=== PATIENT | female | born 1960 | race African-American/Black ===

== ENCOUNTER 2018-05-18 13:24 | Inpatient (IN) | payer MEDICAID ==
[~2018-05-18] VITALS: Ht 167.6 cm; Wt 63.5 kg
[2018-05-18 13:51] VITALS: BP 107/62
--- NOTE | 2018-05-18 13:58 | Emergency Room Report ---
History of Present Illness General Chief Complaint: Edema Source: Patient, EMS Present Illness HPI Patient presents with right lower leg pain and redness. She's been asking to be started on antibiotics. Burning pain and severe. It doesn't radiate to the hip. C/) some shortness of breath and a history of congestive heart failure. Pain is rated 10/10 bilateral legs, worse on right. No fevers or chills. The patient complains of some shortness of breath. This is more when she is recumbent and also with exertion. She denies any chest pain. There is no nausea vomiting or diarrhea however she complains about constipation and some dysuria. She states she is not on any medication for her heart failure. No headache, depression, bruising, joint pain, back pain. H/O bipolar disorder Allergies: Coded Allergies: CEPHALEXIN (Verified Allergy, Unknown, 05/18/18) CEPHALOSPORINS (Verified Allergy, Unknown, 05/18/18) ERYTHROMYCIN BASE (Verified Allergy, Unknown, 05/18/18) GABAPENTIN (Verified Allergy, Unknown, 05/18/18) Patient History Past Medical History: see triage record Social History: Denies: smoking Social History Narrative [facility] facility Reviewed Nursing Documentation: PMH: Agreed; PSxH: Agreed Review of Systems All Other Systems: negative except mentioned in HPI Physical Exam Vital Signs Date Time Temp Pulse Resp B/P (MAP) Pulse Ox O2 Delivery O2 Flow Rate FiO2 05/18/18 13:41 98.8 82 18 107/62 98 Room Air Sp02 EP Interpretation: reviewed, normal General Appearance: well appearing, no apparent distress, GCS 15 Head: normocephalic Eyes: bilateral eye normal inspection, bilateral eye PERRL ENT: moist mucus membranes Neck: supple Respiratory: lungs clear, normal breath sounds Cardiovascular #1: regular rate, rhythm, edema - bilat, worse R than L Cardiovascular #2: 2+ radial (R), 2+ dorsalis pedis (R), 2+ dorsalis pedis (L) Gastrointestinal: normal inspection, normal bowel sounds, non tender, no mass, non-distended Musculoskeletal: back normal, normal range of motion, Marcelo's Sign negative, swelling, tender - LE bilat Neurologic: alert, oriented x3, grossly normal Psychiatric: mood/affect normal Skin: warm/dry, other - erythema bilat LE worse R Medical Decision Making Diagnostic Impression: Primary Impression: Cellulitis Qualified Codes: L03.115 - Cellulitis of right lower limb Additional Impressions: Edema Qualified Codes: R60.9 - Edema, unspecified UTI (urinary tract infection) Qualified Codes: N39.0 - Urinary tract infection, site not specified ER Course Patient presents with right lower leg pain and edema. I differential includes cellulitis, DVT, exacerbation of CHF amongst others. Clinically this looks like cellulitis. She will be evaluated with blood cultures, EKG, chest x-ray and labs including lactate. She will be started on antibiotics and given medication for pain. With h/o CHF, judicious fluids. EKG without injury. CXR inc cor. Labs with low WBC. Min elevation BNP. CMP with minimally low potassium. Pyuria. Patient improved with analgesia. Needs IV antibiotics and re-evaluation of cellulitis. Based on exam, doubt DVT. Admit med Dr. Kraft. Laboratory Tests Test 05/18/18 14:30 05/18/18 15:30 White Blood Count 2.9 K/UL (4.8-10.8) L Red Blood Count 4.54 M/UL (4.20-5.40) Hemoglobin 12.0 G/DL (12.0-16.0) Hematocrit 37.6 % (37.0-47.0) Mean Corpuscular Volume 83 FL (80-99) Mean Corpuscular Hemoglobin 26.4 PG (27.0-31.0) L Mean Corpuscular Hemoglobin Concent 31.9 G/DL (32.0-36.0) L Red Cell Distribution Width 11.1 % (11.6-14.8) L Platelet Count 252 K/UL (150-450) Mean Platelet Volume 8.2 FL (6.5-10.1) Neutrophils (%) (Auto) % (45.0-75.0) Lymphocytes (%) (Auto) % (20.0-45.0) Monocytes (%) (Auto) % (1.0-10.0) Eosinophils (%) (Auto) % (0.0-3.0) Basophils (%) (Auto) % (0.0-2.0) Differential Total Cells Counted 100 Neutrophils % (Manual) 52 % (45-75) Lymphocytes % (Manual) 21 % (20-45) Monocytes % (Manual) 18 % (1-10) H Eosinophils % (Manual) 9 % (0-3) H Basophils % (Manual) 0 % (0-2) Band Neutrophils 0 % (0-8) Platelet Estimate Adequate Platelet Morphology Normal Microcytosis 1+ Prothrombin Time 10.5 SEC (9.30-11.50) Prothrombin Time INR 1.0 (0.9-1.1) PTT 32 SEC (23-33) Sodium Level 141 MMOL/L (136-145) Potassium Level 3.2 MMOL/L (3.5-5.1) L Chloride Level 104 MMOL/L (98-107) Carbon Dioxide Level 32 MMOL/L (21-32) Anion Gap 5 mmol/L (5-15) Blood Urea Nitrogen 12 mg/dL (7-18) Creatinine 0.7 MG/DL (0.55-1.30) Estimate Glomerular Filtration Rate > 60 mL/min (>60) Glucose Level 104 MG/DL (74-106) Lactic Acid Level 1.30 mmol/L (0.4-2.0) Calcium Level 9.0 MG/DL (8.5-10.1) Magnesium Level 1.9 MG/DL (1.8-2.4) Total Bilirubin 0.5 MG/DL (0.2-1.0) Aspartate Amino Transferase (AST) 29 U/L (15-37) Alanine Aminotransferase (ALT) 29 U/L (12-78) Alkaline Phosphatase 70 U/L (46-116) Total Creatine Kinase 475 U/L (26-308) H Troponin I 0.000 ng/mL (0.000-0.056) Pro-B-Type Natriuretic Peptide 194 pg/mL (0-125) H Total Protein 8.6 G/DL (6.4-8.2) H Albumin 3.2 G/DL (3.4-5.0) L Globulin 5.4 g/dL Albumin/Globulin Ratio 0.6 (1.0-2.7) L Urine Color Brown Urine Appearance Clear Urine pH 6 (4.5-8.0) Urine Specific [place] 1.020 (1.005-1.035) Urine Protein 1+ (NEGATIVE) H Urine Glucose (UA) Negative (NEGATIVE) Urine Ketones Negative (NEGATIVE) Urine Blood Negative (NEGATIVE) Urine Nitrite Negative (NEGATIVE) Urine Bilirubin Negative (NEGATIVE) Urine Urobilinogen 1 MG/DL (0.0-1.0) H Urine Leukocyte Esterase 2+ (NEGATIVE) H Urine RBC 0 /HPF (0 - 2) Urine WBC 5-10 /HPF (0 - 2) H Urine Squamous Epithelial Cells Few /LPF (NONE/OCC) Urine Bacteria Few /HPF (NONE) EKG Diagnostic Results Rate: normal Rhythm: NSR ST Segments: no acute changes Rhythm Strip Diag. Results EP Interpretation: yes Rhythm: NSR, no PVC's, no ectopy Chest X-Ray Diagnostic Results Chest X-Ray Diagnostic Results : Chest X-Ray Ordered: Yes # of Views/Limited/Complete: 1 View Indication: Other EP Interpretation: Yes Interpretation: no consolidation, no effusion, no pneumothorax, other - bullit Impression: Other Electronically Signed by: Electronically signed by Earl Toledo MD Last Vital Signs Date Time Temp Pulse Resp B/P (MAP) Pulse Ox O2 Delivery O2 Flow Rate FiO2 05/19/18 00:01 98.1 80 19 120/70 (87) 98 05/18/18 22:23 Room Air Status: improved Disposition: ADMITTED INPATIENT Condition: Serious Earl Toledo MD May 18, 2018 13:58
[2018-05-18] MEDS ORDERED: Vancomycin 1 GM in NS 275 ML IV ONE (14:00)
[2018-05-18] MEDS ORDERED: Morphine Sulfate 4mg/ml Inj (IV/IM USE ONLY) IVP ONE ×2 (14:00→16:45)
[2018-05-18] MEDS ORDERED: Piperacillin/Tazobactam 3.375 GM in NS 110 ML IVPB ONE (14:00)
[2018-05-18] MEDS ORDERED: BETIMOL5 M2 OP (14:25)
[2018-05-18] MEDS ORDERED: ACETAMINOPHEN325 M1 ORAL (14:25)
[2018-05-18] MEDS ORDERED: LATANOPROST2.5 ML BOTH EYES (14:25)
[2018-05-18] MEDS ORDERED: NORCO 10-325 T1 EACH ORAL (14:25)
[2018-05-18] MEDS ORDERED: VITAMIN B-1100 MG ORAL (14:25)
[2018-05-18] MEDS ORDERED: LYRICA75 M1 ORAL ×2 (14:25→17:53)
[2018-05-18] MEDS ORDERED: BRIMONIDINE TART5 ML BOTH EYES ×2 (14:25→17:53)
[2018-05-18 15:01] LABS: HEMATOCRIT 37.6 % (37.0-47.0); MEAN CORPUSCULAR VOLUME 83 FL (80-99); PLATELET COUNT 252 K/UL (150-450); RED BLOOD COUNT 4.54 M/UL (4.20-5.40); RED CELL DISTRIBUTION WIDTH 11.1 % (11.6-14.8); WHITE BLOOD COUNT 2.9 K/UL (4.8-10.8)
[2018-05-18 15:24] LABS: ANION GAP 5 mmol/L (5-15); BLOOD UREA NITROGEN 12 mg/dL (7-18); CARBON DIOXIDE 32 MMOL/L (21-32); CHLORIDE 104 MMOL/L (98-107); CREATININE 0.7 MG/DL (0.55-1.30); POTASSIUM 3.2 MMOL/L (3.5-5.1); SODIUM 141 MMOL/L (136-145)
[2018-05-18 15:35] LABS: ALANINE AMINOTRANSFERASE 29 U/L (12-78); ALBUMIN 3.2 G/DL (3.4-5.0); ALBUMIN/GLOBULIN RATIO 0.6 (1.0-2.7); ALKALINE PHOSPHATASE 70 U/L (46-116); ASPARTATE AMINO TRANSFERASE 29 U/L (15-37); BILIRUBIN,TOTAL 0.5 MG/DL (0.2-1.0); CREATINE KINASE 475 U/L (26-308)
[2018-05-18 15:40] VITALS: BP 110/70
[2018-05-18 15:52] LABS: APPEARANCE,URINE CLEAR; BILIRUBIN, URINE NEGATIVE (NEGATIVE); COLOR,URINE BROWN; GLUCOSE, URINE (UA) NEGATIVE (NEGATIVE); KETONES,URINE NEGATIVE (NEGATIVE); LEUKOCYTE ESTERASE ,URINE 2+ (NEGATIVE); NITRITE,URINE NEGATIVE (NEGATIVE); PH,URINE 6 (4.5-8.0); PROTEIN,URINE 1+ (NEGATIVE); UROBILINOGEN,URINE 1 MG/DL (0.0-1.0)
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
[2018-05-18] MEDS ORDERED: TIMOPTIC 0.5%1 DROP BOTH EYES (17:53)
[2018-05-18] MEDS ORDERED: FOLIC ACID1 MG ORAL (17:53)
[2018-05-18 18:00] VITALS: BP 103/46
[2018-05-18] MEDS ORDERED: Miralax 17gm pkt ORAL PRN (19:00)
[2018-05-18] MEDS ORDERED: Nitroglycerin Subl 0.4mg tab SL PRN (19:00)
[2018-05-18] MEDS ORDERED: Albuterol/Ipratropium 3ml neb HHN PRN (19:00)
[2018-05-18 20:45] VITALS: BP 99/48
[2018-05-18] MEDS: Heparin 5000 units/ml inj SUBQ SCH ×2 (21:00→22:28)
[2018-05-18 21:56] VITALS: BP 101/48
[2018-05-18 22:24] VITALS: BP 109/78
--- NOTE | 2018-05-18 22:55 | History & Physical ---
History and Physical History & Physicial Last 24 Hour Vital Signs Date Time Temp Pulse Resp B/P (MAP) Pulse Ox O2 Delivery O2 Flow Rate FiO2 05/18/18 22:24 98.5 81 19 109/78 (88) 97 05/18/18 22:09 98.0 102 18 101/48 100 Room Air 05/18/18 21:56 98.0 102 18 101/48 100 Room Air 05/18/18 20:45 97.8 96 16 99/48 98 Room Air 05/18/18 18:00 84 18 103/46 99 Room Air 05/18/18 15:40 97.8 76 20 110/70 99 Room Air 05/18/18 15:27 98.7 05/18/18 15:27 98.7 05/18/18 13:51 98.8 18 107/62 98 Room Air 05/18/18 13:51 82 18 Room Air 05/18/18 13:41 98.8 82 18 107/62 98 Room Air Niall Kraft MD May 18, 2018 22:55
[2018-05-19 00:01] VITALS: BP 120/70
[2018-05-19] MEDS: Morphine Sulfate 2mg/ml Inj IVP PRN ×4 (01:28→20:07)
[2018-05-19] MEDS ORDERED: Vancomycin 1 GM in D5W 275 ML IVPB SCH (02:00)
[2018-05-19 04:00] VITALS: BP 128/75
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
[2018-05-19 08:00] VITALS: BP 94/51
[2018-05-19] MEDS: Heparin 5000 units/ml inj SUBQ SCH ×2 (09:00→20:10)
[2018-05-19] MEDS: Timolol 0.5% Op Soln 2.5ml BOTH EYES SCH ×2 (09:27→18:17)
[2018-05-19] MEDS: Lyrica 75mg cap ORAL SCH ×2 (09:28→18:17)
[2018-05-19 12:00] VITALS: BP 104/63
[2018-05-19 13:07] LABS: HEMATOCRIT 39.3 % (37.0-47.0); HEMOGLOBIN 12.7 G/DL (12.0-16.0); MEAN CORPUSCULAR VOLUME 83 FL (80-99); PLATELET COUNT 268 K/UL (150-450); RED BLOOD COUNT 4.73 M/UL (4.20-5.40); RED CELL DISTRIBUTION WIDTH 11.1 % (11.6-14.8); WHITE BLOOD COUNT 2.4 K/UL (4.8-10.8)
[2018-05-19 13:32] LABS: ALANINE AMINOTRANSFERASE 27 U/L (12-78); ALBUMIN 3.2 G/DL (3.4-5.0); ALBUMIN/GLOBULIN RATIO 0.6 (1.0-2.7); ALKALINE PHOSPHATASE 71 U/L (46-116); ANION GAP 7 mmol/L (5-15); ASPARTATE AMINO TRANSFERASE 39 U/L (15-37); BILIRUBIN,TOTAL 0.5 MG/DL (0.2-1.0); BLOOD UREA NITROGEN 6 mg/dL (7-18); CALCIUM 9.3 MG/DL (8.5-10.1); CARBON DIOXIDE 30 MMOL/L (21-32); CHLORIDE 104 MMOL/L (98-107); CREATININE 0.7 MG/DL (0.55-1.30); POTASSIUM 3.7 MMOL/L (3.5-5.1); SODIUM 141 MMOL/L (136-145)
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
--- NOTE | 2018-05-19 14:48 | Consultation ---
History of Present Illness General Date patient seen: May 19, 2018 Chief Complaint: Edema Present Illness HPI 57 year old female with hx of bipolar disorder, limited mobility, prison resident admitted with CC of pain and swelling in lower extremity. Pt was diagnosed to have cellulitis and admitted for further treatment. Allergies: Coded Allergies: CEPHALEXIN (Verified Allergy, Unknown, 05/18/18) CEPHALOSPORINS (Verified Allergy, Unknown, 05/18/18) ERYTHROMYCIN BASE (Verified Allergy, Unknown, 05/18/18) GABAPENTIN (Verified Allergy, Unknown, 05/18/18) Medication History Scheduled Brimonidine Tartrate* (Alphagan*), 1 DROP BOTH EYES BID, (Reported) Folic Acid* (Folic Acid*), 1 MG ORAL DAILY, (Reported) Latanoprost* (Xalatan*), 1 DROP BOTH EYES BEDTIME, (Reported) Pregabalin* (Lyrica*), 75 MG ORAL BID, (Reported) Thiamine Hcl* (Vitamin B-1*), 100 MG ORAL DAILY, (Reported) Timolol Maleate (Timolol Maleate), 1 DROP BOTH EYES TWICE A DAY, (Reported) Scheduled PRN Acetaminophen* (Acetaminophen 325MG Tablet*), 650 MG ORAL Q4H PRN for For Pain, (Reported) Hydrocodone Bit/Acetaminophen 10-325* ([place] 10-325*), 1 TAB ORAL Q4H PRN for For Pain, (Reported) Patient History Healthcare decision maker Resuscitation status Full Code Advanced Directive on File Yes Past Medical/Surgical History Past Medical/Surgical History: (1) Bipolar disorder (2) Limited mobility in bed Review of Systems All Other Systems: negative except mentioned in HPI Physical Exam General Appearance: cachetic Lines, tubes and drains: peripheral HEENT: normocephalic Respiratory/Chest: chest wall non-tender, lungs clear, normal breath sounds Cardiovascular/Chest: normal peripheral pulses Abdomen: normal bowel sounds Genitourinary/Rectal: normal genital exam Extremities: normal range of motion Skin Exam: normal pigmentation Last 24 Hour Vital Signs Date Time Temp Pulse Resp B/P (MAP) Pulse Ox O2 Delivery O2 Flow Rate FiO2 05/19/18 12:00 98.0 75 20 104/63 (77) 98 05/19/18 11:54 97.9 05/19/18 09:58 97.9 05/19/18 09:00 Room Air 05/19/18 08:00 99.0 96 20 94/51 (65) 96 05/19/18 04:00 97.9 75 18 128/75 (92) 96 05/19/18 00:01 98.1 80 19 120/70 (87) 98 05/18/18 22:24 98.5 81 19 109/78 (88) 97 05/18/18 22:23 Room Air 05/18/18 22:09 98.0 102 18 101/48 100 Room Air 05/18/18 21:56 98.0 102 18 101/48 100 Room Air 05/18/18 20:45 97.8 96 16 99/48 98 Room Air 05/18/18 18:00 84 18 103/46 99 Room Air 05/18/18 15:40 97.8 76 20 110/70 99 Room Air 05/18/18 15:27 98.7 05/18/18 15:27 98.7 Intake and Output 05/18/18 05/19/18 19:00 07:00 Intake Total 293.3 ml 515.0 ml Balance 293.3 ml 515.0 ml Intake Oral 240 ml IV Total 293.3 ml 275.0 ml # Voids 1 2 Laboratory Tests Test 05/18/18 15:30 05/19/18 12:30 Urine Color Brown Urine Appearance Clear Urine pH 6 (4.5-8.0) Urine Specific [place] 1.020 (1.005-1.035) Urine Protein 1+ (NEGATIVE) H Urine Glucose (UA) Negative (NEGATIVE) Urine Ketones Negative (NEGATIVE) Urine Blood Negative (NEGATIVE) Urine Nitrite Negative (NEGATIVE) Urine Bilirubin Negative (NEGATIVE) Urine Urobilinogen 1 MG/DL (0.0-1.0) H Urine Leukocyte Esterase 2+ (NEGATIVE) H Urine RBC 0 /HPF (0 - 2) Urine WBC 5-10 /HPF (0 - 2) H Urine Squamous Epithelial Cells Few /LPF (NONE/OCC) Urine Bacteria Few /HPF (NONE) White Blood Count 2.4 K/UL (4.8-10.8) L Red Blood Count 4.73 M/UL (4.20-5.40) Hemoglobin 12.7 G/DL (12.0-16.0) Hematocrit 39.3 % (37.0-47.0) Mean Corpuscular Volume 83 FL (80-99) Mean Corpuscular Hemoglobin 26.8 PG (27.0-31.0) L Mean Corpuscular Hemoglobin Concent 32.3 G/DL (32.0-36.0) Red Cell Distribution Width 11.1 % (11.6-14.8) L Platelet Count 268 K/UL (150-450) Mean Platelet Volume 7.2 FL (6.5-10.1) Neutrophils (%) (Auto) % (45.0-75.0) Lymphocytes (%) (Auto) % (20.0-45.0) Monocytes (%) (Auto) % (1.0-10.0) Eosinophils (%) (Auto) % (0.0-3.0) Basophils (%) (Auto) % (0.0-2.0) Differential Total Cells Counted 100 Neutrophils % (Manual) 25 % (45-75) L Lymphocytes % (Manual) 29 % (20-45) Monocytes % (Manual) 39 % (1-10) H Eosinophils % (Manual) 6 % (0-3) H Basophils % (Manual) 1 % (0-2) Band Neutrophils 0 % (0-8) Platelet Estimate Adequate Platelet Morphology Normal Red Blood Cell Morphology Normal Sodium Level 141 MMOL/L (136-145) Potassium Level 3.7 MMOL/L (3.5-5.1) Chloride Level 104 MMOL/L (98-107) Carbon Dioxide Level 30 MMOL/L (21-32) Anion Gap 7 mmol/L (5-15) Blood Urea Nitrogen 6 mg/dL (7-18) L Creatinine 0.7 MG/DL (0.55-1.30) Estimat Glomerular Filtration Rate > 60 mL/min (>60) Glucose Level 98 MG/DL (74-106) Calcium Level 9.3 MG/DL (8.5-10.1) Total Bilirubin 0.5 MG/DL (0.2-1.0) Aspartate Amino Transf (AST/SGOT) 39 U/L (15-37) H Alanine Aminotransferase (ALT/SGPT) 27 U/L (12-78) Alkaline Phosphatase 71 U/L (46-116) Total Protein 8.8 G/DL (6.4-8.2) H Albumin 3.2 G/DL (3.4-5.0) L Globulin 5.6 g/dL Albumin/Globulin Ratio 0.6 (1.0-2.7) L Microbiology Date/Time Source Procedure Growth Status 05/18/18 17:10 Rectum Received Height (Feet): 5 Height (Inches): 6.00 Weight (Pounds): 140 Medications Current Medications Medications (Trade) Dose Ordered Sig/Mejia Route PRN Reason Start Time Stop Time Status Last Admin Dose Admin Acetaminophen (Tylenol) 650 mg Q4H PRN ORAL fever (temp>100.5F) 05/18/18 19:00 06/17/18 18:59 Albuterol/ Ipratropium (Albuterol/ Ipratropium) 3 ml Q4H PRN HHN Shortness of Breath 05/18/18 19:00 05/23/18 18:59 Dextrose (Dextrose 50%) 25 ml Q30M PRN IV Hypoglycemia 05/18/18 19:00 06/17/18 18:55 Dextrose (Dextrose 50%) 50 ml Q30M PRN IV hypoglycemia 05/18/18 19:00 06/17/18 18:59 Folic Acid (Folate) 1 mg DAILY ORAL 05/19/18 09:00 06/18/18 08:59 05/19/18 09:28 Heparin Sodium (Porcine) (Heparin 5000 units/ml) 5,000 units EVERY 12 HOURS SUBQ 05/18/18 21:00 06/17/18 20:59 Morphine Sulfate (Morphine Sulfate) 2 mg Q4H PRN IVP Moderate Pain (Pain Scale 4-6) 05/18/18 19:00 05/25/18 18:59 05/19/18 11:24 Nitroglycerin (Ntg) 0.4 mg Q5M PRN SL Prn Chest Pain 05/18/18 19:00 06/17/18 18:59 Ondansetron HCl (Zofran) 4 mg Q6H PRN IVP Nausea & Vomiting 05/18/18 19:00 06/17/18 18:59 Polyethylene Glycol (Miralax) 17 gm DAILYPRN PRN ORAL Constipation 05/18/18 19:00 06/17/18 18:59 Pregabalin (Lyrica) 75 mg BID ORAL 05/19/18 09:00 06/18/18 08:59 05/19/18 09:28 Temazepam (Restoril) 15 mg HSPRN PRN ORAL Insomnia 05/18/18 19:00 05/25/18 18:59 Timolol Maleate (Timoptic 0.5% Op Soln) 1 drop TWICE A DAY BOTH EYES 05/19/18 09:00 06/18/18 08:59 05/19/18 09:27 Vancomycin HCl (Vanco rx to dose) 1 ea DAILY PRN MISC per pharmacy 05/19/18 07:00 06/18/18 06:59 Vancomycin HCl 500 mg/Dextrose 110 ml @ 110 mls/hr Q12H IVPB 05/19/18 17:00 05/24/18 16:59 Assessment/Plan Problem List: (1) Cellulitis ICD Codes: L03.90 - Cellulitis, unspecified SNOMED: 216799370 Qualifiers: Qualified Codes: L03.115 - Cellulitis of right lower limb (2) Limited mobility in bed SNOMED: 545520757 (3) Bipolar disorder ICD Codes: F31.9 - Bipolar disorder, unspecified SNOMED: 66996838 (4) UTI (urinary tract infection) ICD Codes: N39.0 - Urinary tract infection, site not specified SNOMED: 05006608, 472377007 Qualifiers: Qualified Codes: N39.0 - Urinary tract infection, site not specified Assessment/Plan iv abx check cultures ID to see psych evaluation check electrolytes Christine Wallis MD May 19, 2018 14:48
--- NOTE | 2018-05-19 15:49 | Internal Med Progress Note ---
Subjective Physician Name Niall Kraft Attending Physician Niall Kraft MD Current Medications Medications (Trade) Dose Ordered Sig/Mejia Route PRN Reason Start Time Stop Time Status Last Admin Dose Admin Acetaminophen (Tylenol) 650 mg Q4H PRN ORAL fever (temp>100.5F) 05/18/18 19:00 06/17/18 18:59 Albuterol/ Ipratropium (Albuterol/ Ipratropium) 3 ml Q4H PRN HHN Shortness of Breath 05/18/18 19:00 05/23/18 18:59 Dextrose (Dextrose 50%) 25 ml Q30M PRN IV Hypoglycemia 05/18/18 19:00 06/17/18 18:55 Dextrose (Dextrose 50%) 50 ml Q30M PRN IV hypoglycemia 05/18/18 19:00 06/17/18 18:59 Folic Acid (Folate) 1 mg DAILY ORAL 05/19/18 09:00 06/18/18 08:59 05/19/18 09:28 Heparin Sodium (Porcine) (Heparin 5000 units/ml) 5,000 units EVERY 12 HOURS SUBQ 05/18/18 21:00 06/17/18 20:59 Morphine Sulfate (Morphine Sulfate) 2 mg Q4H PRN IVP Moderate Pain (Pain Scale 4-6) 05/18/18 19:00 05/25/18 18:59 05/19/18 11:24 Nitroglycerin (Ntg) 0.4 mg Q5M PRN SL Prn Chest Pain 05/18/18 19:00 06/17/18 18:59 Ondansetron HCl (Zofran) 4 mg Q6H PRN IVP Nausea & Vomiting 05/18/18 19:00 06/17/18 18:59 Polyethylene Glycol (Miralax) 17 gm DAILYPRN PRN ORAL Constipation 05/18/18 19:00 06/17/18 18:59 Pregabalin (Lyrica) 75 mg BID ORAL 05/19/18 09:00 06/18/18 08:59 05/19/18 09:28 Temazepam (Restoril) 15 mg HSPRN PRN ORAL Insomnia 05/18/18 19:00 05/25/18 18:59 Timolol Maleate (Timoptic 0.5% Op Soln) 1 drop TWICE A DAY BOTH EYES 05/19/18 09:00 06/18/18 08:59 05/19/18 09:27 Vancomycin HCl (Vanco rx to dose) 1 ea DAILY PRN MISC per pharmacy 05/19/18 07:00 06/18/18 06:59 Vancomycin HCl 500 mg/Dextrose 110 ml @ 110 mls/hr Q12H IVPB 05/19/18 17:00 05/24/18 16:59 Allergies: Coded Allergies: CEPHALEXIN (Verified Allergy, Unknown, 05/18/18) CEPHALOSPORINS (Verified Allergy, Unknown, 05/18/18) ERYTHROMYCIN BASE (Verified Allergy, Unknown, 05/18/18) GABAPENTIN (Verified Allergy, Unknown, 05/18/18) Subjective awake, more alert, responsive, C/O lower body pain. Objective Last Vital Signs Date Time Temp Pulse Resp B/P (MAP) Pulse Ox O2 Delivery O2 Flow Rate FiO2 05/19/18 12:00 98.0 75 20 104/63 (77) 98 05/19/18 09:00 Room Air Laboratory Tests Test 05/19/18 12:30 White Blood Count 2.4 K/UL (4.8-10.8) L Red Blood Count 4.73 M/UL (4.20-5.40) Hemoglobin 12.7 G/DL (12.0-16.0) Hematocrit 39.3 % (37.0-47.0) Mean Corpuscular Volume 83 FL (80-99) Mean Corpuscular Hemoglobin 26.8 PG (27.0-31.0) L Mean Corpuscular Hemoglobin Concent 32.3 G/DL (32.0-36.0) Red Cell Distribution Width 11.1 % (11.6-14.8) L Platelet Count 268 K/UL (150-450) Mean Platelet Volume 7.2 FL (6.5-10.1) Neutrophils (%) (Auto) % (45.0-75.0) Lymphocytes (%) (Auto) % (20.0-45.0) Monocytes (%) (Auto) % (1.0-10.0) Eosinophils (%) (Auto) % (0.0-3.0) Basophils (%) (Auto) % (0.0-2.0) Differential Total Cells Counted 100 Neutrophils % (Manual) 25 % (45-75) L Lymphocytes % (Manual) 29 % (20-45) Monocytes % (Manual) 39 % (1-10) H Eosinophils % (Manual) 6 % (0-3) H Basophils % (Manual) 1 % (0-2) Band Neutrophils 0 % (0-8) Platelet Estimate Adequate Platelet Morphology Normal Red Blood Cell Morphology Normal Sodium Level 141 MMOL/L (136-145) Potassium Level 3.7 MMOL/L (3.5-5.1) Chloride Level 104 MMOL/L (98-107) Carbon Dioxide Level 30 MMOL/L (21-32) Anion Gap 7 mmol/L (5-15) Blood Urea Nitrogen 6 mg/dL (7-18) L Creatinine 0.7 MG/DL (0.55-1.30) Estimat Glomerular Filtration Rate > 60 mL/min (>60) Glucose Level 98 MG/DL (74-106) Calcium Level 9.3 MG/DL (8.5-10.1) Total Bilirubin 0.5 MG/DL (0.2-1.0) Aspartate Amino Transf (AST/SGOT) 39 U/L (15-37) H Alanine Aminotransferase (ALT/SGPT) 27 U/L (12-78) Alkaline Phosphatase 71 U/L (46-116) Total Protein 8.8 G/DL (6.4-8.2) H Albumin 3.2 G/DL (3.4-5.0) L Globulin 5.6 g/dL Albumin/Globulin Ratio 0.6 (1.0-2.7) L Microbiology Date/Time Source Procedure Growth Status 05/18/18 17:10 Rectum Received Intake and Output 05/18/18 05/19/18 19:00 07:00 Intake Total 293.3 ml 515.0 ml Balance 293.3 ml 515.0 ml Intake Oral 240 ml IV Total 293.3 ml 275.0 ml # Voids 1 2 Objective GENERAL: The patient is alert and oriented, but very forgetful. HEAD AND NECK: Pupils are reactive to light. Anicteric. NECK: Supple. No JVD. LUNGS: Good air entry. fair inspiratory effort. No wheeze or rhonchi. HEART: S1 and S2. Distant heart sounds. No murmur or gallops. ABDOMEN: Soft, nondistended, and nontender. Positive bowel sounds. EXTREMITIES: No cyanosis or clubbing. Contracted and weakness of bilateral lower extremities. Bilateral lower extremity, less edema, right worse than left and erythema was noted in the bilateral lower extremity, right greater than left. RECTAL: Refused and deferred. GENITOURINARY: Refused and deferred. Assessment/Plan Assessment/Plan ASSESSMENT: 1. Bilateral lower extremity cellulitis. 2. History of bipolar disorder. 3. Neuralgia with neuritis. PLAN: 1. In medical floor. 2. Broad-spectrum antibiotic with vancomycin. 3. The patient had a cephalosporin allergy. 4. Code status: DNR 5. heparin for DVT prophylaxis. 6. Follow up with Dr. Wallis consultation and Psychiatry consultation with Niall Frankel MD May 19, 2018 15:49
[2018-05-19 15:59] VITALS: BP 109/65
--- NOTE | 2018-05-19 16:09 | Cardiology Report ---
APPROVED REPORT EKG Measurement Heart [id number] [id number] Normal sinus rhythm Nonspecific ST and T wave abnormality Abnormal ECG
[2018-05-19] MEDS: Vancomycin 500mg/D5W 110ml IVPB SCH ×2 (17:47)
[2018-05-19 20:00] VITALS: BP 104/64
--- NOTE | 2018-05-20 01:04 | Consultation ---
History of Present Illness General Chief Complaint: Edema Present Illness HPI 7-year-old female with past medical history of bipolar d/ofailure to thrive, anemia, restlessness, agitation, neuralgia, bipolar disorder, and mood disorder, who was presented to hospital from [facility] the pt is agitated and has impairment of cognition. the pt refuses meds and care at times. the pt has poor insight. Allergies: Coded Allergies: CEPHALEXIN (Verified Allergy, Unknown, 05/18/18) CEPHALOSPORINS (Verified Allergy, Unknown, 05/18/18) ERYTHROMYCIN BASE (Verified Allergy, Unknown, 05/18/18) GABAPENTIN (Verified Allergy, Unknown, 05/18/18) Medication History Scheduled Brimonidine Tartrate* (Alphagan*), 1 DROP BOTH EYES BID, (Reported) Folic Acid* (Folic Acid*), 1 MG ORAL DAILY, (Reported) Latanoprost* (Xalatan*), 1 DROP BOTH EYES BEDTIME, (Reported) Pregabalin* (Lyrica*), 75 MG ORAL BID, (Reported) Thiamine Hcl* (Vitamin B-1*), 100 MG ORAL DAILY, (Reported) Timolol Maleate (Timolol Maleate), 1 DROP BOTH EYES TWICE A DAY, (Reported) Scheduled PRN Acetaminophen* (Acetaminophen 325MG Tablet*), 650 MG ORAL Q4H PRN for For Pain, (Reported) Hydrocodone Bit/Acetaminophen 10-325* ([place] 10-325*), 1 TAB ORAL Q4H PRN for For Pain, (Reported) Patient History Limited by: medical condition History Provided By: Patient, Medical Record Healthcare decision maker Resuscitation status Full Code Advanced Directive on File Yes Past Medical/Surgical History Past Medical/Surgical History: (1) Edema (2) UTI (urinary tract infection) (3) Bipolar disorder (4) Limited mobility in bed (5) Cellulitis Review of Systems Psychiatric: Reports: prior hx, anxiety, depressed feelings, emotional problems Physical Exam General Appearance: alert, agitated Neurologic: oriented x 3, responsive, depressed affect Last 24 Hour Vital Signs Date Time Temp Pulse Resp B/P (MAP) Pulse Ox O2 Delivery O2 Flow Rate FiO2 05/19/18 20:37 98.1 05/19/18 20:00 78 18 Room Air 21 05/19/18 20:00 Room Air 05/19/18 20:00 97.4 79 20 104/64 (77) 100 05/19/18 18:47 98.1 05/19/18 15:59 98.1 78 20 109/65 (80) 100 05/19/18 12:00 98.0 75 20 104/63 (77) 98 05/19/18 09:00 Room Air 05/19/18 08:00 99.0 96 20 94/51 (65) 96 05/19/18 04:00 97.9 75 18 128/75 (92) 96 Intake and Output 05/19/18 05/20/18 19:00 07:00 Intake Total 1085 ml Balance 1085 ml Intake Oral 1085 ml # Voids 3 Laboratory Tests Test 05/19/18 12:30 White Blood Count 2.4 K/UL (4.8-10.8) L Red Blood Count 4.73 M/UL (4.20-5.40) Hemoglobin 12.7 G/DL (12.0-16.0) Hematocrit 39.3 % (37.0-47.0) Mean Corpuscular Volume 83 FL (80-99) Mean Corpuscular Hemoglobin 26.8 PG (27.0-31.0) L Mean Corpuscular Hemoglobin Concent 32.3 G/DL (32.0-36.0) Red Cell Distribution Width 11.1 % (11.6-14.8) L Platelet Count 268 K/UL (150-450) Mean Platelet Volume 7.2 FL (6.5-10.1) Neutrophils (%) (Auto) % (45.0-75.0) Lymphocytes (%) (Auto) % (20.0-45.0) Monocytes (%) (Auto) % (1.0-10.0) Eosinophils (%) (Auto) % (0.0-3.0) Basophils (%) (Auto) % (0.0-2.0) Differential Total Cells Counted 100 Neutrophils % (Manual) 25 % (45-75) L Lymphocytes % (Manual) 29 % (20-45) Monocytes % (Manual) 39 % (1-10) H Eosinophils % (Manual) 6 % (0-3) H Basophils % (Manual) 1 % (0-2) Band Neutrophils 0 % (0-8) Platelet Estimate Adequate Platelet Morphology Normal Red Blood Cell Morphology Normal Sodium Level 141 MMOL/L (136-145) Potassium Level 3.7 MMOL/L (3.5-5.1) Chloride Level 104 MMOL/L (98-107) Carbon Dioxide Level 30 MMOL/L (21-32) Anion Gap 7 mmol/L (5-15) Blood Urea Nitrogen 6 mg/dL (7-18) L Creatinine 0.7 MG/DL (0.55-1.30) Estimat Glomerular Filtration Rate > 60 mL/min (>60) Glucose Level 98 MG/DL (74-106) Calcium Level 9.3 MG/DL (8.5-10.1) Total Bilirubin 0.5 MG/DL (0.2-1.0) Aspartate Amino Transf (AST/SGOT) 39 U/L (15-37) H Alanine Aminotransferase (ALT/SGPT) 27 U/L (12-78) Alkaline Phosphatase 71 U/L (46-116) Total Protein 8.8 G/DL (6.4-8.2) H Albumin 3.2 G/DL (3.4-5.0) L Globulin 5.6 g/dL Albumin/Globulin Ratio 0.6 (1.0-2.7) L Height (Feet): 5 Height (Inches): 6.00 Weight (Pounds): 140 Medications Current Medications Medications (Trade) Dose Ordered Sig/Mejia Route PRN Reason Start Time Stop Time Status Last Admin Dose Admin Acetaminophen (Tylenol) 650 mg Q4H PRN ORAL fever (temp>100.5F) 05/18/18 19:00 06/17/18 18:59 Albuterol/ Ipratropium (Albuterol/ Ipratropium) 3 ml Q4H PRN HHN Shortness of Breath 05/18/18 19:00 05/23/18 18:59 Dextrose (Dextrose 50%) 25 ml Q30M PRN IV Hypoglycemia 05/18/18 19:00 06/17/18 18:55 Dextrose (Dextrose 50%) 50 ml Q30M PRN IV hypoglycemia 05/18/18 19:00 06/17/18 18:59 Folic Acid (Folate) 1 mg DAILY ORAL 05/19/18 09:00 06/18/18 08:59 05/19/18 09:28 Heparin Sodium (Porcine) (Heparin 5000 units/ml) 5,000 units EVERY 12 HOURS SUBQ 05/18/18 21:00 06/17/18 20:59 Morphine Sulfate (Morphine Sulfate) 2 mg Q4H PRN IVP moderate pain (4-6) 05/19/18 20:30 05/26/18 20:14 Nitroglycerin (Ntg) 0.4 mg Q5M PRN SL Prn Chest Pain 05/18/18 19:00 06/17/18 18:59 Ondansetron HCl (Zofran) 4 mg Q6H PRN IVP Nausea & Vomiting 05/18/18 19:00 06/17/18 18:59 Polyethylene Glycol (Miralax) 17 gm DAILYPRN PRN ORAL Constipation 05/18/18 19:00 06/17/18 18:59 Pregabalin (Lyrica) 75 mg BID ORAL 05/19/18 09:00 06/18/18 08:59 05/19/18 18:17 Temazepam (Restoril) 15 mg HSPRN PRN ORAL Insomnia 05/18/18 19:00 05/25/18 18:59 Timolol Maleate (Timoptic 0.5% Op Soln) 1 drop TWICE A DAY BOTH EYES 05/19/18 09:00 06/18/18 08:59 05/19/18 18:17 Vancomycin HCl (Vanco rx to dose) 1 ea DAILY PRN MISC per pharmacy 05/19/18 07:00 06/18/18 06:59 Vancomycin HCl 500 mg/Dextrose 110 ml @ 110 mls/hr Q12H IVPB 05/19/18 17:00 05/24/18 16:59 05/19/18 17:47 Assessment/Plan Problem List: (1) Bipolar disorder ICD Codes: F31.9 - Bipolar disorder, unspecified SNOMED: [id number] Status: unchanged Assessment/Plan seroquel prn ativan Jake Porter MD May 20, 2018 01:04
[2018-05-20] MEDS ORDERED: LORazepam 1mg tab ORAL PRN (01:15)
[2018-05-20 01:59] VITALS: BP 109/81
[2018-05-20] MEDS: Morphine Sulfate 4mg/ml Inj (IV/IM USE ONLY) IVP PRN ×6 (02:01→22:13)
[2018-05-20] MEDS: Vancomycin 500mg/D5W 110ml IVPB SCH ×2 (05:31)
[2018-05-20 06:08] VITALS: BP 105/56
[2018-05-20 08:00] VITALS: BP 89/56
[2018-05-20] MEDS: Heparin 5000 units/ml inj SUBQ SCH ×2 (08:20→21:00)
[2018-05-20] MEDS: Lyrica 75mg cap ORAL SCH ×3 (08:20→17:21)
[2018-05-20] MEDS: Timolol 0.5% Op Soln 2.5ml BOTH EYES SCH ×2 (08:20→17:10)
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
[2018-05-20 12:00] VITALS: BP 88/53
--- NOTE | 2018-05-20 14:30 | Internal Med Progress Note ---
Subjective Physician Name Niall Kraft Attending Physician Niall Kraft MD Current Medications Medications (Trade) Dose Ordered Sig/Mejia Route PRN Reason Start Time Stop Time Status Last Admin Dose Admin Acetaminophen (Tylenol) 650 mg Q4H PRN ORAL fever (temp>100.5F) 05/18/18 19:00 06/17/18 18:59 Albuterol/ Ipratropium (Albuterol/ Ipratropium) 3 ml Q4H PRN HHN Shortness of Breath 05/18/18 19:00 05/23/18 18:59 Dextrose (Dextrose 50%) 25 ml Q30M PRN IV Hypoglycemia 05/18/18 19:00 06/17/18 18:55 Dextrose (Dextrose 50%) 50 ml Q30M PRN IV hypoglycemia 05/18/18 19:00 06/17/18 18:59 Folic Acid (Folate) 1 mg DAILY ORAL 05/19/18 09:00 06/18/18 08:59 05/20/18 08:19 Heparin Sodium (Porcine) (Heparin 5000 units/ml) 5,000 units EVERY 12 HOURS SUBQ 05/18/18 21:00 06/17/18 20:59 Lorazepam (Ativan) 2 mg Q6H PRN ORAL For Anxiety 05/20/18 01:15 05/27/18 01:14 Morphine Sulfate (Morphine Sulfate) 2 mg Q4H PRN IVP moderate pain (4-6) 05/19/18 20:30 05/26/18 20:14 05/20/18 14:02 Nitroglycerin (Ntg) 0.4 mg Q5M PRN SL Prn Chest Pain 05/18/18 19:00 06/17/18 18:59 Ondansetron HCl (Zofran) 4 mg Q6H PRN IVP Nausea & Vomiting 05/18/18 19:00 06/17/18 18:59 Polyethylene Glycol (Miralax) 17 gm DAILYPRN PRN ORAL Constipation 05/18/18 19:00 06/17/18 18:59 Pregabalin (Lyrica) 75 mg BID ORAL 05/19/18 09:00 06/18/18 08:59 05/20/18 08:20 Quetiapine Fumarate (SEROquel) 25 mg Q6H PRN ORAL agitation 05/20/18 01:15 06/19/18 01:14 Temazepam (Restoril) 15 mg HSPRN PRN ORAL Insomnia 05/18/18 19:00 05/25/18 18:59 Timolol Maleate (Timoptic 0.5% Op Soln) 1 drop TWICE A DAY BOTH EYES 05/19/18 09:00 06/18/18 08:59 05/20/18 08:20 Vancomycin HCl (Vanco rx to dose) 1 ea DAILY PRN MISC per pharmacy 05/19/18 07:00 06/18/18 06:59 Vancomycin HCl 500 mg/Dextrose 110 ml @ 110 mls/hr Q12H IVPB 05/19/18 17:00 05/24/18 16:59 05/20/18 05:31 Allergies: Coded Allergies: CEPHALEXIN (Verified Allergy, Unknown, 05/18/18) CEPHALOSPORINS (Verified Allergy, Unknown, 05/18/18) ERYTHROMYCIN BASE (Verified Allergy, Unknown, 05/18/18) GABAPENTIN (Verified Allergy, Unknown, 05/18/18) Subjective awake, more alert, responsive, C/O less lower body pain. Objective Last Vital Signs Date Time Temp Pulse Resp B/P (MAP) Pulse Ox O2 Delivery O2 Flow Rate FiO2 05/20/18 12:00 98.8 80 16 88/53 (65) 99 05/20/18 09:37 Room Air 21 Microbiology Date/Time Source Procedure Growth Status 05/18/18 14:50 Blood Blood Culture - Preliminary NO GROWTH AFTER 24 HOURS Resulted 05/18/18 14:30 Blood Blood Culture - Preliminary NO GROWTH AFTER 24 HOURS Resulted 05/18/18 17:10 Rectum Received Intake and Output 05/19/18 05/20/18 19:00 07:00 Intake Total 1085 ml Balance 1085 ml Intake Oral 1085 ml # Voids 5 Objective GENERAL: Alert and oriented X 3 HEAD AND NECK: Pupils are reactive to light. Anicteric. NECK: Supple. No JVD. LUNGS: Good air entry. fair inspiratory effort. No wheeze or rhonchi. HEART: S1 and S2. Distant heart sounds. No murmur or gallops. ABDOMEN: Soft, nondistended, and nontender. Positive bowel sounds. EXTREMITIES: No cyanosis or clubbing. Contracted and weakness of bilateral lower extremities. Bilateral lower extremity, less edema, right worse than left and less erythema was noted in the bilateral lower extremity, right greater than left. RECTAL: Refused and deferred. GENITOURINARY: Refused and deferred. Assessment/Plan Assessment/Plan ASSESSMENT: 1. Bilateral lower extremity cellulitis. 2. History of bipolar disorder. 3. Neuralgia with neuritis. PLAN: 1. In medical floor. 2. Broad-spectrum antibiotic with vancomycin. 3. The patient had a cephalosporin allergy. 4. Code status: DNR 5. heparin for DVT prophylaxis. 6. Follow up with Dr. Wallis consultation and Psychiatry consultation with Dr. Mcintyre 7. DC to SNF in . Niall Kraft MD May 20, 2018 14:30
[2018-05-20 16:00] VITALS: BP 101/64
[2018-05-20] MEDS: Bactrim-DS 1 tab ORAL SCH (17:10)
[2018-05-20 20:00] VITALS: BP 114/66
[2018-05-21] VITALS: BP 107/64
[2018-05-21] MEDS: Morphine Sulfate 4mg/ml Inj (IV/IM USE ONLY) IVP PRN ×3 (02:30→11:53)
[2018-05-21 04:00] VITALS: BP 105/68
[2018-05-21 08:00] VITALS: BP 153/59
[2018-05-21 08:50] LABS: HEMOGLOBIN 12.2 G/DL (12.0-16.0); MEAN CORPUSCULAR VOLUME 83 FL (80-99); PLATELET COUNT 282 K/UL (150-450); RED CELL DISTRIBUTION WIDTH 11.5 % (11.6-14.8); WHITE BLOOD COUNT 2.9 K/UL (4.8-10.8)
[2018-05-21] MEDS: Bactrim-DS 1 tab ORAL SCH (08:54)
[2018-05-21] MEDS: Lyrica 75mg cap ORAL SCH ×2 (08:54→18:10)
[2018-05-21] MEDS: Timolol 0.5% Op Soln 2.5ml BOTH EYES SCH ×2 (08:55→18:09)
[2018-05-21] MEDS: Heparin 5000 units/ml inj SUBQ SCH ×2 (08:55→09:00)
[2018-05-21 09:16] LABS: ALANINE AMINOTRANSFERASE 25 U/L (12-78); ALBUMIN/GLOBULIN RATIO 0.6 (1.0-2.7); ALKALINE PHOSPHATASE 66 U/L (46-116); ANION GAP 5 mmol/L (5-15); ASPARTATE AMINO TRANSFERASE 27 U/L (15-37); BILIRUBIN,TOTAL 0.4 MG/DL (0.2-1.0); BLOOD UREA NITROGEN 8 mg/dL (7-18); CALCIUM 8.9 MG/DL (8.5-10.1); CARBON DIOXIDE 31 MMOL/L (21-32); CHLORIDE 105 MMOL/L (98-107); CREATININE 0.8 MG/DL (0.55-1.30); PHOSPHORUS 3.3 MG/DL (2.5-4.9); POTASSIUM 3.6 MMOL/L (3.5-5.1); SODIUM 141 MMOL/L (136-145)
[2018-05-21 11:46] VITALS: BP 140/62
[2018-05-21] MEDS ORDERED: BACTRIM-DS1 EA ORAL (12:58)
--- NOTE | 2018-05-21 12:59 | Internal Med Progress Note ---
Subjective Physician Name Niall Kraft Attending Physician Niall Kraft MD Current Medications Medications (Trade) Dose Ordered Sig/Mejia Route PRN Reason Start Time Stop Time Status Last Admin Dose Admin Acetaminophen (Tylenol) 650 mg Q4H PRN ORAL fever (temp>100.5F) 05/18/18 19:00 06/17/18 18:59 Albuterol/ Ipratropium (Albuterol/ Ipratropium) 3 ml Q4H PRN HHN Shortness of Breath 05/18/18 19:00 05/23/18 18:59 Dextrose (Dextrose 50%) 25 ml Q30M PRN IV Hypoglycemia 05/18/18 19:00 06/17/18 18:55 Dextrose (Dextrose 50%) 50 ml Q30M PRN IV hypoglycemia 05/18/18 19:00 06/17/18 18:59 Folic Acid (Folate) 1 mg DAILY ORAL 05/19/18 09:00 06/18/18 08:59 05/20/18 08:19 Heparin Sodium (Porcine) (Heparin 5000 units/ml) 5,000 units EVERY 12 HOURS SUBQ 05/18/18 21:00 06/17/18 20:59 Lorazepam (Ativan) 2 mg Q6H PRN ORAL For Anxiety 05/20/18 01:15 05/27/18 01:14 Morphine Sulfate (Morphine Sulfate) 2 mg Q4H PRN IVP moderate pain (4-6) 05/19/18 20:30 05/26/18 20:14 05/21/18 11:53 Nitroglycerin (Ntg) 0.4 mg Q5M PRN SL Prn Chest Pain 05/18/18 19:00 06/17/18 18:59 Ondansetron HCl (Zofran) 4 mg Q6H PRN IVP Nausea & Vomiting 05/18/18 19:00 06/17/18 18:59 Polyethylene Glycol (Miralax) 17 gm DAILYPRN PRN ORAL Constipation 05/18/18 19:00 06/17/18 18:59 Pregabalin (Lyrica) 75 mg BID ORAL 05/19/18 09:00 06/18/18 08:59 05/21/18 08:54 Quetiapine Fumarate (SEROquel) 25 mg Q6H PRN ORAL agitation 05/20/18 01:15 06/19/18 01:14 Temazepam (Restoril) 15 mg HSPRN PRN ORAL Insomnia 05/18/18 19:00 05/25/18 18:59 Timolol Maleate (Timoptic 0.5% Op Soln) 1 drop TWICE A DAY BOTH EYES 05/19/18 09:00 06/18/18 08:59 05/21/18 08:55 Trimethoprim/ Sulfamethoxazole (Bactrim-DS) 1 tab Q12HR ORAL 05/21/18 21:00 05/27/18 09:01 Allergies: Coded Allergies: CEPHALEXIN (Verified Allergy, Unknown, 05/18/18) CEPHALOSPORINS (Verified Allergy, Unknown, 05/18/18) ERYTHROMYCIN BASE (Verified Allergy, Unknown, 05/18/18) GABAPENTIN (Verified Allergy, Unknown, 05/18/18) Subjective awake, more alert, responsive, Feeling good. Objective Last Vital Signs Date Time Temp Pulse Resp B/P (MAP) Pulse Ox O2 Delivery O2 Flow Rate FiO2 05/21/18 11:46 98.8 69 18 140/62 (88) 98 05/21/18 09:55 Room Air 21 Laboratory Tests Test 05/21/18 08:15 White Blood Count 2.9 K/UL (4.8-10.8) L Red Blood Count 4.60 M/UL (4.20-5.40) Hemoglobin 12.2 G/DL (12.0-16.0) Hematocrit 38.0 % (37.0-47.0) Mean Corpuscular Volume 83 FL (80-99) Mean Corpuscular Hemoglobin 26.6 PG (27.0-31.0) L Mean Corpuscular Hemoglobin Concent 32.2 G/DL (32.0-36.0) Red Cell Distribution Width 11.5 % (11.6-14.8) L Platelet Count 282 K/UL (150-450) Mean Platelet Volume 6.7 FL (6.5-10.1) Neutrophils (%) (Auto) % (45.0-75.0) Lymphocytes (%) (Auto) % (20.0-45.0) Monocytes (%) (Auto) % (1.0-10.0) Eosinophils (%) (Auto) % (0.0-3.0) Basophils (%) (Auto) % (0.0-2.0) Differential Total Cells Counted 100 Neutrophils % (Manual) 20 % (45-75) L Lymphocytes % (Manual) 48 % (20-45) H Monocytes % (Manual) 21 % (1-10) H Eosinophils % (Manual) 11 % (0-3) H Basophils % (Manual) 0 % (0-2) Band Neutrophils 0 % (0-8) Platelet Estimate Adequate Platelet Morphology Normal Red Blood Cell Morphology Normal Sodium Level 141 MMOL/L (136-145) Potassium Level 3.6 MMOL/L (3.5-5.1) Chloride Level 105 MMOL/L (98-107) Carbon Dioxide Level 31 MMOL/L (21-32) Anion Gap 5 mmol/L (5-15) Blood Urea Nitrogen 8 mg/dL (7-18) Creatinine 0.8 MG/DL (0.55-1.30) Estimat Glomerular Filtration Rate > 60 mL/min (>60) Glucose Level 86 MG/DL (74-106) Calcium Level 8.9 MG/DL (8.5-10.1) Phosphorus Level 3.3 MG/DL (2.5-4.9) Magnesium Level 1.7 MG/DL (1.8-2.4) L Total Bilirubin 0.4 MG/DL (0.2-1.0) Aspartate Amino Transf (AST/SGOT) 27 U/L (15-37) Alanine Aminotransferase (ALT/SGPT) 25 U/L (12-78) Alkaline Phosphatase 66 U/L (46-116) Total Protein 8.3 G/DL (6.4-8.2) H Albumin 3.0 G/DL (3.4-5.0) L Globulin 5.3 g/dL Albumin/Globulin Ratio 0.6 (1.0-2.7) L Microbiology Date/Time Source Procedure Growth Status 05/18/18 14:50 Blood Blood Culture - Preliminary NO GROWTH AFTER 48 HOURS Resulted 05/18/18 14:30 Blood Blood Culture - Preliminary NO GROWTH AFTER 48 HOURS Resulted 05/18/18 17:10 Nasal Nares MRSA Culture - Final NO METHICILLIN RESISTANT STAPH AUREUS... Complete 05/19/18 17:10 Rectum - Final NO CARBAPENEM-RESISTANT ENTEROBACTERI... Complete 05/18/18 17:10 Rectum VRE Culture - Final Enterococcus Faecalis - Vre Complete Intake and Output 05/20/18 05/21/18 18:59 06:59 Intake Total 1200 ml Balance 1200 ml Other 1200 ml # Voids 2 2 # Bowel Movements 1 Objective GENERAL: Alert and oriented X 3 HEAD AND NECK: Pupils are reactive to light. Anicteric. NECK: Supple. No JVD. LUNGS: Good air entry. fair inspiratory effort. No wheeze or rhonchi. HEART: S1 and S2. Distant heart sounds. No murmur or gallops. ABDOMEN: Soft, nondistended, and nontender. Positive bowel sounds. EXTREMITIES: No cyanosis or clubbing. Contracted and weakness of bilateral lower extremities. Bilateral lower extremity, less edema, right worse than left and less erythema was noted in the bilateral lower extremity, right greater than left. RECTAL: Refused and deferred. GENITOURINARY: Refused and deferred. Assessment/Plan Assessment/Plan ASSESSMENT: 1. Bilateral lower extremity cellulitis. 2. History of bipolar disorder. 3. Neuralgia with neuritis. PLAN: 1. In medical floor. 2. Broad-spectrum antibiotic with vancomycin, switch to Bactrim DS. 3. The patient had a cephalosporin allergy. 4. Code status: DNR 5. heparin for DVT prophylaxis. 6. Follow up with Dr. Wallis consultation and Psychiatry consultation with Dr. Mcintyre 7. DC to [facility] today Niall Kraft MD May 21, 2018 12:59
[2018-05-21] MEDS ORDERED: Norco 5mg/325mg tab ORAL SCH (17:45)
[2018-05-21] MEDS ORDERED: Bactrim-DS 1 tab ORAL SCH (21:00)
--- NOTE | 2018-05-23 09:26 | Discharge Summary ---
Discharge Summary Discharge Summary _ DATE OF ADMISSION: 05/18/2018 DATE OF DISCHARGE: 05/21/2018 DISCHARGED BY: Dr. Kraft REASON FOR ADMISSION: 57 years old female, resident of assisted facility, with past medical history of bipolar disorder, anemia, neuralgia, DNR/DNI status, presented for evaluation due to bilateral lower leg pain, edema and redness. Patient reported severe burning pain without radiation. No fever ,no chills. Upon evaluation vital signs were stable. WBC 2.9. Hemoglobin 12 ,hematocrit 37.6. Potassium 3.2. Stable otherwise electrolytes and renal parameters. Lactic acid 1.3. Troponin negative. EKG revealed normal sinus rhythm, no acute ischemic changes. Pro BNP 194. Urinalysis +1 protein, +2 leukocyte esterase, mild pyuria and few bacteria. Patient admitted with diagnoses of cellulitis bilateral lower extremity, history of bipolar disorder, neuralgia with neuritis. CONSULTANTS: pulmonary Dr. Wallis ID specialist Dr. Romero psychiatrist [facility] COURSE: Patient admitted to medical surgical floor. Patient started on broad-spectrum antibiotics. DVT prophylaxis provided. Infectious disease specialist followed. Patient with evidence of mild leukopenia, but no fever. Blood cultures were negative. Antibiotic regimen changed to oral antibiotic upon discharge to complete the course at the facility. Potassium replaced and remained stable. WBC count without change. Pain management was addressed as needed and pain was controlled. Lyrica was continued. Bowel regimen instituted. Patient seen and evaluated by psychiatrist . Psychiatric medication regimen optimized. Patient clinically improved and was stable for transfer back to assisted facility for continuation of care and oral antibiotics to complete the course. FINAL DIAGNOSES: Bilateral lower extremity cellulitis Bipolar disorder Neuralgia with neuritis Leukopenia Limited mobility in the bed DISCHARGE MEDICATIONS: See Medication Reconciliation list. DISCHARGE INSTRUCTIONS: Patient was discharged to the assisted facility. Follow up with medical doctor at the facility. I have been assigned to dictate discharge summary for this account. I was not involved in the patient's management. Georgette Bacon NP May 23, 2018 09:26
== END 2018-05-21 19:15 | DRG 383 ==
LOC: EDBD 13:24 → EMR 16:24 → 3E 16:30 → EDBEDREQ 16:53 → 3E 05-19 09:02
DX: L03.116 Cellulitis of left lower limb (principal); D64.9 Anemia, unspecified; F31.9 Bipolar disorder, unspecified; L03.115 Cellulitis of right lower limb; M79.2 Neuralgia and neuritis, unspecified; Z88.8 Allergy status to other drugs, medicaments and biological substances; Z88.6 Allergy status to analgesic agent; Z88.1 Allergy status to other antibiotic agents; R62.7 Adult failure to thrive
CPT/HCPCS: 36415; 71045; 80053; 81003; 82550; 83605; 83735; 83880; 84100; 84484; 85007; 85025; 85610; 85730; 87040; 87081; 93005; 93970; 94664; 96365; 96368; 96375; 96376; 99285; J2405

== ENCOUNTER 2018-05-21 22:12 | Inpatient (IN) | payer MEDICAID ==
[~2018-05-21] VITALS: Ht 165.1 cm; Wt 70.4 kg
[~2018-05-21 22:12] MED LIST: ACETAMINOPHEN325 M1 ORAL; BACTRIM-DS1 EA ORAL; BETIMOL5 M2 OP; BRIMONIDINE TART5 ML BOTH EYES; FOLIC ACID1 MG ORAL; LATANOPROST2.5 ML BOTH EYES; LYRICA75 M1 ORAL; NORCO 10-325 T1 EACH ORAL; TIMOPTIC 0.5%1 DROP BOTH EYES; VITAMIN B-1100 MG ORAL
[2018-05-21 22:30] VITALS: BP 107/67
--- NOTE | 2018-05-21 22:30 | NUR ---
ED Nurse Note: Pt was brought in by ambulance due to posible vre. pt was admitted and has been discharge in [facility] earlier. pt has no complaint. pt hooked on monitor and vital signs with in normal limits. pt noted to be hemiphlegic. received a verbal order under ermd to start iv, iv g 18 inserted to right ac with good blood return. blood drawn and sent to lab. will continue to monitor.
--- NOTE | 2018-05-21 23:22 | Emergency Room Report ---
History of Present Illness General Chief Complaint: General Complaint Source: Patient, Medical Record Present Illness HPI Is a 57-year-old female with a history of neuritis and recent admission for bilateral lower extremity cellulitis. She presents with chief complaint of VRE on stool culture. She was admitted here for 3 days and then sent to a snf. Her rectal culture was positive for VRE as part of the screening exam. [facility] could not [facility] her there because of this. Patient was sent back here. She has no complaint. I called the snf but nursing staff so decision was made by supervisor stave cutting. I called the cell phone the for the supervisor stave cutting but no answer. I left a message. No other complaint. Allergies: Coded Allergies: CEPHALEXIN (Verified Allergy, Unknown, 05/18/18) CEPHALOSPORINS (Verified Allergy, Unknown, 05/18/18) ERYTHROMYCIN BASE (Verified Allergy, Unknown, 05/18/18) GABAPENTIN (Verified Allergy, Unknown, 05/18/18) Patient History Past Medical History: see triage record, old chart reviewed Past Surgical History: other Pertinent Family History: none Social History: Denies: smoking Now: No Immunizations: other Reviewed Nursing Documentation: PMH: Agreed; PSxH: Agreed Nursing Documentation-PMH Past Medical History: No History, Except For Hx Cancer: No Hx Gastrointestinal Problems: No History Of Psychiatric Problem: Yes Hx Neurological Problems: Yes Review of Systems Eye: Denies: eye pain, blurred vision ENT: Denies: ear pain, nose congestion, throat swelling Respiratory: Denies: cough, shortness of breath Cardiovascular: Denies: chest pain, palpitations Gastrointestinal: Denies: abdominal pain, diarrhea, nausea, vomiting Musculoskeletal: Denies: back pain, joint pain Skin: Denies: rash Neurological: Denies: headache, numbness Endocrine: Denies: increased thirst, increased urine Hematologic/Lymphatic: Denies: easy bruising All Other Systems: negative except mentioned in HPI Physical Exam Vital Signs Date Time Temp Pulse Resp B/P (MAP) Pulse Ox O2 Delivery O2 Flow Rate FiO2 05/21/18 22:22 97.7 65 16 107/67 97 Room Air vitals re Sp02 EP Interpretation: reviewed, normal General Appearance: well appearing, no apparent distress, alert Head: normocephalic, atraumatic Eyes: bilateral eye PERRL, bilateral eye EOMI ENT: hearing grossly normal, normal pharynx Neck: full range of motion, supple, no meningismus Respiratory: chest non-tender, lungs clear, normal breath sounds Cardiovascular #1: regular rate, rhythm, no murmur Gastrointestinal: normal bowel sounds, non tender, no mass, no organomegaly, no bruit, non-distended Musculoskeletal: back normal, gait/station normal, normal range of motion, other - Lower extremity with mild erythema. 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 This is most likely a colonization since patient has no complaint. Will place patient in observation because I am unable to contact the nursing supervisor stave cutting to discuss this case. I see no need for antibiotics in this patient. I contacted Dr. Kraft for admission. Last Vital Signs Date Time Temp Pulse Resp B/P (MAP) Pulse Ox O2 Delivery O2 Flow Rate FiO2 05/21/18 22:22 97.7 65 16 107/67 97 Room Air Status: unchanged Disposition: PLACE IN OBSERVATION Condition: Stable Addison Desai MD May 21, 2018 23:22
[2018-05-22] VITALS (7 sets, daily range): BP systolic 86–121; BP diastolic 49–67
--- NOTE | 2018-05-22 00:55 | NUR ---
ED Nurse Note: Pt was admitted to hospital. pt was transfered to [facility] via gurney. report given to thompson.
--- NOTE | 2018-05-22 01:00 | NUR ---
NURSE NOTES: Received report from PORSCHE Huang. Patient A&Ox4. On room air. No signs of distress or labored breathing. IV intact, patent, and infusing IV fluids from ER. Belongings checked and accounted. Bed in lowest position with call light in reach. Waiting for MD orders.
--- NOTE | 2018-05-22 06:30 | NUR ---
NURSE NOTES: Called MD twice and texted personal number for admission order with no reply. Charge nurse and live in housekeeper made aware.
--- NOTE | 2018-05-22 06:30 | NUR ---
NURSE NOTES:messages left for Dr Kraft via call service for admit orders.
--- NOTE | 2018-05-22 07:51 | NUR ---
NURSE NOTES: received patient asleep, in bed, no sign of distress. Right AC IV access in place. Bed locked at the lowest position possible, call light within easy reach, siderails up x2. Will continue to monitor patient and follow up with the plan of care.
--- NOTE | 2018-05-22 07:52 | NUR ---
HAND-OFF: Report given to PORSCHE Garces.
[2018-05-22] MEDS: Bactrim-DS 1 tab ORAL SCH ×2 (09:18→21:16)
[2018-05-22] MEDS: Lyrica 75mg cap ORAL SCH ×2 (09:19→21:16)
[2018-05-22] MEDS: Thiamine 100mg tab ORAL SCH (09:19)
[2018-05-22] MEDS: HYDROcodone/Acetamin 10/325 tab ORAL PRN ×4 (09:26→22:56)
[2018-05-22] MEDS: Timolol 0.5% Op Soln 2.5ml BOTH EYES SCH ×2 (11:19→18:56)
[2018-05-22] MEDS: Brimonidine 0.2% Opth Sol BOTH EYES SCH ×2 (11:19→18:56)
--- NOTE | 2018-05-22 14:18 | NUR ---
NURSE NOTES: patient is very anxious and belligerent, non compliant. FOOD SUPERVISORDonald Tamez went to place sheets on her mattress as patient took out the previous one and is over the chux. Patient refused. Patient lift her bed to the highest position, and doesn't allow the nurse to bring the bed down to lowest and safest position. Patient threw a cup full of water to the floor, and yanked the call light cable from the wall. Explained to patient that nurse and CM are doing the most to find her a place, as patient is anxious to leave, knowing she has a discharge order.
--- NOTE | 2018-05-22 15:10 | NUR ---
CASE MANAGEMENT:REVIEW 05/21/18 PATIENT WAS DISCHARGED TO [facility] 05/21/18 AT 1907 VIA AMBULANCE [facility] REFUSED TO ACCEPT PATIENT DUE TO BEING POSITIVE FOR VRE THUS PATIENT WAS RETURNED TO OUR ER ON 05/21/18 @ 3072..DUE TO PLACEMENT SI: CELLULITIS. VRE CARRIER 97.7 65 16 107/67 97% ON RA IS: 500CC NS BOLUS X1 IV ZOFRAN X1 MOTRIN PO X1 TYLENOL PO X1 : TO MED/SURG UNIT [facility]
--- NOTE | 2018-05-22 15:30 | NUR ---
DISCHARGE PLANNING LARD BLEACHER SPOKE WITH CYNTHIA THE HARDBOARD PRESS OPERATOR EARLIER TODAY ABOUT TAKING THIS PATIENT BACK SINCE VRE IS COLONIZED CYNTHIA REQUESTED CLINICALS FROM [facility]IOR TO DISCHARGE BE FAXED TO HER....INFO WAS FAXED PER CYNTHIA SHE WILL CALL AFTER HALEY HAS REVIEWED INFORMATION LARD BLEACHER CALLED BACK AND SPOKE DIRECTLY TO HALEY MCCLELLAN PER [facility] THEY CAN ONLY ACCEPT ONE PATIENT PER DAY WHICH THEY HAVE ALREADY DONE PER [facility] FAX CLINICALS IN AM TO INCLUDE MED LIST AND PSYCH EVAL
--- NOTE | 2018-05-22 15:40 | Consultation ---
History of Present Illness General Date patient seen: May 22, 2018 Chief Complaint: General Complaint Present Illness HPI 57-year-old female with a history of paraplegia presented to ER with chief complaint of VRE on stool culture. She was admitted recently to [facility] for 3 days and then sent to a prison. Her rectal culture was positive for VRE as part of the screening exam. snf said that they could not accommodate her there because of this. Patient was sent back here. She is admitted again to be seen and evaluated by ID specialist. Allergies: Coded Allergies: CEPHALEXIN (Verified Allergy, Unknown, 05/18/18) CEPHALOSPORINS (Verified Allergy, Unknown, 05/18/18) ERYTHROMYCIN BASE (Verified Allergy, Unknown, 05/18/18) GABAPENTIN (Verified Allergy, Unknown, 05/18/18) SHELLFISH DERIVED (Verified Allergy, Unknown, 05/22/18) Medication History Scheduled Brimonidine Tartrate* (Alphagan*), 1 DROP BOTH EYES BID, (Reported) Folic Acid* (Folic Acid*), 1 MG ORAL DAILY, (Reported) Latanoprost* (Xalatan*), 1 DROP BOTH EYES BEDTIME, (Reported) Pregabalin* (Lyrica*), 75 MG ORAL BID, (Reported) Thiamine Hcl* (Vitamin B-1*), 100 MG ORAL DAILY, (Reported) Timolol Maleate (Timolol Maleate), 1 DROP BOTH EYES TWICE A DAY, (Reported) Trimethoprim/Sulfamethoxazole (Bactrim Ds Tablet), 1 TAB ORAL Q12HR Scheduled PRN Acetaminophen* (Acetaminophen 325MG Tablet*), 650 MG ORAL Q4H PRN for For Pain, (Reported) Hydrocodone Bit/Acetaminophen 10-325* ([place] 10-325*), 1 TAB ORAL Q4H PRN for For Pain, (Reported) Patient History Healthcare decision maker Resuscitation status Do Not Resuscitate Advanced Directive on File Past Medical/Surgical History Past Medical/Surgical History: (1) Cellulitis (2) Bipolar disorder (3) Limited mobility in bed (4) VRE carrier Review of Systems All Other Systems: negative except mentioned in HPI Physical Exam General Appearance: WD/WN, no apparent distress Lines, tubes and drains: peripheral HEENT: normocephalic, atraumatic Neck: non-tender, normal alignment Respiratory/Chest: chest wall non-tender, lungs clear Cardiovascular/Chest: normal peripheral pulses, normal rate Genitourinary/Rectal: normal rectal exam Extremities: normal range of motion Neurologic: property utilization officer II-XII grossly normal Last 24 Hour Vital Signs Date Time Temp Pulse Resp B/P (MAP) Pulse Ox O2 Delivery O2 Flow Rate FiO2 05/22/18 12:00 96.8 68 18 93/66 (75) 97 05/22/18 09:56 97.7 05/22/18 09:49 97.7 05/22/18 09:00 Room Air 05/22/18 08:00 97.7 67 18 98/64 (75) 97 05/22/18 06:00 90/58 (69) 05/22/18 04:00 97.8 65 18 86/52 (63) 98 05/22/18 02:08 Room Air 05/22/18 00:55 98.0 77 18 95/69 95 Room Air 05/22/18 00:00 98.2 69 18 102/49 (66) 100 05/21/18 22:30 97.7 65 16 107/67 97 Room Air 05/21/18 22:30 65 16 05/21/18 22:22 97.7 65 16 107/67 97 Room Air Microbiology Date/Time Source Procedure Growth Status 05/22/18 00:26 Rectum Received Height (Feet): 5 Height (Inches): 5.00 Weight (Pounds): 155 Medications Current Medications Medications (Trade) Dose Ordered Sig/Mejia Route PRN Reason Start Time Stop Time Status Last Admin Dose Admin Acetaminophen (Tylenol) 650 mg Q4H PRN ORAL MILD PAIN / T>100.5 05/22/18 07:15 06/21/18 07:14 Acetaminophen/ Hydrocodone Bitart ([place] 10/325) 1 tab Q4H PRN ORAL PAIN 4-10 05/22/18 07:15 05/29/18 07:14 05/22/18 14:17 Brimonidine Tartrate (Alphagan) 1 drop BID BOTH EYES 05/22/18 10:00 06/21/18 09:59 05/22/18 11:19 Folic Acid (Folate) 1 mg DAILY ORAL 05/22/18 09:00 06/21/18 08:59 05/22/18 09:19 Latanoprost (Xalatan) 1 drop BEDTIME BOTH EYES 05/22/18 21:00 06/21/18 20:59 Pregabalin (Lyrica) 75 mg Q12HR ORAL 05/22/18 09:00 06/21/18 08:59 05/22/18 09:19 Thiamine HCl (Vitamin B1) 100 mg DAILY ORAL 05/22/18 09:00 06/21/18 08:59 05/22/18 09:19 Timolol Maleate (Timoptic 0.5% Op Soln) 1 drop TWICE A DAY BOTH EYES 05/22/18 10:00 06/21/18 09:59 05/22/18 11:19 Trimethoprim/ Sulfamethoxazole (Bactrim-DS) 1 tab Q12HR ORAL 05/22/18 09:00 05/29/18 08:59 05/22/18 09:18 Assessment/Plan Problem List: (1) VRE carrier ICD Codes: Z22.39 - Carrier of other specified bacterial diseases SNOMED: 812862912 (2) Cellulitis ICD Codes: L03.90 - Cellulitis, unspecified SNOMED: 707975104 Qualifiers: Qualified Codes: L03.119 - Cellulitis of unspecified part of limb (3) Bipolar disorder ICD Codes: F31.9 - Bipolar disorder, unspecified SNOMED: 20911411 (4) Limited mobility in bed SNOMED: 630733774 Assessment/Plan ID evaluation contact isolation symptomatic treatment dvt prophylaxis Christine Wallis MD May 22, 2018 15:40
--- NOTE | 2018-05-22 19:35 | NUR ---
HAND-OFF: Report given to PORSCHE Corbett.
--- NOTE | 2018-05-22 19:43 | History & Physical ---
History and Physical History & Physicial Dictated for Int Med-Dr Kraft no. [id number]. Sadi Gaviria MD May 22, 2018 19:43
--- NOTE | 2018-05-22 19:45 | NUR ---
NURSE NOTES: Received patient sitting on chair and watching tv. No signs of distress noted. No complain of pain or discomfort at this time. IV line intact. Bed in lowest position and locked. Call light within reach. Will continue to monitor.
[2018-05-22] MEDS: Latanoprost 0.005% Opth 2.5ml Soln BOTH EYES SCH (21:15)
--- NOTE | 2018-05-22 22:30 | NUR ---
NURSE NOTES: Assist patient back to bed. Complaining of pain. Will give pain medication as ordered.
--- NOTE | 2018-05-22 23:00 | History and Physical Report ---
DATE OF ADMISSION: 05/22/2018 CHIEF COMPLAINT: The patient is a 57-year-old female who presents with chief complaint of vancomycin-resistant Enterococcus in the stool. HISTORY OF PRESENT ILLNESS: The patient was admitted to [facility] on 05/18/2018. Please see history and physical and discharge summary dictated at that time. The patient was diagnosed with right lower extremity cellulitis. The patient was discharged to [facility] facility. The patient returned immediately to [facility]. The [facility] facility stated they could not accept the patient with vancomycin-resistant Enterococcus. The patient is admitted vancomycin-resistant Enterococcus and right lower extremity cellulitis. REVIEW OF SYSTEMS: Unable to assess secondary to the patient's mental status. PAST MEDICAL HISTORY: Significant for, 1. Bipolar disorder. 2. Failure to thrive. 3. Anemia. 4. Neuralgia. PAST SURGICAL HISTORY: Unknown. CURRENT MEDICATIONS: 1. Tylenol 650 mg p.o. q.4 h. 2. Alphagan 1 drop to both eyes twice daily. 3. Folic acid 1 mg p.o. daily. 4. [place] 10/325 mg one tablet p.o. p.o. q.4 hours. 5. Xalatan one drop to both eyes at bedtime. 6. Lyrica 75 mg p.o. twice daily. 7. Vitamin B 100 mg p.o. daily. 8. Timolol 1 drop to both eyes twice daily. ALLERGIES: 1. Keflex. 2. Erythromycin. 3. Gabapentin. 4. Fish. SOCIAL HISTORY: The patient is a resident of group home. The patient denies tobacco or alcohol use. PHYSICAL EXAMINATION: VITAL SIGNS: Temperature 97.7, respirations 18, pulse 67, and blood pressure 98/64. GENERAL: The patient is a thin-appearing female, in no apparent distress. HEENT: Eyes - pupils are equal and responsive to light and accommodation. Extraocular movements are intact. NECK: Supple. No lymphadenopathy. CHEST: Lungs are clear to auscultation bilaterally without wheezes or rales. CARDIOVASCULAR: Regular rate. S1 and S2 normal without murmurs, rubs, or gallops. ABDOMEN: Soft, nontender, and nondistended. Positive bowel sounds. No evidence of hepatosplenomegaly. Currently, no rebound or guarding noted. EXTREMITIES: Right lower extremity is erythematous compared to the left, otherwise without clubbing, cyanosis, or edema. RECTAL/GENITAL: Refused. NEUROLOGIC: Cranial nerves II through XII are grossly intact without focal deficits. Motor strength is 5/5 bilaterally. Deep tendon reflexes are 2+ plantar. LABORATORY STUDIES: WBC is pending. ASSESSMENT: This is a 57-year-old female with, 1. Vancomycin-resistant Enterococcus of the stool. 2. Cellulitis of the right lower extremity. 3. Bipolar depression. 4. Glaucoma. TREATMENT: 1. Vancomycin-resistant Enterococcus of the stool. An Infectious Disease consultation has been obtained with Dr. Romero. The patient has been started empirically on Bactrim double strength. We will follow recommendations of Infectious Disease. 2. Cellulitis lower extremity. As above, an Infectious Disease consultation has been obtained with Dr. Romero. The patient is currently on Bactrim double strength. 3. Bipolar depression. A psychiatric consultation has been obtained with Dr. Mcintyre. 4. Glaucoma. Continue eye drops as above. Sadi Gaviria M.D. DR: KEREN JOB#: [id number] CC:
[2018-05-23] VITALS: BP 95/52
[2018-05-23 04:00] VITALS: BP 100/59
[2018-05-23] MEDS: HYDROcodone/Acetamin 10/325 tab ORAL PRN ×4 (04:34→21:29)
[2018-05-23 07:14] LABS: HEMATOCRIT 36.6 % (37.0-47.0); HEMOGLOBIN 11.7 G/DL (12.0-16.0); MEAN CORPUSCULAR VOLUME 83 FL (80-99); PLATELET COUNT 284 K/UL (150-450); RED CELL DISTRIBUTION WIDTH 11.4 % (11.6-14.8); WHITE BLOOD COUNT 2.8 K/UL (4.8-10.8)
--- NOTE | 2018-05-23 07:30 | NUR ---
NURSE NOTES:Patient sitting up at edge of bed, requesting to speak to case management for her belongings. " I have been hearing the same shit about my stuff, maybe she needs to be cussed out" Bx required to be redirected , pt made aware that real estate underwriter will follow up with her belongings
--- NOTE | 2018-05-23 07:52 | NUR ---
HAND-OFF: Report given to PORSCHE Cruz. Patient sitting in bed with apparent distress noted. No complain of pain or discomfort noted.
[2018-05-23 07:54] LABS: ANION GAP 7 mmol/L (5-15); BLOOD UREA NITROGEN 12 mg/dL (7-18); CARBON DIOXIDE 29 MMOL/L (21-32); CHLORIDE 107 MMOL/L (98-107); CREATININE 0.7 MG/DL (0.55-1.30); POTASSIUM 4.1 MMOL/L (3.5-5.1); SODIUM 143 MMOL/L (136-145)
[2018-05-23 08:00] VITALS: BP 106/68
[2018-05-23] MEDS: Bactrim-DS 1 tab ORAL SCH ×2 (08:47→21:07)
[2018-05-23] MEDS: Thiamine 100mg tab ORAL SCH (08:47)
[2018-05-23] MEDS: Timolol 0.5% Op Soln 2.5ml BOTH EYES SCH ×2 (08:55→17:04)
[2018-05-23] MEDS: Brimonidine 0.2% Opth Sol BOTH EYES SCH ×2 (09:00→17:04)
[2018-05-23] MEDS: Lyrica 75mg cap ORAL SCH ×2 (09:57→21:09)
--- NOTE | 2018-05-23 11:46 | NUR ---
NURSE NOTES: Patient provided with medication for pain , verbalized her pain is 10/10 .Pt watching tv laughing no facial grimace of pain. " I am in a 10 always...." Pt qued on Tylenol and verbalization of effectiveness, and lyrica with verbalization of effectiveness. " Well it was 100 at that time... I had a bad headache" Call light in reach current plan of care will be followed
[2018-05-23 12:00] VITALS: BP 106/71
--- NOTE | 2018-05-23 12:03 | Consultation ---
History of Present Illness General Date patient seen: May 23, 2018 Chief Complaint: General Complaint Present Illness HPI 57 y/o F with hx of paraplegia, anemia, neuralgia, bipolar disorder, FTT, [place] resident presented to ED on 05/21 for placement issues; NH will not accept patient as positive VRE in the stool (which this is a colonizer). Of note, patient recently admitted here from 05/18-05/20 for b/l cellulitis; she was initially treated with IV Vancomycin and then transitioned to PO Bactrim upon discharge. Allergies: Coded Allergies: CEPHALEXIN (Verified Allergy, Unknown, 05/18/18) CEPHALOSPORINS (Verified Allergy, Unknown, 05/18/18) ERYTHROMYCIN BASE (Verified Allergy, Unknown, 05/18/18) GABAPENTIN (Verified Allergy, Unknown, 05/18/18) SHELLFISH DERIVED (Verified Allergy, Unknown, 05/22/18) Medication History Scheduled Brimonidine Tartrate* (Alphagan*), 1 DROP BOTH EYES BID, (Reported) Folic Acid* (Folic Acid*), 1 MG ORAL DAILY, (Reported) Latanoprost* (Xalatan*), 1 DROP BOTH EYES BEDTIME, (Reported) Pregabalin* (Lyrica*), 75 MG ORAL BID, (Reported) Thiamine Hcl* (Vitamin B-1*), 100 MG ORAL DAILY, (Reported) Timolol Maleate (Timolol Maleate), 1 DROP BOTH EYES TWICE A DAY, (Reported) Trimethoprim/Sulfamethoxazole (Bactrim Ds Tablet), 1 TAB ORAL Q12HR Scheduled PRN Acetaminophen* (Acetaminophen 325MG Tablet*), 650 MG ORAL Q4H PRN for For Pain, (Reported) Hydrocodone Bit/Acetaminophen 10-325* (Deale 10-325*), 1 TAB ORAL Q4H PRN for For Pain, (Reported) Patient History Healthcare decision maker Resuscitation status Do Not Resuscitate Advanced Directive on File Patient History Narrative Pmhx: as above Shx: The patient is a resident of long-term. The patient denies tobacco or alcohol use. Fhx: non contributory Review of Systems All Other Systems: negative except mentioned in HPI Physical Exam Physical Exam Narrative GENERAL: The patient is a thin-appearing female, in no apparent distress. HEENT: Eyes - pupils are equal and responsive to light and accommodation. Extraocular movements are intact. NECK: Supple. No lymphadenopathy. CHEST: Lungs are clear to auscultation bilaterally without wheezes or rales. CARDIOVASCULAR: Regular rate. S1 and S2 normal without murmurs, rubs, or gallops. ABDOMEN: Soft, nontender, and nondistended. Positive bowel sounds. No evidence of hepatosplenomegaly. Currently, no rebound or guarding noted. EXTREMITIES: Right lower extremity is erythematous compared to the left, otherwise without clubbing, cyanosis, or edema. Last 24 Hour Vital Signs Date Time Temp Pulse Resp B/P (MAP) Pulse Ox O2 Delivery O2 Flow Rate FiO2 05/23/18 09:00 Room Air 05/23/18 04:00 98.0 75 16 100/59 (73) 98 05/23/18 00:00 97.2 60 18 95/52 (66) 95 05/22/18 21:00 Room Air 05/22/18 20:00 97.1 61 18 97/57 (70) 100 05/22/18 18:56 97.7 05/22/18 16:00 97.7 64 17 121/67 (85) 94 05/22/18 12:00 96.8 68 18 93/66 (75) 97 Intake and Output 05/22/18 05/23/18 19:00 07:00 Intake Total 360 ml 60 ml Balance 360 ml 60 ml Intake Oral 360 ml 60 ml # Voids 3 1 Laboratory Tests Test 05/23/18 06:20 White Blood Count 2.8 K/UL (4.8-10.8) L Red Blood Count 4.40 M/UL (4.20-5.40) Hemoglobin 11.7 G/DL (12.0-16.0) L Hematocrit 36.6 % (37.0-47.0) L Mean Corpuscular Volume 83 FL (80-99) Mean Corpuscular Hemoglobin 26.7 PG (27.0-31.0) L Mean Corpuscular Hemoglobin Concent 32.1 G/DL (32.0-36.0) Red Cell Distribution Width 11.4 % (11.6-14.8) L Platelet Count 284 K/UL (150-450) Mean Platelet Volume 6.8 FL (6.5-10.1) Neutrophils (%) (Auto) % (45.0-75.0) Lymphocytes (%) (Auto) % (20.0-45.0) Monocytes (%) (Auto) % (1.0-10.0) Eosinophils (%) (Auto) % (0.0-3.0) Basophils (%) (Auto) % (0.0-2.0) Differential Total Cells Counted 100 Neutrophils % (Manual) 23 % (45-75) L Lymphocytes % (Manual) 56 % (20-45) H Monocytes % (Manual) 6 % (1-10) Eosinophils % (Manual) 14 % (0-3) H Basophils % (Manual) 1 % (0-2) Band Neutrophils 0 % (0-8) Platelet Estimate Adequate Platelet Morphology Normal Red Blood Cell Morphology Anisocytosis 1+ Sodium Level 143 MMOL/L (136-145) Potassium Level 4.1 MMOL/L (3.5-5.1) Chloride Level 107 MMOL/L (98-107) Carbon Dioxide Level 29 MMOL/L (21-32) Anion Gap 7 mmol/L (5-15) Blood Urea Nitrogen 12 mg/dL (7-18) Creatinine 0.7 MG/DL (0.55-1.30) Estimat Glomerular Filtration Rate > 60 mL/min (>60) Glucose Level 78 MG/DL (74-106) Calcium Level 9.0 MG/DL (8.5-10.1) Height (Feet): 5 Height (Inches): 5.00 Weight (Pounds): 155 Medications Current Medications Medications (Trade) Dose Ordered Sig/Mejia Route PRN Reason Start Time Stop Time Status Last Admin Dose Admin Acetaminophen (Tylenol) 650 mg Q4H PRN ORAL MILD PAIN / T>100.5 05/22/18 07:15 06/21/18 07:14 05/23/18 08:52 Acetaminophen/ Hydrocodone Bitart ([place] 10/325) 1 tab Q4H PRN ORAL PAIN 4-10 05/22/18 07:15 05/29/18 07:14 05/23/18 11:45 Brimonidine Tartrate (Alphagan) 1 drop BID BOTH EYES 05/22/18 10:00 06/21/18 09:59 05/23/18 09:00 Folic Acid (Folate) 1 mg DAILY ORAL 05/22/18 09:00 06/21/18 08:59 05/23/18 08:46 Latanoprost (Xalatan) 1 drop BEDTIME BOTH EYES 05/22/18 21:00 06/21/18 20:59 05/22/18 21:15 Pregabalin (Lyrica) 75 mg Q12HR ORAL 05/22/18 09:00 06/21/18 08:59 05/23/18 09:57 Thiamine HCl (Vitamin B1) 100 mg DAILY ORAL 05/22/18 09:00 06/21/18 08:59 05/23/18 08:47 Timolol Maleate (Timoptic 0.5% Op Soln) 1 drop TWICE A DAY BOTH EYES 05/22/18 10:00 06/21/18 09:59 05/23/18 08:55 Trimethoprim/ Sulfamethoxazole (Bactrim-DS) 1 tab Q12HR ORAL 05/22/18 09:00 05/29/18 08:59 05/23/18 08:47 Assessment/Plan Assessment/Plan Abx: Bactrim Assessment: REcent b/l cellulitis, resolving Afebrile Mild leukopenia paraplegia anemia neuralgia bipolar disorder FTT [place] resident VRE stool- THIS IS A COLONIZER Plan: -Continue Bactrim abx d#6/7 -05/20 SP IV Vancomycin #3 -OK TO DISCHARGE BACK TO [place], NO NEED FOR ISOLATION UPON DISCHARGE -f/u cx -Monitor CBC/CMP, temperatures Thank you for this consultation. Will continue to follow along with you. Discussed with RN and pillowcase cleaner. Marilyn Oliver M.D. May 23, 2018 12:03
--- NOTE | 2018-05-23 13:02 | Pulmonology Progress Note ---
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 (2) Cellulitis (3) Bipolar disorder (4) Limited mobility in bed Assessment/Plan ID evaluation appreciated on Bactrim po now no need for contact isolation symptomatic treatment dvt prophylaxis dc planning Subjective ROS Limited/Unobtainable: No Constitutional: Reports: no symptoms HEENT: Repors: no symptoms Respiratory: Reports: no symptoms Allergies: Coded Allergies: CEPHALEXIN (Verified Allergy, Unknown, 05/18/18) CEPHALOSPORINS (Verified Allergy, Unknown, 05/18/18) ERYTHROMYCIN BASE (Verified Allergy, Unknown, 05/18/18) GABAPENTIN (Verified Allergy, Unknown, 05/18/18) SHELLFISH DERIVED (Verified Allergy, Unknown, 05/22/18) Objective Last 24 Hour Vital Signs Date Time Temp Pulse Resp B/P (MAP) Pulse Ox O2 Delivery O2 Flow Rate FiO2 05/23/18 09:00 Room Air 05/23/18 04:00 98.0 75 16 100/59 (73) 98 05/23/18 00:00 97.2 60 18 95/52 (66) 95 05/22/18 21:00 Room Air 05/22/18 20:00 97.1 61 18 97/57 (70) 100 05/22/18 18:56 97.7 05/22/18 16:00 97.7 64 17 121/67 (85) 94 Intake and Output 05/22/18 05/23/18 19:00 07:00 Intake Total 360 ml 60 ml Balance 360 ml 60 ml Intake Oral 360 ml 60 ml # Voids 3 1 General Appearance: WD/WN HEENT: normocephalic, anicteric Respiratory/Chest: chest wall non-tender, lungs clear Cardiovascular: normal peripheral pulses, normal rate Abdomen: normal bowel sounds, soft, non tender Extremities: no cyanosis Skin: no rash Microbiology Date/Time Source Procedure Growth Status 05/22/18 00:26 Rectum Received Laboratory Tests 05/23/18 06:20: White Blood Count 2.8L, Red Blood Count 4.40, Hemoglobin 11.7L, Hematocrit 36.6L , Mean Corpuscular Volume 83, Mean Corpuscular Hemoglobin 26.7L, Mean Corpuscular Hemoglobin Concent 32.1, Red Cell Distribution Width 11.4L, Platelet Count 284, Mean Platelet Volume 6.8, Neutrophils (%) (Auto) , Lymphocytes (%) (Auto) , Monocytes (%) (Auto) , Eosinophils (%) (Auto) , Basophils (%) (Auto) , Differential Total Cells Counted 100, Neutrophils % ( Manual) 23L, Lymphocytes % (Manual) 56H, Monocytes % (Manual) 6, Eosinophils % ( Manual) 14H, Basophils % (Manual) 1, Band Neutrophils 0, Platelet Estimate Adequate, Platelet Morphology Normal, Red Blood Cell Morphology , Anisocytosis 1 +, Sodium Level 143, Potassium Level 4.1, Chloride Level 107, Carbon Dioxide Level 29, Anion Gap 7, Blood Urea Nitrogen 12, Creatinine 0.7, Estimat Glomerular Filtration Rate > 60, Glucose Level 78, Calcium Level 9.0 Current Medications Medications (Trade) Dose Ordered Sig/Mejia Route PRN Reason Start Time Stop Time Status Last Admin Dose Admin Acetaminophen (Tylenol) 650 mg Q4H PRN ORAL MILD PAIN / T>100.5 05/22/18 07:15 06/21/18 07:14 05/23/18 08:52 Acetaminophen/ Hydrocodone Bitart ([place] 10/325) 1 tab Q4H PRN ORAL PAIN 4-10 05/22/18 07:15 05/29/18 07:14 05/23/18 11:45 Brimonidine Tartrate (Alphagan) 1 drop BID BOTH EYES 05/22/18 10:00 06/21/18 09:59 05/23/18 09:00 Folic Acid (Folate) 1 mg DAILY ORAL 05/22/18 09:00 06/21/18 08:59 05/23/18 08:46 Latanoprost (Xalatan) 1 drop BEDTIME BOTH EYES 05/22/18 21:00 06/21/18 20:59 05/22/18 21:15 Pregabalin (Lyrica) 75 mg Q12HR ORAL 05/22/18 09:00 06/21/18 08:59 05/23/18 09:57 Thiamine HCl (Vitamin B1) 100 mg DAILY ORAL 05/22/18 09:00 06/21/18 08:59 05/23/18 08:47 Timolol Maleate (Timoptic 0.5% Op Soln) 1 drop TWICE A DAY BOTH EYES 05/22/18 10:00 06/21/18 09:59 05/23/18 08:55 Trimethoprim/ Sulfamethoxazole (Bactrim-DS) 1 tab Q12HR ORAL 05/22/18 09:00 05/29/18 08:59 05/23/18 08:47 Christine Wallis MD May 23, 2018 13:02
--- NOTE | 2018-05-23 14:04 | NUR ---
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
--- NOTE | 2018-05-23 14:17 | NUR ---
NURSE NOTES: Retail Special Event Associate entered room found all bed linen trash, and pillows on the floor. Pt qued on occurrence of linen and items on the floor. " I'm home alone ; and that is how I act when I am alone". Retail Special Event Associate picked up all linen. As well as abag of trash solied tissue, banana skin, " That is mine" Retail Special Event Associate then gave bag to patient " I thought I had fifty cent in there" Retail Special Event Associate offered to assist in looking for pt 50 cents ... " i thought I had it I guess I didn't" No further concerns verbalized
--- NOTE | 2018-05-23 15:14 | NUR ---
INSURANCE CLINICALS AND REVIEWS FAXED TO: [facility] F:[phone] CB# NOT PROVIDED
[2018-05-23 16:00] VITALS: BP 109/70
--- NOTE | 2018-05-23 16:54 | NUR ---
NURSE NOTES: Patient called grant writer to the room , pt " My pain medicine" A&P Technician asked pt what her pain level was 1/10 scale and location of pain. " why you aint gonna remember anyway" " 900 ! I hurt everywhere and it is time for it" Prn explained. Pt noted watching television no facial grimace pain, with hand on her chin. " My pain is in my kneecaps" Pat began grumbling under her breathe, as grant writer informed her the rationale in regards to pain assessment. Did not make eye contact, continued watching television, did not verbalize understanding. " While you asking questions what about my cookies. Pt informed that dietary had already been phoned about her request for a snack. Current paln of care will be followed.
--- NOTE | 2018-05-23 17:16 | Internal Med Progress Note ---
Subjective Date of Service: May 23, 2018 Physician Name Sadi Gaviria Attending Physician Niall Kraft MD Current Medications Medications (Trade) Dose Ordered Sig/Mejia Route PRN Reason Start Time Stop Time Status Last Admin Dose Admin Acetaminophen (Tylenol) 650 mg Q4H PRN ORAL MILD PAIN / T>100.5 05/22/18 07:15 06/21/18 07:14 05/23/18 08:52 Acetaminophen/ Hydrocodone Bitart ([place] 10/325) 1 tab Q4H PRN ORAL PAIN 4-10 05/22/18 07:15 05/29/18 07:14 05/23/18 17:04 Brimonidine Tartrate (Alphagan) 1 drop BID BOTH EYES 05/22/18 10:00 06/21/18 09:59 05/23/18 17:04 Folic Acid (Folate) 1 mg DAILY ORAL 05/22/18 09:00 06/21/18 08:59 05/23/18 08:46 Latanoprost (Xalatan) 1 drop BEDTIME BOTH EYES 05/22/18 21:00 06/21/18 20:59 05/22/18 21:15 Pregabalin (Lyrica) 75 mg Q12HR ORAL 05/22/18 09:00 06/21/18 08:59 05/23/18 09:57 Thiamine HCl (Vitamin B1) 100 mg DAILY ORAL 05/22/18 09:00 06/21/18 08:59 05/23/18 08:47 Timolol Maleate (Timoptic 0.5% Op Soln) 1 drop TWICE A DAY BOTH EYES 05/22/18 10:00 06/21/18 09:59 05/23/18 17:04 Trimethoprim/ Sulfamethoxazole (Bactrim-DS) 1 tab Q12HR ORAL 05/22/18 09:00 05/29/18 08:59 05/23/18 08:47 Allergies: Coded Allergies: CEPHALEXIN (Verified Allergy, Unknown, 05/18/18) CEPHALOSPORINS (Verified Allergy, Unknown, 05/18/18) ERYTHROMYCIN BASE (Verified Allergy, Unknown, 05/18/18) GABAPENTIN (Verified Allergy, Unknown, 05/18/18) SHELLFISH DERIVED (Verified Allergy, Unknown, 05/22/18) ROS Limited/Unobtainable: No Constitutional: Reports: no symptoms HEENT: Reports: no symptoms Cardiovascular: Reports: no symptoms Respiratory: Reports: no symptoms Gastrointestinal/Abdominal: Reports: no symptoms Genitourinary: Reports: no symptoms Neurologic/Psychiatric: Reports: no symptoms Subjective 57 YO F admitted with vancomycin resistant enterococcus stool. Cover for Int Med-Dr Kraft. Objective Last Vital Signs Date Time Temp Pulse Resp B/P (MAP) Pulse Ox O2 Delivery O2 Flow Rate FiO2 05/23/18 12:00 97.7 66 17 106/71 (83) 100 05/23/18 09:00 Room Air General Appearance: WD/WN, no apparent distress, alert EENT: PERRL/EOMI, normal ENT inspection, TMs normal Neck: non-tender, normal alignment, supple, normal inspection Cardiovascular: normal peripheral pulses, normal rate, regular rhythm, no gallop/murmur, no JVD Respiratory/Chest: chest wall non-tender, lungs clear, normal breath sounds, no respiratory distress, no accessory muscle use Abdomen: normal bowel sounds, non tender, soft, no organomegaly, no mass Extremities: normal range of motion, non-tender Neurologic: collection systems foreman II-XII grossly normal, no motor/sensory deficits Skin: normal pigmentation, warm/dry Laboratory Tests Test 05/23/18 06:20 White Blood Count 2.8 K/UL (4.8-10.8) L Red Blood Count 4.40 M/UL (4.20-5.40) Hemoglobin 11.7 G/DL (12.0-16.0) L Hematocrit 36.6 % (37.0-47.0) L Mean Corpuscular Volume 83 FL (80-99) Mean Corpuscular Hemoglobin 26.7 PG (27.0-31.0) L Mean Corpuscular Hemoglobin Concent 32.1 G/DL (32.0-36.0) Red Cell Distribution Width 11.4 % (11.6-14.8) L Platelet Count 284 K/UL (150-450) Mean Platelet Volume 6.8 FL (6.5-10.1) Neutrophils (%) (Auto) % (45.0-75.0) Lymphocytes (%) (Auto) % (20.0-45.0) Monocytes (%) (Auto) % (1.0-10.0) Eosinophils (%) (Auto) % (0.0-3.0) Basophils (%) (Auto) % (0.0-2.0) Differential Total Cells Counted 100 Neutrophils % (Manual) 23 % (45-75) L Lymphocytes % (Manual) 56 % (20-45) H Monocytes % (Manual) 6 % (1-10) Eosinophils % (Manual) 14 % (0-3) H Basophils % (Manual) 1 % (0-2) Band Neutrophils 0 % (0-8) Platelet Estimate Adequate Platelet Morphology Normal Red Blood Cell Morphology Anisocytosis 1+ Sodium Level 143 MMOL/L (136-145) Potassium Level 4.1 MMOL/L (3.5-5.1) Chloride Level 107 MMOL/L (98-107) Carbon Dioxide Level 29 MMOL/L (21-32) Anion Gap 7 mmol/L (5-15) Blood Urea Nitrogen 12 mg/dL (7-18) Creatinine 0.7 MG/DL (0.55-1.30) Estimat Glomerular Filtration Rate > 60 mL/min (>60) Glucose Level 78 MG/DL (74-106) Calcium Level 9.0 MG/DL (8.5-10.1) Microbiology Date/Time Source Procedure Growth Status 05/22/18 00:26 Rectum Received Intake and Output 05/22/18 05/23/18 19:00 07:00 Intake Total 360 ml 60 ml Balance 360 ml 60 ml Intake Oral 360 ml 60 ml # Voids 3 1 Assessment/Plan Problem List: (1) Glaucoma Assessment & Plan: Continue xalatan, alphagan and timoptic (2) Cellulitis Assessment & Plan: Continue bactrim (3) Bipolar disorder (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
--- NOTE | 2018-05-23 18:12 | NUR ---
Social Service Note Patient is not homeless prior to admission. Patient residing at [facility] [phone]. Patient has been a resident since 04/03/18. Facility is providing barriers to re-acceptance of patient. Admission coordinator is requesting a psych consult as patient has shown erratic behaviors in facility, also to indicate medication adjustments. Admission coordinator stated due to facility internal issues they have contacted a placement manager to assist with additional SNF placement for patient, Coni [phone]. Message left for Coni to determine her role in placement of patient. No return call at this time. Will discuss with CM and monitor.
--- NOTE | 2018-05-23 19:24 | NUR ---
NURSE NOTES: Bed remains without linen pt refused. Power Switchboard Operator offered throughout shift. " I want it like that" Remains watching TV on bedside chair. Current paln of gladys will be followed safety measures will be implemented
--- NOTE | 2018-05-23 19:56 | NUR ---
HAND-OFF: Report given to Monique MORRELL.
[2018-05-23 20:00] VITALS: BP 100/55
--- NOTE | 2018-05-23 20:10 | NUR ---
NURSE NOTES: Patient sitting up in chair watching TV. No s/s distress noted. Due prn pain medication will be given. Assisted to bed, safety precaution maintained. Bed alarm on, in lowest position for safety. Call light within reach.
[2018-05-23] MEDS: Latanoprost 0.005% Opth 2.5ml Soln BOTH EYES SCH (21:07)
--- NOTE | 2018-05-23 23:55 | Consultation ---
History of Present Illness General Date patient seen: May 22, 2018 Chief Complaint: General Complaint Present Illness HPI 57-year-old female who presents with chief complaint of vancomycin-resistant Enterococcus in the stool. the pt was agitated and somewhat disorganized. the pt was circumstantial and was unable to provide meaningful hx/ the pt stated that he wanted to go back to [facility]. the pt is easily agitated. Allergies: Coded Allergies: CEPHALEXIN (Verified Allergy, Unknown, 05/18/18) CEPHALOSPORINS (Verified Allergy, Unknown, 05/18/18) ERYTHROMYCIN BASE (Verified Allergy, Unknown, 05/18/18) GABAPENTIN (Verified Allergy, Unknown, 05/18/18) SHELLFISH DERIVED (Verified Allergy, Unknown, 05/22/18) Medication History Scheduled Brimonidine Tartrate* (Alphagan*), 1 DROP BOTH EYES BID, (Reported) Folic Acid* (Folic Acid*), 1 MG ORAL DAILY, (Reported) Latanoprost* (Xalatan*), 1 DROP BOTH EYES BEDTIME, (Reported) Pregabalin* (Lyrica*), 75 MG ORAL BID, (Reported) Thiamine Hcl* (Vitamin B-1*), 100 MG ORAL DAILY, (Reported) Timolol Maleate (Timolol Maleate), 1 DROP BOTH EYES TWICE A DAY, (Reported) Trimethoprim/Sulfamethoxazole (Bactrim Ds Tablet), 1 TAB ORAL Q12HR Scheduled PRN Acetaminophen* (Acetaminophen 325MG Tablet*), 650 MG ORAL Q4H PRN for For Pain, (Reported) Hydrocodone Bit/Acetaminophen 10-325* ([place] 10-325*), 1 TAB ORAL Q4H PRN for For Pain, (Reported) Patient History Limited by: medical condition History Provided By: Patient, Medical Record, PMD Healthcare decision maker Resuscitation status Do Not Resuscitate Advanced Directive on File Past Medical/Surgical History Past Medical/Surgical History: (1) Cellulitis (2) Bipolar disorder (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 (4) Limited mobility in bed (5) Glaucoma Review of Systems Psychiatric: Reports: prior hx, anxiety, depressed feelings Physical Exam General Appearance: alert, moderate distress, agitated Neurologic: oriented x 3, responsive, depressed affect Last 24 Hour Vital Signs Date Time Temp Pulse Resp B/P (MAP) Pulse Ox O2 Delivery O2 Flow Rate FiO2 05/23/18 21:00 Room Air 05/23/18 20:00 98.0 71 18 100/55 (70) 95 05/23/18 16:00 97.5 67 20 109/70 (83) 100 05/23/18 12:00 97.7 66 17 106/71 (83) 100 05/23/18 09:00 Room Air 05/23/18 08:00 98.1 63 19 106/68 (81) 98 05/23/18 04:00 98.0 75 16 100/59 (73) 98 05/23/18 00:00 97.2 60 18 95/52 (66) 95 Intake and Output 05/22/18 05/23/18 18:59 06:59 Intake Total 360 ml 60 ml Balance 360 ml 60 ml Intake Oral 360 ml 60 ml # Voids 3 1 Laboratory Tests Test 05/23/18 06:20 White Blood Count 2.8 K/UL (4.8-10.8) L Red Blood Count 4.40 M/UL (4.20-5.40) Hemoglobin 11.7 G/DL (12.0-16.0) L Hematocrit 36.6 % (37.0-47.0) L Mean Corpuscular Volume 83 FL (80-99) Mean Corpuscular Hemoglobin 26.7 PG (27.0-31.0) L Mean Corpuscular Hemoglobin Concent 32.1 G/DL (32.0-36.0) Red Cell Distribution Width 11.4 % (11.6-14.8) L Platelet Count 284 K/UL (150-450) Mean Platelet Volume 6.8 FL (6.5-10.1) Neutrophils (%) (Auto) % (45.0-75.0) Lymphocytes (%) (Auto) % (20.0-45.0) Monocytes (%) (Auto) % (1.0-10.0) Eosinophils (%) (Auto) % (0.0-3.0) Basophils (%) (Auto) % (0.0-2.0) Differential Total Cells Counted 100 Neutrophils % (Manual) 23 % (45-75) L Lymphocytes % (Manual) 56 % (20-45) H Monocytes % (Manual) 6 % (1-10) Eosinophils % (Manual) 14 % (0-3) H Basophils % (Manual) 1 % (0-2) Band Neutrophils 0 % (0-8) Platelet Estimate Adequate Platelet Morphology Normal Red Blood Cell Morphology Anisocytosis 1+ Sodium Level 143 MMOL/L (136-145) Potassium Level 4.1 MMOL/L (3.5-5.1) Chloride Level 107 MMOL/L (98-107) Carbon Dioxide Level 29 MMOL/L (21-32) Anion Gap 7 mmol/L (5-15) Blood Urea Nitrogen 12 mg/dL (7-18) Creatinine 0.7 MG/DL (0.55-1.30) Estimat Glomerular Filtration Rate > 60 mL/min (>60) Glucose Level 78 MG/DL (74-106) Calcium Level 9.0 MG/DL (8.5-10.1) Height (Feet): 5 Height (Inches): 5.00 Weight (Pounds): 155 Medications Current Medications Medications (Trade) Dose Ordered Sig/Mejia Route PRN Reason Start Time Stop Time Status Last Admin Dose Admin Acetaminophen (Tylenol) 650 mg Q4H PRN ORAL MILD PAIN / T>100.5 05/22/18 07:15 06/21/18 07:14 05/23/18 08:52 Acetaminophen/ Hydrocodone Bitart ([place] 10/325) 1 tab Q4H PRN ORAL PAIN 4-10 05/22/18 07:15 05/29/18 07:14 05/23/18 21:29 Brimonidine Tartrate (Alphagan) 1 drop BID BOTH EYES 05/22/18 10:00 06/21/18 09:59 05/23/18 17:04 Folic Acid (Folate) 1 mg DAILY ORAL 05/22/18 09:00 06/21/18 08:59 05/23/18 08:46 Latanoprost (Xalatan) 1 drop BEDTIME BOTH EYES 05/22/18 21:00 06/21/18 20:59 05/23/18 21:07 Pregabalin (Lyrica) 75 mg Q12HR ORAL 05/22/18 09:00 06/21/18 08:59 05/23/18 21:09 Thiamine HCl (Vitamin B1) 100 mg DAILY ORAL 05/22/18 09:00 06/21/18 08:59 05/23/18 08:47 Timolol Maleate (Timoptic 0.5% Op Soln) 1 drop TWICE A DAY BOTH EYES 05/22/18 10:00 06/21/18 09:59 05/23/18 17:04 Trimethoprim/ Sulfamethoxazole (Bactrim-DS) 1 tab Q12HR ORAL 05/22/18 09:00 05/29/18 08:59 05/23/18 21:07 Assessment/Plan Problem List: (1) Bipolar disorder ICD Codes: F31.9 - Bipolar disorder, unspecified SNOMED: 97730670 Qualifiers: Status: stable Assessment/Plan risperdal 2mg po qhs depakote 500mg bid provided ro/Jake Frausto MD May 23, 2018 23:55
--- NOTE | 2018-05-23 23:55 | General Progress Note ---
Assessment/Plan Problem List: (1) Bipolar disorder ICD Codes: F31.9 - Bipolar disorder, unspecified SNOMED: [id number] Qualifiers: Status: stable, progressing Assessment/Plan risperdal 2mg po qhs depakote 500mg bid provided ro/st Subjective Date patient seen: May 23, 2018 Neurologic/Psychiatric: Reports: anxiety, depressed, emotional problems Allergies: Coded Allergies: CEPHALEXIN (Verified Allergy, Unknown, 05/18/18) CEPHALOSPORINS (Verified Allergy, Unknown, 05/18/18) ERYTHROMYCIN BASE (Verified Allergy, Unknown, 05/18/18) GABAPENTIN (Verified Allergy, Unknown, 05/18/18) SHELLFISH DERIVED (Verified Allergy, Unknown, 05/22/18) Objective Last 24 Hour Vital Signs Date Time Temp Pulse Resp B/P (MAP) Pulse Ox O2 Delivery O2 Flow Rate FiO2 05/23/18 21:00 Room Air 05/23/18 20:00 98.0 71 18 100/55 (70) 95 05/23/18 16:00 97.5 67 20 109/70 (83) 100 05/23/18 12:00 97.7 66 17 106/71 (83) 100 05/23/18 09:00 Room Air 05/23/18 08:00 98.1 63 19 106/68 (81) 98 05/23/18 04:00 98.0 75 16 100/59 (73) 98 05/23/18 00:00 97.2 60 18 95/52 (66) 95 Intake and Output 05/22/18 05/23/18 18:59 06:59 Intake Total 360 ml 60 ml Balance 360 ml 60 ml Intake Oral 360 ml 60 ml # Voids 3 1 Laboratory Tests 05/23/18 06:20: White Blood Count 2.8L, Red Blood Count 4.40, Hemoglobin 11.7L, Hematocrit 36.6L , Mean Corpuscular Volume 83, Mean Corpuscular Hemoglobin 26.7L, Mean Corpuscular Hemoglobin Concent 32.1, Red Cell Distribution Width 11.4L, Platelet Count 284, Mean Platelet Volume 6.8, Neutrophils (%) (Auto) , Lymphocytes (%) (Auto) , Monocytes (%) (Auto) , Eosinophils (%) (Auto) , Basophils (%) (Auto) , Differential Total Cells Counted 100, Neutrophils % ( Manual) 23L, Lymphocytes % (Manual) 56H, Monocytes % (Manual) 6, Eosinophils % ( Manual) 14H, Basophils % (Manual) 1, Band Neutrophils 0, Platelet Estimate Adequate, Platelet Morphology Normal, Red Blood Cell Morphology , Anisocytosis 1 +, Sodium Level 143, Potassium Level 4.1, Chloride Level 107, Carbon Dioxide Level 29, Anion Gap 7, Blood Urea Nitrogen 12, Creatinine 0.7, Estimat Glomerular Filtration Rate > 60, Glucose Level 78, Calcium Level 9.0 Height (Feet): 5 Height (Inches): 5.00 Weight (Pounds): 155 General Appearance: no apparent distress, alert Neurologic: oriented x 3, responsive, depressed affect Jake Mcintyre MD May 23, 2018 23:55
[2018-05-24] VITALS: BP 98/60
[2018-05-24] MEDS: HYDROcodone/Acetamin 10/325 tab ORAL PRN ×5 (01:47→20:26)
[2018-05-24 04:00] VITALS: BP 116/58
[2018-05-24 07:11] LABS: HEMATOCRIT 36.6 % (37.0-47.0); HEMOGLOBIN 11.8 G/DL (12.0-16.0); MEAN CORPUSCULAR VOLUME 85 FL (80-99); PLATELET COUNT 328 K/UL (150-450); RED BLOOD COUNT 4.29 M/UL (4.20-5.40); RED CELL DISTRIBUTION WIDTH 11.1 % (11.6-14.8); WHITE BLOOD COUNT 3.1 K/UL (4.8-10.8)
--- NOTE | 2018-05-24 07:27 | NUR ---
HAND-OFF: Report given to Shirley MORRELL.
[2018-05-24 07:31] LABS: ALANINE AMINOTRANSFERASE 26 U/L (12-78); ALBUMIN 3.2 G/DL (3.4-5.0); ALBUMIN/GLOBULIN RATIO 0.6 (1.0-2.7); ALKALINE PHOSPHATASE 69 U/L (46-116); ANION GAP 4 mmol/L (5-15); ASPARTATE AMINO TRANSFERASE 25 U/L (15-37); BILIRUBIN,TOTAL 0.2 MG/DL (0.2-1.0); BLOOD UREA NITROGEN 9 mg/dL (7-18); CARBON DIOXIDE 31 MMOL/L (21-32); CHLORIDE 105 MMOL/L (98-107); CREATININE 0.8 MG/DL (0.55-1.30); POTASSIUM 4.5 MMOL/L (3.5-5.1); SODIUM 140 MMOL/L (136-145)
--- NOTE | 2018-05-24 07:32 | NUR ---
NURSE NOTES: Patient alert x4, in room air, no sign of distress and shortness of breath. IV Right AC flushes well. Side rails up x2, bed at lowest position, breaks engaged. Patient DNR. Patient getting Chancellor, will give as schedules. Call light within reach. Will keep monitoring.
[2018-05-24 08:00] VITALS: BP 120/60
--- NOTE | 2018-05-24 09:18 | NUR ---
CASE MANAGEMENT:REVIEW 05/24/18 SI: CELLULITIS. VRE CARRIER 97.1 68 19 120/60 97% ON RA WBC-3.1 IS: BACTRIM PO Q12 FOLATE PO QD LYRICA PO Q12 THIAMINE PO QD NORCO PO Q4HRS PRN : TO MED/SURG UNIT 4 EAST DISCHARGE PLAN PATIENT IS FROM [facility]. SHE WAS DISCHARGED TO [facility] ON 05/22/18 AND THEY SENT HER BACK TO HOSPITAL DUE TO VRE IN THE RECTUM SPOKE WITH [facility] PUBLIC HEALTH EPIDEMIOLOGIST WHO IS REFUSING TO ACCEPT PATIENT BACK BECAUSE OF VRE AND BEHAVORIAL ISSUES. THIS CUSTOMER ACQUISITION MANAGER HAS LEFT 2 VOICEMAIL MESSAGES FOR [facility] T: [phone] REQUESTING ASSISTANCE WITH SNF PLACEMENT FOR THEIR MEMBER. WAITING FOR A RESPONSE NEED LIST OF CONTRACTED FACILITIES
--- NOTE | 2018-05-24 09:26 | NUR ---
INSURANCE FAXED TO [facility] T: [phone] F:[phone] AUTHORIZATION #[id number] Addendum: 05/25/18 at 0907 by MANINDER SALDAÑA T: [phone] & [phone] ext. [phone]
--- NOTE | 2018-05-24 09:29 | NUR ---
DISCHARGE PLANNING ARDEN GUZMAN IS PRESENTING MANY BARRIERS TO TAKING THIS PATIENT BACK THEY REQUESTED A PSYCH CONSULT ~ DR BAUMANN'S NOTES WERE FAXED ~ THEY THEN STATED HER PSYCH NOTES WERE NOT ACCEPTABLE BECAUSE IT ONLY ADDRESSED MEDICAL ISSUES AND NOT PSYCH ISSUES THIS FRINGE KNOTTER HAS LEFT [facility] REQUESTING ASSISTANCE WITH PLACEMENT OF THEIR MEMBER WAITING FOR A RESPONSE Addendum: 05/24/18 at 0936 by RACHANA GIBBS LVN LVN WILL REFER TO 10 FACILITIES TODAY
[2018-05-24] MEDS: Bactrim-DS 1 tab ORAL SCH ×2 (09:45→20:26)
[2018-05-24] MEDS: Lyrica 75mg cap ORAL SCH ×2 (09:46→20:25)
[2018-05-24] MEDS: Timolol 0.5% Op Soln 2.5ml BOTH EYES SCH ×2 (09:46→17:04)
[2018-05-24] MEDS: Thiamine 100mg tab ORAL SCH (09:46)
[2018-05-24] MEDS: Brimonidine 0.2% Opth Sol BOTH EYES SCH ×2 (09:47→17:04)
--- NOTE | 2018-05-24 10:34 | Infectious Diseases Prog Note ---
Assessment/Plan Assessment/Plan Abx: Bactrim Assessment: REcent b/l cellulitis, resolving Afebrile Mild leukopenia paraplegia anemia neuralgia bipolar disorder FTT [place] resident VRE stool- THIS IS A COLONIZER Plan: -Continue Bactrim abx d#7/ -12/15 SP IV Vancomycin #3 -OK TO DISCHARGE BACK TO [place], NO NEED FOR ISOLATION UPON DISCHARGE -f/u cx -Monitor CBC/CMP, temperatures Thank you for this consultation. Will continue to follow along with you. Discussed with RN and trimming caser. Subjective Allergies: Coded Allergies: CEPHALEXIN (Verified Allergy, Unknown, 05/18/18) CEPHALOSPORINS (Verified Allergy, Unknown, 05/18/18) ERYTHROMYCIN BASE (Verified Allergy, Unknown, 05/18/18) GABAPENTIN (Verified Allergy, Unknown, 05/18/18) SHELLFISH DERIVED (Verified Allergy, Unknown, 05/22/18) Subjective afebrile waiting placement Objective Vital Signs Last 24 Hour Vital Signs Date Time Temp Pulse Resp B/P (MAP) Pulse Ox O2 Delivery O2 Flow Rate FiO2 05/24/18 08:00 97.1 68 19 120/60 (80) 97 05/24/18 04:00 97.1 68 18 116/58 (77) 96 05/24/18 00:00 97.5 63 18 98/60 (73) 95 05/23/18 21:00 Room Air 05/23/18 20:00 98.0 71 18 100/55 (70) 95 05/23/18 16:00 97.5 67 20 109/70 (83) 100 05/23/18 12:00 97.7 66 17 106/71 (83) 100 Height (Feet): 5 Height (Inches): 5.00 Weight (Pounds): 148 Objective GENERAL: The patient is a thin-appearing female, in no apparent distress. HEENT: Eyes - pupils are equal and responsive to light and accommodation. Extraocular movements are intact. NECK: Supple. No lymphadenopathy. CHEST: Lungs are clear to auscultation bilaterally without wheezes or rales. CARDIOVASCULAR: Regular rate. S1 and S2 normal without murmurs, rubs, or gallops. ABDOMEN: Soft, nontender, and nondistended. Positive bowel sounds. No evidence of hepatosplenomegaly. Currently, no rebound or guarding noted. EXTREMITIES: Right lower extremity is erythematous compared to the left, otherwise without clubbing, cyanosis, or edema. Microbiology Date/Time Source Procedure Growth Status 05/22/18 00:26 Nasal Nares MRSA Culture - Final NO METHICILLIN RESISTANT STAPH AUREUS... Complete 05/22/18 00:26 Rectum - Final NO CARBAPENEM-RESISTANT ENTEROBACTERI... Complete 05/22/18 00:26 Rectum VRE Culture - Final Enterococcus Faecalis - Vre Complete Laboratory Tests Test 05/24/18 05:50 White Blood Count 3.1 K/UL (4.8-10.8) L Red Blood Count 4.29 M/UL (4.20-5.40) Hemoglobin 11.8 G/DL (12.0-16.0) L Hematocrit 36.6 % (37.0-47.0) L Mean Corpuscular Volume 85 FL (80-99) Mean Corpuscular Hemoglobin 27.4 PG (27.0-31.0) Mean Corpuscular Hemoglobin Concent 32.1 G/DL (32.0-36.0) Red Cell Distribution Width 11.1 % (11.6-14.8) L Platelet Count 328 K/UL (150-450) Mean Platelet Volume 6.5 FL (6.5-10.1) Neutrophils (%) (Auto) % (45.0-75.0) Lymphocytes (%) (Auto) % (20.0-45.0) Monocytes (%) (Auto) % (1.0-10.0) Eosinophils (%) (Auto) % (0.0-3.0) Basophils (%) (Auto) % (0.0-2.0) Differential Total Cells Counted 100 Neutrophils % (Manual) 24 % (45-75) L Lymphocytes % (Manual) 51 % (20-45) H Monocytes % (Manual) 14 % (1-10) H Eosinophils % (Manual) 11 % (0-3) H Basophils % (Manual) 0 % (0-2) Band Neutrophils 0 % (0-8) Platelet Estimate Adequate Platelet Morphology Normal Hypochromasia 1+ Sodium Level 140 MMOL/L (136-145) Potassium Level 4.5 MMOL/L (3.5-5.1) Chloride Level 105 MMOL/L (98-107) Carbon Dioxide Level 31 MMOL/L (21-32) Anion Gap 4 mmol/L (5-15) L Blood Urea Nitrogen 9 mg/dL (7-18) Creatinine 0.8 MG/DL (0.55-1.30) Estimat Glomerular Filtration Rate > 60 mL/min (>60) Glucose Level 80 MG/DL (74-106) Calcium Level 9.0 MG/DL (8.5-10.1) Phosphorus Level 3.0 MG/DL (2.5-4.9) Magnesium Level 1.9 MG/DL (1.8-2.4) Total Bilirubin 0.2 MG/DL (0.2-1.0) Aspartate Amino Transf (AST/SGOT) 25 U/L (15-37) Alanine Aminotransferase (ALT/SGPT) 26 U/L (12-78) Alkaline Phosphatase 69 U/L (46-116) Total Protein 8.7 G/DL (6.4-8.2) H Albumin 3.2 G/DL (3.4-5.0) L Globulin 5.5 g/dL Albumin/Globulin Ratio 0.6 (1.0-2.7) L Current Medications Medications (Trade) Dose Ordered Sig/Mejia Route PRN Reason Start Time Stop Time Status Last Admin Dose Admin Acetaminophen (Tylenol) 650 mg Q4H PRN ORAL MILD PAIN / T>100.5 05/22/18 07:15 06/21/18 07:14 05/23/18 08:52 Acetaminophen/ Hydrocodone Bitart ([place] 10/325) 1 tab Q4H PRN ORAL PAIN 4-10 05/22/18 07:15 05/29/18 07:14 05/24/18 05:48 Brimonidine Tartrate (Alphagan) 1 drop BID BOTH EYES 05/22/18 10:00 06/21/18 09:59 05/24/18 09:47 Folic Acid (Folate) 1 mg DAILY ORAL 05/22/18 09:00 06/21/18 08:59 05/24/18 09:46 Latanoprost (Xalatan) 1 drop BEDTIME BOTH EYES 05/22/18 21:00 06/21/18 20:59 05/23/18 21:07 Pregabalin (Lyrica) 75 mg Q12HR ORAL 05/22/18 09:00 06/21/18 08:59 05/24/18 09:46 Thiamine HCl (Vitamin B1) 100 mg DAILY ORAL 05/22/18 09:00 06/21/18 08:59 05/24/18 09:46 Timolol Maleate (Timoptic 0.5% Op Soln) 1 drop TWICE A DAY BOTH EYES 05/22/18 10:00 06/21/18 09:59 05/24/18 09:46 Trimethoprim/ Sulfamethoxazole (Bactrim-DS) 1 tab Q12HR ORAL 05/22/18 09:00 05/29/18 08:59 05/24/18 09:45 Marilyn Oliver M.D. May 24, 2018 10:34
[2018-05-24 12:00] VITALS: BP 100/71
--- NOTE | 2018-05-24 12:06 | NUR ---
DISCHARGE PLANNING ADMISSION CLINICALS HAVE BEEN FAXED TO THE FOLLOWING FACILITIES. 1. [facility] P:[phone] F:[phone] 2. [facility] P:[phone] F:[phone] 3. [facility] P:[phone] F:[phone] 4. [facility] P:[phone] F:[phone] 5. [facility] P:[phone] F:[phone] 6. [facility] P:[phone] f:[phone] 7. [facility] P: [phone] F:[phone] 8. [facility] P:[phone] F:[phone] 9. [facility] P:[phone] F:[phone] 10. [facility] P:[phone] F:[phone] Addendum: 05/24/18 at 1724 by RACHANA GIBBS LVN LVN [facility] ~ [place] ~ NO FEMALE BEDS [place] ~ [place] ~ NOT ADMITTING DUE TO STA[facility]ING [facility] [place] ~ NO BEDS AVAILABLE [place] ~ BILL ~ ONLY RECEIVED PART OF FAX EVEN AFTER BEING FAXED 4 TIMES [place] ~ [place] ~ UNABLE TO ACCEPT [place] [place] ~ [place] ~ WILL ACCEPT IF INSURANCE WILLING TO DO LETTER OF AGREEMENT [place] ~ [place] ~ THEY ARE FULL [facility] ~ [place] ~ DID NOT RECEIVE ~ WILL REFAX [facility] ~ [place] ~ NO FEMALE BEDS [facility] ~ [facility] [place] ~ NO FEMALE
--- NOTE | 2018-05-24 12:48 | NUR ---
NURSE NOTES: Patient wanna have cookies than her lunch, called kitchen. Waiting for delivery.
--- NOTE | 2018-05-24 13:10 | Internal Med Progress Note ---
Subjective Date of Service: May 24, 2018 Physician Name Sadi Gaviria Attending Physician Niall Kraft MD Current Medications Medications (Trade) Dose Ordered Sig/Mejia Route PRN Reason Start Time Stop Time Status Last Admin Dose Admin Acetaminophen (Tylenol) 650 mg Q4H PRN ORAL MILD PAIN / T>100.5 05/22/18 07:15 06/21/18 07:14 05/23/18 08:52 Acetaminophen/ Hydrocodone Bitart ([place] 10/325) 1 tab Q4H PRN ORAL PAIN 4-10 05/22/18 07:15 05/29/18 07:14 05/24/18 11:31 Brimonidine Tartrate (Alphagan) 1 drop BID BOTH EYES 05/22/18 10:00 06/21/18 09:59 05/24/18 09:47 Folic Acid (Folate) 1 mg DAILY ORAL 05/22/18 09:00 06/21/18 08:59 05/24/18 09:46 Latanoprost (Xalatan) 1 drop BEDTIME BOTH EYES 05/22/18 21:00 06/21/18 20:59 05/23/18 21:07 Pregabalin (Lyrica) 75 mg Q12HR ORAL 05/22/18 09:00 06/21/18 08:59 05/24/18 09:46 Thiamine HCl (Vitamin B1) 100 mg DAILY ORAL 05/22/18 09:00 06/21/18 08:59 05/24/18 09:46 Timolol Maleate (Timoptic 0.5% Op Soln) 1 drop TWICE A DAY BOTH EYES 05/22/18 10:00 06/21/18 09:59 05/24/18 09:46 Trimethoprim/ Sulfamethoxazole (Bactrim-DS) 1 tab Q12HR ORAL 05/22/18 09:00 05/29/18 08:59 05/24/18 09:45 Allergies: Coded Allergies: CEPHALEXIN (Verified Allergy, Unknown, 05/18/18) CEPHALOSPORINS (Verified Allergy, Unknown, 05/18/18) ERYTHROMYCIN BASE (Verified Allergy, Unknown, 05/18/18) GABAPENTIN (Verified Allergy, Unknown, 05/18/18) SHELLFISH DERIVED (Verified Allergy, Unknown, 05/22/18) ROS Limited/Unobtainable: No Constitutional: Reports: no symptoms HEENT: Reports: no symptoms Cardiovascular: Reports: no symptoms Respiratory: Reports: no symptoms Gastrointestinal/Abdominal: Reports: no symptoms Genitourinary: Reports: no symptoms Neurologic/Psychiatric: Reports: no symptoms Subjective 57 YO F admitted with vancomycin resistant enterococcus stool. Cover for Int Med-Dr Kraft. Objective Last Vital Signs Date Time Temp Pulse Resp B/P (MAP) Pulse Ox O2 Delivery O2 Flow Rate FiO2 05/24/18 12:01 97.1 05/24/18 12:00 76 18 100/71 (81) 97 05/24/18 09:00 Room Air Laboratory Tests Test 05/24/18 05:50 White Blood Count 3.1 K/UL (4.8-10.8) L Red Blood Count 4.29 M/UL (4.20-5.40) Hemoglobin 11.8 G/DL (12.0-16.0) L Hematocrit 36.6 % (37.0-47.0) L Mean Corpuscular Volume 85 FL (80-99) Mean Corpuscular Hemoglobin 27.4 PG (27.0-31.0) Mean Corpuscular Hemoglobin Concent 32.1 G/DL (32.0-36.0) Red Cell Distribution Width 11.1 % (11.6-14.8) L Platelet Count 328 K/UL (150-450) Mean Platelet Volume 6.5 FL (6.5-10.1) Neutrophils (%) (Auto) % (45.0-75.0) Lymphocytes (%) (Auto) % (20.0-45.0) Monocytes (%) (Auto) % (1.0-10.0) Eosinophils (%) (Auto) % (0.0-3.0) Basophils (%) (Auto) % (0.0-2.0) Differential Total Cells Counted 100 Neutrophils % (Manual) 24 % (45-75) L Lymphocytes % (Manual) 51 % (20-45) H Monocytes % (Manual) 14 % (1-10) H Eosinophils % (Manual) 11 % (0-3) H Basophils % (Manual) 0 % (0-2) Band Neutrophils 0 % (0-8) Platelet Estimate Adequate Platelet Morphology Normal Hypochromasia 1+ Sodium Level 140 MMOL/L (136-145) Potassium Level 4.5 MMOL/L (3.5-5.1) Chloride Level 105 MMOL/L (98-107) Carbon Dioxide Level 31 MMOL/L (21-32) Anion Gap 4 mmol/L (5-15) L Blood Urea Nitrogen 9 mg/dL (7-18) Creatinine 0.8 MG/DL (0.55-1.30) Estimat Glomerular Filtration Rate > 60 mL/min (>60) Glucose Level 80 MG/DL (74-106) Calcium Level 9.0 MG/DL (8.5-10.1) Phosphorus Level 3.0 MG/DL (2.5-4.9) Magnesium Level 1.9 MG/DL (1.8-2.4) Total Bilirubin 0.2 MG/DL (0.2-1.0) Aspartate Amino Transf (AST/SGOT) 25 U/L (15-37) Alanine Aminotransferase (ALT/SGPT) 26 U/L (12-78) Alkaline Phosphatase 69 U/L (46-116) Total Protein 8.7 G/DL (6.4-8.2) H Albumin 3.2 G/DL (3.4-5.0) L Globulin 5.5 g/dL Albumin/Globulin Ratio 0.6 (1.0-2.7) L Microbiology Date/Time Source Procedure Growth Status 05/22/18 00:26 Nasal Nares MRSA Culture - Final NO METHICILLIN RESISTANT STAPH AUREUS... Complete 05/22/18 00:26 Rectum - Final NO CARBAPENEM-RESISTANT ENTEROBACTERI... Complete 05/22/18 00:26 Rectum VRE Culture - Final Enterococcus Faecalis - Vre Complete Intake and Output 05/23/18 05/24/18 19:00 07:00 Intake Total 340 ml 200 ml Balance 340 ml 200 ml Intake Oral 340 ml 200 ml # Voids 1 4 Objective General Appearance: WD/WN, no apparent distress, alert EENT: PERRL/EOMI, normal ENT inspection, TMs normal Neck: non-tender, normal alignment, supple, normal inspection Cardiovascular: normal peripheral pulses, normal rate, regular rhythm, no gallop/murmur, no JVD Respiratory/Chest: chest wall non-tender, lungs clear, normal breath sounds, no respiratory distress, no accessory muscle use Abdomen: normal bowel sounds, non tender, soft, no organomegaly, no mass Extremities: normal range of motion, non-tender Neurologic: court stenographer II-XII grossly normal, no motor/sensory deficits Skin: normal pigmentation, warm/dry Assessment/Plan Problem List: (1) Glaucoma Assessment & Plan: Continue xalatan, alphagan and timoptic (2) Cellulitis Assessment & Plan: Continue bactrim (3) Bipolar disorder (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
--- NOTE | 2018-05-24 14:03 | Pulmonology Progress Note ---
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 (2) Cellulitis (3) Bipolar disorder (4) Limited mobility in bed Assessment/Plan no new complains ID evaluation appreciated on Bactrim po now no need for contact isolation symptomatic treatment dvt prophylaxis dc planning Subjective ROS Limited/Unobtainable: No Constitutional: Reports: no symptoms HEENT: Repors: no symptoms Respiratory: Reports: no symptoms Allergies: Coded Allergies: CEPHALEXIN (Verified Allergy, Unknown, 05/18/18) CEPHALOSPORINS (Verified Allergy, Unknown, 05/18/18) ERYTHROMYCIN BASE (Verified Allergy, Unknown, 05/18/18) GABAPENTIN (Verified Allergy, Unknown, 05/18/18) SHELLFISH DERIVED (Verified Allergy, Unknown, 05/22/18) Objective Last 24 Hour Vital Signs Date Time Temp Pulse Resp B/P (MAP) Pulse Ox O2 Delivery O2 Flow Rate FiO2 05/24/18 12:01 97.1 05/24/18 12:00 97.6 76 18 100/71 (81) 97 05/24/18 10:16 97.1 05/24/18 09:00 Room Air 05/24/18 08:00 97.1 68 19 120/60 (80) 97 05/24/18 04:00 97.1 68 18 116/58 (77) 96 05/24/18 00:00 97.5 63 18 98/60 (73) 95 05/23/18 21:00 Room Air 05/23/18 20:00 98.0 71 18 100/55 (70) 95 05/23/18 16:00 97.5 67 20 109/70 (83) 100 Intake and Output 05/23/18 05/24/18 19:00 07:00 Intake Total 340 ml 200 ml Balance 340 ml 200 ml Intake Oral 340 ml 200 ml # Voids 1 4 Objective General Appearance: cachetic HEENT: normocephalic, atraumatic Respiratory/Chest: chest wall non-tender, lungs clear Cardiovascular: normal peripheral pulses, normal rate Abdomen: normal bowel sounds, soft, non tender Genitourinary: normal external genitalia Extremities: no clubbing Skin: no lesions Neurologic/Psychiatric: normal mood/affect Musculoskeletal: normal muscle bulk Microbiology Date/Time Source Procedure Growth Status 05/22/18 00:26 Nasal Nares MRSA Culture - Final NO METHICILLIN RESISTANT STAPH AUREUS... Complete 05/22/18 00:26 Rectum - Final NO CARBAPENEM-RESISTANT ENTEROBACTERI... Complete 05/22/18 00:26 Rectum VRE Culture - Final Enterococcus Faecalis - Vre Complete Laboratory Tests 05/24/18 05:50: White Blood Count 3.1L, Red Blood Count 4.29, Hemoglobin 11.8L, Hematocrit 36.6L , Mean Corpuscular Volume 85, Mean Corpuscular Hemoglobin 27.4, Mean Corpuscular Hemoglobin Concent 32.1, Red Cell Distribution Width 11.1L, Platelet Count 328, Mean Platelet Volume 6.5, Neutrophils (%) (Auto) , Lymphocytes (%) (Auto) , Monocytes (%) (Auto) , Eosinophils (%) (Auto) , Basophils (%) (Auto) , Differential Total Cells Counted 100, Neutrophils % ( Manual) 24L, Lymphocytes % (Manual) 51H, Monocytes % (Manual) 14H, Eosinophils % (Manual) 11H, Basophils % (Manual) 0, Band Neutrophils 0, Platelet Estimate Adequate, Platelet Morphology Normal, Hypochromasia 1+, Sodium Level 140, Potassium Level 4.5, Chloride Level 105, Carbon Dioxide Level 31, Anion Gap 4L, Blood Urea Nitrogen 9, Creatinine 0.8, Estimat Glomerular Filtration Rate > 60, Glucose Level 80, Calcium Level 9.0, Phosphorus Level 3.0, Magnesium Level 1.9, Total Bilirubin 0.2, Aspartate Amino Transf (AST/SGOT) 25, Alanine Aminotransferase (ALT/SGPT) 26, Alkaline Phosphatase 69, Total Protein 8.7H, Albumin 3.2L, Globulin 5.5, Albumin/Globulin Ratio 0.6L Current Medications Medications (Trade) Dose Ordered Sig/Mejia Route PRN Reason Start Time Stop Time Status Last Admin Dose Admin Acetaminophen (Tylenol) 650 mg Q4H PRN ORAL MILD PAIN / T>100.5 05/22/18 07:15 06/21/18 07:14 05/23/18 08:52 Acetaminophen/ Hydrocodone Bitart ([place] 10/325) 1 tab Q4H PRN ORAL PAIN 4-10 05/22/18 07:15 05/29/18 07:14 05/24/18 11:31 Brimonidine Tartrate (Alphagan) 1 drop BID BOTH EYES 05/22/18 10:00 06/21/18 09:59 05/24/18 09:47 Folic Acid (Folate) 1 mg DAILY ORAL 05/22/18 09:00 06/21/18 08:59 05/24/18 09:46 Latanoprost (Xalatan) 1 drop BEDTIME BOTH EYES 05/22/18 21:00 06/21/18 20:59 05/23/18 21:07 Pregabalin (Lyrica) 75 mg Q12HR ORAL 05/22/18 09:00 06/21/18 08:59 05/24/18 09:46 Thiamine HCl (Vitamin B1) 100 mg DAILY ORAL 05/22/18 09:00 06/21/18 08:59 05/24/18 09:46 Timolol Maleate (Timoptic 0.5% Op Soln) 1 drop TWICE A DAY BOTH EYES 05/22/18 10:00 06/21/18 09:59 05/24/18 09:46 Trimethoprim/ Sulfamethoxazole (Bactrim-DS) 1 tab Q12HR ORAL 05/22/18 09:00 05/29/18 08:59 05/24/18 09:45 Christine Wallis MD May 24, 2018 14:03
--- NOTE | 2018-05-24 15:16 | General Progress Note ---
Assessment/Plan Problem List: (1) Bipolar disorder ICD Codes: F31.9 - Bipolar disorder, unspecified SNOMED: 48601099 Qualifiers: Status: stable Assessment/Plan risperdal 2mg po qhs depakote 500mg bid provided ro/st Subjective Date patient seen: May 24, 2018 Neurologic/Psychiatric: Reports: anxiety, depressed, emotional problems Allergies: Coded Allergies: CEPHALEXIN (Verified Allergy, Unknown, 05/18/18) CEPHALOSPORINS (Verified Allergy, Unknown, 05/18/18) ERYTHROMYCIN BASE (Verified Allergy, Unknown, 05/18/18) GABAPENTIN (Verified Allergy, Unknown, 05/18/18) SHELLFISH DERIVED (Verified Allergy, Unknown, 05/22/18) Objective Last 24 Hour Vital Signs Date Time Temp Pulse Resp B/P (MAP) Pulse Ox O2 Delivery O2 Flow Rate FiO2 05/24/18 12:01 97.1 05/24/18 12:00 97.6 76 18 100/71 (81) 97 05/24/18 10:16 97.1 05/24/18 09:00 Room Air 05/24/18 08:00 97.1 68 19 120/60 (80) 97 05/24/18 04:00 97.1 68 18 116/58 (77) 96 05/24/18 00:00 97.5 63 18 98/60 (73) 95 05/23/18 21:00 Room Air 05/23/18 20:00 98.0 71 18 100/55 (70) 95 05/23/18 16:00 97.5 67 20 109/70 (83) 100 Intake and Output 05/23/18 05/24/18 19:00 07:00 Intake Total 340 ml 200 ml Balance 340 ml 200 ml Intake Oral 340 ml 200 ml # Voids 1 4 Laboratory Tests 05/24/18 05:50: White Blood Count 3.1L, Red Blood Count 4.29, Hemoglobin 11.8L, Hematocrit 36.6L , Mean Corpuscular Volume 85, Mean Corpuscular Hemoglobin 27.4, Mean Corpuscular Hemoglobin Concent 32.1, Red Cell Distribution Width 11.1L, Platelet Count 328, Mean Platelet Volume 6.5, Neutrophils (%) (Auto) , Lymphocytes (%) (Auto) , Monocytes (%) (Auto) , Eosinophils (%) (Auto) , Basophils (%) (Auto) , Differential Total Cells Counted 100, Neutrophils % ( Manual) 24L, Lymphocytes % (Manual) 51H, Monocytes % (Manual) 14H, Eosinophils % (Manual) 11H, Basophils % (Manual) 0, Band Neutrophils 0, Platelet Estimate Adequate, Platelet Morphology Normal, Hypochromasia 1+, Sodium Level 140, Potassium Level 4.5, Chloride Level 105, Carbon Dioxide Level 31, Anion Gap 4L, Blood Urea Nitrogen 9, Creatinine 0.8, Estimat Glomerular Filtration Rate > 60, Glucose Level 80, Calcium Level 9.0, Phosphorus Level 3.0, Magnesium Level 1.9, Total Bilirubin 0.2, Aspartate Amino Transf (AST/SGOT) 25, Alanine Aminotransferase (ALT/SGPT) 26, Alkaline Phosphatase 69, Total Protein 8.7H, Albumin 3.2L, Globulin 5.5, Albumin/Globulin Ratio 0.6L Height (Feet): 5 Height (Inches): 5.00 Weight (Pounds): 148 General Appearance: no apparent distress, alert Neurologic: oriented x 3, responsive, depressed affect Jake Mcintyre MD May 24, 2018 15:16
--- NOTE | 2018-05-24 15:19 | NUR ---
NURSE NOTES: Patient is resting, watching TV. No sign of distress and shortness of breath. Will keep monitoring.
[2018-05-24 16:00] VITALS: BP 100/59
--- NOTE | 2018-05-24 16:13 | NUR ---
NURSE NOTES: Patient asked for pain med, [place] given. Will keep monitoring.
--- NOTE | 2018-05-24 17:29 | NUR ---
NURSE NOTES: Patient said to take her dinner tray out of her room. Patient states she doesn't feel like eating now and only eating cookies. Nurse advised patient to leave tray at the bed side table and eat the dinner when patient feels like. Patient said, if the tray left in her bed side table, she is gonna pour water on it. Nurse removed the tray out of the room. I asked patient if she wanna have another food, patient stated she doesn't wanna have anything except her cookies.
--- NOTE | 2018-05-24 19:18 | NUR ---
HAND-OFF: Report given to PORSCHE Barba.
--- NOTE | 2018-05-24 19:25 | NUR ---
NURSE NOTES: Pt received in bed at lowest position, talkative with no complaints of pain at the moment. no signs of distress.
[2018-05-24 20:00] VITALS: BP 143/75
[2018-05-24] MEDS: Latanoprost 0.005% Opth 2.5ml Soln BOTH EYES SCH (20:24)
[2018-05-25] VITALS: BP 102/65
[2018-05-25] MEDS: HYDROcodone/Acetamin 10/325 tab ORAL PRN ×6 (02:21→23:27)
--- NOTE | 2018-05-25 03:00 | NUR ---
NURSE NOTES: Patient in bed, awake, complained of generalized pain. Given PRN pain medication. Reassessed. Call light is at bedside. Will continue plan of care.
[2018-05-25 04:00] VITALS: BP 103/56
[2018-05-25 06:50] LABS: HEMATOCRIT 35.6 % (37.0-47.0); HEMOGLOBIN 11.4 G/DL (12.0-16.0); MEAN CORPUSCULAR VOLUME 85 FL (80-99); PLATELET COUNT 346 K/UL (150-450); RED BLOOD COUNT 4.19 M/UL (4.20-5.40); RED CELL DISTRIBUTION WIDTH 11.4 % (11.6-14.8)
[2018-05-25 07:01] LABS: ANION GAP 4 mmol/L (5-15); BLOOD UREA NITROGEN 9 mg/dL (7-18); CALCIUM 8.6 MG/DL (8.5-10.1); CARBON DIOXIDE 28 MMOL/L (21-32); CHLORIDE 106 MMOL/L (98-107); CREATININE 0.8 MG/DL (0.55-1.30); POTASSIUM 4.3 MMOL/L (3.5-5.1); SODIUM 138 MMOL/L (136-145)
--- NOTE | 2018-05-25 07:25 | NUR ---
HAND-OFF: Report given to PORSCHE Garces.
[2018-05-25 08:00] VITALS: BP 97/64
[2018-05-25] MEDS: Depakote ER 500mg tab ORAL SCH ×3 (09:00→21:00)
--- NOTE | 2018-05-25 09:31 | NUR ---
INSURANCE ALL CLINICALS AND REVIEWS FAXED TO: [facility] P:[phone] OR [phone] F:[phone]
[2018-05-25] MEDS: Timolol 0.5% Op Soln 2.5ml BOTH EYES SCH ×2 (09:51→19:09)
[2018-05-25] MEDS: Brimonidine 0.2% Opth Sol BOTH EYES SCH ×2 (09:51→19:10)
[2018-05-25] MEDS: Lyrica 75mg cap ORAL SCH ×2 (09:52→21:02)
[2018-05-25] MEDS: Bactrim-DS 1 tab ORAL SCH (09:52)
[2018-05-25] MEDS: Thiamine 100mg tab ORAL SCH (09:52)
--- NOTE | 2018-05-25 11:14 | Infectious Diseases Prog Note ---
Assessment/Plan Assessment/Plan Abx: Bactrim Assessment: REcent b/l cellulitis, resolved Afebrile Mild leukopenia paraplegia anemia neuralgia bipolar disorder FTT [place] resident VRE stool- THIS IS A COLONIZER Plan: -D/c Bactrim abx d#8/ and monitor off abx -05/20 SP IV Vancomycin #3 -OK TO DISCHARGE BACK TO [place], NO NEED FOR ISOLATION UPON DISCHARGE -f/u cx -Monitor CBC/CMP, temperatures Thank you for this consultation. Will continue to follow along with you. Discussed with RN and outpatient case manager. Subjective Allergies: Coded Allergies: CEPHALEXIN (Verified Allergy, Unknown, 05/18/18) CEPHALOSPORINS (Verified Allergy, Unknown, 05/18/18) ERYTHROMYCIN BASE (Verified Allergy, Unknown, 05/18/18) GABAPENTIN (Verified Allergy, Unknown, 05/18/18) SHELLFISH DERIVED (Verified Allergy, Unknown, 05/22/18) Subjective afebrile waiting placement Objective Vital Signs Last 24 Hour Vital Signs Date Time Temp Pulse Resp B/P (MAP) Pulse Ox O2 Delivery O2 Flow Rate FiO2 05/25/18 10:22 97.7 05/25/18 04:00 97.7 69 20 103/56 (72) 97 05/25/18 00:00 97.5 78 18 102/65 (77) 96 05/24/18 21:00 Room Air 05/24/18 20:00 97.8 78 19 143/75 (97) 100 05/24/18 16:13 97.9 05/24/18 16:00 97.9 79 18 100/59 (73) 99 05/24/18 12:00 97.6 76 18 100/71 (81) 97 Height (Feet): 5 Height (Inches): 5.00 Weight (Pounds): 148 Objective GENERAL: The patient is a thin-appearing female, in no apparent distress. HEENT: Eyes - pupils are equal and responsive to light and accommodation. Extraocular movements are intact. NECK: Supple. No lymphadenopathy. CHEST: Lungs are clear to auscultation bilaterally without wheezes or rales. CARDIOVASCULAR: Regular rate. S1 and S2 normal without murmurs, rubs, or gallops. ABDOMEN: Soft, nontender, and nondistended. Positive bowel sounds. No evidence of hepatosplenomegaly. Currently, no rebound or guarding noted. EXTREMITIES: Right lower extremity is erythematous compared to the left, otherwise without clubbing, cyanosis, or edema. Laboratory Tests Test 05/25/18 05:40 White Blood Count 3.0 K/UL (4.8-10.8) L Red Blood Count 4.19 M/UL (4.20-5.40) L Hemoglobin 11.4 G/DL (12.0-16.0) L Hematocrit 35.6 % (37.0-47.0) L Mean Corpuscular Volume 85 FL (80-99) Mean Corpuscular Hemoglobin 27.2 PG (27.0-31.0) Mean Corpuscular Hemoglobin Concent 31.9 G/DL (32.0-36.0) L Red Cell Distribution Width 11.4 % (11.6-14.8) L Platelet Count 346 K/UL (150-450) Mean Platelet Volume 6.4 FL (6.5-10.1) L Neutrophils (%) (Auto) % (45.0-75.0) Lymphocytes (%) (Auto) % (20.0-45.0) Monocytes (%) (Auto) % (1.0-10.0) Eosinophils (%) (Auto) % (0.0-3.0) Basophils (%) (Auto) % (0.0-2.0) Differential Total Cells Counted 100 Neutrophils % (Manual) 35 % (45-75) L Lymphocytes % (Manual) 50 % (20-45) H Monocytes % (Manual) 3 % (1-10) Eosinophils % (Manual) 12 % (0-3) H Basophils % (Manual) 0 % (0-2) Band Neutrophils 0 % (0-8) Platelet Estimate Adequate Platelet Morphology Normal Hypochromasia 1+ Sodium Level 138 MMOL/L (136-145) Potassium Level 4.3 MMOL/L (3.5-5.1) Chloride Level 106 MMOL/L (98-107) Carbon Dioxide Level 28 MMOL/L (21-32) Anion Gap 4 mmol/L (5-15) L Blood Urea Nitrogen 9 mg/dL (7-18) Creatinine 0.8 MG/DL (0.55-1.30) Estimat Glomerular Filtration Rate > 60 mL/min (>60) Glucose Level 80 MG/DL (74-106) Calcium Level 8.6 MG/DL (8.5-10.1) Current Medications Medications (Trade) Dose Ordered Sig/Mejia Route PRN Reason Start Time Stop Time Status Last Admin Dose Admin Acetaminophen (Tylenol) 650 mg Q4H PRN ORAL MILD PAIN / T>100.5 05/22/18 07:15 06/21/18 07:14 05/23/18 08:52 Acetaminophen/ Hydrocodone Bitart ([place] 10/325) 1 tab Q4H PRN ORAL PAIN 4-10 05/22/18 07:15 05/29/18 07:14 05/25/18 10:43 Brimonidine Tartrate (Alphagan) 1 drop BID BOTH EYES 05/22/18 10:00 06/21/18 09:59 05/25/18 09:51 Divalproex Sodium (Depakote ER) 500 mg EVERY 12 HOURS ORAL 05/25/18 09:00 06/24/18 08:59 Folic Acid (Folate) 1 mg DAILY ORAL 05/22/18 09:00 06/21/18 08:59 05/25/18 09:52 Latanoprost (Xalatan) 1 drop BEDTIME BOTH EYES 05/22/18 21:00 06/21/18 20:59 05/24/18 20:24 Pregabalin (Lyrica) 75 mg Q12HR ORAL 05/22/18 09:00 06/21/18 08:59 05/25/18 09:52 Risperidone (RisperDAL) 2 mg BEDTIME ORAL 05/25/18 21:00 06/24/18 20:59 Thiamine HCl (Vitamin B1) 100 mg DAILY ORAL 05/22/18 09:00 06/21/18 08:59 05/25/18 09:52 Timolol Maleate (Timoptic 0.5% Op Soln) 1 drop TWICE A DAY BOTH EYES 05/22/18 10:00 06/21/18 09:59 05/25/18 09:51 Trimethoprim/ Sulfamethoxazole (Bactrim-DS) 1 tab Q12HR ORAL 05/22/18 09:00 05/29/18 08:59 05/25/18 09:52 Marilyn Oliver M.D. May 25, 2018 11:14
[2018-05-25 12:00] VITALS: BP 98/71
--- NOTE | 2018-05-25 12:46 | Pulmonology Progress Note ---
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 (2) Cellulitis (3) Bipolar disorder (4) Limited mobility in bed Assessment/Plan no new complains ID evaluation appreciated on Bactrim po now no need for contact isolation symptomatic treatment dvt prophylaxis dc planning Subjective ROS Limited/Unobtainable: No Constitutional: Reports: no symptoms HEENT: Repors: no symptoms Respiratory: Reports: no symptoms Allergies: Coded Allergies: CEPHALEXIN (Verified Allergy, Unknown, 05/18/18) CEPHALOSPORINS (Verified Allergy, Unknown, 05/18/18) ERYTHROMYCIN BASE (Verified Allergy, Unknown, 05/18/18) GABAPENTIN (Verified Allergy, Unknown, 05/18/18) SHELLFISH DERIVED (Verified Allergy, Unknown, 05/22/18) Objective Last 24 Hour Vital Signs Date Time Temp Pulse Resp B/P (MAP) Pulse Ox O2 Delivery O2 Flow Rate FiO2 05/25/18 10:22 97.7 05/25/18 09:00 Room Air 05/25/18 08:00 97.5 81 18 97/64 (75) 97 05/25/18 04:00 97.7 69 20 103/56 (72) 97 05/25/18 00:00 97.5 78 18 102/65 (77) 96 05/24/18 21:00 Room Air 05/24/18 20:00 97.8 78 19 143/75 (97) 100 05/24/18 16:13 97.9 05/24/18 16:00 97.9 79 18 100/59 (73) 99 Intake and Output 05/24/18 05/25/18 19:00 07:00 Intake Total 1280 ml 250 ml Balance 1280 ml 250 ml Intake Oral 1280 ml 250 ml # Voids 4 1 # Bowel Movements 1 Objective General Appearance: cachetic HEENT: normocephalic, atraumatic Respiratory/Chest: chest wall non-tender, lungs clear Cardiovascular: normal peripheral pulses, normal rate Abdomen: normal bowel sounds, soft, non tender Genitourinary: normal external genitalia Extremities: no clubbing Skin: no lesions Neurologic/Psychiatric: normal mood/affect Musculoskeletal: normal muscle bulk Laboratory Tests 05/25/18 05:40: White Blood Count 3.0L, Red Blood Count 4.19L, Hemoglobin 11.4L, Hematocrit 35.6L, Mean Corpuscular Volume 85, Mean Corpuscular Hemoglobin 27.2, Mean Corpuscular Hemoglobin Concent 31.9L, Red Cell Distribution Width 11.4L, Platelet Count 346, Mean Platelet Volume 6.4L, Neutrophils (%) (Auto) , Lymphocytes (%) (Auto) , Monocytes (%) (Auto) , Eosinophils (%) (Auto) , Basophils (%) (Auto) , Differential Total Cells Counted 100, Neutrophils % ( Manual) 35L, Lymphocytes % (Manual) 50H, Monocytes % (Manual) 3, Eosinophils % ( Manual) 12H, Basophils % (Manual) 0, Band Neutrophils 0, Platelet Estimate Adequate, Platelet Morphology Normal, Hypochromasia 1+, Sodium Level 138, Potassium Level 4.3, Chloride Level 106, Carbon Dioxide Level 28, Anion Gap 4L, Blood Urea Nitrogen 9, Creatinine 0.8, Estimat Glomerular Filtration Rate > 60, Glucose Level 80, Calcium Level 8.6 Current Medications Medications (Trade) Dose Ordered Sig/Mejia Route PRN Reason Start Time Stop Time Status Last Admin Dose Admin Acetaminophen (Tylenol) 650 mg Q4H PRN ORAL MILD PAIN / T>100.5 05/22/18 07:15 06/21/18 07:14 05/23/18 08:52 Acetaminophen/ Hydrocodone Bitart ([place] 10/325) 1 tab Q4H PRN ORAL PAIN 4-10 05/22/18 07:15 05/29/18 07:14 05/25/18 10:43 Brimonidine Tartrate (Alphagan) 1 drop BID BOTH EYES 05/22/18 10:00 06/21/18 09:59 05/25/18 09:51 Divalproex Sodium (Depakote ER) 500 mg EVERY 12 HOURS ORAL 05/25/18 09:00 06/24/18 08:59 Folic Acid (Folate) 1 mg DAILY ORAL 05/22/18 09:00 06/21/18 08:59 05/25/18 09:52 Latanoprost (Xalatan) 1 drop BEDTIME BOTH EYES 05/22/18 21:00 06/21/18 20:59 05/24/18 20:24 Pregabalin (Lyrica) 75 mg Q12HR ORAL 05/22/18 09:00 06/21/18 08:59 05/25/18 09:52 Risperidone (RisperDAL) 2 mg BEDTIME ORAL 05/25/18 21:00 06/24/18 20:59 Thiamine HCl (Vitamin B1) 100 mg DAILY ORAL 05/22/18 09:00 06/21/18 08:59 05/25/18 09:52 Timolol Maleate (Timoptic 0.5% Op Soln) 1 drop TWICE A DAY BOTH EYES 05/22/18 10:00 06/21/18 09:59 05/25/18 09:51 Christine Wallis MD May 25, 2018 12:46
--- NOTE | 2018-05-25 13:15 | General Progress Note ---
Assessment/Plan Problem List: (1) Bipolar disorder ICD Codes: F31.9 - Bipolar disorder, unspecified SNOMED: [id number] Qualifiers: Status: stable Assessment/Plan Risperdal 4mg po qhs Depakote 500mg bid provided ro/st Subjective Neurologic/Psychiatric: Reports: anxiety Allergies: Coded Allergies: CEPHALEXIN (Verified Allergy, Unknown, 05/18/18) CEPHALOSPORINS (Verified Allergy, Unknown, 05/18/18) ERYTHROMYCIN BASE (Verified Allergy, Unknown, 05/18/18) GABAPENTIN (Verified Allergy, Unknown, 05/18/18) SHELLFISH DERIVED (Verified Allergy, Unknown, 05/22/18) Subjective the pt is irritable and perseverates on going back to [facility] Objective Last 24 Hour Vital Signs Date Time Temp Pulse Resp B/P (MAP) Pulse Ox O2 Delivery O2 Flow Rate FiO2 05/25/18 10:22 97.7 05/25/18 09:00 Room Air 05/25/18 08:00 97.5 81 18 97/64 (75) 97 05/25/18 04:00 97.7 69 20 103/56 (72) 97 05/25/18 00:00 97.5 78 18 102/65 (77) 96 05/24/18 21:00 Room Air 05/24/18 20:00 97.8 78 19 143/75 (97) 100 05/24/18 16:13 97.9 05/24/18 16:00 97.9 79 18 100/59 (73) 99 Intake and Output 05/24/18 05/25/18 19:00 07:00 Intake Total 1280 ml 250 ml Balance 1280 ml 250 ml Intake Oral 1280 ml 250 ml # Voids 4 1 # Bowel Movements 1 Laboratory Tests 05/25/18 05:40: White Blood Count 3.0L, Red Blood Count 4.19L, Hemoglobin 11.4L, Hematocrit 35.6L, Mean Corpuscular Volume 85, Mean Corpuscular Hemoglobin 27.2, Mean Corpuscular Hemoglobin Concent 31.9L, Red Cell Distribution Width 11.4L, Platelet Count 346, Mean Platelet Volume 6.4L, Neutrophils (%) (Auto) , Lymphocytes (%) (Auto) , Monocytes (%) (Auto) , Eosinophils (%) (Auto) , Basophils (%) (Auto) , Differential Total Cells Counted 100, Neutrophils % ( Manual) 35L, Lymphocytes % (Manual) 50H, Monocytes % (Manual) 3, Eosinophils % ( Manual) 12H, Basophils % (Manual) 0, Band Neutrophils 0, Platelet Estimate Adequate, Platelet Morphology Normal, Hypochromasia 1+, Sodium Level 138, Potassium Level 4.3, Chloride Level 106, Carbon Dioxide Level 28, Anion Gap 4L, Blood Urea Nitrogen 9, Creatinine 0.8, Estimat Glomerular Filtration Rate > 60, Glucose Level 80, Calcium Level 8.6 Height (Feet): 5 Height (Inches): 5.00 Weight (Pounds): 148 General Appearance: alert, severe distress, agitated Jake Mcintyre MD May 25, 2018 13:15
--- NOTE | 2018-05-25 14:02 | Internal Med Progress Note ---
Subjective Date of Service: May 25, 2018 Physician Name Sadi Gaviria Attending Physician Niall Kraft MD Current Medications Medications (Trade) Dose Ordered Sig/Mejia Route PRN Reason Start Time Stop Time Status Last Admin Dose Admin Acetaminophen (Tylenol) 650 mg Q4H PRN ORAL MILD PAIN / T>100.5 05/22/18 07:15 06/21/18 07:14 05/23/18 08:52 Acetaminophen/ Hydrocodone Bitart ([place] 10/325) 1 tab Q4H PRN ORAL PAIN 4-10 05/22/18 07:15 05/29/18 07:14 05/25/18 10:43 Brimonidine Tartrate (Alphagan) 1 drop BID BOTH EYES 05/22/18 10:00 06/21/18 09:59 05/25/18 09:51 Divalproex Sodium (Depakote ER) 500 mg EVERY 12 HOURS ORAL 05/25/18 09:00 06/24/18 08:59 Folic Acid (Folate) 1 mg DAILY ORAL 05/22/18 09:00 06/21/18 08:59 05/25/18 09:52 Latanoprost (Xalatan) 1 drop BEDTIME BOTH EYES 05/22/18 21:00 06/21/18 20:59 05/24/18 20:24 Pregabalin (Lyrica) 75 mg Q12HR ORAL 05/22/18 09:00 06/21/18 08:59 05/25/18 09:52 Risperidone (RisperDAL) 2 mg BEDTIME ORAL 05/25/18 21:00 06/24/18 20:59 Thiamine HCl (Vitamin B1) 100 mg DAILY ORAL 05/22/18 09:00 06/21/18 08:59 05/25/18 09:52 Timolol Maleate (Timoptic 0.5% Op Soln) 1 drop TWICE A DAY BOTH EYES 05/22/18 10:00 06/21/18 09:59 05/25/18 09:51 Allergies: Coded Allergies: CEPHALEXIN (Verified Allergy, Unknown, 05/18/18) CEPHALOSPORINS (Verified Allergy, Unknown, 05/18/18) ERYTHROMYCIN BASE (Verified Allergy, Unknown, 05/18/18) GABAPENTIN (Verified Allergy, Unknown, 05/18/18) SHELLFISH DERIVED (Verified Allergy, Unknown, 05/22/18) ROS Limited/Unobtainable: No Constitutional: Reports: no symptoms HEENT: Reports: no symptoms Cardiovascular: Reports: no symptoms Respiratory: Reports: no symptoms Gastrointestinal/Abdominal: Reports: no symptoms Genitourinary: Reports: no symptoms Neurologic/Psychiatric: Reports: no symptoms Subjective 57 YO F admitted with vancomycin resistant enterococcus stool. Cover for Int Rober-Dr Kraft. Objective Last Vital Signs Date Time Temp Pulse Resp B/P (MAP) Pulse Ox O2 Delivery O2 Flow Rate FiO2 05/25/18 12:00 96.6 78 16 98/71 (80) 98 05/25/18 09:00 Room Air Laboratory Tests Test 05/25/18 05:40 White Blood Count 3.0 K/UL (4.8-10.8) L Red Blood Count 4.19 M/UL (4.20-5.40) L Hemoglobin 11.4 G/DL (12.0-16.0) L Hematocrit 35.6 % (37.0-47.0) L Mean Corpuscular Volume 85 FL (80-99) Mean Corpuscular Hemoglobin 27.2 PG (27.0-31.0) Mean Corpuscular Hemoglobin Concent 31.9 G/DL (32.0-36.0) L Red Cell Distribution Width 11.4 % (11.6-14.8) L Platelet Count 346 K/UL (150-450) Mean Platelet Volume 6.4 FL (6.5-10.1) L Neutrophils (%) (Auto) % (45.0-75.0) Lymphocytes (%) (Auto) % (20.0-45.0) Monocytes (%) (Auto) % (1.0-10.0) Eosinophils (%) (Auto) % (0.0-3.0) Basophils (%) (Auto) % (0.0-2.0) Differential Total Cells Counted 100 Neutrophils % (Manual) 35 % (45-75) L Lymphocytes % (Manual) 50 % (20-45) H Monocytes % (Manual) 3 % (1-10) Eosinophils % (Manual) 12 % (0-3) H Basophils % (Manual) 0 % (0-2) Band Neutrophils 0 % (0-8) Platelet Estimate Adequate Platelet Morphology Normal Hypochromasia 1+ Sodium Level 138 MMOL/L (136-145) Potassium Level 4.3 MMOL/L (3.5-5.1) Chloride Level 106 MMOL/L (98-107) Carbon Dioxide Level 28 MMOL/L (21-32) Anion Gap 4 mmol/L (5-15) L Blood Urea Nitrogen 9 mg/dL (7-18) Creatinine 0.8 MG/DL (0.55-1.30) Estimat Glomerular Filtration Rate > 60 mL/min (>60) Glucose Level 80 MG/DL (74-106) Calcium Level 8.6 MG/DL (8.5-10.1) Intake and Output 05/24/18 05/25/18 19:00 07:00 Intake Total 1280 ml 250 ml Balance 1280 ml 250 ml Intake Oral 1280 ml 250 ml # Voids 4 1 # Bowel Movements 1 Objective General Appearance: WD/WN, no apparent distress, alert EENT: PERRL/EOMI, normal ENT inspection, TMs normal Neck: non-tender, normal alignment, supple, normal inspection Cardiovascular: normal peripheral pulses, normal rate, regular rhythm, no gallop/murmur, no JVD Respiratory/Chest: chest wall non-tender, lungs clear, normal breath sounds, no respiratory distress, no accessory muscle use Abdomen: normal bowel sounds, non tender, soft, no organomegaly, no mass Extremities: normal range of motion, non-tender 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 Sadi Gaviria MD May 25, 2018 14:02
[2018-05-25 16:00] VITALS: BP 106/69
--- NOTE | 2018-05-25 16:00 | NUR ---
CASE MANAGEMENT:REVIEW 05/25/18 SI: CELLULITIS. VRE CARRIER 97.5 81 18 97/64 97% ON RA WBC-3.0 H/H-11.4/35.6 IS: BACTRIM PO Q12 FOLATE PO QD LYRICA PO Q12 THIAMINE PO QD NORCO PO Q4HRS PRN RISPERDAL PO QHS DEPAKOTE PO Q12 : TO MED/SURG UNIT 4 EAST DISCHARGE PLAN PATIENT IS FROM [facility]. SHE WAS DISCHARGED TO [facility] ON 05/21/18 AND THEY SENT HER BACK TO HOSPITAL DUE TO VRE IN THE RECTUM SPOKE WITH [facility] BRIM POUNCER WHO IS REFUSING TO ACCEPT PATIENT BACK BECAUSE OF VRE AND BEHAVORIAL ISSUES. 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
--- NOTE | 2018-05-25 19:42 | NUR ---
HAND-OFF: Report given to PORSCHE Tabares.
[2018-05-25 20:00] VITALS: BP 93/68
--- NOTE | 2018-05-25 20:03 | NUR ---
NURSE NOTES: Pt received awake and alert, talkative with roommate, bed in lowest position, call light within reach, and cellphone within reach at bedside. No complaints of pain at the moment pt received pain medication and no signs of distress.
[2018-05-25] MEDS: Latanoprost 0.005% Opth 2.5ml Soln BOTH EYES SCH (21:02)
--- NOTE | 2018-05-25 21:10 | NUR ---
NURSE NOTES: Pt refused Depakote and Risperdone medication after the medicine was removed from package. Wasted both medications with PORSCHE Pereira.
[2018-05-26] MEDS: HYDROcodone/Acetamin 10/325 tab ORAL PRN ×5 (03:13→20:44)
[2018-05-26 04:00] VITALS: BP 96/50
[2018-05-26 06:58] LABS: ANION GAP 7 mmol/L (5-15); BLOOD UREA NITROGEN 13 mg/dL (7-18); CALCIUM 8.6 MG/DL (8.5-10.1); CARBON DIOXIDE 26 MMOL/L (21-32); CHLORIDE 106 MMOL/L (98-107); CREATININE 0.7 MG/DL (0.55-1.30); POTASSIUM 4.2 MMOL/L (3.5-5.1); SODIUM 139 MMOL/L (136-145)
[2018-05-26 07:11] LABS: HEMATOCRIT 35.3 % (37.0-47.0); HEMOGLOBIN 11.3 G/DL (12.0-16.0); MEAN CORPUSCULAR VOLUME 85 FL (80-99); PLATELET COUNT 319 K/UL (150-450); RED BLOOD COUNT 4.14 M/UL (4.20-5.40); RED CELL DISTRIBUTION WIDTH 11.1 % (11.6-14.8); WHITE BLOOD COUNT 3.2 K/UL (4.8-10.8)
--- NOTE | 2018-05-26 07:25 | NUR ---
HAND-OFF: Report given to PORSCHE Garces.
--- NOTE | 2018-05-26 07:38 | NUR ---
NURSE NOTES: received patient in bed, seated, having breakfast. Patient complains of generalized pain 10/10, given [place] 1 tab PO as ordered PRN. No IV access on patient. Bed locked at the lowest position possible, call light within easy reach,siderails up x2. Will continue to monitor patient and follow up with the plan of care.
[2018-05-26 08:00] VITALS: BP 99/67
[2018-05-26] MEDS: Depakote ER 500mg tab ORAL SCH ×3 (09:00→21:00)
[2018-05-26] MEDS: Timolol 0.5% Op Soln 2.5ml BOTH EYES SCH ×2 (09:07→17:13)
[2018-05-26] MEDS: Thiamine 100mg tab ORAL SCH (09:07)
[2018-05-26] MEDS: Brimonidine 0.2% Opth Sol BOTH EYES SCH ×2 (09:07→17:14)
[2018-05-26] MEDS: Lyrica 75mg cap ORAL SCH ×2 (09:08→20:29)
[2018-05-26 12:00] VITALS: BP 103/71
--- NOTE | 2018-05-26 14:03 | Discharge Summary ---
Discharge Summary Hospital Course Date of Admission May 22, 2018 at 01:23 Date of Discharge Admitting Diagnosis cellulitis HPI Joanne Andrade is a 57 year old female who was admitted on May 22, 2018 at 01: 23 for Cellulitis Hospital Course Last 24 Hour Vital Signs Date Time Temp Pulse Resp B/P (MAP) Pulse Ox O2 Delivery O2 Flow Rate FiO2 05/26/18 09:38 98.9 05/26/18 09:00 Room Air 05/26/18 08:05 98.9 05/26/18 08:00 98.9 77 16 99/67 (78) 97 05/26/18 04:00 98.0 66 19 96/50 (65) 93 05/25/18 21:00 Room Air 05/25/18 20:00 98.2 66 19 93/68 (76) 95 05/25/18 16:00 97.9 74 18 106/69 (81) 95 GENERAL: Alert and oriented X 3 HEAD AND NECK: Pupils are reactive to light. Anicteric. NECK: Supple. No JVD. LUNGS: Good air entry. fair inspiratory effort. No wheeze or rhonchi. HEART: S1 and S2. Distant heart sounds. No murmur or gallops. ABDOMEN: Soft, nondistended, and nontender. Positive bowel sounds. EXTREMITIES: No cyanosis or clubbing. Contracted and weakness of bilateral lower extremities. Bilateral lower extremity, less edema, right worse than left and less erythema was noted in the bilateral lower extremity, right greater than left. RECTAL: Refused and deferred. GENITOURINARY: Refused and deferred. Discharge Discharge Disposition Patient was discharged to Niall Kraft MD May 26, 2018 14:03
--- NOTE | 2018-05-26 14:21 | NUR ---
CASE MANAGEMENT:REVIEW 05/26/18 SI: CELLULITIS. VRE CARRIER 98.9 77 16 99/67 97% ON RA H/H-11.3/35.3 IS: BACTRIM PO Q12 FOLATE PO QD LYRICA PO Q12 THIAMINE PO QD NORCO PO Q4HRS PRN RISPERDAL PO QHS DEPAKOTE PO Q12 : TO MED/SURG UNIT 4 EAST PLAN: [facility] AND [facility] TO DO LETTER OF AGREEMENT
--- NOTE | 2018-05-26 14:26 | NUR ---
DISCHARGE PLAN [facility] IS WORKING ON LETTER OF AGREEMENT FOR BLACKLICKTINO GRAMAJO
--- NOTE | 2018-05-26 15:18 | NUR ---
INSURANCE ALL CLINICALS AND REVIEWS FAXED TO: [facility] P:[phone] [place] [phone] F:[phone]
[2018-05-26 16:00] VITALS: BP 99/70
--- NOTE | 2018-05-26 16:20 | Infectious Diseases Prog Note ---
Assessment/Plan Assessment/Plan Abx: Bactrim Assessment: REcent b/l cellulitis, resolved Afebrile Mild leukopenia paraplegia anemia neuralgia bipolar disorder [facility]TT [place] resident VRE stool- THIS IS A COLONIZER Plan: -Continue to monitor off abx -05/25 SP Bactrim #7 -05/20 SP IV Vancomycin #3 -OK TO DISCHARGE BACK TO [place], NO NEED FOR ISOLATION UPON DISCHARGE -f/u cx -Monitor CBC/CMP, temperatures Thank you for this consultation. Will continue to follow along with you. Discussed with RN and field case manager. Subjective Allergies: Coded Allergies: CEPHALEXIN (Verified Allergy, Unknown, 05/18/18) CEPHALOSPORINS (Verified Allergy, Unknown, 05/18/18) ERYTHROMYCIN BASE (Verified Allergy, Unknown, 05/18/18) GABAPENTIN (Verified Allergy, Unknown, 05/18/18) SHELLFISH DERIVED (Verified Allergy, Unknown, 05/22/18) Subjective afebrile waiting placement Objective Vital Signs Last 24 Hour Vital Signs Date Time Temp Pulse Resp B/P (MAP) Pulse Ox O2 Delivery O2 Flow Rate FiO2 05/26/18 12:52 98.9 05/26/18 12:00 97.7 81 18 103/71 (82) 96 05/26/18 09:38 98.9 05/26/18 09:00 Room Air 05/26/18 08:00 98.9 77 16 99/67 (78) 97 05/26/18 04:00 98.0 66 19 96/50 (65) 93 05/25/18 21:00 Room Air 05/25/18 20:00 98.2 66 19 93/68 (76) 95 Height (Feet): 5 Height (Inches): 5.00 Weight (Pounds): 148 Objective GENERAL: The patient is a thin-appearing female, in no apparent distress. HEENT: Eyes - pupils are equal and responsive to light and accommodation. Extraocular movements are intact. NECK: Supple. No lymphadenopathy. CHEST: Lungs are clear to auscultation bilaterally without wheezes or rales. CARDIOVASCULAR: Regular rate. S1 and S2 normal without murmurs, rubs, or gallops. ABDOMEN: Soft, nontender, and nondistended. Positive bowel sounds. No evidence of hepatosplenomegaly. Currently, no rebound or guarding noted. EXTREMITIES: Right lower extremity is erythematous compared to the left, otherwise without clubbing, cyanosis, or edema. Laboratory Tests Test 05/26/18 05:40 White Blood Count 3.2 K/UL (4.8-10.8) L Red Blood Count 4.14 M/UL (4.20-5.40) L Hemoglobin 11.3 G/DL (12.0-16.0) L Hematocrit 35.3 % (37.0-47.0) L Mean Corpuscular Volume 85 FL (80-99) Mean Corpuscular Hemoglobin 27.2 PG (27.0-31.0) Mean Corpuscular Hemoglobin Concent 31.9 G/DL (32.0-36.0) L Red Cell Distribution Width 11.1 % (11.6-14.8) L Platelet Count 319 K/UL (150-450) Mean Platelet Volume 6.5 FL (6.5-10.1) Neutrophils (%) (Auto) % (45.0-75.0) Lymphocytes (%) (Auto) % (20.0-45.0) Monocytes (%) (Auto) % (1.0-10.0) Eosinophils (%) (Auto) % (0.0-3.0) Basophils (%) (Auto) % (0.0-2.0) Differential Total Cells Counted 100 Neutrophils % (Manual) 27 % (45-75) L Lymphocytes % (Manual) 45 % (20-45) Monocytes % (Manual) 15 % (1-10) H Eosinophils % (Manual) 12 % (0-3) H Basophils % (Manual) 1 % (0-2) Band Neutrophils 0 % (0-8) Platelet Estimate Adequate Platelet Morphology Normal Hypochromasia 1+ Anisocytosis 1+ Sodium Level 139 MMOL/L (136-145) Potassium Level 4.2 MMOL/L (3.5-5.1) Chloride Level 106 MMOL/L (98-107) Carbon Dioxide Level 26 MMOL/L (21-32) Anion Gap 7 mmol/L (5-15) Blood Urea Nitrogen 13 mg/dL (7-18) Creatinine 0.7 MG/DL (0.55-1.30) Estimat Glomerular Filtration Rate > 60 mL/min (>60) Glucose Level 85 MG/DL (74-106) Calcium Level 8.6 MG/DL (8.5-10.1) Current Medications Medications (Trade) Dose Ordered Sig/Mejia Route PRN Reason Start Time Stop Time Status Last Admin Dose Admin Acetaminophen (Tylenol) 650 mg Q4H PRN ORAL MILD PAIN / T>100.5 05/22/18 07:15 06/21/18 07:14 05/23/18 08:52 Acetaminophen/ Hydrocodone Bitart ([place] 10/325) 1 tab Q4H PRN ORAL PAIN 4-10 05/22/18 07:15 05/29/18 07:14 05/26/18 12:22 Brimonidine Tartrate (Alphagan) 1 drop BID BOTH EYES 05/22/18 10:00 06/21/18 09:59 05/26/18 09:07 Divalproex Sodium (Depakote ER) 500 mg EVERY 12 HOURS ORAL 05/25/18 09:00 06/24/18 08:59 05/25/18 21:00 Folic Acid (Folate) 1 mg DAILY ORAL 05/22/18 09:00 06/21/18 08:59 05/26/18 09:08 Latanoprost (Xalatan) 1 drop BEDTIME BOTH EYES 05/22/18 21:00 06/21/18 20:59 05/25/18 21:02 Pregabalin (Lyrica) 75 mg Q12HR ORAL 05/22/18 09:00 06/21/18 08:59 05/26/18 09:08 Risperidone (RisperDAL) 2 mg BEDTIME ORAL 05/25/18 21:00 06/24/18 20:59 05/25/18 21:00 Thiamine HCl (Vitamin B1) 100 mg DAILY ORAL 05/22/18 09:00 06/21/18 08:59 05/26/18 09:07 Timolol Maleate (Timoptic 0.5% Op Soln) 1 drop TWICE A DAY BOTH EYES 05/22/18 10:00 06/21/18 09:59 05/26/18 09:07 Marilyn Oliver M.D. May 26, 2018 16:20
[2018-05-26 20:00] VITALS: BP 98/63
--- NOTE | 2018-05-26 20:00 | NUR ---
NURSE NOTES: Received patient in bed, in stable condition. No SOB, no acute distress noted. Patient asking for pain med, will follow up with next dose. No IV access noted. Bed in lowest position, locked, alarms on. Call light in reach. Will continue plan of care.
[2018-05-26] MEDS: Latanoprost 0.005% Opth 2.5ml Soln BOTH EYES SCH (20:28)
--- NOTE | 2018-05-26 21:30 | NUR ---
NURSE NOTES: Patient refused to take Depakote and Risperdal and states she never takes psychotic meds.
[2018-05-27] VITALS: BP 100/56
--- NOTE | 2018-05-27 01:14 | General Progress Note ---
Assessment/Plan Problem List: (1) Bipolar disorder ICD Codes: F31.9 - Bipolar disorder, unspecified SNOMED: 44580547 Qualifiers: Assessment/Plan Risperdal 4mg po qhs Depakote 500mg bid provided ro/st Subjective Date patient seen: May 26, 2018 Neurologic/Psychiatric: Reports: anxiety, depressed, emotional problems Allergies: Coded Allergies: CEPHALEXIN (Verified Allergy, Unknown, 05/18/18) CEPHALOSPORINS (Verified Allergy, Unknown, 05/18/18) ERYTHROMYCIN BASE (Verified Allergy, Unknown, 05/18/18) GABAPENTIN (Verified Allergy, Unknown, 05/18/18) SHELLFISH DERIVED (Verified Allergy, Unknown, 05/22/18) Subjective the pt is less irritable and perseverates on going back to [facility] Objective Last 24 Hour Vital Signs Date Time Temp Pulse Resp B/P (MAP) Pulse Ox O2 Delivery O2 Flow Rate FiO2 05/27/18 00:00 97.8 72 18 100/56 (71) 98 05/26/18 21:00 Room Air 05/26/18 20:00 97.4 68 18 98/63 (75) 100 05/26/18 17:09 98.9 05/26/18 16:00 97.4 70 18 99/70 (80) 100 05/26/18 12:00 97.7 81 18 103/71 (82) 96 05/26/18 09:38 98.9 05/26/18 09:00 Room Air 05/26/18 08:00 98.9 77 16 99/67 (78) 97 05/26/18 04:00 98.0 66 19 96/50 (65) 93 Intake and Output 05/26/18 05/27/18 19:00 07:00 Intake Total 1600 ml Balance 1600 ml Other 1600 ml Laboratory Tests 05/26/18 05:40: White Blood Count 3.2L, Red Blood Count 4.14L, Hemoglobin 11.3L, Hematocrit 35.3L, Mean Corpuscular Volume 85, Mean Corpuscular Hemoglobin 27.2, Mean Corpuscular Hemoglobin Concent 31.9L, Red Cell Distribution Width 11.1L, Platelet Count 319, Mean Platelet Volume 6.5, Neutrophils (%) (Auto) , Lymphocytes (%) (Auto) , Monocytes (%) (Auto) , Eosinophils (%) (Auto) , Basophils (%) (Auto) , Differential Total Cells Counted 100, Neutrophils % ( Manual) 27L, Lymphocytes % (Manual) 45, Monocytes % (Manual) 15H, Eosinophils % (Manual) 12H, Basophils % (Manual) 1, Band Neutrophils 0, Platelet Estimate Adequate, Platelet Morphology Normal, Hypochromasia 1+, Anisocytosis 1+, Sodium Level 139, Potassium Level 4.2, Chloride Level 106, Carbon Dioxide Level 26, Anion Gap 7, Blood Urea Nitrogen 13, Creatinine 0.7, Estimat Glomerular Filtration Rate > 60, Glucose Level 85, Calcium Level 8.6 Height (Feet): 5 Height (Inches): 5.00 Weight (Pounds): 148 General Appearance: no apparent distress, alert Neurologic: oriented x 3, responsive, depressed affect Jake Mcintyre MD May 27, 2018 01:14
[2018-05-27] MEDS: HYDROcodone/Acetamin 10/325 tab ORAL PRN ×6 (01:25→22:12)
--- NOTE | 2018-05-27 03:46 | NUR ---
HAND-OFF: Report given to PORSCHE Nails.
--- NOTE | 2018-05-27 05:00 | Discharge Summary ---
DATE OF ADMISSION: 05/22/2018 DATE OF DISCHARGE: 05/26/2018 HOSPITAL COURSE: This is a 57-year-old female with past medical history significant for paraplegia, bipolar disorder, failure to thrive, and neuralgia, who has presented to the hospital from nursing facility after was noted to have the redness on lower extremity. Shortly after initial evaluation, was treated for the cellulitis of lower extremity, was noted to have the VRE, enterococcus in the stool and in light of that, I advised them that it is colonized, however, [facility] refused to take the patient back. Throughout the hospital course, the patient was followed with Dr. Mcintyre from Psychiatry, Dr. Oliver from Infectious Disease, and Dr. Wallis from Pulmonary Critical Care. The patient's status gradually improved, completed course of antibiotics on the vancomycin for the cellulitis of lower extremity, and VRE in the rectum is colonized. 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 FINAL DIAGNOSES: 1. Glaucoma. 2. Cellulitis of lower extremity. 3. Paraplegia. 4. Bipolar disorder. 5. Vancomycin-resistant enterococcus colonization. MEDICATION ON DISCHARGE: Continue discharge medication list. ACTIVITY: As tolerated. DIET: Regular diet. Niall Kraft M.D. DR: JAMILAH JOB#: [id number] CC:
--- NOTE | 2018-05-27 06:27 | NUR ---
NURSE NOTES: RESTED WELL, NO SIGNIFICANT CHANGE OF CONDITION NOTED THROUGHOUT THE NIGHT. SAFETY MAINTAINED. NAD.
--- NOTE | 2018-05-27 07:30 | NUR ---
HAND-OFF: Report given to PORSCHE RODRIGUEZ.
--- NOTE | 2018-05-27 07:35 | NUR ---
NURSE NOTES: Received patient in bed,awake, alert and oriented x3-4. Not in respiratory/cardiac distress. No IV. MD aware. Bed is in lowest position and locked. Call light and personnel items within reach. No s/s of infection on bilateral lower ex's but lower ex's paralyzed. Assisted with reposition.Will continue plan of care.
[2018-05-27 08:00] VITALS: BP 115/62
[2018-05-27] MEDS: Thiamine 100mg tab ORAL SCH (08:35)
[2018-05-27] MEDS: Lyrica 75mg cap ORAL SCH ×2 (08:36→20:18)
[2018-05-27] MEDS: Timolol 0.5% Op Soln 2.5ml BOTH EYES SCH ×2 (08:36→17:39)
[2018-05-27] MEDS: Brimonidine 0.2% Opth Sol BOTH EYES SCH ×2 (08:39→17:34)
[2018-05-27] MEDS: Depakote ER 500mg tab ORAL SCH ×2 (08:42→20:18)
--- NOTE | 2018-05-27 09:00 | NUR ---
NURSE NOTES: Patient refused to take depakote saying "I never take that medicine. I do not take psych meds." RN reeducated on med but patient refused x3. RN explained the risks and benefits.
--- NOTE | 2018-05-27 10:25 | Infectious Diseases Prog Note ---
Assessment/Plan Assessment/Plan Assessment: REcent b/l cellulitis, resolved Afebrile Mild leukopenia paraplegia anemia neuralgia bipolar disorder FTT [place] resident VRE stool- THIS IS A COLONIZER Plan: -Continue to monitor off abx -05/25 SP Bactrim #7 -05/20 SP IV Vancomycin #3 -OK TO DISCHARGE BACK TO [place], NO NEED FOR ISOLATION UPON DISCHARGE -f/u cx -Monitor CBC/CMP, temperatures Thank you for this consultation. Will continue to follow along with you. Discussed with RN and immigration case worker. Subjective Allergies: Coded Allergies: CEPHALEXIN (Verified Allergy, Unknown, 05/18/18) CEPHALOSPORINS (Verified Allergy, Unknown, 05/18/18) ERYTHROMYCIN BASE (Verified Allergy, Unknown, 05/18/18) GABAPENTIN (Verified Allergy, Unknown, 05/18/18) SHELLFISH DERIVED (Verified Allergy, Unknown, 05/22/18) Subjective afebrile waiting placement Objective Vital Signs Last 24 Hour Vital Signs Date Time Temp Pulse Resp B/P (MAP) Pulse Ox O2 Delivery O2 Flow Rate FiO2 05/27/18 08:00 97.3 73 18 115/62 (79) 100 05/27/18 06:03 97.8 05/27/18 00:00 97.8 72 18 100/56 (71) 98 05/26/18 21:00 Room Air 05/26/18 20:00 97.4 68 18 98/63 (75) 100 05/26/18 16:00 97.4 70 18 99/70 (80) 100 05/26/18 12:00 97.7 81 18 103/71 (82) 96 Height (Feet): 5 Height (Inches): 5.00 Weight (Pounds): 148 Objective GENERAL: The patient is a thin-appearing female, in no apparent distress. HEENT: Eyes - pupils are equal and responsive to light and accommodation. Extraocular movements are intact. NECK: Supple. No lymphadenopathy. CHEST: Lungs are clear to auscultation bilaterally without wheezes or rales. CARDIOVASCULAR: Regular rate. S1 and S2 normal without murmurs, rubs, or gallops. ABDOMEN: Soft, nontender, and nondistended. Positive bowel sounds. No evidence of hepatosplenomegaly. Currently, no rebound or guarding noted. EXTREMITIES: Right lower extremity is erythematous compared to the left, otherwise without clubbing, cyanosis, or edema. Current Medications Medications (Trade) Dose Ordered Sig/Mejia Route PRN Reason Start Time Stop Time Status Last Admin Dose Admin Acetaminophen (Tylenol) 650 mg Q4H PRN ORAL MILD PAIN / T>100.5 05/22/18 07:15 06/21/18 07:14 05/23/18 08:52 Acetaminophen/ Hydrocodone Bitart ([place] 10/325) 1 tab Q4H PRN ORAL PAIN 4-10 05/22/18 07:15 05/29/18 07:14 05/27/18 09:36 Brimonidine Tartrate (Alphagan) 1 drop BID BOTH EYES 05/22/18 10:00 06/21/18 09:59 05/27/18 08:39 Divalproex Sodium (Depakote ER) 500 mg EVERY 12 HOURS ORAL 05/25/18 09:00 06/24/18 08:59 05/26/18 20:29 Folic Acid (Folate) 1 mg DAILY ORAL 05/22/18 09:00 06/21/18 08:59 05/27/18 08:35 Latanoprost (Xalatan) 1 drop BEDTIME BOTH EYES 05/22/18 21:00 06/21/18 20:59 05/26/18 20:28 Pregabalin (Lyrica) 75 mg Q12HR ORAL 05/22/18 09:00 06/21/18 08:59 05/27/18 08:36 Risperidone (RisperDAL) 2 mg BEDTIME ORAL 05/25/18 21:00 06/24/18 20:59 05/26/18 20:29 Thiamine HCl (Vitamin B1) 100 mg DAILY ORAL 05/22/18 09:00 06/21/18 08:59 05/27/18 08:35 Timolol Maleate (Timoptic 0.5% Op Soln) 1 drop TWICE A DAY BOTH EYES 05/22/18 10:00 06/21/18 09:59 05/27/18 08:36 Marilyn Oliver M.D. May 27, 2018 10:25
[2018-05-27 12:00] VITALS: BP 142/91
--- NOTE | 2018-05-27 15:03 | Internal Med Progress Note ---
Subjective Date of Service: May 27, 2018 Physician Name Sadi Gaviria Attending Physician Niall Kraft MD Current Medications Medications (Trade) Dose Ordered Sig/Mejia Route PRN Reason Start Time Stop Time Status Last Admin Dose Admin Acetaminophen (Tylenol) 650 mg Q4H PRN ORAL MILD PAIN / T>100.5 05/22/18 07:15 06/21/18 07:14 05/23/18 08:52 Acetaminophen/ Hydrocodone Bitart ([place] 10/325) 1 tab Q4H PRN ORAL PAIN 4-10 05/22/18 07:15 05/29/18 07:14 05/27/18 13:35 Brimonidine Tartrate (Alphagan) 1 drop BID BOTH EYES 05/22/18 10:00 06/21/18 09:59 05/27/18 08:39 Divalproex Sodium (Depakote ER) 500 mg EVERY 12 HOURS ORAL 05/25/18 09:00 06/24/18 08:59 05/26/18 20:29 Folic Acid (Folate) 1 mg DAILY ORAL 05/22/18 09:00 06/21/18 08:59 05/27/18 08:35 Latanoprost (Xalatan) 1 drop BEDTIME BOTH EYES 05/22/18 21:00 06/21/18 20:59 05/26/18 20:28 Pregabalin (Lyrica) 75 mg Q12HR ORAL 05/22/18 09:00 06/21/18 08:59 05/27/18 08:36 Risperidone (RisperDAL) 2 mg BEDTIME ORAL 05/25/18 21:00 06/24/18 20:59 05/26/18 20:29 Thiamine HCl (Vitamin B1) 100 mg DAILY ORAL 05/22/18 09:00 06/21/18 08:59 05/27/18 08:35 Timolol Maleate (Timoptic 0.5% Op Soln) 1 drop TWICE A DAY BOTH EYES 05/22/18 10:00 06/21/18 09:59 05/27/18 08:36 Allergies: Coded Allergies: CEPHALEXIN (Verified Allergy, Unknown, 05/18/18) CEPHALOSPORINS (Verified Allergy, Unknown, 05/18/18) ERYTHROMYCIN BASE (Verified Allergy, Unknown, 05/18/18) GABAPENTIN (Verified Allergy, Unknown, 05/18/18) SHELLFISH DERIVED (Verified Allergy, Unknown, 05/22/18) ROS Limited/Unobtainable: No Constitutional: Reports: no symptoms HEENT: Reports: no symptoms Cardiovascular: Reports: no symptoms Respiratory: Reports: no symptoms Gastrointestinal/Abdominal: Reports: no symptoms Genitourinary: Reports: no symptoms Neurologic/Psychiatric: Reports: no symptoms Subjective 57 YO F admitted with vancomycin resistant enterococcus stool. Cover for Int Med-Dr Kraft. Await acceptance to [facility] Objective Last Vital Signs Date Time Temp Pulse Resp B/P (MAP) Pulse Ox O2 Delivery O2 Flow Rate FiO2 05/27/18 12:00 98.4 91 18 142/91 (108) 100 05/27/18 09:00 Room Air Intake and Output 05/26/18 05/27/18 19:00 07:00 Intake Total 1630 ml Balance 1630 ml Intake Oral 30 ml Other 1600 ml # Voids 2 Objective General Appearance: WD/WN, no apparent distress, alert EENT: PERRL/EOMI, normal ENT inspection, TMs normal Neck: non-tender, normal alignment, supple, normal inspection Cardiovascular: normal peripheral pulses, normal rate, regular rhythm, no gallop/murmur, no JVD Respiratory/Chest: chest wall non-tender, lungs clear, normal breath sounds, no respiratory distress, no accessory muscle use Abdomen: normal bowel sounds, non tender, soft, no organomegaly, no mass Extremities: normal range of motion, non-tender Neurologic: business instructor II-XII grossly normal, no motor/sensory deficits Skin: normal pigmentation, warm/dry Assessment/Plan Problem List: (1) Glaucoma Assessment & Plan: Continue xalatan, alphagan and timoptic (2) Cellulitis Assessment & Plan: Continue bactrim (3) Bipolar disorder (4) VRE carrier Assessment/Plan Discharge planning-Await acceptance to [facility] nursing fac placement-see case management note. Sadi Gaviria MD May 27, 2018 15:03
[2018-05-27 16:00] VITALS: BP 113/60
[2018-05-27 17:20] LABS: APPEARANCE,URINE CLEAR; BILIRUBIN, URINE NEGATIVE (NEGATIVE); GLUCOSE, URINE (UA) NEGATIVE (NEGATIVE); KETONES,URINE NEGATIVE (NEGATIVE); LEUKOCYTE ESTERASE ,URINE 1+ (NEGATIVE); NITRITE,URINE NEGATIVE (NEGATIVE); PH,URINE 6 (4.5-8.0); PROTEIN,URINE NEGATIVE (NEGATIVE); UROBILINOGEN,URINE NORMAL MG/DL (0.0-1.0)
[2018-05-27 17:23] LABS: COLOR,URINE YELLOW
--- NOTE | 2018-05-27 19:25 | NUR ---
HAND-OFF: Report given to Ju. Ana
--- NOTE | 2018-05-27 19:37 | NUR ---
NURSE NOTES: Received patient in bed, asleep. No SOB, no acute distress noted. Still no IV site. In stable condition. Bed in lowest position, locked, alarms on. Call light in reach.
[2018-05-27 20:00] VITALS: BP 91/57
[2018-05-27] MEDS: Latanoprost 0.005% Opth 2.5ml Soln BOTH EYES SCH (20:18)
--- NOTE | 2018-05-27 21:48 | General Progress Note ---
Assessment/Plan Problem List: (1) Bipolar disorder ICD Codes: F31.9 - Bipolar disorder, unspecified SNOMED: 43454642 Qualifiers: Assessment/Plan Risperdal 4mg po qhs Depakote 500mg bid provided ro/st Subjective Neurologic/Psychiatric: Reports: anxiety, depressed, emotional problems Allergies: Coded Allergies: CEPHALEXIN (Verified Allergy, Unknown, 05/18/18) CEPHALOSPORINS (Verified Allergy, Unknown, 05/18/18) ERYTHROMYCIN BASE (Verified Allergy, Unknown, 05/18/18) GABAPENTIN (Verified Allergy, Unknown, 05/18/18) SHELLFISH DERIVED (Verified Allergy, Unknown, 05/22/18) Subjective the pt is less irritable Objective Last 24 Hour Vital Signs Date Time Temp Pulse Resp B/P (MAP) Pulse Ox O2 Delivery O2 Flow Rate FiO2 05/27/18 20:00 97.2 71 18 91/57 (68) 99 05/27/18 16:00 98.2 67 21 113/60 (77) 100 05/27/18 12:00 98.4 91 18 142/91 (108) 100 05/27/18 09:00 Room Air 05/27/18 08:00 97.3 73 18 115/62 (79) 100 05/27/18 06:03 97.8 05/27/18 00:00 97.8 72 18 100/56 (71) 98 Intake and Output 05/26/18 05/27/18 19:00 07:00 Intake Total 1630 ml Balance 1630 ml Intake Oral 30 ml Other 1600 ml # Voids 2 Laboratory Tests 05/27/18 16:52: Urine Color Yellow, Urine Appearance Clear, Urine pH 6, Urine Specific [place] 1.010, Urine Protein Negative, Urine Glucose (UA) Negative, Urine Ketones Negative, Urine Blood Negative, Urine Nitrite Negative, Urine Bilirubin Negative , Urine Urobilinogen Normal, Urine Leukocyte Esterase 1+H, Urine RBC 0-2, Urine WBC 2-4, Urine Squamous Epithelial Cells Few, Urine Bacteria Occasional Height (Feet): 5 Height (Inches): 5.00 Weight (Pounds): 148 Jake Mcintyre MD May 27, 2018 21:48
[2018-05-28] MEDS: HYDROcodone/Acetamin 10/325 tab ORAL PRN ×5 (02:44→20:51)
[2018-05-28 04:00] VITALS: BP 126/75
--- NOTE | 2018-05-28 07:15 | NUR ---
HAND-OFF: Report given to PORSCHE Watson.
--- NOTE | 2018-05-28 07:38 | NUR ---
NURSE NOTES: Patient alert x4, in room air, so sign of distress and shortness of breath. No IV access, MD is aware. Patient getting [place] for, will give as schedules. Bed at lowest position, side rails up x2, breaks engaged. Call light within reach, will keep monitoring.
[2018-05-28 07:51] LABS: HEMATOCRIT 39.9 % (37.0-47.0); HEMOGLOBIN 12.8 G/DL (12.0-16.0); MEAN CORPUSCULAR VOLUME 85 FL (80-99); PLATELET COUNT 337 K/UL (150-450); RED BLOOD COUNT 4.67 M/UL (4.20-5.40); RED CELL DISTRIBUTION WIDTH 11.7 % (11.6-14.8); WHITE BLOOD COUNT 2.8 K/UL (4.8-10.8)
[2018-05-28 08:08] LABS: ANION GAP 6 mmol/L (5-15); BLOOD UREA NITROGEN 7 mg/dL (7-18); CALCIUM 9.2 MG/DL (8.5-10.1); CARBON DIOXIDE 28 MMOL/L (21-32); CHLORIDE 106 MMOL/L (98-107); CREATININE 0.6 MG/DL (0.55-1.30); POTASSIUM 4.1 MMOL/L (3.5-5.1); SODIUM 140 MMOL/L (136-145)
[2018-05-28 08:12] VITALS: BP 126/75
[2018-05-28] MEDS: Thiamine 100mg tab ORAL SCH (08:13)
[2018-05-28] MEDS: Depakote ER 500mg tab ORAL SCH ×2 (08:14→20:53)
[2018-05-28] MEDS: Lyrica 75mg cap ORAL SCH ×2 (08:14→20:48)
[2018-05-28] MEDS: Brimonidine 0.2% Opth Sol BOTH EYES SCH ×2 (08:15→17:00)
[2018-05-28] MEDS: Timolol 0.5% Op Soln 2.5ml BOTH EYES SCH ×2 (08:15→16:59)
--- NOTE | 2018-05-28 08:30 | NUR ---
NURSE NOTES: Patient asked cream of wheat, provided and said patient doesn't like it. Patient asked for [place], I called kitchen and provided.
[2018-05-28 12:00] VITALS: BP 100/55
--- NOTE | 2018-05-28 12:06 | NUR ---
NURSE NOTES: Patient doesn't wanna eat the lunch served. Patient asked for cookies and chips, called kitchen and waiting for tray.
--- NOTE | 2018-05-28 12:33 | NUR ---
NURSE NOTES: Patient's food choice for tomorrow faxed to kitchen.
[2018-05-28 16:00] VITALS: BP 131/76
--- NOTE | 2018-05-28 16:40 | Internal Med Progress Note ---
Subjective Physician Name Niall Kraft Attending Physician Niall Kraft MD Current Medications Medications (Trade) Dose Ordered Sig/Mejia Route PRN Reason Start Time Stop Time Status Last Admin Dose Admin Acetaminophen (Tylenol) 650 mg Q4H PRN ORAL MILD PAIN / T>100.5 05/22/18 07:15 06/21/18 07:14 05/23/18 08:52 Acetaminophen/ Hydrocodone Bitart ([place] 10/325) 1 tab Q4H PRN ORAL PAIN 4-10 05/22/18 07:15 05/29/18 07:14 05/28/18 12:16 Brimonidine Tartrate (Alphagan) 1 drop BID BOTH EYES 05/22/18 10:00 06/21/18 09:59 05/28/18 08:15 Divalproex Sodium (Depakote ER) 500 mg EVERY 12 HOURS ORAL 05/25/18 09:00 06/24/18 08:59 05/28/18 08:14 Folic Acid (Folate) 1 mg DAILY ORAL 05/22/18 09:00 06/21/18 08:59 05/28/18 08:14 Latanoprost (Xalatan) 1 drop BEDTIME BOTH EYES 05/22/18 21:00 06/21/18 20:59 05/27/18 20:18 Pregabalin (Lyrica) 75 mg Q12HR ORAL 05/22/18 09:00 06/21/18 08:59 05/28/18 08:14 Risperidone (RisperDAL) 2 mg BEDTIME ORAL 05/25/18 21:00 06/24/18 20:59 05/25/18 21:00 Thiamine HCl (Vitamin B1) 100 mg DAILY ORAL 05/22/18 09:00 06/21/18 08:59 05/28/18 08:13 Timolol Maleate (Timoptic 0.5% Op Soln) 1 drop TWICE A DAY BOTH EYES 05/22/18 10:00 06/21/18 09:59 05/28/18 08:15 Allergies: Coded Allergies: CEPHALEXIN (Verified Allergy, Unknown, 05/18/18) CEPHALOSPORINS (Verified Allergy, Unknown, 05/18/18) ERYTHROMYCIN BASE (Verified Allergy, Unknown, 05/18/18) GABAPENTIN (Verified Allergy, Unknown, 05/18/18) SHELLFISH DERIVED (Verified Allergy, Unknown, 05/22/18) Subjective awake, alert, responsive, NAD Objective Last Vital Signs Date Time Temp Pulse Resp B/P (MAP) Pulse Ox O2 Delivery O2 Flow Rate FiO2 05/28/18 16:00 97.3 76 19 131/76 (94) 97 05/28/18 09:00 Room Air Laboratory Tests Test 05/27/18 16:52 05/28/18 06:55 Urine Color Yellow Urine Appearance Clear Urine pH 6 (4.5-8.0) Urine Specific [place] 1.010 (1.005-1.035) Urine Protein Negative (NEGATIVE) Urine Glucose (UA) Negative (NEGATIVE) Urine Ketones Negative (NEGATIVE) Urine Blood Negative (NEGATIVE) Urine Nitrite Negative (NEGATIVE) Urine Bilirubin Negative (NEGATIVE) Urine Urobilinogen Normal MG/DL (0.0-1.0) Urine Leukocyte Esterase 1+ (NEGATIVE) H Urine RBC 0-2 /HPF (0 - 2) Urine WBC 2-4 /HPF (0 - 2) Urine Squamous Epithelial Cells Few /LPF (NONE/OCC) Urine Bacteria Occasional /HPF (NONE) White Blood Count 2.8 K/UL (4.8-10.8) L Red Blood Count 4.67 M/UL (4.20-5.40) Hemoglobin 12.8 G/DL (12.0-16.0) Hematocrit 39.9 % (37.0-47.0) Mean Corpuscular Volume 85 FL (80-99) Mean Corpuscular Hemoglobin 27.5 PG (27.0-31.0) Mean Corpuscular Hemoglobin Concent 32.2 G/DL (32.0-36.0) Red Cell Distribution Width 11.7 % (11.6-14.8) Platelet Count 337 K/UL (150-450) Mean Platelet Volume 6.6 FL (6.5-10.1) Neutrophils (%) (Auto) % (45.0-75.0) Lymphocytes (%) (Auto) % (20.0-45.0) Monocytes (%) (Auto) % (1.0-10.0) Eosinophils (%) (Auto) % (0.0-3.0) Basophils (%) (Auto) % (0.0-2.0) Differential Total Cells Counted 100 Neutrophils % (Manual) 29 % (45-75) L Lymphocytes % (Manual) 44 % (20-45) Monocytes % (Manual) 15 % (1-10) H Eosinophils % (Manual) 12 % (0-3) H Basophils % (Manual) 0 % (0-2) Band Neutrophils 0 % (0-8) Platelet Estimate Adequate Platelet Morphology Normal Red Blood Cell Morphology Normal Sodium Level 140 MMOL/L (136-145) Potassium Level 4.1 MMOL/L (3.5-5.1) Chloride Level 106 MMOL/L (98-107) Carbon Dioxide Level 28 MMOL/L (21-32) Anion Gap 6 mmol/L (5-15) Blood Urea Nitrogen 7 mg/dL (7-18) Creatinine 0.6 MG/DL (0.55-1.30) Estimat Glomerular Filtration Rate > 60 mL/min (>60) Glucose Level 85 MG/DL (74-106) Calcium Level 9.2 MG/DL (8.5-10.1) Intake and Output 05/27/18 05/28/18 19:00 07:00 Intake Total 720 ml 280 ml Balance 720 ml 280 ml Intake Oral 720 ml 280 ml # Voids 2 4 Objective GENERAL: Alert and oriented X 3 HEAD AND NECK: Pupils are reactive to light. Anicteric. NECK: Supple. No JVD. LUNGS: Good air entry. fair inspiratory effort. No wheeze or rhonchi. HEART: S1 and S2. Distant heart sounds. No murmur or gallops. ABDOMEN: Soft, nondistended, and nontender. Positive bowel sounds. EXTREMITIES: No cyanosis or clubbing. Contracted and weakness of bilateral lower extremities. Bilateral lower extremity, less edema, right worse than left and less erythema was noted in the bilateral lower extremity, right greater than left. RECTAL: Refused and deferred. GENITOURINARY: Refused and deferred. Assessment/Plan Assessment/Plan 1. Glaucoma. 2. Cellulitis of lower extremity. 3. Paraplegia. 4. Bipolar disorder. 5. Vancomycin-resistant enterococcus colonization. Plan: Continue to monitor off abx waiting for placement in SNF Full code heparin SQ. Niall Kraft MD May 28, 2018 16:40
[2018-05-28] MEDS: Heparin 5000 units/ml inj SUBQ SCH (17:03)
--- NOTE | 2018-05-28 17:30 | NUR ---
NURSE NOTES: Patient want to have chicken salad sandwich, soft drink, cookies, and chips. I called kitchen and left a message. Waiting for tray.
--- NOTE | 2018-05-28 19:19 | NUR ---
HAND-OFF: Report given to PORSCHE Fuentes.
--- NOTE | 2018-05-28 19:35 | NUR ---
NURSE NOTES: Received patient in bed. No SOB, no acute distress noted. Still no BM since 05/24. Notified Dr Kraft and received order to start Miralax for constipation. Bed in lowest position, locked, alarms on. Call light in reach.
[2018-05-28 20:00] VITALS: BP 127/51
[2018-05-28] MEDS: Latanoprost 0.005% Opth 2.5ml Soln BOTH EYES SCH (20:48)
[2018-05-28] MEDS: Miralax 17gm pkt ORAL PRN (20:48)
--- NOTE | 2018-05-28 22:36 | General Progress Note ---
Assessment/Plan Problem List: (1) Bipolar disorder ICD Codes: F31.9 - Bipolar disorder, unspecified SNOMED: [id number] Qualifiers: Assessment/Plan Risperdal 4mg po qhs Depakote 500mg bid provided ro/st Subjective Neurologic/Psychiatric: Reports: anxiety, depressed, emotional problems Allergies: Coded Allergies: CEPHALEXIN (Verified Allergy, Unknown, 05/18/18) CEPHALOSPORINS (Verified Allergy, Unknown, 05/18/18) ERYTHROMYCIN BASE (Verified Allergy, Unknown, 05/18/18) GABAPENTIN (Verified Allergy, Unknown, 05/18/18) SHELLFISH DERIVED (Verified Allergy, Unknown, 05/22/18) Subjective the pt is less irritable Objective Last 24 Hour Vital Signs Date Time Temp Pulse Resp B/P (MAP) Pulse Ox O2 Delivery O2 Flow Rate FiO2 05/28/18 21:00 Room Air 05/28/18 20:00 97.3 58 17 127/51 (76) 97 05/28/18 17:30 97.3 05/28/18 16:00 97.3 76 19 131/76 (94) 97 05/28/18 12:00 98.1 69 19 100/55 (70) 100 05/28/18 09:00 Room Air 05/28/18 08:43 97.2 05/28/18 08:12 97.2 62 18 126/75 (92) 100 05/28/18 04:00 97.2 62 18 126/75 (92) 100 Intake and Output 05/27/18 05/28/18 19:00 07:00 Intake Total 720 ml 280 ml Balance 720 ml 280 ml Intake Oral 720 ml 280 ml # Voids 2 4 Laboratory Tests 05/28/18 06:55: White Blood Count 2.8L, Red Blood Count 4.67, Hemoglobin 12.8, Hematocrit 39.9, Mean Corpuscular Volume 85, Mean Corpuscular Hemoglobin 27.5, Mean Corpuscular Hemoglobin Concent 32.2, Red Cell Distribution Width 11.7, Platelet Count 337, Mean Platelet Volume 6.6, Neutrophils (%) (Auto) , Lymphocytes (%) (Auto) , Monocytes (%) (Auto) , Eosinophils (%) (Auto) , Basophils (%) (Auto) , Differential Total Cells Counted 100, Neutrophils % (Manual) 29L, Lymphocytes % (Manual) 44, Monocytes % (Manual) 15H, Eosinophils % (Manual) 12H, Basophils % ( Manual) 0, Band Neutrophils 0, Platelet Estimate Adequate, Platelet Morphology Normal, Red Blood Cell Morphology Normal, Sodium Level 140, Potassium Level 4.1 , Chloride Level 106, Carbon Dioxide Level 28, Anion Gap 6, Blood Urea Nitrogen 7, Creatinine 0.6, Estimat Glomerular Filtration Rate > 60, Glucose Level 85, Calcium Level 9.2 Height (Feet): 5 Height (Inches): 5.00 Weight (Pounds): 148 General Appearance: alert Neurologic: oriented x 3, responsive, depressed affect Jake Mcintyre MD May 28, 2018 22:36
[2018-05-29] VITALS: BP 97/57
[2018-05-29] MEDS: HYDROcodone/Acetamin 10/325 tab ORAL PRN ×5 (01:51→20:29)
[2018-05-29 04:00] VITALS: BP 108/58
[2018-05-29] MEDS ORDERED: Fleet's Enema 133ml RECTAL ONE (06:45)
[2018-05-29] MEDS ORDERED: Magnesium Citrate Liq Btl ORAL ONE ×2 (06:45→09:00)
--- NOTE | 2018-05-29 07:29 | NUR ---
HAND-OFF: Report given to PORSCHE Garces.
--- NOTE | 2018-05-29 07:35 | NUR ---
NURSE NOTES: received patient awake, in bed, with complaint of generalized pain. Pain medication not in med list, needs to be renewed. Informed patient nurse will get renewal as soon as possible, patient was very anxious. Bed locked at the lowest position possible, call light within easy reach, siderails up x2. Will continue to monitor patient and follow up with the plan of care.
[2018-05-29] MEDS ORDERED: HYDROcodone/Acetamin 10/325 tab ORAL PRN (07:45)
[2018-05-29 08:00] VITALS: BP 105/62
[2018-05-29] MEDS: Heparin 5000 units/ml inj SUBQ SCH ×2 (08:03→20:56)
[2018-05-29] MEDS: Depakote ER 500mg tab ORAL SCH ×2 (08:04→20:56)
[2018-05-29] MEDS: Lyrica 75mg cap ORAL SCH ×2 (08:12→20:26)
[2018-05-29] MEDS: Timolol 0.5% Op Soln 2.5ml BOTH EYES SCH ×2 (08:13→17:50)
[2018-05-29] MEDS: Thiamine 100mg tab ORAL SCH (08:13)
[2018-05-29] MEDS: Brimonidine 0.2% Opth Sol BOTH EYES SCH ×2 (08:14→17:50)
--- NOTE | 2018-05-29 09:10 | NUR ---
RD ASSESSMENT & RECOMMENDATIONS SEE CARE ACTIVITY FOR COMPLETE ASSESSMENT DAILY ESTIMATED NEEDS: Needs based on Paraplegia, 68kg 28-30 kcals/kg 3431-5255 total kcals 1-1.5 g protein/kg 68-102 g total protein 25-30 mL/kg 5174-0430 total fluid mLs NUTRITION DIAGNOSIS: Altered GI function R/T constipation as evidenced by pt c/o constipation, no BM x 5 days. CURRENT DIET:Regular PO DIET RECOMMENDATIONS: REGULAR, HIGH FIBER ADDITIONAL RECOMMENDATIONS: * Calibrated bedscale wt for accurate CBW * Prunes TID, Prune Juice TID * Daily bowel regimen
--- NOTE | 2018-05-29 10:26 | Infectious Diseases Prog Note ---
Assessment/Plan Assessment/Plan Assessment: REcent b/l cellulitis, resolved Afebrile Mild leukopenia paraplegia anemia neuralgia bipolar disorder FTT [place] resident VRE stool- THIS IS A COLONIZER Plan: -Continue to monitor off abx -05/25 SP Bactrim #7 -05/20 SP IV Vancomycin #3 -OK TO DISCHARGE BACK TO [place], NO NEED FOR ISOLATION UPON DISCHARGE -f/u cx -Monitor CBC/CMP, temperatures Thank you for this consultation. Will continue to follow along with you. Discussed with RN and family service caseworker. Subjective Allergies: Coded Allergies: CEPHALEXIN (Verified Allergy, Unknown, 05/18/18) CEPHALOSPORINS (Verified Allergy, Unknown, 05/18/18) ERYTHROMYCIN BASE (Verified Allergy, Unknown, 05/18/18) GABAPENTIN (Verified Allergy, Unknown, 05/18/18) SHELLFISH DERIVED (Verified Allergy, Unknown, 05/22/18) Subjective afebrile waiting placement Objective Vital Signs Last 24 Hour Vital Signs Date Time Temp Pulse Resp B/P (MAP) Pulse Ox O2 Delivery O2 Flow Rate FiO2 05/29/18 04:00 96.4 69 18 108/58 (75) 99 05/29/18 00:00 97.2 65 18 97/57 (70) 98 05/28/18 21:00 Room Air 05/28/18 20:00 97.3 58 17 127/51 (76) 97 05/28/18 17:30 97.3 05/28/18 16:00 97.3 76 19 131/76 (94) 97 05/28/18 12:00 98.1 69 19 100/55 (70) 100 Height (Feet): 5 Height (Inches): 5.00 Weight (Pounds): 148 Objective GENERAL: The patient is a thin-appearing female, in no apparent distress. HEENT: Eyes - pupils are equal and responsive to light and accommodation. Extraocular movements are intact. NECK: Supple. No lymphadenopathy. CHEST: Lungs are clear to auscultation bilaterally without wheezes or rales. CARDIOVASCULAR: Regular rate. S1 and S2 normal without murmurs, rubs, or gallops. ABDOMEN: Soft, nontender, and nondistended. Positive bowel sounds. No evidence of hepatosplenomegaly. Currently, no rebound or guarding noted. EXTREMITIES: Right lower extremity is erythematous compared to the left, otherwise without clubbing, cyanosis, or edema. Current Medications Medications (Trade) Dose Ordered Sig/Mejia Route PRN Reason Start Time Stop Time Status Last Admin Dose Admin Acetaminophen (Tylenol) 650 mg Q4H PRN ORAL MILD PAIN / T>100.5 05/22/18 07:15 06/21/18 07:14 05/23/18 08:52 Acetaminophen/ Hydrocodone Bitart ([place] 10/325) 1 tab Q4H PRN ORAL Pain Scale (6-10) 05/29/18 08:00 06/05/18 07:59 05/29/18 07:51 Brimonidine Tartrate (Alphagan) 1 drop BID BOTH EYES 05/22/18 10:00 06/21/18 09:59 05/29/18 08:14 Divalproex Sodium (Depakote ER) 500 mg EVERY 12 HOURS ORAL 05/25/18 09:00 06/24/18 08:59 05/28/18 08:14 Folic Acid (Folate) 1 mg DAILY ORAL 05/22/18 09:00 06/21/18 08:59 05/29/18 08:12 Heparin Sodium (Porcine) (Heparin 5000 units/ml) 5,000 units EVERY 12 HOURS SUBQ 05/28/18 17:00 06/27/18 16:59 05/28/18 17:03 Latanoprost (Xalatan) 1 drop BEDTIME BOTH EYES 05/22/18 21:00 06/21/18 20:59 05/28/18 20:48 Polyethylene Glycol (Miralax) 17 gm DAILY PRN ORAL Constipation 05/28/18 19:15 06/27/18 19:14 05/28/18 20:48 Pregabalin (Lyrica) 75 mg Q12HR ORAL 05/22/18 09:00 06/21/18 08:59 05/29/18 08:12 Risperidone (RisperDAL) 2 mg BEDTIME ORAL 05/25/18 21:00 06/24/18 20:59 05/25/18 21:00 Thiamine HCl (Vitamin B1) 100 mg DAILY ORAL 05/22/18 09:00 06/21/18 08:59 05/29/18 08:13 Timolol Maleate (Timoptic 0.5% Op Soln) 1 drop TWICE A DAY BOTH EYES 05/22/18 10:00 06/21/18 09:59 05/29/18 08:13 Marilyn Oliver M.D. May 29, 2018 10:26
[2018-05-29 12:00] VITALS: BP 110/71
--- NOTE | 2018-05-29 12:22 | NUR ---
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 97.3 HR 64 RR 19 B/P 105/62 RA 98% IS: HEPARIN SUBC RISPERDAL PO DEPAKOTE PO PLACEMENT PENDING MED/SURG STATUS
--- NOTE | 2018-05-29 13:16 | NUR ---
INSURANCE ALL CLINICALS AND REVIEWS FAXED TO: [facility] P:[phone] OR [phone] F:[phone]
--- NOTE | 2018-05-29 14:31 | General Progress Note ---
Assessment/Plan Problem List: (1) Bipolar disorder ICD Codes: F31.9 - Bipolar disorder, unspecified SNOMED: [id number] Qualifiers: Status: stable Assessment/Plan Risperdal 4mg po qhs Depakote 1000 po qhs provided ro/st Subjective Neurologic/Psychiatric: Reports: anxiety, depressed Allergies: Coded Allergies: CEPHALEXIN (Verified Allergy, Unknown, 05/18/18) CEPHALOSPORINS (Verified Allergy, Unknown, 05/18/18) ERYTHROMYCIN BASE (Verified Allergy, Unknown, 05/18/18) GABAPENTIN (Verified Allergy, Unknown, 05/18/18) SHELLFISH DERIVED (Verified Allergy, Unknown, 05/22/18) Subjective the pt is refusing all her psych meds. Objective Last 24 Hour Vital Signs Date Time Temp Pulse Resp B/P (MAP) Pulse Ox O2 Delivery O2 Flow Rate FiO2 05/29/18 12:29 96.4 05/29/18 12:00 97.8 69 18 110/71 (84) 97 05/29/18 09:00 Room Air 05/29/18 08:21 96.4 05/29/18 08:00 97.3 64 19 105/62 (76) 96 05/29/18 04:00 96.4 69 18 108/58 (75) 99 05/29/18 00:00 97.2 65 18 97/57 (70) 98 05/28/18 21:00 Room Air 05/28/18 20:00 97.3 58 17 127/51 (76) 97 05/28/18 17:30 97.3 05/28/18 16:00 97.3 76 19 131/76 (94) 97 Intake and Output 05/28/18 05/29/18 18:59 06:59 Intake Total 350 ml 280 ml Balance 350 ml 280 ml Intake Oral 350 ml 280 ml # Voids 1 3 Height (Feet): 5 Height (Inches): 5.00 Weight (Pounds): 148 General Appearance: alert Neurologic: oriented x 3, responsive, depressed affect Jake Mcintyre MD May 29, 2018 14:31
--- NOTE | 2018-05-29 14:51 | Internal Med Progress Note ---
Subjective Physician Name Niall Kraft Attending Physician Niall Kraft MD Current Medications Medications (Trade) Dose Ordered Sig/Mejia Route PRN Reason Start Time Stop Time Status Last Admin Dose Admin Acetaminophen (Tylenol) 650 mg Q4H PRN ORAL MILD PAIN / T>100.5 05/22/18 07:15 06/21/18 07:14 05/23/18 08:52 Acetaminophen/ Hydrocodone Bitart ([place] 10/325) 1 tab Q4H PRN ORAL Pain Scale (6-10) 05/29/18 08:00 06/05/18 07:59 05/29/18 11:59 Brimonidine Tartrate (Alphagan) 1 drop BID BOTH EYES 05/22/18 10:00 06/21/18 09:59 05/29/18 08:14 Divalproex Sodium (Depakote ER) 500 mg EVERY 12 HOURS ORAL 05/25/18 09:00 06/24/18 08:59 05/28/18 08:14 Folic Acid (Folate) 1 mg DAILY ORAL 05/22/18 09:00 06/21/18 08:59 05/29/18 08:12 Heparin Sodium (Porcine) (Heparin 5000 units/ml) 5,000 units EVERY 12 HOURS SUBQ 05/28/18 17:00 06/27/18 16:59 05/28/18 17:03 Latanoprost (Xalatan) 1 drop BEDTIME BOTH EYES 05/22/18 21:00 06/21/18 20:59 05/28/18 20:48 Polyethylene Glycol (Miralax) 17 gm DAILY PRN ORAL Constipation 05/28/18 19:15 06/27/18 19:14 05/28/18 20:48 Pregabalin (Lyrica) 75 mg Q12HR ORAL 05/22/18 09:00 06/21/18 08:59 05/29/18 08:12 Risperidone (RisperDAL) 2 mg BEDTIME ORAL 05/25/18 21:00 06/24/18 20:59 05/25/18 21:00 Thiamine HCl (Vitamin B1) 100 mg DAILY ORAL 05/22/18 09:00 06/21/18 08:59 05/29/18 08:13 Timolol Maleate (Timoptic 0.5% Op Soln) 1 drop TWICE A DAY BOTH EYES 05/22/18 10:00 06/21/18 09:59 05/29/18 08:13 Allergies: Coded Allergies: CEPHALEXIN (Verified Allergy, Unknown, 05/18/18) CEPHALOSPORINS (Verified Allergy, Unknown, 05/18/18) ERYTHROMYCIN BASE (Verified Allergy, Unknown, 05/18/18) GABAPENTIN (Verified Allergy, Unknown, 05/18/18) SHELLFISH DERIVED (Verified Allergy, Unknown, 05/22/18) Subjective awake, alert, responsive, NAD, anxious to go back to SNF. Objective Last Vital Signs Date Time Temp Pulse Resp B/P (MAP) Pulse Ox O2 Delivery O2 Flow Rate FiO2 05/29/18 12:29 96.4 05/29/18 12:00 69 18 110/71 (84) 97 05/29/18 09:00 Room Air Intake and Output 05/28/18 05/29/18 18:59 06:59 Intake Total 350 ml 280 ml Balance 350 ml 280 ml Intake Oral 350 ml 280 ml # Voids 1 3 Objective GENERAL: Alert and oriented X 3 HEAD AND NECK: Pupils are reactive to light. Anicteric. NECK: Supple. No JVD. LUNGS: Good air entry. fair inspiratory effort. No wheeze or rhonchi. HEART: S1 and S2. Distant heart sounds. No murmur or gallops. ABDOMEN: Soft, nondistended, and nontender. Positive bowel sounds. EXTREMITIES: No cyanosis or clubbing. Contracted and weakness of bilateral lower extremities. Bilateral lower extremity, less edema, right worse than left and less erythema was noted in the bilateral lower extremity, right greater than left. RECTAL: Refused and deferred. GENITOURINARY: Refused and deferred. Assessment/Plan Assessment/Plan 1. Glaucoma. 2. Cellulitis of lower extremity. 3. Paraplegia. 4. Bipolar disorder. 5. Vancomycin-resistant enterococcus colonization. Plan: Continue to monitor off abx waiting for placement in SNF Full code heparin SQ. Niall Kraft MD May 29, 2018 14:51
[2018-05-29 16:00] VITALS: BP 107/74
--- NOTE | 2018-05-29 19:40 | NUR ---
HAND-OFF: Report given to PORSCHE Mckay.
--- NOTE | 2018-05-29 19:40 | NUR ---
NURSE NOTES: Received a report from PORSCHE Garces. Pt is in stable condition. AAOX4. Able to make needs known. No respiratory distress noted. On room air. No pain/discomfort noted. No IV access, doctors are aware. Bed in lowest position. Bed alarm is on. Call light within reach. Will continue to monitor.
[2018-05-29 20:00] VITALS: BP 100/66
[2018-05-29] MEDS: Latanoprost 0.005% Opth 2.5ml Soln BOTH EYES SCH (20:26)
[2018-05-30] VITALS: BP 116/68
[2018-05-30] MEDS: HYDROcodone/Acetamin 10/325 tab ORAL PRN ×6 (00:42→21:25)
[2018-05-30 04:00] VITALS: BP 95/65
--- NOTE | 2018-05-30 07:25 | NUR ---
HAND-OFF: Report given to PORSCHE Garces.
--- NOTE | 2018-05-30 08:00 | NUR ---
NURSE NOTES: received patient awake, in bed, having breakfast, no complaint of pain or discomfort, no distress noted. No IV access. Bed locked at the lowest position possible, call light within easy reach, siderails up x2. Will continue to monitor patient and follow up with the plan of care.
[2018-05-30] MEDS: Heparin 5000 units/ml inj SUBQ SCH ×2 (09:00→21:00)
[2018-05-30] MEDS: Depakote ER 500mg tab ORAL SCH ×2 (09:00→21:00)
[2018-05-30] MEDS: Brimonidine 0.2% Opth Sol BOTH EYES SCH ×2 (09:21→17:25)
[2018-05-30] MEDS: Timolol 0.5% Op Soln 2.5ml BOTH EYES SCH ×2 (09:22→17:25)
[2018-05-30] MEDS: Lyrica 75mg cap ORAL SCH ×2 (09:22→21:25)
[2018-05-30] MEDS: Thiamine 100mg tab ORAL SCH (09:23)
[2018-05-30 12:00] VITALS: BP 96/56
--- NOTE | 2018-05-30 13:11 | Internal Med Progress Note ---
Subjective Physician Name Niall Kraft Attending Physician Niall Kraft MD Current Medications Medications (Trade) Dose Ordered Sig/Mejia Route PRN Reason Start Time Stop Time Status Last Admin Dose Admin Acetaminophen (Tylenol) 650 mg Q4H PRN ORAL MILD PAIN / T>100.5 05/22/18 07:15 06/21/18 07:14 05/23/18 08:52 Acetaminophen/ Hydrocodone Bitart ([place] 10/325) 1 tab Q4H PRN ORAL Pain Scale (6-10) 05/29/18 08:00 06/05/18 07:59 05/30/18 09:24 Brimonidine Tartrate (Alphagan) 1 drop BID BOTH EYES 05/22/18 10:00 06/21/18 09:59 05/30/18 09:21 Divalproex Sodium (Depakote ER) 500 mg EVERY 12 HOURS ORAL 05/25/18 09:00 06/24/18 08:59 05/28/18 08:14 Folic Acid (Folate) 1 mg DAILY ORAL 05/22/18 09:00 06/21/18 08:59 05/30/18 09:22 Heparin Sodium (Porcine) (Heparin 5000 units/ml) 5,000 units EVERY 12 HOURS SUBQ 05/28/18 17:00 06/27/18 16:59 05/28/18 17:03 Latanoprost (Xalatan) 1 drop BEDTIME BOTH EYES 05/22/18 21:00 06/21/18 20:59 05/29/18 20:26 Polyethylene Glycol (Miralax) 17 gm DAILY PRN ORAL Constipation 05/28/18 19:15 06/27/18 19:14 05/28/18 20:48 Pregabalin (Lyrica) 75 mg Q12HR ORAL 05/22/18 09:00 06/21/18 08:59 05/30/18 09:22 Risperidone (RisperDAL) 2 mg BEDTIME ORAL 05/25/18 21:00 06/24/18 20:59 05/25/18 21:00 Thiamine HCl (Vitamin B1) 100 mg DAILY ORAL 05/22/18 09:00 06/21/18 08:59 05/30/18 09:23 Timolol Maleate (Timoptic 0.5% Op Soln) 1 drop TWICE A DAY BOTH EYES 05/22/18 10:00 06/21/18 09:59 05/30/18 09:22 Allergies: Coded Allergies: CEPHALEXIN (Verified Allergy, Unknown, 05/18/18) CEPHALOSPORINS (Verified Allergy, Unknown, 05/18/18) ERYTHROMYCIN BASE (Verified Allergy, Unknown, 05/18/18) GABAPENTIN (Verified Allergy, Unknown, 05/18/18) SHELLFISH DERIVED (Verified Allergy, Unknown, 05/22/18) Subjective awake, alert, responsive, NAD, anxious to go back to SNF. Objective Last Vital Signs Date Time Temp Pulse Resp B/P (MAP) Pulse Ox O2 Delivery O2 Flow Rate FiO2 05/30/18 09:52 98.0 05/30/18 09:00 Room Air 05/30/18 04:00 67 20 95/65 (75) 100 Intake and Output 05/29/18 05/30/18 18:59 06:59 Intake Total 800 ml Balance 800 ml Other 800 ml # Voids 2 # Bowel Movements 1 Objective GENERAL: Alert and oriented X 3 HEAD AND NECK: Pupils are reactive to light. Anicteric. NECK: Supple. No JVD. LUNGS: Good air entry. fair inspiratory effort. No wheeze or rhonchi. HEART: S1 and S2. Distant heart sounds. No murmur or gallops. ABDOMEN: Soft, nondistended, and nontender. Positive bowel sounds. EXTREMITIES: No cyanosis or clubbing. Contracted and weakness of bilateral lower extremities. Bilateral lower extremity, less edema, right worse than left and less erythema was noted in the bilateral lower extremity, right greater than left. RECTAL: Refused and deferred. GENITOURINARY: Refused and deferred. Assessment/Plan Assessment/Plan 1. Glaucoma. 2. Cellulitis of lower extremity. 3. Paraplegia. 4. Bipolar disorder. 5. Vancomycin-resistant enterococcus colonization. Plan: Continue to monitor off abx waiting for placement in SNF Full code heparin SQ. Niall Kraft MD May 30, 2018 13:10
[2018-05-30 16:00] VITALS: BP 103/60
--- NOTE | 2018-05-30 19:09 | NUR ---
HAND-OFF: Report given to RN Ormp.
--- NOTE | 2018-05-30 19:30 | NUR ---
NURSE NOTES: Assist patient back to bed. Able to make needs known. No complain of pain or discomfort at this time. No IV access, MD aware. Bed in lowest position and locked. Call light within reach. Will continue to monitor.
[2018-05-30 20:00] VITALS: BP 105/66
--- NOTE | 2018-05-30 21:00 | NUR ---
NURSE NOTES: Patient refused pm meds except Lyrica and eye drop Latanoprost. Explained risks and benefits, still refused.
[2018-05-30] MEDS: Latanoprost 0.005% Opth 2.5ml Soln BOTH EYES SCH (21:24)
[2018-05-31] VITALS: BP 94/58
[2018-05-31] MEDS: HYDROcodone/Acetamin 10/325 tab ORAL PRN ×6 (01:24→21:38)
[2018-05-31 04:00] VITALS: BP 114/70
--- NOTE | 2018-05-31 07:10 | NUR ---
HAND-OFF: Report given to PORSCHE Watson. Patient in bed with no signs of pain or discomfort.
--- NOTE | 2018-05-31 07:45 | NUR ---
NURSE NOTES: Patient alert x4, in room air, no sign of distress and shortness of breath. No sign of chest pain. Cellulitis on leg resolved. No IV access and MD is aware. Patient is getting [place], will give as order. Skin intact. Bed at lowest position, breaks engaged, side rails up x2. Call light within reach. Will keep monitoring.
[2018-05-31 08:00] VITALS: BP 95/65
[2018-05-31] MEDS: Heparin 5000 units/ml inj SUBQ SCH ×2 (09:00→21:00)
[2018-05-31] MEDS: Depakote ER 500mg tab ORAL SCH ×2 (09:00→21:00)
[2018-05-31] MEDS: Brimonidine 0.2% Opth Sol BOTH EYES SCH ×2 (09:15→17:29)
[2018-05-31] MEDS: Lyrica 75mg cap ORAL SCH ×2 (09:15→21:39)
[2018-05-31] MEDS: Thiamine 100mg tab ORAL SCH (09:15)
[2018-05-31] MEDS: Timolol 0.5% Op Soln 2.5ml BOTH EYES SCH ×2 (09:16→17:29)
--- NOTE | 2018-05-31 11:45 | Infectious Diseases Prog Note ---
Assessment/Plan Assessment/Plan Assessment: REcent b/l cellulitis, resolved Afebrile Mild leukopenia paraplegia anemia neuralgia bipolar disorder FTT [place] resident VRE stool- THIS IS A COLONIZER Plan: -Continue to monitor off abx -05/25 SP Bactrim #7 -05/20 SP IV Vancomycin #3 -OK TO DISCHARGE BACK TO [place], NO NEED FOR ISOLATION UPON DISCHARGE -f/u cx -Monitor CBC/CMP, temperatures Thank you for this consultation. Will continue to follow along with you. Discussed with RN and case picker. Subjective Allergies: Coded Allergies: CEPHALEXIN (Verified Allergy, Unknown, 05/18/18) CEPHALOSPORINS (Verified Allergy, Unknown, 05/18/18) ERYTHROMYCIN BASE (Verified Allergy, Unknown, 05/18/18) GABAPENTIN (Verified Allergy, Unknown, 05/18/18) SHELLFISH DERIVED (Verified Allergy, Unknown, 05/22/18) Subjective afebrile waiting placement Objective Vital Signs Last 24 Hour Vital Signs Date Time Temp Pulse Resp B/P (MAP) Pulse Ox O2 Delivery O2 Flow Rate FiO2 05/31/18 09:44 97.7 05/31/18 09:44 97.7 05/31/18 09:00 Room Air 05/31/18 08:00 97.7 68 18 95/65 (75) 99 05/31/18 04:00 97.8 72 16 114/70 (85) 96 05/31/18 00:00 97.9 80 18 94/58 (70) 98 05/30/18 21:00 Room Air 05/30/18 20:00 97.9 74 18 105/66 (79) 98 05/30/18 16:00 98.8 80 19 103/60 (74) 97 05/30/18 12:00 97.8 71 18 96/56 (69) 97 Height (Feet): 5 Height (Inches): 5.00 Weight (Pounds): 151 Objective GENERAL: The patient is a thin-appearing female, in no apparent distress. HEENT: Eyes - pupils are equal and responsive to light and accommodation. Extraocular movements are intact. NECK: Supple. No lymphadenopathy. CHEST: Lungs are clear to auscultation bilaterally without wheezes or rales. CARDIOVASCULAR: Regular rate. S1 and S2 normal without murmurs, rubs, or gallops. ABDOMEN: Soft, nontender, and nondistended. Positive bowel sounds. No evidence of hepatosplenomegaly. Currently, no rebound or guarding noted. EXTREMITIES: Right lower extremity is erythematous compared to the left, otherwise without clubbing, cyanosis, or edema. Current Medications Medications (Trade) Dose Ordered Sig/Mejia Route PRN Reason Start Time Stop Time Status Last Admin Dose Admin Acetaminophen (Tylenol) 650 mg Q4H PRN ORAL MILD PAIN / T>100.5 05/22/18 07:15 06/21/18 07:14 05/23/18 08:52 Acetaminophen/ Hydrocodone Bitart ([place] 10/325) 1 tab Q4H PRN ORAL Pain Scale (6-10) 05/29/18 08:00 06/05/18 07:59 05/31/18 09:14 Brimonidine Tartrate (Alphagan) 1 drop BID BOTH EYES 05/22/18 10:00 06/21/18 09:59 05/31/18 09:15 Divalproex Sodium (Depakote ER) 500 mg EVERY 12 HOURS ORAL 05/25/18 09:00 06/24/18 08:59 05/28/18 08:14 Folic Acid (Folate) 1 mg DAILY ORAL 05/22/18 09:00 06/21/18 08:59 05/31/18 09:13 Heparin Sodium (Porcine) (Heparin 5000 units/ml) 5,000 units EVERY 12 HOURS SUBQ 05/28/18 17:00 06/27/18 16:59 05/28/18 17:03 Latanoprost (Xalatan) 1 drop BEDTIME BOTH EYES 05/22/18 21:00 06/21/18 20:59 05/30/18 21:24 Polyethylene Glycol (Miralax) 17 gm DAILY PRN ORAL Constipation 05/28/18 19:15 06/27/18 19:14 05/28/18 20:48 Pregabalin (Lyrica) 75 mg Q12HR ORAL 05/22/18 09:00 06/21/18 08:59 05/31/18 09:15 Risperidone (RisperDAL) 2 mg BEDTIME ORAL 05/25/18 21:00 06/24/18 20:59 05/25/18 21:00 Thiamine HCl (Vitamin B1) 100 mg DAILY ORAL 05/22/18 09:00 06/21/18 08:59 05/31/18 09:15 Timolol Maleate (Timoptic 0.5% Op Soln) 1 drop TWICE A DAY BOTH EYES 05/22/18 10:00 06/21/18 09:59 05/31/18 09:16 Marilyn Oliver M.D. May 31, 2018 11:45
[2018-05-31 12:00] VITALS: BP 100/70
[2018-05-31 16:00] VITALS: BP 102/56
--- NOTE | 2018-05-31 17:02 | Internal Med Progress Note ---
Subjective Physician Name Niall Kraft Attending Physician Niall Kraft MD Current Medications Medications (Trade) Dose Ordered Sig/Mejia Route PRN Reason Start Time Stop Time Status Last Admin Dose Admin Acetaminophen (Tylenol) 650 mg Q4H PRN ORAL MILD PAIN / T>100.5 05/22/18 07:15 06/21/18 07:14 05/23/18 08:52 Acetaminophen/ Hydrocodone Bitart ([place] 10/325) 1 tab Q4H PRN ORAL Pain Scale (6-10) 05/29/18 08:00 06/05/18 07:59 05/31/18 13:25 Brimonidine Tartrate (Alphagan) 1 drop BID BOTH EYES 05/22/18 10:00 06/21/18 09:59 05/31/18 09:15 Divalproex Sodium (Depakote ER) 500 mg EVERY 12 HOURS ORAL 05/25/18 09:00 06/24/18 08:59 05/28/18 08:14 Folic Acid (Folate) 1 mg DAILY ORAL 05/22/18 09:00 06/21/18 08:59 05/31/18 09:13 Heparin Sodium (Porcine) (Heparin 5000 units/ml) 5,000 units EVERY 12 HOURS SUBQ 05/28/18 17:00 06/27/18 16:59 05/28/18 17:03 Latanoprost (Xalatan) 1 drop BEDTIME BOTH EYES 05/22/18 21:00 06/21/18 20:59 05/30/18 21:24 Polyethylene Glycol (Miralax) 17 gm DAILY PRN ORAL Constipation 05/28/18 19:15 06/27/18 19:14 05/28/18 20:48 Pregabalin (Lyrica) 75 mg Q12HR ORAL 05/22/18 09:00 06/21/18 08:59 05/31/18 09:15 Risperidone (RisperDAL) 2 mg BEDTIME ORAL 05/25/18 21:00 06/24/18 20:59 05/25/18 21:00 Thiamine HCl (Vitamin B1) 100 mg DAILY ORAL 05/22/18 09:00 06/21/18 08:59 05/31/18 09:15 Timolol Maleate (Timoptic 0.5% Op Soln) 1 drop TWICE A DAY BOTH EYES 05/22/18 10:00 06/21/18 09:59 05/31/18 09:16 Allergies: Coded Allergies: CEPHALEXIN (Verified Allergy, Unknown, 05/18/18) CEPHALOSPORINS (Verified Allergy, Unknown, 05/18/18) ERYTHROMYCIN BASE (Verified Allergy, Unknown, 05/18/18) GABAPENTIN (Verified Allergy, Unknown, 05/18/18) SHELLFISH DERIVED (Verified Allergy, Unknown, 05/22/18) Subjective awake, alert, responsive, NAD, anxious. Objective Last Vital Signs Date Time Temp Pulse Resp B/P (MAP) Pulse Ox O2 Delivery O2 Flow Rate FiO2 05/31/18 13:55 98.7 05/31/18 12:00 72 18 100/70 (80) 96 05/31/18 09:00 Room Air Intake and Output 05/30/18 05/31/18 18:59 06:59 Intake Total 1200 ml Balance 1200 ml Other 1200 ml # Voids 2 Objective GENERAL: Alert and oriented X 3 HEAD AND NECK: Pupils are reactive to light. Anicteric. NECK: Supple. No JVD. LUNGS: Good air entry. fair inspiratory effort. No wheeze or rhonchi. HEART: S1 and S2. Distant heart sounds. No murmur or gallops. ABDOMEN: Soft, nondistended, and nontender. Positive bowel sounds. EXTREMITIES: No cyanosis or clubbing. Contracted and weakness of bilateral lower extremities. Bilateral lower extremity, less edema, right worse than left and less erythema was noted in the bilateral lower extremity, right greater than left. RECTAL: Refused and deferred. GENITOURINARY: Refused and deferred. Assessment/Plan Assessment/Plan 1. Glaucoma. 2. Cellulitis of lower extremity. 3. Paraplegia. 4. Bipolar disorder. 5. Vancomycin-resistant enterococcus colonization. Plan: Continue to monitor off abx waiting for placement in SNF Full code heparin SQ. Niall Kraft MD May 31, 2018 17:02
--- NOTE | 2018-05-31 19:30 | NUR ---
NURSE NOTES: Report recieved from Shirley RN, patient is awake, alert, oriented x4, in bed, talkative, no acute distress noted or reported, on room air, bed is in low position, locked and alarm is on, call light is within reach, will continue to monitor for safety and comfort.
--- NOTE | 2018-05-31 19:42 | NUR ---
HAND-OFF: Report given to PORSCHE Infante.
--- NOTE | 2018-05-31 20:18 | General Progress Note ---
Assessment/Plan Problem List: (1) Bipolar disorder ICD Codes: F31.9 - Bipolar disorder, unspecified SNOMED: 39762102 Qualifiers: Status: stable Assessment/Plan Risperdal 4mg po qhs Depakote 1000 po qhs provided ro/st Subjective Neurologic/Psychiatric: Reports: anxiety, depressed, emotional problems Allergies: Coded Allergies: CEPHALEXIN (Verified Allergy, Unknown, 05/18/18) CEPHALOSPORINS (Verified Allergy, Unknown, 05/18/18) ERYTHROMYCIN BASE (Verified Allergy, Unknown, 05/18/18) GABAPENTIN (Verified Allergy, Unknown, 05/18/18) SHELLFISH DERIVED (Verified Allergy, Unknown, 05/22/18) Subjective the pt is refusing all her psych meds. Objective Last 24 Hour Vital Signs Date Time Temp Pulse Resp B/P (MAP) Pulse Ox O2 Delivery O2 Flow Rate FiO2 05/31/18 17:59 98.7 05/31/18 16:00 97.9 77 18 102/56 (71) 99 05/31/18 12:00 98.7 72 18 100/70 (80) 96 05/31/18 09:44 97.7 05/31/18 09:00 Room Air 05/31/18 08:00 97.7 68 18 95/65 (75) 99 05/31/18 04:00 97.8 72 16 114/70 (85) 96 05/31/18 00:00 97.9 80 18 94/58 (70) 98 05/30/18 21:00 Room Air Intake and Output 05/30/18 05/31/18 18:59 06:59 Intake Total 1200 ml Balance 1200 ml Other 1200 ml # Voids 2 Height (Feet): 5 Height (Inches): 5.00 Weight (Pounds): 151 General Appearance: alert, agitated Jake Mcintyre MD May 31, 2018 20:18
[2018-05-31] MEDS: Latanoprost 0.005% Opth 2.5ml Soln BOTH EYES SCH (21:39)
[2018-06-01] MEDS: HYDROcodone/Acetamin 10/325 tab ORAL PRN ×5 (01:34→21:25)
[2018-06-01 04:00] VITALS: BP 94/63
--- NOTE | 2018-06-01 07:27 | NUR ---
HAND-OFF: Report given to Yola MORRELL.
[2018-06-01 08:00] VITALS: BP 108/65
--- NOTE | 2018-06-01 08:00 | NUR ---
NURSE NOTES: Patient awake and alert,sitting up in bed and eating breakfast,no complaints at this time,call light within reach.
[2018-06-01] MEDS: Depakote ER 500mg tab ORAL SCH ×2 (08:30→21:00)
[2018-06-01] MEDS: Heparin 5000 units/ml inj SUBQ SCH ×2 (08:31→21:00)
[2018-06-01] MEDS: Timolol 0.5% Op Soln 2.5ml BOTH EYES SCH ×2 (08:35→18:52)
[2018-06-01] MEDS: Thiamine 100mg tab ORAL SCH (08:37)
[2018-06-01] MEDS: Brimonidine 0.2% Opth Sol BOTH EYES SCH ×2 (08:40→18:56)
[2018-06-01] MEDS: Lyrica 75mg cap ORAL SCH ×2 (09:24→21:25)
--- NOTE | 2018-06-01 10:30 | NUR ---
DISCHARGE PLANNING REFERRED TO 1) [employer] [facility] T: [phone] F: [phone] 2) [employer] [facility] T: [phone] F: [phone] 3) [place] T: [phone] F: [phone] 4) [employer] T: [phone] F: [phone] 5) [facility] T:[phone] F: [phone] 6) [facility] T: [phone] F: [phone] 7) [facility] T:[phone] F: [phone] 8) [facility] T:[phone] F: [phone] 9) [facility] T: [phone] F: [phone] 10) [facility] T:[phone] F: [phone] Addendum: 06/01/18 at 1620 by MANINDER SALDAÑA CM DISCHARGE PLANNING REFERRED TO RESPONSES 1) [facility] *NO BEDS S/W NAVEED 2) [facility] F:[phone] * RE-FAXED S/W REBEKAH 3) [place] *NO BEDS S/W BILL 4) [employer] eFAX: RE-FAXED S/W RIENER 5) MARIA[facility] SCHULTZ *LVM W/ADMISSION TO CALL US 6) [facility] *NO BEDS AVAILABLE UNTIL 06/12/18 S/W BRIGETTE 7) [facility] * LVM WITH JOSE TO CALL US 8) [facility]ANA LEFT MSG WITH YOLI WHO WILL HAVE JAIME CALL US 9) MALU SANCHEZ S/W MAITE SHE WILL REVIEW AND CALL US BACK 10) [facility] F:[phone] RE-FAXED S/W ESTER
[2018-06-01 12:00] VITALS: BP 99/48
--- NOTE | 2018-06-01 14:58 | NUR ---
CASE MANAGEMENT:REVIEW 05/30/18 SI: CELLULITIS. VRE CARRIER 97.8 71 18 96/56 97% ON RA IS: BACTRIM PO Q12 FOLATE PO QD LYRICA PO Q12 THIAMINE PO QD NORCO PO Q4HRS PRN RISPERDAL PO QHS DEPAKOTE PO Q12 : TO MED/SURG UNIT [facility]: [facility] AND [facility] TO DO LETTER OF AGREEMENT 05/31/18 SI: CELLULITIS. VRE CARRIER 97.7 68 18 95/65 99% ON RA IS: BACTRIM PO Q12 FOLATE PO QD LYRICA PO Q12 THIAMINE PO QD NORCO PO Q4HRS PRN RISPERDAL PO QHS DEPAKOTE PO Q12 : TO MED/SURG UNIT 4 [facility]: PER [facility]FFER WITH [facility] THEY ARE UNABLE TO DO A LETTER OF AGREEMENT WITH [facility] DUE TO PRICING 06/01/18 SI: CELLULITIS. VRE CARRIER 97.6 67 18 108/65 98% ON RA IS: BACTRIM PO Q12 FOLATE PO QD LYRICA PO Q12 THIAMINE PO QD NORCO PO Q4HRS PRN RISPERDAL PO QHS DEPAKOTE PO Q12 : TO MED/SURG UNIT 4 [facility]: SEEKING SNF PLACEMENT FAXED TO THE FOLLOWING FACILITIES TODAY WITH NO ACCEPTANCE REFERRED PATIENT TO 1) [facility] T: [phone] F: [phone] 2) [facility] T: [phone] F: [phone] 3) [place] T: [phone] F: [phone] 4) [employer] T: [phone] F: [phone] 5) [facility] T:[phone] F: [phone] 6) [facility] T: [phone] F: [phone] 7) [facility] T:[phone] F: [phone] 8) [facility] T:[phone] F: [phone] 9) [facility] T: [phone] F: [phone] 10) [facility] T:[phone] F: [phone] NONE OF THE ABOVE CAN ACCEPT
--- NOTE | 2018-06-01 15:22 | NUR ---
INSURANCE ALL CLINICALS AND REVIEWS FAXED TO: [facility] T: [phone] [id number] F: [phone] [facility] P:[phone] [place] [phone] F:[phone]
--- NOTE | 2018-06-01 15:37 | NUR ---
PATIENT'S BELONGINGS FOUNDRY EQUIPMENT MECHANIC CALLED [facility] AND REQUESTED PATIENT'S BELONGINGS BE SENT TO THIS FACILITY SPOKE WITH CYNTHIA WHO STATED SHE WILL LOOK INTO IT AND CALL THIS FOUNDRY EQUIPMENT MECHANIC BACK SECOND CALL WAS PLACED TO [facility] PER CYNTHIA THEIR [place] [facility]ICKER JUST CAME IN AND SHE WOULD DISCUSS THE MATTER WITH HER
--- NOTE | 2018-06-01 15:58 | Internal Med Progress Note ---
Subjective Physician Name Niall Kraft Attending Physician Niall Kraft MD Current Medications Medications (Trade) Dose Ordered Sig/Mejia Route PRN Reason Start Time Stop Time Status Last Admin Dose Admin Acetaminophen (Tylenol) 650 mg Q4H PRN ORAL MILD PAIN / T>100.5 05/22/18 07:15 06/21/18 07:14 05/23/18 08:52 Acetaminophen/ Hydrocodone Bitart ([place] 10/325) 1 tab Q4H PRN ORAL Pain Scale (6-10) 05/29/18 08:00 06/05/18 07:59 06/01/18 11:23 Brimonidine Tartrate (Alphagan) 1 drop BID BOTH EYES 05/22/18 10:00 06/21/18 09:59 06/01/18 08:40 Divalproex Sodium (Depakote ER) 500 mg EVERY 12 HOURS ORAL 05/25/18 09:00 06/24/18 08:59 05/28/18 08:14 Folic Acid (Folate) 1 mg DAILY ORAL 05/22/18 09:00 06/21/18 08:59 06/01/18 08:36 Heparin Sodium (Porcine) (Heparin 5000 units/ml) 5,000 units EVERY 12 HOURS SUBQ 05/28/18 17:00 06/27/18 16:59 05/28/18 17:03 Latanoprost (Xalatan) 1 drop BEDTIME BOTH EYES 05/22/18 21:00 06/21/18 20:59 05/31/18 21:39 Polyethylene Glycol (Miralax) 17 gm DAILY PRN ORAL Constipation 05/28/18 19:15 06/27/18 19:14 05/28/18 20:48 Pregabalin (Lyrica) 75 mg Q12HR ORAL 05/22/18 09:00 06/21/18 08:59 06/01/18 09:24 Risperidone (RisperDAL) 2 mg BEDTIME ORAL 05/25/18 21:00 06/24/18 20:59 05/25/18 21:00 Thiamine HCl (Vitamin B1) 100 mg DAILY ORAL 05/22/18 09:00 06/21/18 08:59 06/01/18 08:37 Timolol Maleate (Timoptic 0.5% Op Soln) 1 drop TWICE A DAY BOTH EYES 05/22/18 10:00 06/21/18 09:59 06/01/18 08:35 Allergies: Coded Allergies: CEPHALEXIN (Verified Allergy, Unknown, 05/18/18) CEPHALOSPORINS (Verified Allergy, Unknown, 05/18/18) ERYTHROMYCIN BASE (Verified Allergy, Unknown, 05/18/18) GABAPENTIN (Verified Allergy, Unknown, 05/18/18) SHELLFISH DERIVED (Verified Allergy, Unknown, 05/22/18) Subjective awake, alert, responsive, NAD. Objective Last Vital Signs Date Time Temp Pulse Resp B/P (MAP) Pulse Ox O2 Delivery O2 Flow Rate FiO2 06/01/18 12:00 98.1 20 99/48 (65) 98 06/01/18 09:00 Room Air 06/01/18 08:00 67 Intake and Output 05/31/18 06/01/18 19:00 07:00 Intake Total 1500 ml Balance 1500 ml Other 1500 ml Objective GENERAL: Alert and oriented X 3 HEAD AND NECK: Pupils are reactive to light. Anicteric. NECK: Supple. No JVD. LUNGS: Good air entry. fair inspiratory effort. No wheeze or rhonchi. HEART: S1 and S2. Distant heart sounds. No murmur or gallops. ABDOMEN: Soft, nondistended, and nontender. Positive bowel sounds. EXTREMITIES: No cyanosis or clubbing. Contracted and weakness of bilateral lower extremities. Bilateral lower extremity, less edema, right worse than left and less erythema was noted in the bilateral lower extremity, right greater than left. RECTAL: Refused and deferred. GENITOURINARY: Refused and deferred. Assessment/Plan Assessment/Plan 1. Glaucoma. 2. Cellulitis of lower extremity. 3. Paraplegia. 4. Bipolar disorder. 5. Vancomycin-resistant enterococcus colonization. Plan: Continue to monitor off abx waiting for placement in SNF Full code heparin SQ. Niall Kraft MD Jun 01, 2018 15:58
[2018-06-01 16:00] VITALS: BP 102/62
--- NOTE | 2018-06-01 16:04 | Infectious Diseases Prog Note ---
Assessment/Plan Assessment/Plan Assessment: REcent b/l cellulitis, resolved Afebrile Mild leukopenia paraplegia anemia neuralgia bipolar disorder FTT [place] resident VRE stool- THIS IS A COLONIZER Plan: -Continue to monitor off abx -05/25 SP Bactrim #7 -05/20 SP IV Vancomycin #3 -OK TO DISCHARGE BACK TO [place], NO NEED FOR ISOLATION UPON DISCHARGE -f/u cx -Monitor CBC/CMP, temperatures Thank you for this consultation. Will continue to follow along with you. Discussed with RN and child welfare caseworker. Subjective Allergies: Coded Allergies: CEPHALEXIN (Verified Allergy, Unknown, 05/18/18) CEPHALOSPORINS (Verified Allergy, Unknown, 05/18/18) ERYTHROMYCIN BASE (Verified Allergy, Unknown, 05/18/18) GABAPENTIN (Verified Allergy, Unknown, 05/18/18) SHELLFISH DERIVED (Verified Allergy, Unknown, 05/22/18) Subjective afebrile waiting placement Objective Vital Signs Last 24 Hour Vital Signs Date Time Temp Pulse Resp B/P (MAP) Pulse Ox O2 Delivery O2 Flow Rate FiO2 06/01/18 12:00 98.1 20 99/48 (65) 98 06/01/18 09:00 Room Air 06/01/18 08:00 97.6 67 18 108/65 (79) 98 06/01/18 07:20 97.5 06/01/18 04:00 97.5 74 18 94/63 (73) 94 05/31/18 21:00 Room Air Height (Feet): 5 Height (Inches): 5.00 Weight (Pounds): 151 Objective GENERAL: The patient is a thin-appearing female, in no apparent distress. HEENT: Eyes - pupils are equal and responsive to light and accommodation. Extraocular movements are intact. NECK: Supple. No lymphadenopathy. CHEST: Lungs are clear to auscultation bilaterally without wheezes or rales. CARDIOVASCULAR: Regular rate. S1 and S2 normal without murmurs, rubs, or gallops. ABDOMEN: Soft, nontender, and nondistended. Positive bowel sounds. No evidence of hepatosplenomegaly. Currently, no rebound or guarding noted. EXTREMITIES: Right lower extremity is erythematous compared to the left, otherwise without clubbing, cyanosis, or edema. Current Medications Medications (Trade) Dose Ordered Sig/Mejia Route PRN Reason Start Time Stop Time Status Last Admin Dose Admin Acetaminophen (Tylenol) 650 mg Q4H PRN ORAL MILD PAIN / T>100.5 05/22/18 07:15 06/21/18 07:14 05/23/18 08:52 Acetaminophen/ Hydrocodone Bitart ([place] 10/325) 1 tab Q4H PRN ORAL Pain Scale (6-10) 05/29/18 08:00 06/05/18 07:59 06/01/18 11:23 Brimonidine Tartrate (Alphagan) 1 drop BID BOTH EYES 05/22/18 10:00 06/21/18 09:59 06/01/18 08:40 Divalproex Sodium (Depakote ER) 500 mg EVERY 12 HOURS ORAL 05/25/18 09:00 06/24/18 08:59 05/28/18 08:14 Folic Acid (Folate) 1 mg DAILY ORAL 05/22/18 09:00 06/21/18 08:59 06/01/18 08:36 Heparin Sodium (Porcine) (Heparin 5000 units/ml) 5,000 units EVERY 12 HOURS SUBQ 05/28/18 17:00 06/27/18 16:59 05/28/18 17:03 Latanoprost (Xalatan) 1 drop BEDTIME BOTH EYES 05/22/18 21:00 06/21/18 20:59 05/31/18 21:39 Polyethylene Glycol (Miralax) 17 gm DAILY PRN ORAL Constipation 05/28/18 19:15 06/27/18 19:14 05/28/18 20:48 Pregabalin (Lyrica) 75 mg Q12HR ORAL 05/22/18 09:00 06/21/18 08:59 06/01/18 09:24 Risperidone (RisperDAL) 2 mg BEDTIME ORAL 05/25/18 21:00 06/24/18 20:59 05/25/18 21:00 Thiamine HCl (Vitamin B1) 100 mg DAILY ORAL 05/22/18 09:00 06/21/18 08:59 06/01/18 08:37 Timolol Maleate (Timoptic 0.5% Op Soln) 1 drop TWICE A DAY BOTH EYES 05/22/18 10:00 06/21/18 09:59 06/01/18 08:35 Marilyn Oliver M.D. Jun 01, 2018 16:04
--- NOTE | 2018-06-01 19:00 | NUR ---
NURSE NOTES: patient resting,patient voided moderate amount of yellow urine,skin care.Call light within reach.
--- NOTE | 2018-06-01 19:25 | NUR ---
HAND-OFF: Report given to IZABELLA MORRELL.
--- NOTE | 2018-06-01 19:30 | NUR ---
NURSE NOTES: Recieved patient in bed, awake, alert, in no acute distress at this time, bed is in low position, locked and alarm is on, call light is within reach. Will continue to monitor for safety and comfort.
[2018-06-01] MEDS: Latanoprost 0.005% Opth 2.5ml Soln BOTH EYES SCH (21:25)
[2018-06-02] MEDS: HYDROcodone/Acetamin 10/325 tab ORAL PRN ×6 (01:24→22:36)
--- NOTE | 2018-06-02 07:22 | NUR ---
HAND-OFF: Report given to Damari MORRELL.
[2018-06-02 08:00] VITALS: BP 139/77
--- NOTE | 2018-06-02 08:00 | NUR ---
NURSE NOTES: Received patient in bed, A/A/Ox4. able to make things known. No acute distress at this time, bed is in low position, siderails are up x3, call light is within reach. Will continue to monitor for safety and comfort.
--- NOTE | 2018-06-02 08:34 | Infectious Diseases Prog Note ---
Assessment/Plan Assessment/Plan Assessment: REcent b/l cellulitis, resolved Afebrile Mild leukopenia paraplegia anemia neuralgia bipolar disorder [place]TT [place] resident VRE stool- THIS IS A COLONIZER Plan: -Continue to monitor off abx as clinically stable -05/25 SP Bactrim #7 -05/20 SP IV Vancomycin #3 -OK TO DISCHARGE BACK TO [place], NO NEED FOR ISOLATION UPON DISCHARGE -f/u cx -Monitor CBC/CMP, temperatures Thank you for this consultation. Will continue to follow along with you. Discussed with RN and special education case manager. Subjective Allergies: Coded Allergies: CEPHALEXIN (Verified Allergy, Unknown, 05/18/18) CEPHALOSPORINS (Verified Allergy, Unknown, 05/18/18) ERYTHROMYCIN BASE (Verified Allergy, Unknown, 05/18/18) GABAPENTIN (Verified Allergy, Unknown, 05/18/18) SHELLFISH DERIVED (Verified Allergy, Unknown, 05/22/18) Subjective Patient refusing vital but was afebrile yesterday Says she is doing fine Objective Vital Signs Last 24 Hour Vital Signs Date Time Temp Pulse Resp B/P (MAP) Pulse Ox O2 Delivery O2 Flow Rate FiO2 06/01/18 21:00 Room Air 06/01/18 16:00 97.6 20 102/62 (75) 97 06/01/18 12:00 98.1 20 99/48 (65) 98 06/01/18 09:00 Room Air Height (Feet): 5 Height (Inches): 5.00 Weight (Pounds): 151 Objective GENERAL: NAD HEENT: NCAT, MMM CHEST: Lungs are clear to auscultation bilaterally without wheezes CARDIOVASCULAR: Regular rate. S1 and S2 normal ABDOMEN: Soft, nontender, and nondistended. Positive bowel sounds. EXTREMITIES: Right lower extremity has mild erythematous compared to the left, otherwise without clubbing, cyanosis, or edema. Current Medications Medications (Trade) Dose Ordered Sig/Mejia Route PRN Reason Start Time Stop Time Status Last Admin Dose Admin Acetaminophen (Tylenol) 650 mg Q4H PRN ORAL MILD PAIN / T>100.5 05/22/18 07:15 06/21/18 07:14 05/23/18 08:52 Acetaminophen/ Hydrocodone Bitart ([place] 10/325) 1 tab Q4H PRN ORAL Pain Scale (6-10) 05/29/18 08:00 06/05/18 07:59 06/02/18 05:25 Brimonidine Tartrate (Alphagan) 1 drop BID BOTH EYES 05/22/18 10:00 06/21/18 09:59 06/01/18 18:56 Divalproex Sodium (Depakote ER) 500 mg EVERY 12 HOURS ORAL 05/25/18 09:00 06/24/18 08:59 05/28/18 08:14 Folic Acid (Folate) 1 mg DAILY ORAL 05/22/18 09:00 06/21/18 08:59 06/01/18 08:36 Heparin Sodium (Porcine) (Heparin 5000 units/ml) 5,000 units EVERY 12 HOURS SUBQ 05/28/18 17:00 06/27/18 16:59 05/28/18 17:03 Latanoprost (Xalatan) 1 drop BEDTIME BOTH EYES 05/22/18 21:00 06/21/18 20:59 06/01/18 21:25 Polyethylene Glycol (Miralax) 17 gm DAILY PRN ORAL Constipation 05/28/18 19:15 06/27/18 19:14 05/28/18 20:48 Pregabalin (Lyrica) 75 mg Q12HR ORAL 05/22/18 09:00 06/21/18 08:59 06/01/18 21:25 Risperidone (RisperDAL) 2 mg BEDTIME ORAL 05/25/18 21:00 06/24/18 20:59 05/25/18 21:00 Thiamine HCl (Vitamin B1) 100 mg DAILY ORAL 05/22/18 09:00 06/21/18 08:59 06/01/18 08:37 Timolol Maleate (Timoptic 0.5% Op Soln) 1 drop TWICE A DAY BOTH EYES 05/22/18 10:00 06/21/18 09:59 06/01/18 18:52 Earl Lock MD Jun 02, 2018 08:34
[2018-06-02] MEDS: Thiamine 100mg tab ORAL SCH (08:56)
[2018-06-02] MEDS: Lyrica 75mg cap ORAL SCH ×2 (08:56→21:00)
[2018-06-02] MEDS: Depakote ER 500mg tab ORAL SCH ×2 (08:56→21:00)
[2018-06-02] MEDS: Timolol 0.5% Op Soln 2.5ml BOTH EYES SCH ×3 (08:57→17:42)
[2018-06-02] MEDS: Heparin 5000 units/ml inj SUBQ SCH ×3 (08:58→21:00)
[2018-06-02] MEDS: Brimonidine 0.2% Opth Sol BOTH EYES SCH ×2 (08:58→17:33)
--- NOTE | 2018-06-02 09:30 | NUR ---
NURSE NOTES: informed Dr Mcintyre patient refused depakote and risperdal. will cont to monitor.
[2018-06-02 12:00] VITALS: BP 100/59
--- NOTE | 2018-06-02 15:08 | NUR ---
NURSE NOTES: kwan and cristine from [facility] came and brought other patient's belongings. reviewed and noted. pls see chart for inventory details.
[2018-06-02 16:00] VITALS: BP 109/70
--- NOTE | 2018-06-02 16:46 | Internal Med Progress Note ---
Subjective Physician Name Niall Kraft Attending Physician Niall Kraft MD Current Medications Medications (Trade) Dose Ordered Sig/Mejia Route PRN Reason Start Time Stop Time Status Last Admin Dose Admin Acetaminophen (Tylenol) 650 mg Q4H PRN ORAL MILD PAIN / T>100.5 05/22/18 07:15 06/21/18 07:14 05/23/18 08:52 Acetaminophen/ Hydrocodone Bitart ([place] 10/325) 1 tab Q4H PRN ORAL Pain Scale (6-10) 05/29/18 08:00 06/05/18 07:59 06/02/18 14:26 Brimonidine Tartrate (Alphagan) 1 drop BID BOTH EYES 05/22/18 10:00 06/21/18 09:59 06/02/18 08:58 Divalproex Sodium (Depakote ER) 500 mg EVERY 12 HOURS ORAL 05/25/18 09:00 06/24/18 08:59 06/02/18 08:56 Folic Acid (Folate) 1 mg DAILY ORAL 05/22/18 09:00 06/21/18 08:59 06/02/18 08:56 Heparin Sodium (Porcine) (Heparin 5000 units/ml) 5,000 units EVERY 12 HOURS SUBQ 05/28/18 17:00 06/27/18 16:59 05/28/18 17:03 Latanoprost (Xalatan) 1 drop BEDTIME BOTH EYES 05/22/18 21:00 06/21/18 20:59 06/01/18 21:25 Polyethylene Glycol (Miralax) 17 gm DAILY PRN ORAL Constipation 05/28/18 19:15 06/27/18 19:14 05/28/18 20:48 Pregabalin (Lyrica) 75 mg Q12HR ORAL 05/22/18 09:00 06/21/18 08:59 06/02/18 08:56 Risperidone (RisperDAL) 2 mg BEDTIME ORAL 05/25/18 21:00 06/24/18 20:59 05/25/18 21:00 Thiamine HCl (Vitamin B1) 100 mg DAILY ORAL 05/22/18 09:00 06/21/18 08:59 06/02/18 08:56 Timolol Maleate (Timoptic 0.5% Op Soln) 1 drop TWICE A DAY BOTH EYES 05/22/18 10:00 06/21/18 09:59 06/02/18 08:57 Allergies: Coded Allergies: CEPHALEXIN (Verified Allergy, Unknown, 05/18/18) CEPHALOSPORINS (Verified Allergy, Unknown, 05/18/18) ERYTHROMYCIN BASE (Verified Allergy, Unknown, 05/18/18) GABAPENTIN (Verified Allergy, Unknown, 05/18/18) SHELLFISH DERIVED (Verified Allergy, Unknown, 05/22/18) Subjective awake, alert, responsive, NAD, sitting up at bedside. Objective Last Vital Signs Date Time Temp Pulse Resp B/P (MAP) Pulse Ox O2 Delivery O2 Flow Rate FiO2 06/02/18 16:00 98.1 74 16 109/70 (83) 99 06/01/18 21:00 Room Air Intake and Output 06/01/18 06/02/18 19:00 07:00 Intake Total 900 ml Output Total 800 ml Balance 100 ml Intake Oral 900 ml Output Urine Total 800 ml # Bowel Movements 1 1 Objective GENERAL: Alert and oriented X 3 HEAD AND NECK: Pupils are reactive to light. Anicteric. NECK: Supple. No JVD. LUNGS: Good air entry. fair inspiratory effort. No wheeze or rhonchi. HEART: S1 and S2. Distant heart sounds. No murmur or gallops. ABDOMEN: Soft, nondistended, and nontender. Positive bowel sounds. EXTREMITIES: No cyanosis or clubbing. Contracted and weakness of bilateral lower extremities. Bilateral lower extremity, less edema, right worse than left and less erythema was noted in the bilateral lower extremity, right greater than left. RECTAL: Refused and deferred. GENITOURINARY: Refused and deferred. Assessment/Plan Assessment/Plan 1. Glaucoma. 2. Cellulitis of lower extremity. 3. Paraplegia. 4. Bipolar disorder. 5. Vancomycin-resistant enterococcus colonization. Plan: Continue to monitor off abx waiting for placement in SNF Full code heparin SQ. Niall Kraft MD Jun 02, 2018 16:46
--- NOTE | 2018-06-02 17:03 | NUR ---
DISCHARGE PLANNING ACTIVELY SEEKING SNF PLACEMENT FOR THIS PATIENT FAXED CLINICALS TO THE FOLLOWING: REFERRED TO FOLLOWING SNF'S 1) [facility] T: [phone] F: [phone] 2) [facility] T: [phone] F: [phone] 3) [facility] T:[phone] F:[phone] 4) LI BRAMB[facility] T: [phone] F: [phone] 5) CHAVO GARCES T: [phone] F: [phone] 6) CELINA JIMENEZ T: [phone] F: [phone] 7) HO [facility]AG[facility] T: [phone] F: [phone] 8) MIKAYLA T:[phone] F:[phone] 9) MADELYN ALBERTO T:[phone] F: [phone] 10) SHER[facility]NIGHT T:[phone] F: [phone] Addendum: 06/02/18 at 1703 by MANINDER SALDAÑA CM 1) [facility] *NO BEDS 2) [facility] *ADMISSION GONE FOR THE DAY C/B. 3) [facility] S/W [facility] UNABLE TO ACCEPT ANY PATIENTS. 4) LI BRAMBILA *S/W [facility] NO BEDS AVAILABLE MAYBE TUE/. 5) CHAVO GARCES F:[phone] RE-FAX 6) CELINA JIMENEZ *ADMISSION GONE FOR THE DAY C/B. 7) HO PAGAN *S/W [facility] UNABLE TO ACCEPT PATIENT ( SHORT TERM ONLY ) 8) MIKAYLA *S/W WITH [facility] THEY ARE UNABLE TO ADMIT ANY PT (ISSUES W/BUILDING) 9) MADELYN ALBERTO *ADMISSION GONE FOR THE DAY C/B. 10) SHERRILL KNIGHT NO BEDS AVAILABLE PENDING D/C MON
--- NOTE | 2018-06-02 17:38 | NUR ---
CASE MANAGEMENT:REVIEW 06/02/18 SI: CELLULITIS. VRE CARRIER 96.7 62 16 100/59 100% ON RA IS: BACTRIM PO Q12 FOLATE PO QD LYRICA PO Q12 THIAMINE PO QD NORCO PO Q4HRS PRN RISPERDAL PO QHS DEPAKOTE PO Q12 : TO MED[facility]G UNIT [facility] ACTIVELY SEEKING SNF PLACEMENT FOR THIS PATIENT FAXED CLINICALS TO THE FOLLOWING: REFERRED TO FOLLOWING SNF'S 1) [facility] T: [phone] F: [phone] 2) [facility] T: [phone] F: [phone] 3) [facility] T:[phone] F:[phone] 4) LI BRAMBILA T: [phone] F: [phone] 5) CHAVO GARCES T: [phone] F: [phone] 6) CELINA JIMENEZ T: [phone] F: [phone] 7) HO PAGAN T: [phone] F: [phone] 8) MIKAYLA T:[phone] F:[phone] 9) MADELYN ALBERTO T:[phone] F: [phone] 10) SHERRILL KNIGHT T:[phone] F: [phone] Addendum: 06/02/18 at 1703 by MANINDER SALDAÑA CM 1) [facility] *NO BEDS 2) [facility] *ADMISSION GONE FOR THE DAY C/B. 3) [facility] GUZ[facility] S/W [facility] UNABLE TO ACCEPT ANY PATIENTS. 4) LI BRAMBILA *S/W [facility] NO BEDS AVAILABLE MAYBE MON/. 5) CHAVO GARCES F:[phone] RE-FAX 6) CELINA JIMENEZ *ADMISSION GONE FOR THE DAY C/B. 7) HO PAGAN *S/W ANG[facility]LICA UNABLE TO ACCEPT PATIENT ( SHORT TERM ONLY ) 8) MIKAYLA *S/W WITH [facility] THEY ARE UNABLE TO ADMIT ANY PT (ISSUES W/BUILDING) 9) MADELYN ALBERTO *ADMISSION GONE FOR THE DAY C/B. 10) SHERRILL KNIGHT NO BEDS AVAILABLE PENDING D/C MON
--- NOTE | 2018-06-02 17:42 | NUR ---
INSURANCE ALL CLINICALS AND REVIEWS FAXED TO: [facility] T: [phone] [id number] F: [phone] [facility] P:[phone] [place] [phone] F:[phone]
--- NOTE | 2018-06-02 19:20 | NUR ---
HAND-OFF: Report given to Corrine.
--- NOTE | 2018-06-02 19:30 | NUR ---
NURSE NOTES: Received patient in bed. No SOB, no acute distress noted. Patient asking for pain meds. Explained time of next dose, patient verbalized understanding. Bed in lowest position, locked, alarms on. Call light in reach.
[2018-06-02 20:00] VITALS: BP 128/75
[2018-06-02] MEDS: Latanoprost 0.005% Opth 2.5ml Soln BOTH EYES SCH (21:00)
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
[2018-06-03] VITALS: BP 128/75
--- NOTE | 2018-06-03 | NUR ---
HAND-OFF: Report given to PORSCHE Mora.
[2018-06-03] MEDS: HYDROcodone/Acetamin 10/325 tab ORAL PRN ×6 (02:37→23:48)
[2018-06-03 04:00] VITALS: BP 96/55
--- NOTE | 2018-06-03 07:11 | NUR ---
HAND-OFF: Report given to Damari MORRELL .
[2018-06-03 08:00] VITALS: BP 122/76
[2018-06-03] MEDS: Brimonidine 0.2% Opth Sol BOTH EYES SCH ×2 (08:48→17:39)
[2018-06-03] MEDS: Timolol 0.5% Op Soln 2.5ml BOTH EYES SCH ×2 (08:48→17:39)
[2018-06-03] MEDS: Depakote ER 500mg tab ORAL SCH ×2 (08:49→21:00)
[2018-06-03] MEDS: Heparin 5000 units/ml inj SUBQ SCH ×2 (08:50→21:00)
[2018-06-03] MEDS: Lyrica 75mg cap ORAL SCH ×2 (08:50→21:47)
[2018-06-03] MEDS: Thiamine 100mg tab ORAL SCH (08:50)
--- NOTE | 2018-06-03 10:19 | Infectious Diseases Prog Note ---
Assessment/Plan Assessment/Plan Assessment: REcent b/l cellulitis, resolved Afebrile Mild leukopenia paraplegia anemia neuralgia bipolar disorder [facility]TT [place] resident VRE stool- THIS IS A COLONIZER Plan: -Continue to monitor off abx as clinically stable -05/25 SP Bactrim #7 -05/20 SP IV Vancomycin #3 -Monitor CBC/CMP, temperatures Subjective Constitutional: Denies: no symptoms, fever, chills, fatigue, anorexia, drenching sweats, other Allergies: Coded Allergies: CEPHALEXIN (Verified Allergy, Unknown, 05/18/18) CEPHALOSPORINS (Verified Allergy, Unknown, 05/18/18) ERYTHROMYCIN BASE (Verified Allergy, Unknown, 05/18/18) GABAPENTIN (Verified Allergy, Unknown, 05/18/18) SHELLFISH DERIVED (Verified Allergy, Unknown, 05/22/18) Objective Vital Signs Last 24 Hour Vital Signs Date Time Temp Pulse Resp B/P (MAP) Pulse Ox O2 Delivery O2 Flow Rate FiO2 06/03/18 08:00 98.0 77 18 122/76 (91) 100 06/03/18 04:00 97.9 68 18 96/55 (69) 97 06/03/18 00:00 97.4 70 16 128/75 (92) 99 06/02/18 21:00 Room Air 06/02/18 20:00 97.4 70 16 128/75 (92) 99 06/02/18 19:14 98.1 06/02/18 16:00 98.1 74 16 109/70 (83) 99 06/02/18 12:00 96.7 62 16 100/59 (73) 100 Height (Feet): 5 Height (Inches): 5.00 Weight (Pounds): 151 HEENT: anicteric Respiratory/Chest: no respiratory distress Cardiovascular: regular rhythm Abdomen: no organomegaly Current Medications Medications (Trade) Dose Ordered Sig/Mejia Route PRN Reason Start Time Stop Time Status Last Admin Dose Admin Acetaminophen (Tylenol) 650 mg Q4H PRN ORAL MILD PAIN / T>100.5 05/22/18 07:15 06/21/18 07:14 05/23/18 08:52 Acetaminophen/ Hydrocodone Bitart ([place] 10/325) 1 tab Q4H PRN ORAL Pain Scale (6-10) 05/29/18 08:00 06/05/18 07:59 06/03/18 06:38 Brimonidine Tartrate (Alphagan) 1 drop BID BOTH EYES 05/22/18 10:00 06/21/18 09:59 06/03/18 08:48 Divalproex Sodium (Depakote ER) 500 mg EVERY 12 HOURS ORAL 05/25/18 09:00 06/24/18 08:59 06/02/18 08:56 Folic Acid (Folate) 1 mg DAILY ORAL 05/22/18 09:00 06/21/18 08:59 06/02/18 08:56 Heparin Sodium (Porcine) (Heparin 5000 units/ml) 5,000 units EVERY 12 HOURS SUBQ 05/28/18 17:00 06/27/18 16:59 05/28/18 17:03 Latanoprost (Xalatan) 1 drop BEDTIME BOTH EYES 05/22/18 21:00 06/21/18 20:59 06/01/18 21:25 Polyethylene Glycol (Miralax) 17 gm DAILY PRN ORAL Constipation 05/28/18 19:15 06/27/18 19:14 05/28/18 20:48 Pregabalin (Lyrica) 75 mg Q12HR ORAL 05/22/18 09:00 06/21/18 08:59 06/02/18 08:56 Risperidone (RisperDAL) 2 mg BEDTIME ORAL 05/25/18 21:00 06/24/18 20:59 05/25/18 21:00 Thiamine HCl (Vitamin B1) 100 mg DAILY ORAL 05/22/18 09:00 06/21/18 08:59 06/02/18 08:56 Timolol Maleate (Timoptic 0.5% Op Soln) 1 drop TWICE A DAY BOTH EYES 05/22/18 10:00 06/21/18 09:59 06/03/18 08:48 Christian Romero MD Jun 03, 2018 10:19
[2018-06-03 12:03] VITALS: BP 101/62
--- NOTE | 2018-06-03 15:39 | Internal Med Progress Note ---
Subjective Date of Service: Jun 03, 2018 Physician Name Sadi Gaviria Attending Physician Niall Kraft MD Current Medications Medications (Trade) Dose Ordered Sig/Mejia Route PRN Reason Start Time Stop Time Status Last Admin Dose Admin Acetaminophen (Tylenol) 650 mg Q4H PRN ORAL MILD PAIN / T>100.5 05/22/18 07:15 06/21/18 07:14 05/23/18 08:52 Acetaminophen/ Hydrocodone Bitart ([place] 10/325) 1 tab Q4H PRN ORAL Pain Scale (6-10) 05/29/18 08:00 06/05/18 07:59 06/03/18 14:57 Brimonidine Tartrate (Alphagan) 1 drop BID BOTH EYES 05/22/18 10:00 06/21/18 09:59 06/03/18 08:48 Divalproex Sodium (Depakote ER) 500 mg EVERY 12 HOURS ORAL 05/25/18 09:00 06/24/18 08:59 06/02/18 08:56 Folic Acid (Folate) 1 mg DAILY ORAL 05/22/18 09:00 06/21/18 08:59 06/02/18 08:56 Heparin Sodium (Porcine) (Heparin 5000 units/ml) 5,000 units EVERY 12 HOURS SUBQ 05/28/18 17:00 06/27/18 16:59 05/28/18 17:03 Latanoprost (Xalatan) 1 drop BEDTIME BOTH EYES 05/22/18 21:00 06/21/18 20:59 06/01/18 21:25 Polyethylene Glycol (Miralax) 17 gm DAILY PRN ORAL Constipation 05/28/18 19:15 06/27/18 19:14 05/28/18 20:48 Pregabalin (Lyrica) 75 mg Q12HR ORAL 05/22/18 09:00 06/21/18 08:59 06/02/18 08:56 Risperidone (RisperDAL) 2 mg BEDTIME ORAL 05/25/18 21:00 06/24/18 20:59 05/25/18 21:00 Thiamine HCl (Vitamin B1) 100 mg DAILY ORAL 05/22/18 09:00 06/21/18 08:59 06/02/18 08:56 Timolol Maleate (Timoptic 0.5% Op Soln) 1 drop TWICE A DAY BOTH EYES 05/22/18 10:00 06/21/18 09:59 06/03/18 08:48 Allergies: Coded Allergies: CEPHALEXIN (Verified Allergy, Unknown, 05/18/18) CEPHALOSPORINS (Verified Allergy, Unknown, 05/18/18) ERYTHROMYCIN BASE (Verified Allergy, Unknown, 05/18/18) GABAPENTIN (Verified Allergy, Unknown, 05/18/18) SHELLFISH DERIVED (Verified Allergy, Unknown, 05/22/18) ROS Limited/Unobtainable: No Constitutional: Reports: no symptoms HEENT: Reports: no symptoms Cardiovascular: Reports: no symptoms Respiratory: Reports: no symptoms Gastrointestinal/Abdominal: Reports: no symptoms Genitourinary: Reports: no symptoms Neurologic/Psychiatric: Reports: no symptoms Subjective 57 YO F admitted with vancomycin resistant enterococcus stool. Cover for Int Med-Dr Kraft. Await acceptance to SNF Objective Last Vital Signs Date Time Temp Pulse Resp B/P (MAP) Pulse Ox O2 Delivery O2 Flow Rate FiO2 06/03/18 12:03 98.0 63 19 101/62 (75) 99 06/02/18 21:00 Room Air Intake and Output 06/02/18 06/03/18 19:00 07:00 Intake Total 697 ml Balance 697 ml Intake Oral 697 ml # Voids 3 # Bowel Movements 3 1 Objective General Appearance: WD/WN, no apparent distress, alert EENT: PERRL/EOMI, normal ENT inspection, TMs normal Neck: non-tender, normal alignment, supple, normal inspection Cardiovascular: normal peripheral pulses, normal rate, regular rhythm, no gallop/murmur, no JVD Respiratory/Chest: chest wall non-tender, lungs clear, normal breath sounds, no respiratory distress, no accessory muscle use Abdomen: normal bowel sounds, non tender, soft, no organomegaly, no mass Extremities: normal range of motion, non-tender 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 Sadi Gaviria MD Jun 03, 2018 15:39
[2018-06-03 16:00] VITALS: BP 125/98
--- NOTE | 2018-06-03 19:00 | NUR ---
HAND-OFF: Report given to Nely.
--- NOTE | 2018-06-03 19:00 | NUR ---
NURSE NOTES: Received a report from LALY Wetzel. Pt is in stable condition. AAOX4. Able to make needs known. No respiratory distress noted. On room air. C/O lower extremities pain, rated 10/10. Will give med later. No IV access, doctors are aware. Bed in lowest position. Bed alarm is on. Call light within reach. Will continue to monitor.
[2018-06-03 20:00] VITALS: BP 114/75
--- NOTE | 2018-06-03 21:05 | NUR ---
NURSE NOTES: Pt refused Heparin, Risperdal and Depakote, despite education provided.
[2018-06-03] MEDS: Latanoprost 0.005% Opth 2.5ml Soln BOTH EYES SCH (21:47)
--- NOTE | 2018-06-04 | NUR ---
NURSE NOTES: Pt refused 0000 v/s. Explained the importance of taking v/s but still refused.
[2018-06-04 04:00] VITALS: BP 138/71
[2018-06-04] MEDS: HYDROcodone/Acetamin 10/325 tab ORAL PRN ×5 (04:38→20:52)
--- NOTE | 2018-06-04 07:15 | NUR ---
HAND-OFF: Report given to LALY Wetzel.
[2018-06-04 08:10] VITALS: BP 109/77
[2018-06-04] MEDS: Lyrica 75mg cap ORAL SCH ×2 (08:43→20:53)
[2018-06-04] MEDS: Thiamine 100mg tab ORAL SCH (08:43)
[2018-06-04] MEDS: Depakote ER 500mg tab ORAL SCH ×2 (08:43→20:58)
[2018-06-04] MEDS: Timolol 0.5% Op Soln 2.5ml BOTH EYES SCH ×2 (08:43→17:36)
[2018-06-04] MEDS: Brimonidine 0.2% Opth Sol BOTH EYES SCH ×2 (08:44→17:36)
[2018-06-04] MEDS: Heparin 5000 units/ml inj SUBQ SCH ×2 (08:44→20:58)
[2018-06-04 12:09] VITALS: BP 99/64
[2018-06-04 12:41] VITALS: BP 120/78
--- NOTE | 2018-06-04 13:26 | Internal Med Progress Note ---
Subjective Date of Service: Jun 04, 2018 Physician Name Sadi Gaviria Attending Physician Niall Kraft MD Current Medications Medications (Trade) Dose Ordered Sig/Mejia Route PRN Reason Start Time Stop Time Status Last Admin Dose Admin Acetaminophen (Tylenol) 650 mg Q4H PRN ORAL MILD PAIN / T>100.5 05/22/18 07:15 06/21/18 07:14 05/23/18 08:52 Acetaminophen/ Hydrocodone Bitart ([place] 10/325) 1 tab Q4H PRN ORAL Pain Scale (6-10) 05/29/18 08:00 06/05/18 07:59 06/04/18 12:42 Brimonidine Tartrate (Alphagan) 1 drop BID BOTH EYES 05/22/18 10:00 06/21/18 09:59 06/04/18 08:44 Divalproex Sodium (Depakote ER) 500 mg EVERY 12 HOURS ORAL 05/25/18 09:00 06/24/18 08:59 06/02/18 08:56 Folic Acid (Folate) 1 mg DAILY ORAL 05/22/18 09:00 06/21/18 08:59 06/04/18 08:43 Heparin Sodium (Porcine) (Heparin 5000 units/ml) 5,000 units EVERY 12 HOURS SUBQ 05/28/18 17:00 06/27/18 16:59 05/28/18 17:03 Latanoprost (Xalatan) 1 drop BEDTIME BOTH EYES 05/22/18 21:00 06/21/18 20:59 06/03/18 21:47 Polyethylene Glycol (Miralax) 17 gm DAILY PRN ORAL Constipation 05/28/18 19:15 06/27/18 19:14 05/28/18 20:48 Pregabalin (Lyrica) 75 mg Q12HR ORAL 05/22/18 09:00 06/21/18 08:59 06/04/18 08:43 Risperidone (RisperDAL) 2 mg BEDTIME ORAL 05/25/18 21:00 06/24/18 20:59 05/25/18 21:00 Thiamine HCl (Vitamin B1) 100 mg DAILY ORAL 05/22/18 09:00 06/21/18 08:59 06/04/18 08:43 Timolol Maleate (Timoptic 0.5% Op Soln) 1 drop TWICE A DAY BOTH EYES 05/22/18 10:00 06/21/18 09:59 06/04/18 08:43 Allergies: Coded Allergies: CEPHALEXIN (Verified Allergy, Unknown, 05/18/18) CEPHALOSPORINS (Verified Allergy, Unknown, 05/18/18) ERYTHROMYCIN BASE (Verified Allergy, Unknown, 05/18/18) GABAPENTIN (Verified Allergy, Unknown, 05/18/18) SHELLFISH DERIVED (Verified Allergy, Unknown, 05/22/18) ROS Limited/Unobtainable: No Constitutional: Reports: no symptoms HEENT: Reports: no symptoms Cardiovascular: Reports: no symptoms Respiratory: Reports: no symptoms Gastrointestinal/Abdominal: Reports: no symptoms Genitourinary: Reports: no symptoms Neurologic/Psychiatric: Reports: no symptoms Subjective 57 YO F admitted with vancomycin resistant enterococcus stool. Cover for Int Med-Dr Kraft. Await acceptance to SNF Objective Last Vital Signs Date Time Temp Pulse Resp B/P (MAP) Pulse Ox O2 Delivery O2 Flow Rate FiO2 06/04/18 13:12 97.8 06/04/18 12:41 77 120/78 (92) 06/04/18 12:09 18 97 06/04/18 09:00 Room Air Intake and Output 06/03/18 06/04/18 19:00 07:00 Intake Total 750 ml Balance 750 ml Intake Oral 750 ml # Voids 1 2 Objective General Appearance: WD/WN, no apparent distress, alert EENT: PERRL/EOMI, normal ENT inspection, TMs normal Neck: non-tender, normal alignment, supple, normal inspection Cardiovascular: normal peripheral pulses, normal rate, regular rhythm, no gallop/murmur, no JVD Respiratory/Chest: chest wall non-tender, lungs clear, normal breath sounds, no respiratory distress, no accessory muscle use Abdomen: normal bowel sounds, non tender, soft, no organomegaly, no mass Extremities: normal range of motion, non-tender 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 Sadi Gaviria MD Jun 04, 2018 13:25
--- NOTE | 2018-06-04 13:57 | NUR ---
HAND-OFF: Report given to Nakul.
--- NOTE | 2018-06-04 14:00 | NUR ---
NURSE NOTES: received patient report from LALY Bonds. Patient is awake, in bed, talking over the phone, no distress noted. No IV access. Bed locked at the lowest position possible, call light within easy reach, siderails up x2. Will continue to monitor patient and follow up with the plan of care.
[2018-06-04 15:54] VITALS: BP 111/78
--- NOTE | 2018-06-04 18:21 | General Progress Note ---
Assessment/Plan Problem List: (1) Bipolar disorder ICD Codes: F31.9 - Bipolar disorder, unspecified SNOMED: [id number] Qualifiers: Status: stable Assessment/Plan Risperdal 4mg po qhs Depakote 1000 po qhs provided ro/st Subjective Date patient seen: Jun 03, 2018 Neurologic/Psychiatric: Reports: anxiety, depressed, emotional problems Allergies: Coded Allergies: CEPHALEXIN (Verified Allergy, Unknown, 05/18/18) CEPHALOSPORINS (Verified Allergy, Unknown, 05/18/18) ERYTHROMYCIN BASE (Verified Allergy, Unknown, 05/18/18) GABAPENTIN (Verified Allergy, Unknown, 05/18/18) SHELLFISH DERIVED (Verified Allergy, Unknown, 05/22/18) Objective Last 24 Hour Vital Signs Date Time Temp Pulse Resp B/P (MAP) Pulse Ox O2 Delivery O2 Flow Rate FiO2 06/04/18 17:15 98.8 06/04/18 15:54 98.8 76 19 111/78 (89) 100 06/04/18 12:41 77 120/78 (92) 06/04/18 12:09 97.8 65 18 99/64 (76) 97 06/04/18 09:12 97.1 06/04/18 09:00 Room Air 06/04/18 08:10 97.1 75 18 109/77 (88) 99 06/04/18 04:00 97.2 87 18 138/71 (93) 97 06/03/18 21:00 Room Air 06/03/18 20:00 98.0 70 18 114/75 (88) 100 Intake and Output 06/03/18 06/04/18 19:00 07:00 Intake Total 750 ml Balance 750 ml Intake Oral 750 ml # Voids 1 2 Height (Feet): 5 Height (Inches): 5.00 Weight (Pounds): 151 General Appearance: alert, moderate distress, agitated Jake Mcintyre MD Jun 04, 2018 18:21
--- NOTE | 2018-06-04 19:30 | NUR ---
NURSE NOTES: Recieved patient in bed, awake, alert, in no acute distress at this time, call light is within reach, bed is locked, alarm is on, bed is in low position. Will continue to monitor for safety and comfort.
--- NOTE | 2018-06-04 19:39 | NUR ---
HAND-OFF: Report given to PORSCHE Sherwood.
[2018-06-04 20:00] VITALS: BP 111/68
[2018-06-04] MEDS: Latanoprost 0.005% Opth 2.5ml Soln BOTH EYES SCH (20:53)
--- NOTE | 2018-06-04 21:15 | NUR ---
CASE MANAGEMENT:REVIEW 06/03/2018 SI: CELLULITIS. VRE CARRIER T 97.9 HR 73 RR 21 B/P 125/98 SATS 100% ON RA NO LABS TODAY IS: BACTRIM PO Q12 FOLATE PO QD LYRICA PO Q12 THIAMINE PO QD NORCO PO Q4HRS PRN RISPERDAL PO QHS DEPAKOTE PO Q12 : TO MED[facility]SURG UNIT 4 [facility] CASE MANAGEMENT:REVIEW 06/04/2018 SI: CELLULITIS. VRE CARRIER T 98.8 HR 76 RR 19 B/P 111/78 SATS 100% ON RA NO LABS TODAY IS: BACTRIM PO Q12 FOLATE PO QD LYRICA PO Q12 THIAMINE PO QD NORCO PO Q4HRS PRN RISPERDAL PO QHS DEPAKOTE PO Q12 : TO MED/SURG UNIT 4 [facility]
[2018-06-05 00:59] VITALS: BP 100/61
[2018-06-05] MEDS: HYDROcodone/Acetamin 10/325 tab ORAL PRN ×5 (03:08→20:46)
[2018-06-05 04:34] VITALS: BP 107/70
--- NOTE | 2018-06-05 07:13 | NUR ---
HAND-OFF: Report given to Deric MORRELL.
--- NOTE | 2018-06-05 07:15 | NUR ---
NURSE NOTES: Pt received from PORSCHE Mora alert and oriented x3 with no s/s of pain, SOB, or n/v. IV site asymptomatic and patent. Bed in lowest position, call light and belongings within reach.
[2018-06-05 08:00] VITALS: BP 103/62
--- NOTE | 2018-06-05 08:00 | Infectious Diseases Prog Note ---
Assessment/Plan Assessment/Plan Assessment: REcent b/l cellulitis, resolved Afebrile Mild leukopenia paraplegia anemia neuralgia bipolar disorder FTT [place] resident VRE stool- THIS IS A COLONIZER Plan: -Continue to monitor off abx as clinically stable -05/25 SP Bactrim #7 -05/20 SP IV Vancomycin #3 -OK TO DISCHARGE BACK TO [place], NO NEED FOR ISOLATION UPON DISCHARGE -f/u cx -Monitor CBC/CMP, temperatures Thank you for this consultation. Will continue to follow along with you. Discussed with RN and keycase assembler. Subjective Allergies: Coded Allergies: CEPHALEXIN (Verified Allergy, Unknown, 05/18/18) CEPHALOSPORINS (Verified Allergy, Unknown, 05/18/18) ERYTHROMYCIN BASE (Verified Allergy, Unknown, 05/18/18) GABAPENTIN (Verified Allergy, Unknown, 05/18/18) SHELLFISH DERIVED (Verified Allergy, Unknown, 05/22/18) Subjective Afebrile, No leukocytosis when last checked No new complaints no new erythema Objective Vital Signs Last 24 Hour Vital Signs Date Time Temp Pulse Resp B/P (MAP) Pulse Ox O2 Delivery O2 Flow Rate FiO2 06/05/18 07:26 97.4 06/05/18 04:34 97.4 88 18 107/70 (82) 06/05/18 00:59 97.8 82 18 100/61 (74) 06/04/18 21:00 Room Air 06/04/18 20:00 97.9 69 18 111/68 (82) 06/04/18 15:54 98.8 76 19 111/78 (89) 100 06/04/18 12:41 77 120/78 (92) 06/04/18 12:09 97.8 65 18 99/64 (76) 97 06/04/18 09:12 97.1 06/04/18 09:00 Room Air 06/04/18 08:10 97.1 75 18 109/77 (88) 99 Height (Feet): 5 Height (Inches): 5.00 Weight (Pounds): 151 Objective GENERAL: NAD HEENT: NCAT, MMM CHEST: Lungs are clear to auscultation bilaterally without wheezes CARDIOVASCULAR: Regular rate. S1 and S2 normal ABDOMEN: Soft, nontender, and nondistended. Positive bowel sounds. EXTREMITIES: Right lower extremity has mild erythematous compared to the left, otherwise without clubbing, cyanosis, or edema. Current Medications Medications (Trade) Dose Ordered Sig/Mejia Route PRN Reason Start Time Stop Time Status Last Admin Dose Admin Acetaminophen (Tylenol) 650 mg Q4H PRN ORAL MILD PAIN / T>100.5 05/22/18 07:15 06/21/18 07:14 05/23/18 08:52 Acetaminophen/ Hydrocodone Bitart ([place] 10/325) 1 tab Q4H PRN ORAL Pain Scale (6-10) 05/29/18 08:00 06/05/18 07:59 06/05/18 06:52 Brimonidine Tartrate (Alphagan) 1 drop BID BOTH EYES 05/22/18 10:00 06/21/18 09:59 06/04/18 17:36 Divalproex Sodium (Depakote ER) 500 mg EVERY 12 HOURS ORAL 05/25/18 09:00 06/24/18 08:59 06/02/18 08:56 Folic Acid (Folate) 1 mg DAILY ORAL 05/22/18 09:00 06/21/18 08:59 06/04/18 08:43 Heparin Sodium (Porcine) (Heparin 5000 units/ml) 5,000 units EVERY 12 HOURS SUBQ 05/28/18 17:00 06/27/18 16:59 05/28/18 17:03 Latanoprost (Xalatan) 1 drop BEDTIME BOTH EYES 05/22/18 21:00 06/21/18 20:59 06/04/18 20:53 Polyethylene Glycol (Miralax) 17 gm DAILY PRN ORAL Constipation 05/28/18 19:15 06/27/18 19:14 05/28/18 20:48 Pregabalin (Lyrica) 75 mg Q12HR ORAL 05/22/18 09:00 06/21/18 08:59 06/04/18 20:53 Risperidone (RisperDAL) 2 mg BEDTIME ORAL 05/25/18 21:00 06/24/18 20:59 05/25/18 21:00 Thiamine HCl (Vitamin B1) 100 mg DAILY ORAL 05/22/18 09:00 06/21/18 08:59 06/04/18 08:43 Timolol Maleate (Timoptic 0.5% Op Soln) 1 drop TWICE A DAY BOTH EYES 05/22/18 10:00 06/21/18 09:59 06/04/18 17:36 Earl Lock MD Jun 05, 2018 08:00
--- NOTE | 2018-06-05 08:05 | NUR ---
DISCHARGE PLANNING PATIENT HAS BEEN REFERRED TO: 1) [facility] T: [phone] F: [phone] 2) [facility] T: [phone] F: [phone] 3: [facility] T:[phone] F: [phone] 4) [facility] T: [phone] F: [phone] 5) [facility] T: [phone] F: [phone] 6) [facility] T: [phone] F: [phone] 7) [facility] T: [phone] F: [phone] 8) [facility] T: [phone] F: [phone] 9) [facility] T: [phone] F: [phone] 10) [facility] T: [phone] F: [phone] Addendum: 06/05/18 at 1537 by MANINDER SALDAÑA CM 1) [facility] S/W NIVAMSIA NO FEMALE BEDS 2) [facility] S/W QUE RE-FAX [phone] 3: [facility] S/W MIAMEDARDOI NO FEMALE BEDS 4) [facility] S/W TAMMY KERN MUST BE SIKH MUSIC ENGINEER 5) [facility] S/W [place] NOTHING RECEIVED RE-FAX F: [phone] 6) [facility] S/W UMBERTO SHORT TERM BEDS ONLY 7) LI [facility] ADMISSION GONE FOR THE DAY CB. 8) [facility] S/W ISABELA RE-FAX F: [phone] 9) [facility] S/W ANJALI RE-FAX [phone] 10) [facility] S/W BRANDY SHE WILL CALL BACK. Addendum: 06/05/18 at 1635 by MANINDER SALDAÑA CM 9) [facility] S/W ANJALI NO FEMALE BEDS AVAILABLE.
[2018-06-05] MEDS: Depakote ER 500mg tab ORAL SCH ×2 (09:00→20:48)
[2018-06-05] MEDS: Heparin 5000 units/ml inj SUBQ SCH ×2 (09:00→20:48)
[2018-06-05] MEDS: Brimonidine 0.2% Opth Sol BOTH EYES SCH ×2 (09:05→17:53)
[2018-06-05] MEDS: Lyrica 75mg cap ORAL SCH ×2 (09:05→20:46)
[2018-06-05] MEDS: Timolol 0.5% Op Soln 2.5ml BOTH EYES SCH ×2 (09:05→17:53)
[2018-06-05] MEDS: Thiamine 100mg tab ORAL SCH (09:05)
[2018-06-05 12:00] VITALS: BP 110/62
--- NOTE | 2018-06-05 13:40 | NUR ---
INSURANCE UPDATED CLINICALS AND REVIEWS FAXED TO: [facility] KARTHIKEYAN JENNIFFER T: [phone] [id number] F: [phone]
[2018-06-05 16:00] VITALS: BP 103/68
--- NOTE | 2018-06-05 16:23 | Internal Med Progress Note ---
Subjective Date of Service: Jun 05, 2018 Physician Name Sadi Gaviria Attending Physician Niall Kraft MD Current Medications Medications (Trade) Dose Ordered Sig/Mejia Route PRN Reason Start Time Stop Time Status Last Admin Dose Admin Acetaminophen (Tylenol) 650 mg Q4H PRN ORAL MILD PAIN / T>100.5 05/22/18 07:15 06/21/18 07:14 05/23/18 08:52 Acetaminophen/ Hydrocodone Bitart ([place] 10/325) 1 tab Q4H PRN ORAL Severe Pain (Pain Scale 7-10) 06/05/18 10:30 06/12/18 10:29 06/05/18 12:04 Brimonidine Tartrate (Alphagan) 1 drop BID BOTH EYES 05/22/18 10:00 06/21/18 09:59 06/05/18 09:05 Divalproex Sodium (Depakote ER) 500 mg EVERY 12 HOURS ORAL 05/25/18 09:00 06/24/18 08:59 06/02/18 08:56 Folic Acid (Folate) 1 mg DAILY ORAL 05/22/18 09:00 06/21/18 08:59 06/05/18 09:06 Heparin Sodium (Porcine) (Heparin 5000 units/ml) 5,000 units EVERY 12 HOURS SUBQ 05/28/18 17:00 06/27/18 16:59 05/28/18 17:03 Latanoprost (Xalatan) 1 drop BEDTIME BOTH EYES 05/22/18 21:00 06/21/18 20:59 06/04/18 20:53 Polyethylene Glycol (Miralax) 17 gm DAILY PRN ORAL Constipation 05/28/18 19:15 06/27/18 19:14 05/28/18 20:48 Pregabalin (Lyrica) 75 mg Q12HR ORAL 05/22/18 09:00 06/21/18 08:59 06/05/18 09:05 Risperidone (RisperDAL) 2 mg BEDTIME ORAL 05/25/18 21:00 06/24/18 20:59 05/25/18 21:00 Thiamine HCl (Vitamin B1) 100 mg DAILY ORAL 05/22/18 09:00 06/21/18 08:59 06/05/18 09:05 Timolol Maleate (Timoptic 0.5% Op Soln) 1 drop TWICE A DAY BOTH EYES 05/22/18 10:00 06/21/18 09:59 06/05/18 09:05 Allergies: Coded Allergies: CEPHALEXIN (Verified Allergy, Unknown, 05/18/18) CEPHALOSPORINS (Verified Allergy, Unknown, 05/18/18) ERYTHROMYCIN BASE (Verified Allergy, Unknown, 05/18/18) GABAPENTIN (Verified Allergy, Unknown, 05/18/18) SHELLFISH DERIVED (Verified Allergy, Unknown, 05/22/18) ROS Limited/Unobtainable: No Constitutional: Reports: no symptoms HEENT: Reports: no symptoms Cardiovascular: Reports: no symptoms Respiratory: Reports: no symptoms Gastrointestinal/Abdominal: Reports: no symptoms Genitourinary: Reports: no symptoms Neurologic/Psychiatric: Reports: no symptoms Subjective 57 YO F admitted with vancomycin resistant enterococcus stool. Cover for Int Med-Dr Kraft. Await acceptance to SNF Objective Last Vital Signs Date Time Temp Pulse Resp B/P (MAP) Pulse Ox O2 Delivery O2 Flow Rate FiO2 06/05/18 12:00 97.7 78 19 110/62 (78) 06/05/18 09:00 Room Air 06/04/18 15:54 100 Intake and Output 06/04/18 06/05/18 19:00 07:00 Intake Total 240 ml 680 ml Balance 240 ml 680 ml Intake Oral 240 ml Other 680 ml # Voids 4 Objective General Appearance: WD/WN, no apparent distress, alert EENT: PERRL/EOMI, normal ENT inspection, TMs normal Neck: non-tender, normal alignment, supple, normal inspection Cardiovascular: normal peripheral pulses, normal rate, regular rhythm, no gallop/murmur, no JVD Respiratory/Chest: chest wall non-tender, lungs clear, normal breath sounds, no respiratory distress, no accessory muscle use Abdomen: normal bowel sounds, non tender, soft, no organomegaly, no mass Extremities: normal range of motion, non-tender Neurologic: robotics technician II-XII grossly normal, no motor/sensory deficits Skin: normal pigmentation, warm/dry Assessment/Plan Problem List: (1) Glaucoma Assessment & Plan: Continue xalatan, alphagan and timoptic (2) Cellulitis Assessment & Plan: Continue bactrim (3) Bipolar disorder (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 Sadi Gaviria MD Jun 05, 2018 16:23
--- NOTE | 2018-06-05 16:34 | NUR ---
9) [facility] S/W ANJALI NO FEMALE BEDS AVAILABLE.
--- NOTE | 2018-06-05 16:40 | NUR ---
CASE MANAGEMENT:REVIEW 06/05/18 SI: CELLULITIS. VRE CARRIER 96.7 62 16 100/59 100% ON RA IS: BACTRIM PO Q12 FOLATE PO QD LYRICA PO Q12 THIAMINE PO QD NORCO PO Q4HRS PRN RISPERDAL PO QHS DEPAKOTE PO Q12 : TO MED[facility]SURG UNIT [facility] ACTIVELY SEEKING SNF PLACEMENT FOR THIS PATIENT PATIENT HAS BEEN REFERRED TO: 1) [facility] T: [phone] F: [phone] 2) [facility] T: [phone] F: [phone] 3: [facility] T:[phone] F: [phone] 4) [facility] T: [phone] F: [phone] 5) [facility] T: [phone] F: [phone] 6) [facility] T: [phone] F: [phone] 7) [facility] T: [phone] F: [phone] 8) [facility] T: [phone] F: [phone] 9) [facility] T: [phone] F: [phone] 10) [facility] T: [phone] F: [phone] Addendum: 06/05/18 at 1537 by MANINDER SALDAÑA CM 1) [facility] S/W SHAUN NO FEMALE BEDS 2) [facility] S/W QUE RE-FAX [phone] 3: [facility] S/W ARMANI NO FEMALE BEDS 4) [facility] S/W TAMMY PT MUST BE FAITH KNOT TIER 5) [facility] S/W MY[place] NOTHING RECEIVED RE-FAX F: [phone] [facility]) [facility] SH[facility] ONLY 7) LI SOT[facility] ADMISSION GONE FOR THE DAY CB. 8) [facility] S/W ISABELA RE-FAX F: [phone] 9) [facility] S/W ANJALI RE-FAX [phone] 10) [facility] S/W BRANDY SHE WILL CALL BACK. Addendum: 06/05/18 at 1635 by MANINDER SALDAÑA CM 9) [facility] S/W ANJALI NO FEMALE BEDS AVAILABLE.
--- NOTE | 2018-06-05 16:49 | NUR ---
INSURANCE ALL CLINICALS AND REVIEWS FAXED TO: [facility] JENNIFFER T: [phone] [id number] F: [phone] [facility] P:[phone] [place] [phone] F:[phone]
--- NOTE | 2018-06-05 19:20 | NUR ---
HAND-OFF: Report given to PORSCHE Castle.
--- NOTE | 2018-06-05 19:29 | NUR ---
NURSE NOTES: Received patient in bed in stable condition. No SOB, no acute distress. Still no IV access. Patient states she does not want to take any psych meds and heparin. Explained risk and benefit and still refuses to take for PM meds. Bed in lowest position, locked, alarms on. Call light in reach.
[2018-06-05 20:00] VITALS: BP 98/63
[2018-06-05] MEDS: Latanoprost 0.005% Opth 2.5ml Soln BOTH EYES SCH (20:45)
[2018-06-06] VITALS (7 sets, daily range): BP systolic 102–124; BP diastolic 60–76
[2018-06-06] MEDS: HYDROcodone/Acetamin 10/325 tab ORAL PRN ×6 (01:17→21:15)
--- NOTE | 2018-06-06 01:45 | General Progress Note ---
Assessment/Plan Problem List: (1) Bipolar disorder ICD Codes: F31.9 - Bipolar disorder, unspecified SNOMED: 91425658 Qualifiers: Assessment/Plan Risperdal 4mg po qhs Depakote 1000 po qhs provided ro/st Subjective Date patient seen: Jun 05, 2018 Neurologic/Psychiatric: Reports: anxiety, depressed, emotional problems Allergies: Coded Allergies: CEPHALEXIN (Verified Allergy, Unknown, 05/18/18) CEPHALOSPORINS (Verified Allergy, Unknown, 05/18/18) ERYTHROMYCIN BASE (Verified Allergy, Unknown, 05/18/18) GABAPENTIN (Verified Allergy, Unknown, 05/18/18) SHELLFISH DERIVED (Verified Allergy, Unknown, 05/22/18) Objective Last 24 Hour Vital Signs Date Time Temp Pulse Resp B/P (MAP) Pulse Ox O2 Delivery O2 Flow Rate FiO2 06/05/18 21:00 Room Air 06/05/18 20:00 98.3 71 18 98/63 (75) 06/05/18 16:00 97.7 91 20 103/68 (80) 06/05/18 12:00 97.7 78 19 110/62 (78) 06/05/18 09:00 Room Air 06/05/18 08:00 97.9 72 20 103/62 (76) 06/05/18 07:26 97.4 06/05/18 04:34 97.4 88 18 107/70 (82) Intake and Output 06/05/18 06/06/18 19:00 07:00 Intake Total 340 ml Balance 340 ml Intake Oral 340 ml # Voids 3 Height (Feet): 5 Height (Inches): 5.00 Weight (Pounds): 151 General Appearance: alert Neurologic: oriented x 3, responsive, depressed affect Jake Mcintyre MD Jun 06, 2018 01:45
--- NOTE | 2018-06-06 07:36 | NUR ---
HAND-OFF: Report given to LALY Wetzel.
[2018-06-06] MEDS: Heparin 5000 units/ml inj SUBQ SCH ×2 (09:00→21:00)
[2018-06-06] MEDS: Depakote ER 500mg tab ORAL SCH ×2 (09:00→21:00)
[2018-06-06] MEDS: Thiamine 100mg tab ORAL SCH (09:17)
[2018-06-06] MEDS: Timolol 0.5% Op Soln 2.5ml BOTH EYES SCH ×2 (09:17→17:21)
[2018-06-06] MEDS: Brimonidine 0.2% Opth Sol BOTH EYES SCH ×2 (09:17→17:21)
[2018-06-06] MEDS: Lyrica 75mg cap ORAL SCH ×2 (09:18→20:58)
--- NOTE | 2018-06-06 09:30 | NUR ---
NURSE NOTES: Received patient in beD, calm and comfortable. No SOB noted. no acute cardio-resp distress. no IV access and PMD made aware. Patient states she does not want to take any psych meds and heparin. Explained risk and benefit and still refuses to take for PM meds. Bed in lowest position, locked, alarms on. Call light in reach. will cont to monitor.
--- NOTE | 2018-06-06 14:11 | Internal Med Progress Note ---
Subjective Date of Service: Jun 06, 2018 Physician Name Sadi Gaviria Attending Physician Niall Kraft MD Current Medications Medications (Trade) Dose Ordered Sig/Mejia Route PRN Reason Start Time Stop Time Status Last Admin Dose Admin Acetaminophen (Tylenol) 650 mg Q4H PRN ORAL MILD PAIN / T>100.5 05/22/18 07:15 06/21/18 07:14 05/23/18 08:52 Acetaminophen/ Hydrocodone Bitart ([place] 10/325) 1 tab Q4H PRN ORAL Severe Pain (Pain Scale 7-10) 06/05/18 10:30 06/12/18 10:29 06/06/18 13:20 Brimonidine Tartrate (Alphagan) 1 drop BID BOTH EYES 05/22/18 10:00 06/21/18 09:59 06/06/18 09:17 Divalproex Sodium (Depakote ER) 500 mg EVERY 12 HOURS ORAL 05/25/18 09:00 06/24/18 08:59 06/02/18 08:56 Folic Acid (Folate) 1 mg DAILY ORAL 05/22/18 09:00 06/21/18 08:59 06/06/18 09:18 Heparin Sodium (Porcine) (Heparin 5000 units/ml) 5,000 units EVERY 12 HOURS SUBQ 05/28/18 17:00 06/27/18 16:59 05/28/18 17:03 Latanoprost (Xalatan) 1 drop BEDTIME BOTH EYES 05/22/18 21:00 06/21/18 20:59 06/05/18 20:45 Polyethylene Glycol (Miralax) 17 gm DAILY PRN ORAL Constipation 05/28/18 19:15 06/27/18 19:14 05/28/18 20:48 Pregabalin (Lyrica) 75 mg Q12HR ORAL 05/22/18 09:00 06/21/18 08:59 06/06/18 09:18 Risperidone (RisperDAL) 2 mg BEDTIME ORAL 05/25/18 21:00 06/24/18 20:59 05/25/18 21:00 Thiamine HCl (Vitamin B1) 100 mg DAILY ORAL 05/22/18 09:00 06/21/18 08:59 06/06/18 09:17 Timolol Maleate (Timoptic 0.5% Op Soln) 1 drop TWICE A DAY BOTH EYES 05/22/18 10:00 06/21/18 09:59 06/06/18 09:17 Allergies: Coded Allergies: CEPHALEXIN (Verified Allergy, Unknown, 05/18/18) CEPHALOSPORINS (Verified Allergy, Unknown, 05/18/18) ERYTHROMYCIN BASE (Verified Allergy, Unknown, 05/18/18) GABAPENTIN (Verified Allergy, Unknown, 05/18/18) SHELLFISH DERIVED (Verified Allergy, Unknown, 05/22/18) ROS Limited/Unobtainable: No Constitutional: Reports: no symptoms HEENT: Reports: no symptoms Cardiovascular: Reports: no symptoms Respiratory: Reports: no symptoms Gastrointestinal/Abdominal: Reports: no symptoms Genitourinary: Reports: no symptoms Neurologic/Psychiatric: Reports: no symptoms Subjective 57 YO F admitted with vancomycin resistant enterococcus stool. Cover for Int Med-Dr Kraft. Await acceptance to SNF Objective Last Vital Signs Date Time Temp Pulse Resp B/P (MAP) Pulse Ox O2 Delivery O2 Flow Rate FiO2 06/06/18 13:50 98.6 06/06/18 11:59 74 19 124/76 (92) 97 06/06/18 09:00 Room Air Intake and Output 06/05/18 06/06/18 18:59 06:59 Intake Total 340 ml 80 ml Balance 340 ml 80 ml Intake Oral 340 ml 80 ml # Voids 3 5 # Bowel Movements 1 Objective General Appearance: WD/WN, no apparent distress, alert EENT: PERRL/EOMI, normal ENT inspection, TMs normal Neck: non-tender, normal alignment, supple, normal inspection Cardiovascular: normal peripheral pulses, normal rate, regular rhythm, no gallop/murmur, no JVD Respiratory/Chest: chest wall non-tender, lungs clear, normal breath sounds, no respiratory distress, no accessory muscle use Abdomen: normal bowel sounds, non tender, soft, no organomegaly, no mass Extremities: normal range of motion, non-tender Neurologic: pulmonary nurse practitioner II-XII grossly normal, no motor/sensory deficits Skin: normal pigmentation, warm/dry Assessment/Plan Problem List: (1) Glaucoma Assessment & Plan: Continue xalatan, alphagan and timoptic (2) Cellulitis Assessment & Plan: Continue bactrim (3) Bipolar disorder (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 Sadi Gaviria MD Jun 06, 2018 14:11
--- NOTE | 2018-06-06 19:10 | NUR ---
HAND-OFF: Report given to Melvina.
--- NOTE | 2018-06-06 19:30 | NUR ---
NURSE NOTES: Patient awake in bed, alert and oriented x 4, not in respiratory distress. Call light and needs in reach. Bed in lowest position, lock engaged and alarm on. Will continue to monitor.
[2018-06-06] MEDS: Latanoprost 0.005% Opth 2.5ml Soln BOTH EYES SCH (20:58)
[2018-06-07] MEDS: HYDROcodone/Acetamin 10/325 tab ORAL PRN ×6 (03:22→23:31)
[2018-06-07 04:00] VITALS: BP 107/63
--- NOTE | 2018-06-07 07:39 | NUR ---
HAND-OFF: Report given to PORSCHE Swift.
[2018-06-07 08:00] VITALS: BP 101/66
[2018-06-07] MEDS: Heparin 5000 units/ml inj SUBQ SCH ×2 (09:00→20:02)
[2018-06-07] MEDS: Depakote ER 500mg tab ORAL SCH ×2 (09:00→20:02)
--- NOTE | 2018-06-07 09:31 | Infectious Diseases Prog Note ---
Assessment/Plan Assessment/Plan Assessment: REcent b/l cellulitis, resolved Afebrile Mild leukopenia paraplegia anemia neuralgia bipolar disorder FTT [place] resident VRE stool- THIS IS A COLONIZER Plan: -Continue to monitor off abx -05/25 SP Bactrim #7 -05/20 SP IV Vancomycin #3 -OK TO DISCHARGE BACK TO [place], NO NEED FOR ISOLATION UPON DISCHARGE -f/u cx -Monitor CBC/CMP, temperatures Thank you for this consultation. Will continue to follow along with you. Discussed with RN and lining caser. Subjective Allergies: Coded Allergies: CEPHALEXIN (Verified Allergy, Unknown, 05/18/18) CEPHALOSPORINS (Verified Allergy, Unknown, 05/18/18) ERYTHROMYCIN BASE (Verified Allergy, Unknown, 05/18/18) GABAPENTIN (Verified Allergy, Unknown, 05/18/18) SHELLFISH DERIVED (Verified Allergy, Unknown, 05/22/18) Subjective Afebrile No new complaints other then being cold Objective Vital Signs Last 24 Hour Vital Signs Date Time Temp Pulse Resp B/P (MAP) Pulse Ox O2 Delivery O2 Flow Rate FiO2 06/07/18 08:00 97.7 61 16 101/66 (78) 99 06/07/18 04:00 97.7 77 18 107/63 (78) 100 06/06/18 23:56 97.6 79 18 103/61 (75) 99 06/06/18 21:00 Room Air 06/06/18 20:00 97.9 73 18 107/65 (79) 96 06/06/18 17:54 97.9 06/06/18 17:24 70 112/65 (81) 06/06/18 16:08 97.9 87 19 102/69 (80) 100 06/06/18 11:59 98.6 74 19 124/76 (92) 97 06/06/18 09:47 97.3 Height (Feet): 5 Height (Inches): 5.00 Weight (Pounds): 161 Objective GENERAL: NAD, laying in bed HEENT: NCAT, MMM CHEST: Lungs are clear to auscultation bilaterally without wheezes CARDIOVASCULAR: Regular rate. S1 and S2 normal ABDOMEN: Soft, nontender, and nondistended. Positive bowel sounds. EXTREMITIES: Right lower extremity has mild erythematous compared to the left, otherwise without clubbing, cyanosis, or edema. Current Medications Medications (Trade) Dose Ordered Sig/Mejia Route PRN Reason Start Time Stop Time Status Last Admin Dose Admin Acetaminophen (Tylenol) 650 mg Q4H PRN ORAL MILD PAIN / T>100.5 05/22/18 07:15 06/21/18 07:14 05/23/18 08:52 Acetaminophen/ Hydrocodone Bitart ([place] 10/325) 1 tab Q4H PRN ORAL Severe Pain (Pain Scale 7-10) 06/05/18 10:30 06/12/18 10:29 06/07/18 07:13 Brimonidine Tartrate (Alphagan) 1 drop BID BOTH EYES 05/22/18 10:00 06/21/18 09:59 06/06/18 17:21 Divalproex Sodium (Depakote ER) 500 mg EVERY 12 HOURS ORAL 05/25/18 09:00 06/24/18 08:59 06/02/18 08:56 Folic Acid (Folate) 1 mg DAILY ORAL 05/22/18 09:00 06/21/18 08:59 06/06/18 09:18 Heparin Sodium (Porcine) (Heparin 5000 units/ml) 5,000 units EVERY 12 HOURS SUBQ 05/28/18 17:00 06/27/18 16:59 05/28/18 17:03 Latanoprost (Xalatan) 1 drop BEDTIME BOTH EYES 05/22/18 21:00 06/21/18 20:59 06/06/18 20:58 Polyethylene Glycol (Miralax) 17 gm DAILY PRN ORAL Constipation 05/28/18 19:15 06/27/18 19:14 05/28/18 20:48 Pregabalin (Lyrica) 75 mg Q12HR ORAL 05/22/18 09:00 06/21/18 08:59 06/06/18 20:58 Risperidone (RisperDAL) 2 mg BEDTIME ORAL 05/25/18 21:00 06/24/18 20:59 05/25/18 21:00 Thiamine HCl (Vitamin B1) 100 mg DAILY ORAL 05/22/18 09:00 06/21/18 08:59 06/06/18 09:17 Timolol Maleate (Timoptic 0.5% Op Soln) 1 drop TWICE A DAY BOTH EYES 05/22/18 10:00 06/21/18 09:59 06/06/18 17:21 Earl Lock MD Jun 07, 2018 09:31
--- NOTE | 2018-06-07 09:46 | NUR ---
DISCHARGE PLANNING ACTIVELY SEEKING SNF PLACEMENT FOR THIS PATIENT FAXED CLINICALS TO THE FOLLOWING: REFERRED TO FOLLOWING SNF'S 1. [facility] P:[phone] F:[phone] 2. [facility] P:[phone] F:[phone] 3. [facility] P:[phone] F:[phone] 4. [facility] P:[phone] F:[phone] 5. [facility] P:[phone] F:[phone] 6. [facility] P:[phone] F:[phone] 7. [facility] P:[phone] F:[phone] 8. [facility] P;[phone] F:[phone] 9. [facility] P:[phone] F:[phone] 10. CAROLE[facility] Ortiz [facility] P;[phone] f:[phone]
[2018-06-07] MEDS: Thiamine 100mg tab ORAL SCH (10:06)
[2018-06-07] MEDS: Lyrica 75mg cap ORAL SCH ×2 (10:07→20:32)
[2018-06-07] MEDS: Brimonidine 0.2% Opth Sol BOTH EYES SCH ×2 (10:08→17:21)
[2018-06-07] MEDS: Timolol 0.5% Op Soln 2.5ml BOTH EYES SCH ×2 (10:08→17:21)
--- NOTE | 2018-06-07 10:27 | NUR ---
RD ASSESSMENT & RECOMMENDATIONS SEE CARE ACTIVITY FOR COMPLETE ASSESSMENT DAILY ESTIMATED NEEDS: Needs based on Paraplegia, 68kg 28-30 kcals/kg 7340-4833 total kcals 1-1.5 g protein/kg 68-102 g total protein 25-30 mL/kg 5015-0270 total fluid mLs NUTRITION DIAGNOSIS: Altered GI function R/T constipation as evidenced by pt c/o conspitation, no BM x 5 days. (INACTIVE) CURRENT DIET: Regular PO DIET RECOMMENDATIONS: REGULAR, HIGH FIBER ADDITIONAL RECOMMENDATIONS: * Calibrated bedscale wt for accurate CBW * Prunes TID, Prune Juice TID * Daily bowel regimen * Weekly weights -> pt w/ extended admission * UPDATED labs as able
--- NOTE | 2018-06-07 11:15 | NUR ---
INSURANCE UPDATED CLINICALS FAXED TO: [facility] JCARLOS ABAD T: [phone] F: [phone]
[2018-06-07 12:00] VITALS: BP 98/63
--- NOTE | 2018-06-07 12:42 | General Progress Note ---
Assessment/Plan Problem List: (1) Bipolar disorder ICD Codes: F31.9 - Bipolar disorder, unspecified SNOMED: 57256240 Qualifiers: Assessment/Plan Risperdal 4mg po qhs Depakote 1000 po qhs provided ro/st Subjective Neurologic/Psychiatric: Reports: anxiety, depressed Allergies: Coded Allergies: CEPHALEXIN (Verified Allergy, Unknown, 05/18/18) CEPHALOSPORINS (Verified Allergy, Unknown, 05/18/18) ERYTHROMYCIN BASE (Verified Allergy, Unknown, 05/18/18) GABAPENTIN (Verified Allergy, Unknown, 05/18/18) SHELLFISH DERIVED (Verified Allergy, Unknown, 05/22/18) Subjective the pt is the same episodes of agitation Objective Last 24 Hour Vital Signs Date Time Temp Pulse Resp B/P (MAP) Pulse Ox O2 Delivery O2 Flow Rate FiO2 06/07/18 12:05 97.7 06/07/18 10:37 97.7 06/07/18 08:00 97.7 61 16 101/66 (78) 99 06/07/18 04:00 97.7 77 18 107/63 (78) 100 06/06/18 23:56 97.6 79 18 103/61 (75) 99 06/06/18 21:00 Room Air 06/06/18 20:00 97.9 73 18 107/65 (79) 96 06/06/18 17:24 70 112/65 (81) 06/06/18 16:08 97.9 87 19 102/69 (80) 100 Intake and Output 06/06/18 06/07/18 19:00 07:00 Intake Total 1200 ml 250 ml Balance 1200 ml 250 ml Intake Oral 250 ml Other 1200 ml # Voids 2 3 Height (Feet): 5 Height (Inches): 5.00 Weight (Pounds): 161 General Appearance: alert, moderate distress Neurologic: oriented x 3, responsive, depressed affect Jake Mcintyre MD Jun 07, 2018 12:42
[2018-06-07 16:00] VITALS: BP 91/60
--- NOTE | 2018-06-07 17:54 | Internal Med Progress Note ---
Subjective Date of Service: Jun 07, 2018 Physician Name Sadi Gaviria Attending Physician Niall Kraft MD Current Medications Medications (Trade) Dose Ordered Sig/Mejia Route PRN Reason Start Time Stop Time Status Last Admin Dose Admin Acetaminophen (Tylenol) 650 mg Q4H PRN ORAL MILD PAIN / T>100.5 05/22/18 07:15 06/21/18 07:14 05/23/18 08:52 Acetaminophen/ Hydrocodone Bitart ([place] 10/325) 1 tab Q4H PRN ORAL Severe Pain (Pain Scale 7-10) 06/05/18 10:30 06/12/18 10:29 06/07/18 15:35 Brimonidine Tartrate (Alphagan) 1 drop BID BOTH EYES 05/22/18 10:00 06/21/18 09:59 06/07/18 17:21 Divalproex Sodium (Depakote ER) 500 mg EVERY 12 HOURS ORAL 05/25/18 09:00 06/24/18 08:59 06/02/18 08:56 Folic Acid (Folate) 1 mg DAILY ORAL 05/22/18 09:00 06/21/18 08:59 06/07/18 10:06 Heparin Sodium (Porcine) (Heparin 5000 units/ml) 5,000 units EVERY 12 HOURS SUBQ 05/28/18 17:00 06/27/18 16:59 05/28/18 17:03 Latanoprost (Xalatan) 1 drop BEDTIME BOTH EYES 05/22/18 21:00 06/21/18 20:59 06/06/18 20:58 Polyethylene Glycol (Miralax) 17 gm DAILY PRN ORAL Constipation 05/28/18 19:15 06/27/18 19:14 05/28/18 20:48 Pregabalin (Lyrica) 75 mg Q12HR ORAL 05/22/18 09:00 06/21/18 08:59 06/07/18 10:07 Risperidone (RisperDAL) 2 mg BEDTIME ORAL 05/25/18 21:00 06/24/18 20:59 05/25/18 21:00 Thiamine HCl (Vitamin B1) 100 mg DAILY ORAL 05/22/18 09:00 06/21/18 08:59 06/07/18 10:06 Timolol Maleate (Timoptic 0.5% Op Soln) 1 drop TWICE A DAY BOTH EYES 05/22/18 10:00 06/21/18 09:59 06/07/18 17:21 Allergies: Coded Allergies: CEPHALEXIN (Verified Allergy, Unknown, 05/18/18) CEPHALOSPORINS (Verified Allergy, Unknown, 05/18/18) ERYTHROMYCIN BASE (Verified Allergy, Unknown, 05/18/18) GABAPENTIN (Verified Allergy, Unknown, 05/18/18) SHELLFISH DERIVED (Verified Allergy, Unknown, 05/22/18) ROS Limited/Unobtainable: No Constitutional: Reports: no symptoms HEENT: Reports: no symptoms Cardiovascular: Reports: no symptoms Respiratory: Reports: no symptoms Gastrointestinal/Abdominal: Reports: no symptoms Genitourinary: Reports: no symptoms Neurologic/Psychiatric: Reports: no symptoms Subjective 57 YO F admitted with vancomycin resistant enterococcus stool. Cover for Int Med-Dr Kraft. Await acceptance to SNF Objective Last Vital Signs Date Time Temp Pulse Resp B/P (MAP) Pulse Ox O2 Delivery O2 Flow Rate FiO2 06/07/18 16:05 97.7 06/07/18 09:00 Room Air 06/07/18 08:00 61 16 101/66 (78) 99 Intake and Output 06/06/18 06/07/18 18:59 06:59 Intake Total 1200 ml 250 ml Balance 1200 ml 250 ml Intake Oral 250 ml Other 1200 ml # Voids 2 3 Objective General Appearance: WD/WN, no apparent distress, alert EENT: PERRL/EOMI, normal ENT inspection, TMs normal Neck: non-tender, normal alignment, supple, normal inspection Cardiovascular: normal peripheral pulses, normal rate, regular rhythm, no gallop/murmur, no JVD Respiratory/Chest: chest wall non-tender, lungs clear, normal breath sounds, no respiratory distress, no accessory muscle use Abdomen: normal bowel sounds, non tender, soft, no organomegaly, no mass Extremities: normal range of motion, non-tender 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 Sadi Gaviria MD Jun 07, 2018 17:54
--- NOTE | 2018-06-07 19:30 | NUR ---
NURSE NOTES: Recieved patient in bed, awake alert, oriented x4, in no acute distress at this time. Bed is in low position, locked and alarm is on, call light is within reach, will continue to monitor for safety and comfort.
--- NOTE | 2018-06-07 19:32 | NUR ---
HAND-OFF: Report given to PORSCHE Rodriguez.
[2018-06-07 20:00] VITALS: BP 107/68
[2018-06-07] MEDS: Latanoprost 0.005% Opth 2.5ml Soln BOTH EYES SCH (20:32)
[2018-06-08] MEDS: HYDROcodone/Acetamin 10/325 tab ORAL PRN ×5 (03:49→21:08)
[2018-06-08 04:00] VITALS: BP 107/62
--- NOTE | 2018-06-08 07:34 | NUR ---
HAND-OFF: Report given to Ayush MORRELL.
--- NOTE | 2018-06-08 07:46 | NUR ---
NURSE NOTES: Received report from PORSCHE Mora. Pt is in the bed. AAO. C/o having a bad pain. Explained medication roud and timing. Verbalized understanding. No s/s of respiratory distress or discomfort noted. Bed is in the lowest position. Call light is within the reach. Will continue to monitor
[2018-06-08 08:00] VITALS: BP 111/64
[2018-06-08] MEDS: Lyrica 75mg cap ORAL SCH ×2 (08:10→21:07)
[2018-06-08] MEDS: Thiamine 100mg tab ORAL SCH ×2 (08:10→08:14)
[2018-06-08] MEDS: Depakote ER 500mg tab ORAL SCH ×2 (08:11→08:13)
[2018-06-08] MEDS: Brimonidine 0.2% Opth Sol BOTH EYES SCH ×2 (08:11→18:17)
[2018-06-08] MEDS: Timolol 0.5% Op Soln 2.5ml BOTH EYES SCH ×2 (08:12→18:17)
[2018-06-08] MEDS: Heparin 5000 units/ml inj SUBQ SCH ×2 (08:12→20:26)
--- NOTE | 2018-06-08 09:13 | Infectious Diseases Prog Note ---
Assessment/Plan Assessment/Plan Assessment: REcent b/l cellulitis, resolved Afebrile Mild leukopenia paraplegia anemia neuralgia bipolar disorder FTT [place] resident VRE stool- THIS IS A COLONIZER Plan: -Monitor off abx -05/25 SP Bactrim #7 -05/20 SP IV Vancomycin #3 -OK TO DISCHARGE BACK TO [place], NO NEED FOR ISOLATION UPON DISCHARGE -f/u cx -Monitor CBC/CMP, temperatures Thank you for this consultation. Will continue to follow along with you. Discussed with RN and case aide. Subjective Allergies: Coded Allergies: CEPHALEXIN (Verified Allergy, Unknown, 05/18/18) CEPHALOSPORINS (Verified Allergy, Unknown, 05/18/18) ERYTHROMYCIN BASE (Verified Allergy, Unknown, 05/18/18) GABAPENTIN (Verified Allergy, Unknown, 05/18/18) SHELLFISH DERIVED (Verified Allergy, Unknown, 05/22/18) Subjective Afebrile No new complaints Objective Vital Signs Last 24 Hour Vital Signs Date Time Temp Pulse Resp B/P (MAP) Pulse Ox O2 Delivery O2 Flow Rate FiO2 06/08/18 04:00 97.5 59 18 107/62 (77) 100 06/07/18 21:00 Room Air 06/07/18 20:00 98.6 74 18 107/68 (81) 06/07/18 16:05 97.7 06/07/18 16:00 97.6 61 16 91/60 (70) 97 06/07/18 12:00 97.8 61 18 98/63 (75) 99 06/07/18 10:37 97.7 Height (Feet): 5 Height (Inches): 5.00 Weight (Pounds): 161 Objective GENERAL: NAD, HEENT: NCAT, MMM CHEST: CTAB, No W CARDIOVASCULAR: Regular rate. S1 and S2 normal ABDOMEN: Soft, nontender, and nondistended. Positive bowel sounds. EXTREMITIES: No edema or erythema Current Medications Medications (Trade) Dose Ordered Sig/Mejia Route PRN Reason Start Time Stop Time Status Last Admin Dose Admin Acetaminophen (Tylenol) 650 mg Q4H PRN ORAL MILD PAIN / T>100.5 05/22/18 07:15 06/21/18 07:14 05/23/18 08:52 Acetaminophen/ Hydrocodone Bitart ([place] 10/325) 1 tab Q4H PRN ORAL Severe Pain (Pain Scale 7-10) 06/05/18 10:30 06/12/18 10:29 06/08/18 08:11 Brimonidine Tartrate (Alphagan) 1 drop BID BOTH EYES 05/22/18 10:00 06/21/18 09:59 06/08/18 08:11 Divalproex Sodium (Depakote ER) 500 mg EVERY 12 HOURS ORAL 05/25/18 09:00 06/24/18 08:59 06/02/18 08:56 Folic Acid (Folate) 1 mg DAILY ORAL 05/22/18 09:00 06/21/18 08:59 06/07/18 10:06 Heparin Sodium (Porcine) (Heparin 5000 units/ml) 5,000 units EVERY 12 HOURS SUBQ 05/28/18 17:00 06/27/18 16:59 05/28/18 17:03 Latanoprost (Xalatan) 1 drop BEDTIME BOTH EYES 05/22/18 21:00 06/21/18 20:59 06/07/18 20:32 Polyethylene Glycol (Miralax) 17 gm DAILY PRN ORAL Constipation 05/28/18 19:15 06/27/18 19:14 05/28/18 20:48 Pregabalin (Lyrica) 75 mg Q12HR ORAL 05/22/18 09:00 06/21/18 08:59 06/08/18 08:10 Risperidone (RisperDAL) 2 mg BEDTIME ORAL 05/25/18 21:00 06/24/18 20:59 05/25/18 21:00 Thiamine HCl (Vitamin B1) 100 mg DAILY ORAL 05/22/18 09:00 06/21/18 08:59 06/07/18 10:06 Timolol Maleate (Timoptic 0.5% Op Soln) 1 drop TWICE A DAY BOTH EYES 05/22/18 10:00 06/21/18 09:59 06/08/18 08:12 Earl Lock MD Jun 08, 2018 09:13
--- NOTE | 2018-06-08 12:55 | NUR ---
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 97.5 HR 59 RR 18 B/P 111/64 IS: HEPARIN SUBC XALATAN GTTS RISPERDAL PO DC PLANNING MED/SURG STATUS
--- NOTE | 2018-06-08 15:03 | NUR ---
INSURANCE UPDATED CLINICALS FAXED TO: [facility] JCARLOS ABAD T: [phone] [id number] F: [phone]
[2018-06-08 16:00] VITALS: BP 122/74
--- NOTE | 2018-06-08 16:27 | Internal Med Progress Note ---
Subjective Date of Service: Jun 08, 2018 Physician Name Sadi Gaviria Attending Physician Niall Kraft MD Current Medications Medications (Trade) Dose Ordered Sig/Mejia Route PRN Reason Start Time Stop Time Status Last Admin Dose Admin Acetaminophen (Tylenol) 650 mg Q4H PRN ORAL MILD PAIN / T>100.5 05/22/18 07:15 06/21/18 07:14 05/23/18 08:52 Acetaminophen/ Hydrocodone Bitart ([place] 10/325) 1 tab Q4H PRN ORAL Severe Pain (Pain Scale 7-10) 06/05/18 10:30 06/12/18 10:29 06/08/18 12:23 Brimonidine Tartrate (Alphagan) 1 drop BID BOTH EYES 05/22/18 10:00 06/21/18 09:59 06/08/18 08:11 Divalproex Sodium (Depakote ER) 500 mg EVERY 12 HOURS ORAL 05/25/18 09:00 06/24/18 08:59 06/02/18 08:56 Folic Acid (Folate) 1 mg DAILY ORAL 05/22/18 09:00 06/21/18 08:59 06/07/18 10:06 Heparin Sodium (Porcine) (Heparin 5000 units/ml) 5,000 units EVERY 12 HOURS SUBQ 05/28/18 17:00 06/27/18 16:59 05/28/18 17:03 Latanoprost (Xalatan) 1 drop BEDTIME BOTH EYES 05/22/18 21:00 06/21/18 20:59 06/07/18 20:32 Polyethylene Glycol (Miralax) 17 gm DAILY PRN ORAL Constipation 05/28/18 19:15 06/27/18 19:14 05/28/18 20:48 Pregabalin (Lyrica) 75 mg Q12HR ORAL 05/22/18 09:00 06/21/18 08:59 06/08/18 08:10 Risperidone (RisperDAL) 2 mg BEDTIME ORAL 05/25/18 21:00 06/24/18 20:59 05/25/18 21:00 Thiamine HCl (Vitamin B1) 100 mg DAILY ORAL 05/22/18 09:00 06/21/18 08:59 06/07/18 10:06 Timolol Maleate (Timoptic 0.5% Op Soln) 1 drop TWICE A DAY BOTH EYES 05/22/18 10:00 06/21/18 09:59 06/08/18 08:12 Allergies: Coded Allergies: CEPHALEXIN (Verified Allergy, Unknown, 05/18/18) CEPHALOSPORINS (Verified Allergy, Unknown, 05/18/18) ERYTHROMYCIN BASE (Verified Allergy, Unknown, 05/18/18) GABAPENTIN (Verified Allergy, Unknown, 05/18/18) SHELLFISH DERIVED (Verified Allergy, Unknown, 05/22/18) ROS Limited/Unobtainable: No Constitutional: Reports: no symptoms HEENT: Reports: no symptoms Cardiovascular: Reports: no symptoms Respiratory: Reports: no symptoms Gastrointestinal/Abdominal: Reports: no symptoms Genitourinary: Reports: no symptoms Neurologic/Psychiatric: Reports: no symptoms Subjective 57 YO F admitted with vancomycin resistant enterococcus stool. Cover for Int Med-Dr Kraft. Await acceptance to SNF Objective Last Vital Signs Date Time Temp Pulse Resp B/P (MAP) Pulse Ox O2 Delivery O2 Flow Rate FiO2 06/08/18 08:00 Room Air 06/08/18 08:00 97.7 65 18 111/64 (80) 98 Intake and Output 06/07/18 06/08/18 19:00 07:00 Intake Total 680 ml 200 ml Balance 680 ml 200 ml Intake Oral 680 ml Other 200 ml # Voids 6 Objective General Appearance: WD/WN, no apparent distress, alert EENT: PERRL/EOMI, normal ENT inspection, TMs normal Neck: non-tender, normal alignment, supple, normal inspection Cardiovascular: normal peripheral pulses, normal rate, regular rhythm, no gallop/murmur, no JVD Respiratory/Chest: chest wall non-tender, lungs clear, normal breath sounds, no respiratory distress, no accessory muscle use Abdomen: normal bowel sounds, non tender, soft, no organomegaly, no mass Extremities: normal range of motion, non-tender 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 Sadi Gaviria MD Jun 08, 2018 16:27
--- NOTE | 2018-06-08 19:30 | NUR ---
NURSE NOTES: Recieved patient in bed, awake, alert, on RA, in no acute distress at this time, bed is in low position, locked and alarm is on. Call light is within reach, will continue to monitor for safety and comfort.
--- NOTE | 2018-06-08 19:53 | NUR ---
HAND-OFF: Report given to PORSCHE Mora.
[2018-06-08 20:00] VITALS: BP 117/59
[2018-06-08] MEDS: Latanoprost 0.005% Opth 2.5ml Soln BOTH EYES SCH (21:00)
[2018-06-09] VITALS: BP 132/63
--- NOTE | 2018-06-09 00:02 | General Progress Note ---
Assessment/Plan Problem List: (1) Bipolar disorder ICD Codes: F31.9 - Bipolar disorder, unspecified SNOMED: 49736225 Qualifiers: Assessment/Plan Risperdal 4mg po qhs Depakote 1000 po qhs provided ro/st Subjective Neurologic/Psychiatric: Reports: anxiety, depressed, emotional problems Allergies: Coded Allergies: CEPHALEXIN (Verified Allergy, Unknown, 05/18/18) CEPHALOSPORINS (Verified Allergy, Unknown, 05/18/18) ERYTHROMYCIN BASE (Verified Allergy, Unknown, 05/18/18) GABAPENTIN (Verified Allergy, Unknown, 05/18/18) SHELLFISH DERIVED (Verified Allergy, Unknown, 05/22/18) Subjective the pt is the same episodes of agitation Objective Last 24 Hour Vital Signs Date Time Temp Pulse Resp B/P (MAP) Pulse Ox O2 Delivery O2 Flow Rate FiO2 06/08/18 21:00 Room Air 06/08/18 20:00 97.9 66 18 117/59 (78) 06/08/18 16:00 98.1 73 18 122/74 (90) 99 06/08/18 08:00 Room Air 06/08/18 08:00 97.7 65 18 111/64 (80) 98 06/08/18 04:00 97.5 59 18 107/62 (77) 100 Intake and Output 06/08/18 06/09/18 19:00 07:00 Intake Total 880 ml Balance 880 ml Intake Oral 880 ml # Voids 5 Height (Feet): 5 Height (Inches): 5.00 Weight (Pounds): 161 Jake Mcintyre MD Jun 09, 2018 00:02
[2018-06-09] MEDS: HYDROcodone/Acetamin 10/325 tab ORAL PRN ×3 (01:12→20:08)
[2018-06-09 04:00] VITALS: BP 101/59
--- NOTE | 2018-06-09 07:11 | NUR ---
HAND-OFF: Report given to Ayush MORRELL.
--- NOTE | 2018-06-09 07:25 | NUR ---
Received patient from PORSCHE Mora.Patient is alert, oriented. Eating in bed. She is in room air. She does not complain of pain.Bed in the lowest position. Call light in place.
--- NOTE | 2018-06-09 07:41 | NUR ---
DISCHARGE PLANNING REFERRED TO: 1) [facility] T: [phone] F: [phone] 2) [facility] T: [phone] F: [phone] 3) [facility] T: [phone] F: [phone] 4) [facility] T: [phone] F: [phone] 5) [facility] T: [phone] F: [phone] 6) [facility] T: [phone] F: [phone] 7) [facility] T: [phone] F: [phone] 8) [facility] T: [phone] F: [phone] 9) [facility] T: [phone] F: [phone] 10) [facility] T: [phone] F: [phone] 11) [facility] T: [phone] F: [phone] Addendum: 06/09/18 at 1523 by MANINDER SALDAÑA CM REFERRED TO: 1) [facility] S/W UDAY - REFAXED F:[phone] 2) [facility] S/W YOLI SHE ASK IF PATIENT WAS FROM THE AREA, THEN STATED THEY HAVE NOT AVAILABLE BEDS AND THEY WILL NOT KNOW UNTIL TUESDAY IF THEY WILL HAVE ANY DISCHARGES. 3) [facility] S/W DANIEL NO FEMALE BEDS ONLY 1 MALE BED. 4) [facility] S/W DJ THEY DO NOT HAVE ANY ISOLATION ROOMS AND SHE STATED IT LOOKED IF THE PT WOULD TRANSITION INTO A PRISON DO THEY DECLINED. 5) [facility] S/W ADMISSION REFAX F:[phone] 6) [facility] S/W SUSANNE ASKED WHERE I WAS CALLING I SAID [facility]. AND HE SAID THEY COULD NOT ADMIT PT. ONCE I MENTIONED PT INS [facility]. HAD GIVEN US THEIR CONTRACTED LIST HE THEN SAID HE WAS BACK TRACKING AND WOULD REVIEW CLINICALS AND CALL BACK. 7) [facility] S/W ANDREWS REFAXED F:[phone] 8) [facility] LVM WITH ADMISSION COORDINATOR ANDREWS 9) [facility] S/W BRET REFAXED F:[phone] P:[phone] 10) [facility] REFAXED F:[phone] 11) [facility] T: [phone] F: [phone]
[2018-06-09 08:00] VITALS: BP 106/62
[2018-06-09] MEDS: Depakote ER 500mg tab ORAL SCH ×2 (09:00→20:55)
[2018-06-09] MEDS: Thiamine 100mg tab ORAL SCH (09:00)
[2018-06-09] MEDS: Heparin 5000 units/ml inj SUBQ SCH ×2 (09:00→20:55)
--- NOTE | 2018-06-09 09:26 | Infectious Diseases Prog Note ---
Assessment/Plan Assessment/Plan Assessment: REcent b/l cellulitis, resolved Afebrile Mild leukopenia paraplegia anemia neuralgia bipolar disorder FTT [place] resident VRE stool- THIS IS A COLONIZER Plan: -Monitor off abx as clinically stable -05/25 SP Bactrim #7 -05/20 SP IV Vancomycin #3 -OK TO DISCHARGE BACK TO [place], NO NEED FOR ISOLATION UPON DISCHARGE -f/u cx -Monitor CBC/CMP, temperatures Thank you for this consultation. Will continue to follow along with you. Discussed with RN and egg caser. Subjective Allergies: Coded Allergies: CEPHALEXIN (Verified Allergy, Unknown, 05/18/18) CEPHALOSPORINS (Verified Allergy, Unknown, 05/18/18) ERYTHROMYCIN BASE (Verified Allergy, Unknown, 05/18/18) GABAPENTIN (Verified Allergy, Unknown, 05/18/18) SHELLFISH DERIVED (Verified Allergy, Unknown, 05/22/18) Subjective Afebrile [place] Objective Vital Signs Last 24 Hour Vital Signs Date Time Temp Pulse Resp B/P (MAP) Pulse Ox O2 Delivery O2 Flow Rate FiO2 06/09/18 04:00 97.8 65 18 101/59 (73) 06/09/18 00:00 98.1 69 19 132/63 (86) 06/08/18 21:00 Room Air 06/08/18 20:00 97.9 66 18 117/59 (78) 06/08/18 16:00 98.1 73 18 122/74 (90) 99 Height (Feet): 5 Height (Inches): 5.00 Weight (Pounds): 161 Objective GENERAL: Comfortable HEENT: NCAT, MMM CHEST: CTAB, No W CARDIOVASCULAR: Regular rate. S1 and S2 normal ABDOMEN: Soft, nontender, and nondistended. Positive bowel sounds. EXTREMITIES: No edema or erythema Current Medications Medications (Trade) Dose Ordered Sig/Mejia Route PRN Reason Start Time Stop Time Status Last Admin Dose Admin Acetaminophen (Tylenol) 650 mg Q4H PRN ORAL MILD PAIN / T>100.5 05/22/18 07:15 06/21/18 07:14 05/23/18 08:52 Acetaminophen/ Hydrocodone Bitart ([place] 10/325) 1 tab Q4H PRN ORAL Severe Pain (Pain Scale 7-10) 06/05/18 10:30 06/12/18 10:29 06/09/18 06:20 Brimonidine Tartrate (Alphagan) 1 drop BID BOTH EYES 05/22/18 10:00 06/21/18 09:59 06/08/18 18:17 Divalproex Sodium (Depakote ER) 500 mg EVERY 12 HOURS ORAL 05/25/18 09:00 06/24/18 08:59 06/02/18 08:56 Folic Acid (Folate) 1 mg DAILY ORAL 05/22/18 09:00 06/21/18 08:59 06/07/18 10:06 Heparin Sodium (Porcine) (Heparin 5000 units/ml) 5,000 units EVERY 12 HOURS SUBQ 05/28/18 17:00 06/27/18 16:59 05/28/18 17:03 Latanoprost (Xalatan) 1 drop BEDTIME BOTH EYES 05/22/18 21:00 06/21/18 20:59 06/07/18 20:32 Polyethylene Glycol (Miralax) 17 gm DAILY PRN ORAL Constipation 05/28/18 19:15 06/27/18 19:14 05/28/18 20:48 Pregabalin (Lyrica) 75 mg Q12HR ORAL 05/22/18 09:00 06/21/18 08:59 06/08/18 21:07 Risperidone (RisperDAL) 2 mg BEDTIME ORAL 05/25/18 21:00 06/24/18 20:59 05/25/18 21:00 Thiamine HCl (Vitamin B1) 100 mg DAILY ORAL 05/22/18 09:00 06/21/18 08:59 06/07/18 10:06 Timolol Maleate (Timoptic 0.5% Op Soln) 1 drop TWICE A DAY BOTH EYES 05/22/18 10:00 06/21/18 09:59 06/08/18 18:17 Earl Lock MD Jun 09, 2018 09:26
[2018-06-09] MEDS: Lyrica 75mg cap ORAL SCH ×2 (09:59→21:00)
[2018-06-09] MEDS: Timolol 0.5% Op Soln 2.5ml BOTH EYES SCH ×2 (10:01→17:46)
[2018-06-09] MEDS: Brimonidine 0.2% Opth Sol BOTH EYES SCH ×2 (10:01→17:45)
[2018-06-09 12:00] VITALS: BP 110/63
--- NOTE | 2018-06-09 12:09 | NUR ---
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 98.0 HR 67 RR 18 B/P 106/52 RA 99% IS: HEPARIN SUBC DEPAKOTE PO LYRICA PO PLACEMENT PENDING MED/SURG STATUS
--- NOTE | 2018-06-09 15:24 | Internal Med Progress Note ---
Subjective Physician Name Niall Kraft Attending Physician Niall Kraft MD Current Medications Medications (Trade) Dose Ordered Sig/Mejia Route PRN Reason Start Time Stop Time Status Last Admin Dose Admin Acetaminophen (Tylenol) 650 mg Q4H PRN ORAL MILD PAIN / T>100.5 05/22/18 07:15 06/21/18 07:14 05/23/18 08:52 Acetaminophen/ Hydrocodone Bitart ([place] 10/325) 1 tab Q4H PRN ORAL Severe Pain (Pain Scale 7-10) 06/05/18 10:30 06/12/18 10:29 06/09/18 06:20 Brimonidine Tartrate (Alphagan) 1 drop BID BOTH EYES 05/22/18 10:00 06/21/18 09:59 06/09/18 10:01 Divalproex Sodium (Depakote ER) 500 mg EVERY 12 HOURS ORAL 05/25/18 09:00 06/24/18 08:59 06/02/18 08:56 Folic Acid (Folate) 1 mg DAILY ORAL 05/22/18 09:00 06/21/18 08:59 06/07/18 10:06 Heparin Sodium (Porcine) (Heparin 5000 units/ml) 5,000 units EVERY 12 HOURS SUBQ 05/28/18 17:00 06/27/18 16:59 05/28/18 17:03 Latanoprost (Xalatan) 1 drop BEDTIME BOTH EYES 05/22/18 21:00 06/21/18 20:59 06/07/18 20:32 Polyethylene Glycol (Miralax) 17 gm DAILY PRN ORAL Constipation 05/28/18 19:15 06/27/18 19:14 05/28/18 20:48 Pregabalin (Lyrica) 75 mg Q12HR ORAL 05/22/18 09:00 06/21/18 08:59 06/09/18 09:59 Risperidone (RisperDAL) 2 mg BEDTIME ORAL 05/25/18 21:00 06/24/18 20:59 05/25/18 21:00 Thiamine HCl (Vitamin B1) 100 mg DAILY ORAL 05/22/18 09:00 06/21/18 08:59 06/07/18 10:06 Timolol Maleate (Timoptic 0.5% Op Soln) 1 drop TWICE A DAY BOTH EYES 05/22/18 10:00 06/21/18 09:59 06/09/18 10:01 Allergies: Coded Allergies: CEPHALEXIN (Verified Allergy, Unknown, 05/18/18) CEPHALOSPORINS (Verified Allergy, Unknown, 05/18/18) ERYTHROMYCIN BASE (Verified Allergy, Unknown, 05/18/18) GABAPENTIN (Verified Allergy, Unknown, 05/18/18) SHELLFISH DERIVED (Verified Allergy, Unknown, 05/22/18) Subjective awake, alert, responsive, NAD. Objective Last Vital Signs Date Time Temp Pulse Resp B/P (MAP) Pulse Ox O2 Delivery O2 Flow Rate FiO2 06/09/18 12:00 98.0 70 18 110/63 (79) 06/09/18 09:00 Room Air 06/08/18 16:00 99 Intake and Output 06/08/18 06/09/18 19:00 07:00 Intake Total 880 ml Balance 880 ml Intake Oral 880 ml # Voids 5 Objective GENERAL: Alert and oriented X 3 HEAD AND NECK: Pupils are reactive to light. Anicteric. NECK: Supple. No JVD. LUNGS: Good air entry. fair inspiratory effort. No wheeze or rhonchi. HEART: S1 and S2. Distant heart sounds. No murmur or gallops. ABDOMEN: Soft, nondistended, and nontender. Positive bowel sounds. EXTREMITIES: No cyanosis or clubbing. Contracted and weakness of bilateral lower extremities. Bilateral lower extremity, less edema, right worse than left and less erythema was noted in the bilateral lower extremity, right greater than left. RECTAL: Refused and deferred. GENITOURINARY: Refused and deferred. Assessment/Plan Assessment/Plan 1. Glaucoma. 2. Cellulitis of lower extremity. 3. Paraplegia. 4. Bipolar disorder. 5. Vancomycin-resistant enterococcus colonization. Plan: off abx waiting for placement in SNF Full code heparin SQ. Niall Kraft MD Jun 09, 2018 15:24
[2018-06-09 16:15] VITALS: BP 144/76
--- NOTE | 2018-06-09 19:27 | NUR ---
HAND-OFF: Report given to PORSCHE Varghese.
--- NOTE | 2018-06-09 19:30 | NUR ---
NURSE NOTES: Received patient in bed, alert x 4, able to make needs known, No acute distress noted, No c/o pain or any discomfort noted, Bed in lowest position and lock engaged, Call light and need with in reach, Will continue to monitor.
[2018-06-09 20:00] VITALS: BP 94/58
[2018-06-09] MEDS: Latanoprost 0.005% Opth 2.5ml Soln BOTH EYES SCH (20:08)
--- NOTE | 2018-06-09 22:17 | General Progress Note ---
Assessment/Plan Problem List: (1) Bipolar disorder ICD Codes: F31.9 - Bipolar disorder, unspecified SNOMED: [id number] Qualifiers: Assessment/Plan Risperdal 4mg po qhs Depakote 1000 po qhs provided ro/st Subjective Neurologic/Psychiatric: Reports: anxiety, depressed, emotional problems Allergies: Coded Allergies: CEPHALEXIN (Verified Allergy, Unknown, 05/18/18) CEPHALOSPORINS (Verified Allergy, Unknown, 05/18/18) ERYTHROMYCIN BASE (Verified Allergy, Unknown, 05/18/18) GABAPENTIN (Verified Allergy, Unknown, 05/18/18) SHELLFISH DERIVED (Verified Allergy, Unknown, 05/22/18) Subjective the pt is the same episodes of agitation Objective Last 24 Hour Vital Signs Date Time Temp Pulse Resp B/P (MAP) Pulse Ox O2 Delivery O2 Flow Rate FiO2 06/09/18 20:00 97.6 70 20 94/58 (70) 06/09/18 16:15 98.0 71 18 144/76 (98) 06/09/18 12:00 98.0 70 18 110/63 (79) 06/09/18 10:29 97.8 06/09/18 09:00 Room Air 06/09/18 08:00 98.0 67 18 106/62 (77) 06/09/18 04:00 97.8 65 18 101/59 (73) 06/09/18 00:00 98.1 69 19 132/63 (86) Intake and Output 06/08/18 06/09/18 18:59 06:59 Intake Total 880 ml Balance 880 ml Intake Oral 880 ml # Voids 5 Height (Feet): 5 Height (Inches): 5.00 Weight (Pounds): 161 Jake Mcintyre MD Jun 09, 2018 22:17
[2018-06-10] VITALS (7 sets, daily range): BP systolic 90–140; BP diastolic 53–98
[2018-06-10] MEDS: HYDROcodone/Acetamin 10/325 tab ORAL PRN ×6 (00:35→22:24)
--- NOTE | 2018-06-10 07:20 | NUR ---
NURSE NOTES: Patient received from PORSCHE Zhao. Patient is in bed, awake, alert, oriented not in respiratory distress. Bed in lowest position, call light within reach. Will continue monitoring patient.
--- NOTE | 2018-06-10 07:30 | NUR ---
HAND-OFF: Report given to Ayush Pascual RN.
--- NOTE | 2018-06-10 08:51 | Infectious Diseases Prog Note ---
Assessment/Plan Assessment/Plan Assessment: REcent b/l cellulitis, resolved Afebrile Mild leukopenia paraplegia anemia neuralgia bipolar disorder [facility]TT [place] resident VRE stool- THIS IS A COLONIZER Plan: -Monitor off abx -05/25 SP Bactrim #7 -05/20 SP IV Vancomycin #3 -OK TO DISCHARGE BACK TO [place], NO NEED FOR ISOLATION UPON DISCHARGE -f/u cx -Monitor CBC/CMP, temperatures Will continue to follow along with you. Subjective Allergies: Coded Allergies: CEPHALEXIN (Verified Allergy, Unknown, 05/18/18) CEPHALOSPORINS (Verified Allergy, Unknown, 05/18/18) ERYTHROMYCIN BASE (Verified Allergy, Unknown, 05/18/18) GABAPENTIN (Verified Allergy, Unknown, 05/18/18) SHELLFISH DERIVED (Verified Allergy, Unknown, 05/22/18) Subjective No new problems Afebrile Objective Vital Signs Last 24 Hour Vital Signs Date Time Temp Pulse Resp B/P (MAP) Pulse Ox O2 Delivery O2 Flow Rate FiO2 06/10/18 04:00 97.3 76 16 128/58 (81) 99 06/10/18 00:00 97.9 69 17 128/63 (84) 99 06/09/18 21:00 Room Air 06/09/18 20:00 97.6 70 20 94/58 (70) 06/09/18 16:15 98.0 71 18 144/76 (98) 06/09/18 12:00 98.0 70 18 110/63 (79) 06/09/18 10:29 97.8 06/09/18 09:00 Room Air Height (Feet): 5 Height (Inches): 5.00 Weight (Pounds): 161 Objective GENERAL: NAD HEENT: NCAT, MMM CHEST: CTAB, No W CARDIOVASCULAR: Regular rate. S1 and S2 normal ABDOMEN: Soft, nontender, and nondistended. Positive bowel sounds. EXTREMITIES: No edema or erythema Current Medications Medications (Trade) Dose Ordered Sig/Mejia Route PRN Reason Start Time Stop Time Status Last Admin Dose Admin Acetaminophen (Tylenol) 650 mg Q4H PRN ORAL MILD PAIN / T>100.5 05/22/18 07:15 06/21/18 07:14 05/23/18 08:52 Acetaminophen/ Hydrocodone Bitart ([place] 10/325) 1 tab Q4H PRN ORAL Severe Pain (Pain Scale 7-10) 06/05/18 10:30 06/12/18 10:29 06/10/18 05:17 Brimonidine Tartrate (Alphagan) 1 drop BID BOTH EYES 05/22/18 10:00 06/21/18 09:59 06/09/18 17:45 Divalproex Sodium (Depakote ER) 500 mg EVERY 12 HOURS ORAL 05/25/18 09:00 06/24/18 08:59 06/02/18 08:56 Folic Acid (Folate) 1 mg DAILY ORAL 05/22/18 09:00 06/21/18 08:59 06/07/18 10:06 Heparin Sodium (Porcine) (Heparin 5000 units/ml) 5,000 units EVERY 12 HOURS SUBQ 05/28/18 17:00 06/27/18 16:59 05/28/18 17:03 Latanoprost (Xalatan) 1 drop BEDTIME BOTH EYES 05/22/18 21:00 06/21/18 20:59 06/09/18 20:08 Polyethylene Glycol (Miralax) 17 gm DAILY PRN ORAL Constipation 05/28/18 19:15 06/27/18 19:14 05/28/18 20:48 Pregabalin (Lyrica) 75 mg Q12HR ORAL 05/22/18 09:00 06/21/18 08:59 06/09/18 09:59 Risperidone (RisperDAL) 2 mg BEDTIME ORAL 05/25/18 21:00 06/24/18 20:59 05/25/18 21:00 Thiamine HCl (Vitamin B1) 100 mg DAILY ORAL 05/22/18 09:00 06/21/18 08:59 06/07/18 10:06 Timolol Maleate (Timoptic 0.5% Op Soln) 1 drop TWICE A DAY BOTH EYES 05/22/18 10:00 06/21/18 09:59 06/09/18 17:46 Earl Lock MD Jun 10, 2018 08:51
[2018-06-10] MEDS: Depakote ER 500mg tab ORAL SCH ×2 (09:00→20:55)
[2018-06-10] MEDS: Heparin 5000 units/ml inj SUBQ SCH ×2 (09:00→20:56)
[2018-06-10] MEDS: Thiamine 100mg tab ORAL SCH (09:00)
[2018-06-10] MEDS: Timolol 0.5% Op Soln 2.5ml BOTH EYES SCH ×2 (09:24→18:37)
[2018-06-10] MEDS: Brimonidine 0.2% Opth Sol BOTH EYES SCH ×2 (09:24→18:37)
[2018-06-10] MEDS: Lyrica 75mg cap ORAL SCH ×2 (09:26→20:48)
--- NOTE | 2018-06-10 10:04 | NUR ---
CASE MANAGEMENT:REVIEW 06/10/18 SI: CELLULITIS 97.9 74 18 126/53 99% ON RA IS: NORCO PO Q4HRS HEPARIN SQ Q12 RISPERDAL PO QHS DEPAKOTE PO Q12 FOLATE PO QD LYRICA PO Q12 THIAMINE PO QD : MED/SURG STATUS 4 EAST DCP: TRYING TO FIND SNF PLACEMENT FOR THIS PATIENT. NO ACCEPTING FACILITY OF YET DISCHARGE PLANNING REFERRED TO: 1) [facility] T: [phone] F: [phone] 2) [facility] T: [phone] F: [phone] 3) [facility] T: [phone] F: [phone] 4) [facility] T: [phone] F: [phone] 5) [facility] T: [phone] F: [phone] 6) [facility] T: [phone] F: [phone] 7) [facility] T: [phone] F: [phone] 8) [facility] T: [phone] F: [phone] 9) [facility] T: [phone] F: [phone] 10) [facility] T: [phone] F: [phone] 11) [facility] T: [phone] F: [phone] Addendum: 06/09/18 at 1523 by MANINDER SALDAÑA CM REFERRED TO: 1) [facility] S/W UDAY - REFAXED F:[phone] 2) [facility] S/W YOLI SHE ASK IF PATIENT WAS FROM THE AREA, THEN STATED THEY HAVE NOT AVAILABLE BEDS AND THEY WILL NOT KNOW UNTIL TUESDAY IF THEY WILL HAVE ANY DISCHARGES. 3) [facility] S/W DANIEL NO FEMALE BEDS ONLY 1 MALE BED. 4) [facility] DJ THEY DO NOT HAVE ANY ISOLATION ROOMS AND SHE STATED IT LOOKED IF THE PT WOULD TRANSITION INTO A SENIOR CARE DO THEY DECLINED. 5) [facility] S/W ADMISSION REFAX F:[phone] 6) [facility] S/W SUSANNE ASKED WHERE I WAS CALLING I SAID [facility] AND HE SAID THEY COULD NOT ADMIT PT. ONCE I MENTIONED PT INS [facility]. HAD GIVEN US THEIR CONTRACTED LIST HE THEN SAID HE WAS BACK TRACKING AND WOULD REVIEW CLINICALS AND CALL BACK. 7) [facility] S/W ANDREWS REFAXED F:[phone] 8) [facility] WITH ADMISSION COORDINATOR ANDREWS 9) [facility] S/W BRET REFAXED F:[phone] P:[phone] 10) [facility] REFAXED F:[phone] 11) [facility] T: [phone] F: [phone]
--- NOTE | 2018-06-10 16:59 | Internal Med Progress Note ---
Subjective Date of Service: Jun 10, 2018 Physician Name Sadi Gaviria Attending Physician Niall Kraft MD Current Medications Medications (Trade) Dose Ordered Sig/Mejia Route PRN Reason Start Time Stop Time Status Last Admin Dose Admin Acetaminophen (Tylenol) 650 mg Q4H PRN ORAL MILD PAIN / T>100.5 05/22/18 07:15 06/21/18 07:14 05/23/18 08:52 Acetaminophen/ Hydrocodone Bitart ([place] 10/325) 1 tab Q4H PRN ORAL Severe Pain (Pain Scale 7-10) 06/05/18 10:30 06/12/18 10:29 06/10/18 14:20 Brimonidine Tartrate (Alphagan) 1 drop BID BOTH EYES 05/22/18 10:00 06/21/18 09:59 06/10/18 09:24 Divalproex Sodium (Depakote ER) 500 mg EVERY 12 HOURS ORAL 05/25/18 09:00 06/24/18 08:59 06/02/18 08:56 Folic Acid (Folate) 1 mg DAILY ORAL 05/22/18 09:00 06/21/18 08:59 06/07/18 10:06 Heparin Sodium (Porcine) (Heparin 5000 units/ml) 5,000 units EVERY 12 HOURS SUBQ 05/28/18 17:00 06/27/18 16:59 05/28/18 17:03 Latanoprost (Xalatan) 1 drop BEDTIME BOTH EYES 05/22/18 21:00 06/21/18 20:59 06/09/18 20:08 Polyethylene Glycol (Miralax) 17 gm DAILY PRN ORAL Constipation 05/28/18 19:15 06/27/18 19:14 05/28/18 20:48 Pregabalin (Lyrica) 75 mg Q12HR ORAL 05/22/18 09:00 06/21/18 08:59 06/10/18 09:26 Risperidone (RisperDAL) 2 mg BEDTIME ORAL 05/25/18 21:00 06/24/18 20:59 05/25/18 21:00 Thiamine HCl (Vitamin B1) 100 mg DAILY ORAL 05/22/18 09:00 06/21/18 08:59 06/07/18 10:06 Timolol Maleate (Timoptic 0.5% Op Soln) 1 drop TWICE A DAY BOTH EYES 05/22/18 10:00 06/21/18 09:59 06/10/18 09:24 Allergies: Coded Allergies: CEPHALEXIN (Verified Allergy, Unknown, 05/18/18) CEPHALOSPORINS (Verified Allergy, Unknown, 05/18/18) ERYTHROMYCIN BASE (Verified Allergy, Unknown, 05/18/18) GABAPENTIN (Verified Allergy, Unknown, 05/18/18) SHELLFISH DERIVED (Verified Allergy, Unknown, 05/22/18) ROS Limited/Unobtainable: No Constitutional: Reports: no symptoms HEENT: Reports: no symptoms Cardiovascular: Reports: no symptoms Respiratory: Reports: no symptoms Gastrointestinal/Abdominal: Reports: no symptoms Genitourinary: Reports: no symptoms Neurologic/Psychiatric: Reports: no symptoms Subjective 57 YO F admitted with vancomycin resistant enterococcus stool. Cover for Int Med-Dr Kraft. Await acceptance to SNF Objective Last Vital Signs Date Time Temp Pulse Resp B/P (MAP) Pulse Ox O2 Delivery O2 Flow Rate FiO2 06/10/18 16:01 98.0 80 20 140/98 (112) 99 06/10/18 09:00 Room Air Intake and Output 06/09/18 06/10/18 19:00 07:00 Intake Total 880 ml Balance 880 ml Intake Oral 880 ml # Voids 5 1 Objective General Appearance: WD/WN, no apparent distress, alert EENT: PERRL/EOMI, normal ENT inspection, TMs normal Neck: non-tender, normal alignment, supple, normal inspection Cardiovascular: normal peripheral pulses, normal rate, regular rhythm, no gallop/murmur, no JVD Respiratory/Chest: chest wall non-tender, lungs clear, normal breath sounds, no respiratory distress, no accessory muscle use Abdomen: normal bowel sounds, non tender, soft, no organomegaly, no mass Extremities: normal range of motion, non-tender 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 Info faxed to Sadi Goldman MD 5, 2019 16:58
--- NOTE | 2018-06-10 19:30 | NUR ---
NURSE NOTES: Received patient on bed sitting, no s/s of any distress. Bed in low position and locked, call light within reach, will continue to monitor.
--- NOTE | 2018-06-10 19:31 | NUR ---
HAND-OFF: Report given to PORSCHE Trujillo.
[2018-06-10] MEDS: Latanoprost 0.005% Opth 2.5ml Soln BOTH EYES SCH (20:48)
[2018-06-11] VITALS: BP 104/66
[2018-06-11] MEDS: HYDROcodone/Acetamin 10/325 tab ORAL PRN ×6 (02:21→23:40)
[2018-06-11 04:00] VITALS: BP 103/69
--- NOTE | 2018-06-11 07:05 | NUR ---
HAND-OFF: Report given to Ayush MORRELL.
--- NOTE | 2018-06-11 07:53 | NUR ---
Received patient from Ronnie MORRELL. patient in bed, alert, verbally responsive. No distress noted. low in bed. call light within reach. continue to monitor.
[2018-06-11 08:00] VITALS: BP 103/65
[2018-06-11] MEDS: Depakote ER 500mg tab ORAL SCH ×2 (09:00→20:20)
[2018-06-11] MEDS: Lyrica 75mg cap ORAL SCH ×3 (09:00→20:20)
[2018-06-11] MEDS: Thiamine 100mg tab ORAL SCH (09:00)
[2018-06-11] MEDS: Heparin 5000 units/ml inj SUBQ SCH ×2 (09:00→20:21)
[2018-06-11] MEDS: Timolol 0.5% Op Soln 2.5ml BOTH EYES SCH ×2 (10:57→18:00)
--- NOTE | 2018-06-11 11:05 | NUR ---
late given eye drops of Timoptic 0.5% d/t delayed delivery medications. Alphagan drops waiting for delivery. informed the patient and verbalized understanding.
[2018-06-11 12:00] VITALS: BP 108/68
[2018-06-11] MEDS: Brimonidine 0.2% Opth Sol BOTH EYES SCH ×2 (13:10→18:00)
--- NOTE | 2018-06-11 13:11 | Internal Med Progress Note ---
Subjective Date of Service: Jun 11, 2018 Physician Name Sadi Gaviria Attending Physician Niall Kraft MD Current Medications Medications (Trade) Dose Ordered Sig/Mejia Route PRN Reason Start Time Stop Time Status Last Admin Dose Admin Acetaminophen (Tylenol) 650 mg Q4H PRN ORAL MILD PAIN / T>100.5 05/22/18 07:15 06/21/18 07:14 06/11/18 04:01 Acetaminophen/ Hydrocodone Bitart ([place] 10/325) 1 tab Q4H PRN ORAL Severe Pain (Pain Scale 7-10) 06/05/18 10:30 06/12/18 10:29 06/11/18 10:58 Brimonidine Tartrate (Alphagan) 1 drop BID BOTH EYES 05/22/18 10:00 06/21/18 09:59 06/10/18 18:37 Divalproex Sodium (Depakote ER) 500 mg EVERY 12 HOURS ORAL 05/25/18 09:00 06/24/18 08:59 06/02/18 08:56 Folic Acid (Folate) 1 mg DAILY ORAL 05/22/18 09:00 06/21/18 08:59 06/07/18 10:06 Heparin Sodium (Porcine) (Heparin 5000 units/ml) 5,000 units EVERY 12 HOURS SUBQ 05/28/18 17:00 06/27/18 16:59 05/28/18 17:03 Latanoprost (Xalatan) 1 drop BEDTIME BOTH EYES 05/22/18 21:00 06/21/18 20:59 06/10/18 20:48 Polyethylene Glycol (Miralax) 17 gm DAILY PRN ORAL Constipation 05/28/18 19:15 06/27/18 19:14 05/28/18 20:48 Pregabalin (Lyrica) 75 mg Q12HR ORAL 05/22/18 09:00 06/21/18 08:59 06/10/18 20:48 Risperidone (RisperDAL) 2 mg BEDTIME ORAL 05/25/18 21:00 06/24/18 20:59 05/25/18 21:00 Thiamine HCl (Vitamin B1) 100 mg DAILY ORAL 05/22/18 09:00 06/21/18 08:59 06/07/18 10:06 Timolol Maleate (Timoptic 0.5% Op Soln) 1 drop TWICE A DAY BOTH EYES 05/22/18 10:00 06/21/18 09:59 06/11/18 10:57 Allergies: Coded Allergies: CEPHALEXIN (Verified Allergy, Unknown, 05/18/18) CEPHALOSPORINS (Verified Allergy, Unknown, 05/18/18) ERYTHROMYCIN BASE (Verified Allergy, Unknown, 05/18/18) GABAPENTIN (Verified Allergy, Unknown, 05/18/18) SHELLFISH DERIVED (Verified Allergy, Unknown, 05/22/18) ROS Limited/Unobtainable: No Constitutional: Reports: no symptoms HEENT: Reports: no symptoms Cardiovascular: Reports: no symptoms Respiratory: Reports: no symptoms Gastrointestinal/Abdominal: Reports: no symptoms Genitourinary: Reports: no symptoms Neurologic/Psychiatric: Reports: no symptoms Subjective 57 YO F admitted with vancomycin resistant enterococcus stool. Cover for Int Med-Dr Kraft. Await acceptance to SNF Objective Last Vital Signs Date Time Temp Pulse Resp B/P (MAP) Pulse Ox O2 Delivery O2 Flow Rate FiO2 06/11/18 12:00 97.7 71 20 108/68 (81) 98 06/11/18 09:00 Room Air Intake and Output 06/10/18 06/11/18 19:00 07:00 Intake Total 600 ml Balance 600 ml Intake Oral 600 ml # Voids 2 Objective General Appearance: WD/WN, no apparent distress, alert EENT: PERRL/EOMI, normal ENT inspection, TMs normal Neck: non-tender, normal alignment, supple, normal inspection Cardiovascular: normal peripheral pulses, normal rate, regular rhythm, no gallop/murmur, no JVD Respiratory/Chest: chest wall non-tender, lungs clear, normal breath sounds, no respiratory distress, no accessory muscle use Abdomen: normal bowel sounds, non tender, soft, no organomegaly, no mass Extremities: normal range of motion, non-tender 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 Assessment/Plan Discharge planning-Await acceptance to group home fac placement-see case management note. Info faxed to [facility] Sadi Gaviria MD Jun 11, 2018 13:11
--- NOTE | 2018-06-11 13:18 | NUR ---
late administer Alphagan on both eyes for glaucoma d/t late delivery.
--- NOTE | 2018-06-11 14:23 | NUR ---
CASE MANAGEMENT:REVIEW 06/11/18 SI: CELLULITIS 97.7 71 20 108/68 98% ON RA IS: NORCO PO Q4HRS HEPARIN SQ Q12 RISPERDAL PO QHS DEPAKOTE PO Q12 FOLATE PO QD LYRICA PO Q12 THIAMINE PO QD : MED/SURG STATUS 4 EAST DCP: TRYING TO FIND SNF PLACEMENT FOR THIS PATIENT. NO ACCEPTING FACILITY OF YET DISCUSSED WITH [facility] ON TUESDAY THAT [facility] NEEDS TO DO LETTER OF AGREEMENT WITH ANY ACCEPTING SNF
--- NOTE | 2018-06-11 14:30 | NUR ---
INSURANCE FAXED TO: [facility]THIKEYAN JENNIFFER T: [phone] F: [phone]
[2018-06-11 16:00] VITALS: BP 93/52
--- NOTE | 2018-06-11 19:13 | NUR ---
NURSE NOTES: Received patient on bed awak, no s/s of any distress. Bed in low position and locked, call light within reach, will continue to monitor.
--- NOTE | 2018-06-11 19:13 | NUR ---
HAND-OFF: Report given to Ronnie MORRELL.
[2018-06-11 20:00] VITALS: BP 115/73
[2018-06-11] MEDS: Latanoprost 0.005% Opth 2.5ml Soln BOTH EYES SCH (20:20)
[2018-06-12] VITALS: BP 98/52
[2018-06-12] MEDS: HYDROcodone/Acetamin 10/325 tab ORAL PRN ×5 (03:30→20:06)
[2018-06-12 04:00] VITALS: BP 99/54
--- NOTE | 2018-06-12 07:30 | NUR ---
HAND-OFF: Report given to Mili MORRELL.
[2018-06-12 08:00] VITALS: BP 115/76
--- NOTE | 2018-06-12 08:00 | NUR ---
NURSE NOTES: received patient awake, in bed, having breakfast, no complaint of pain or discomfort, no distress noted. Patient complained her breakfast came incomplete, reorder missed items. No IV access. Bed locked at the lowest position possible, call light within easy reach, siderails up x2. Will continue to monitor patient and follow up with the plan of care.
[2018-06-12] MEDS: Thiamine 100mg tab ORAL SCH (08:23)
[2018-06-12] MEDS: Lyrica 75mg cap ORAL SCH ×2 (08:25→21:45)
[2018-06-12] MEDS: Timolol 0.5% Op Soln 2.5ml BOTH EYES SCH ×2 (08:26→17:37)
[2018-06-12] MEDS: Depakote ER 500mg tab ORAL SCH ×2 (08:26→21:00)
[2018-06-12] MEDS: Brimonidine 0.2% Opth Sol BOTH EYES SCH ×2 (08:26→17:37)
[2018-06-12] MEDS: Heparin 5000 units/ml inj SUBQ SCH ×2 (09:00→21:00)
--- NOTE | 2018-06-12 10:37 | Infectious Diseases Prog Note ---
Assessment/Plan Assessment/Plan Assessment: REcent b/l cellulitis, resolved Afebrile Mild leukopenia paraplegia anemia neuralgia bipolar disorder FTT [place] resident VRE stool- THIS IS A COLONIZER Plan: -Monitor off abx -05/25 SP Bactrim #7 -05/20 SP IV Vancomycin #3 -OK TO DISCHARGE BACK TO [place], NO NEED FOR ISOLATION UPON DISCHARGE -f/u cx -Monitor CBC/CMP, temperatures Will continue to follow along with you. Subjective Allergies: Coded Allergies: CEPHALEXIN (Verified Allergy, Unknown, 05/18/18) CEPHALOSPORINS (Verified Allergy, Unknown, 05/18/18) ERYTHROMYCIN BASE (Verified Allergy, Unknown, 05/18/18) GABAPENTIN (Verified Allergy, Unknown, 05/18/18) SHELLFISH DERIVED (Verified Allergy, Unknown, 05/22/18) Subjective DUNCAN Afebrile Objective Vital Signs Last 24 Hour Vital Signs Date Time Temp Pulse Resp B/P (MAP) Pulse Ox O2 Delivery O2 Flow Rate FiO2 06/12/18 09:00 Room Air 06/12/18 08:55 97.7 06/12/18 08:04 97.7 06/12/18 08:00 97.9 78 18 115/76 (89) 100 06/12/18 04:00 61 18 99/54 (69) 100 06/12/18 00:00 97.7 70 18 98/52 (67) 100 06/11/18 21:00 Room Air 06/11/18 20:00 98.1 63 18 115/73 (87) 100 06/11/18 16:00 97.7 71 20 93/52 (66) 98 06/11/18 12:00 97.7 71 20 108/68 (81) 98 Height (Feet): 5 Height (Inches): 5.00 Weight (Pounds): 161 Objective GENERAL: NAD CHEST: CTAB, No W CARDIOVASCULAR: Regular rate. S1 and S2 normal EXTREMITIES: No edema or erythema Current Medications Medications (Trade) Dose Ordered Sig/Mejia Route PRN Reason Start Time Stop Time Status Last Admin Dose Admin Acetaminophen (Tylenol) 650 mg Q4H PRN ORAL MILD PAIN / T>100.5 05/22/18 07:15 06/21/18 07:14 06/11/18 04:01 Brimonidine Tartrate (Alphagan) 1 drop BID BOTH EYES 05/22/18 10:00 06/21/18 09:59 06/12/18 08:26 Divalproex Sodium (Depakote ER) 500 mg EVERY 12 HOURS ORAL 05/25/18 09:00 06/24/18 08:59 06/02/18 08:56 Folic Acid (Folate) 1 mg DAILY ORAL 05/22/18 09:00 06/21/18 08:59 06/12/18 08:23 Heparin Sodium (Porcine) (Heparin 5000 units/ml) 5,000 units EVERY 12 HOURS SUBQ 05/28/18 17:00 06/27/18 16:59 05/28/18 17:03 Latanoprost (Xalatan) 1 drop BEDTIME BOTH EYES 05/22/18 21:00 06/21/18 20:59 06/11/18 20:20 Polyethylene Glycol (Miralax) 17 gm DAILY PRN ORAL Constipation 05/28/18 19:15 06/27/18 19:14 05/28/18 20:48 Pregabalin (Lyrica) 75 mg Q12HR ORAL 05/22/18 09:00 06/21/18 08:59 06/12/18 08:25 Risperidone (RisperDAL) 2 mg BEDTIME ORAL 05/25/18 21:00 06/24/18 20:59 05/25/18 21:00 Thiamine HCl (Vitamin B1) 100 mg DAILY ORAL 05/22/18 09:00 06/21/18 08:59 06/12/18 08:23 Timolol Maleate (Timoptic 0.5% Op Soln) 1 drop TWICE A DAY BOTH EYES 05/22/18 10:00 06/21/18 09:59 06/12/18 08:26 Earl Lock MD Jun 12, 2018 10:37
--- NOTE | 2018-06-12 12:19 | General Progress Note ---
Assessment/Plan Problem List: (1) Bipolar disorder ICD Codes: F31.9 - Bipolar disorder, unspecified SNOMED: 03580257 Qualifiers: Assessment/Plan Risperdal 4mg po qhs Depakote 1000 po qhs provided ro/st awaiting placement Subjective Neurologic/Psychiatric: Reports: anxiety Allergies: Coded Allergies: CEPHALEXIN (Verified Allergy, Unknown, 05/18/18) CEPHALOSPORINS (Verified Allergy, Unknown, 05/18/18) ERYTHROMYCIN BASE (Verified Allergy, Unknown, 05/18/18) GABAPENTIN (Verified Allergy, Unknown, 05/18/18) SHELLFISH DERIVED (Verified Allergy, Unknown, 05/22/18) Subjective the pt is still uncooperative and agitated at times Objective Last 24 Hour Vital Signs Date Time Temp Pulse Resp B/P (MAP) Pulse Ox O2 Delivery O2 Flow Rate FiO2 06/12/18 09:00 Room Air 06/12/18 08:55 97.7 06/12/18 08:04 97.7 06/12/18 08:00 97.9 78 18 115/76 (89) 100 06/12/18 04:00 61 18 99/54 (69) 100 06/12/18 00:00 97.7 70 18 98/52 (67) 100 06/11/18 21:00 Room Air 06/11/18 20:00 98.1 63 18 115/73 (87) 100 06/11/18 16:00 97.7 71 20 93/52 (66) 98 Intake and Output 06/11/18 06/12/18 19:00 07:00 Intake Total 1280 ml Balance 1280 ml Intake Oral 1280 ml # Voids 6 2 # Bowel Movements 1 Height (Feet): 5 Height (Inches): 5.00 Weight (Pounds): 161 General Appearance: alert, agitated Jake Mcintyre MD Jun 12, 2018 12:19
--- NOTE | 2018-06-12 12:25 | NUR ---
CASE MANAGEMENT:REVIEW 06/12/18 SI: CELLULITIS 97.7 78 18 115/76 100% ON RA IS: NORCO PO Q4HRS HEPARIN SQ Q12 RISPERDAL PO QHS DEPAKOTE PO Q12 FOLATE PO QD LYRICA PO Q12 THIAMINE PO QD : MED/SURG STATUS 4 EAST DCP: TRYING TO FIND SNF PLACEMENT FOR THIS PATIENT. NO ACCEPTING FACILITY OF YET
--- NOTE | 2018-06-12 12:28 | NUR ---
DISCHARGE PLANNING CONTINUING TO SEEK ACCEPTING FACILITY
--- NOTE | 2018-06-12 12:43 | NUR ---
INSURANCE FAXED TO: [facility] KARTHIKEYAN JENNIFFER T: [phone] F: [phone]
--- NOTE | 2018-06-12 14:54 | NUR ---
DISCHARGE PLANNING PATIENT HAS BEEN REFERRED TO THE FOLLOWING FACILITIES. 1. [facility] P:[phone] F:[phone] 2. [facility] P:[phone] F:[phone] 3. [facility] P:[phone] F:[phone] 4.[facility] P:[phone] F:[phone] 5. [facility] P: [phone] F:[phone] 6. [facility] P:[phone] F:[phone] 7. [facility] P:[phone] F:[phone] 8. [facility] P:[phone] F:[phone] 9. [facility] P:[phone] F: [phone] 10. [facility] P:[phone] F: [phone]
[2018-06-12 16:00] VITALS: BP 113/72
--- NOTE | 2018-06-12 18:12 | Internal Med Progress Note ---
Subjective Date of Service: Jun 12, 2018 Physician Name Sadi Gaviria Attending Physician Niall Kraft MD Current Medications Medications (Trade) Dose Ordered Sig/Mejia Route PRN Reason Start Time Stop Time Status Last Admin Dose Admin Acetaminophen (Tylenol) 650 mg Q4H PRN ORAL MILD PAIN / T>100.5 05/22/18 07:15 06/21/18 07:14 06/11/18 04:01 Acetaminophen/ Hydrocodone Bitart ([place] 10/325) 1 tab Q4H PRN ORAL Severe Pain (Pain Scale 7-10) 06/12/18 11:45 06/19/18 11:44 06/12/18 16:03 Brimonidine Tartrate (Alphagan) 1 drop BID BOTH EYES 05/22/18 10:00 06/21/18 09:59 06/12/18 17:37 Divalproex Sodium (Depakote ER) 500 mg EVERY 12 HOURS ORAL 05/25/18 09:00 06/24/18 08:59 06/02/18 08:56 Folic Acid (Folate) 1 mg DAILY ORAL 05/22/18 09:00 06/21/18 08:59 06/12/18 08:23 Heparin Sodium (Porcine) (Heparin 5000 units/ml) 5,000 units EVERY 12 HOURS SUBQ 05/28/18 17:00 06/27/18 16:59 05/28/18 17:03 Latanoprost (Xalatan) 1 drop BEDTIME BOTH EYES 05/22/18 21:00 06/21/18 20:59 06/11/18 20:20 Polyethylene Glycol (Miralax) 17 gm DAILY PRN ORAL Constipation 05/28/18 19:15 06/27/18 19:14 05/28/18 20:48 Pregabalin (Lyrica) 75 mg Q12HR ORAL 05/22/18 09:00 06/21/18 08:59 06/12/18 08:25 Risperidone (RisperDAL) 2 mg BEDTIME ORAL 05/25/18 21:00 06/24/18 20:59 05/25/18 21:00 Thiamine HCl (Vitamin B1) 100 mg DAILY ORAL 05/22/18 09:00 06/21/18 08:59 06/12/18 08:23 Timolol Maleate (Timoptic 0.5% Op Soln) 1 drop TWICE A DAY BOTH EYES 05/22/18 10:00 06/21/18 09:59 06/12/18 17:37 Allergies: Coded Allergies: CEPHALEXIN (Verified Allergy, Unknown, 05/18/18) CEPHALOSPORINS (Verified Allergy, Unknown, 05/18/18) ERYTHROMYCIN BASE (Verified Allergy, Unknown, 05/18/18) GABAPENTIN (Verified Allergy, Unknown, 05/18/18) SHELLFISH DERIVED (Verified Allergy, Unknown, 05/22/18) ROS Limited/Unobtainable: No Constitutional: Reports: no symptoms HEENT: Reports: no symptoms Cardiovascular: Reports: no symptoms Respiratory: Reports: no symptoms Gastrointestinal/Abdominal: Reports: no symptoms Genitourinary: Reports: no symptoms Neurologic/Psychiatric: Reports: no symptoms Subjective 57 YO F admitted with vancomycin resistant enterococcus stool. Cover for Int Med-Dr Kraft. Await acceptance to SNF Objective Last Vital Signs Date Time Temp Pulse Resp B/P (MAP) Pulse Ox O2 Delivery O2 Flow Rate FiO2 06/12/18 16:33 97.7 06/12/18 16:00 68 18 113/72 (86) 100 06/12/18 09:00 Room Air Intake and Output 06/11/18 06/12/18 19:00 07:00 Intake Total 1280 ml Balance 1280 ml Intake Oral 1280 ml # Voids 6 2 # Bowel Movements 1 Objective General Appearance: WD/WN, no apparent distress, alert EENT: PERRL/EOMI, normal ENT inspection, TMs normal Neck: non-tender, normal alignment, supple, normal inspection Cardiovascular: normal peripheral pulses, normal rate, regular rhythm, no gallop/murmur, no JVD Respiratory/Chest: chest wall non-tender, lungs clear, normal breath sounds, no respiratory distress, no accessory muscle use Abdomen: normal bowel sounds, non tender, soft, no organomegaly, no mass Extremities: normal range of motion, non-tender 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 Assessment/Plan Discharge planning-Await acceptance to senior care fac placement-see case management note. Info faxed to [facility] Sadi Parry MD Jun 12, 2018 18:12
--- NOTE | 2018-06-12 19:05 | NUR ---
NURSE NOTES: Received a report from PORSCHE Garces. Pt is in stable condition. AAOX4. Able to make needs known. No respiratory distress noted. On room air. C/o pain on lower extremities, rated pain 9/10. Will give pain med once it's due. No IV access, doctors are aware. Bed in lowest position. Call light within reach. Will continue to monitor.
--- NOTE | 2018-06-12 19:21 | NUR ---
HAND-OFF: Report given to PORSCHE Mendoza.
[2018-06-12 20:00] VITALS: BP 114/68
[2018-06-12] MEDS: Latanoprost 0.005% Opth 2.5ml Soln BOTH EYES SCH (21:45)
[2018-06-13] VITALS: BP 105/68
[2018-06-13] MEDS: HYDROcodone/Acetamin 10/325 tab ORAL PRN ×5 (00:09→18:01)
[2018-06-13 04:00] VITALS: BP 111/67
--- NOTE | 2018-06-13 07:15 | NUR ---
HAND-OFF: Report given to PORSCHE Trinidad.
[2018-06-13 08:00] VITALS: BP 111/67
[2018-06-13] MEDS: Timolol 0.5% Op Soln 2.5ml BOTH EYES SCH ×2 (08:53→18:00)
[2018-06-13] MEDS: Thiamine 100mg tab ORAL SCH (08:53)
[2018-06-13] MEDS: Lyrica 75mg cap ORAL SCH ×2 (08:53→20:39)
[2018-06-13] MEDS: Heparin 5000 units/ml inj SUBQ SCH ×2 (08:54→20:33)
[2018-06-13] MEDS: Brimonidine 0.2% Opth Sol BOTH EYES SCH ×2 (08:54→18:00)
[2018-06-13] MEDS: Depakote ER 500mg tab ORAL SCH ×2 (08:54→20:33)
--- NOTE | 2018-06-13 10:25 | NUR ---
NURSE NOTES: PT AXOX4, CALM, RESTING IN BED, CALL LIGHT WITHIN REACH. PT STATES SHE HAS PAIN 10/10 AND REQUESTS FOR NORCO. RN ADMINISTERED NORCO ORDERED. PT DENIES SOB OR DIZZINESS. BED IN LOWEST POSITION WITH BEDSIDE RAILS X2 RAISED. IN NO APPARENT DISTRESS AT THIS TIME. WILL CONTINUE TO MONITOR.
--- NOTE | 2018-06-13 10:31 | Infectious Diseases Prog Note ---
Assessment/Plan Assessment/Plan Assessment: REcent b/l cellulitis, resolved Afebrile Mild leukopenia paraplegia anemia neuralgia bipolar disorder FTT CT resident VRE stool- THIS IS A COLONIZER Plan: -Monitor off abx as clinically -05/25 SP Bactrim #7 -05/20 SP IV Vancomycin #3 -OK TO DISCHARGE BACK TO CT, NO NEED FOR ISOLATION UPON DISCHARGE -Monitor CBC/CMP, temperatures Will continue to follow along with you. Subjective Allergies: Coded Allergies: CEPHALEXIN (Verified Allergy, Unknown, 05/18/18) CEPHALOSPORINS (Verified Allergy, Unknown, 05/18/18) ERYTHROMYCIN BASE (Verified Allergy, Unknown, 05/18/18) GABAPENTIN (Verified Allergy, Unknown, 05/18/18) SHELLFISH DERIVED (Verified Allergy, Unknown, 05/22/18) Subjective Afebrile Objective Vital Signs Last 24 Hour Vital Signs Date Time Temp Pulse Resp B/P (MAP) Pulse Ox O2 Delivery O2 Flow Rate FiO2 06/13/18 09:00 Room Air 06/13/18 08:00 97.6 81 18 111/67 (82) 100 06/13/18 04:00 98.0 65 18 111/67 (82) 100 06/13/18 00:00 97.0 65 18 105/68 (80) 100 06/12/18 22:15 97.6 06/12/18 21:00 Room Air 06/12/18 20:00 97.6 67 18 114/68 (83) 100 06/12/18 16:33 97.7 06/12/18 16:00 98.1 68 18 113/72 (86) 100 Height (Feet): 5 Height (Inches): 5.00 Weight (Pounds): 161 Objective GENERAL: Comfortable CHEST: CTAB, No W CARDIOVASCULAR: Regular rate. S1 and S2 normal EXTREMITIES: No edema or erythema Current Medications Medications (Trade) Dose Ordered Sig/Mejia Route PRN Reason Start Time Stop Time Status Last Admin Dose Admin Acetaminophen (Tylenol) 650 mg Q4H PRN ORAL MILD PAIN / T>100.5 05/22/18 07:15 06/21/18 07:14 06/11/18 04:01 Acetaminophen/ Hydrocodone Bitart ([place] 10/325) 1 tab Q4H PRN ORAL Severe Pain (Pain Scale 7-10) 06/12/18 11:45 06/19/18 11:44 06/13/18 08:53 Brimonidine Tartrate (Alphagan) 1 drop BID BOTH EYES 05/22/18 10:00 06/21/18 09:59 06/13/18 08:54 Divalproex Sodium (Depakote ER) 500 mg EVERY 12 HOURS ORAL 05/25/18 09:00 06/24/18 08:59 06/02/18 08:56 Folic Acid (Folate) 1 mg DAILY ORAL 05/22/18 09:00 06/21/18 08:59 06/13/18 08:53 Heparin Sodium (Porcine) (Heparin 5000 units/ml) 5,000 units EVERY 12 HOURS SUBQ 05/28/18 17:00 06/27/18 16:59 05/28/18 17:03 Ibuprofen (Motrin) 600 mg Q6H PRN ORAL Moderate Pain (Pain Scale 4-6) 06/12/18 19:00 07/12/18 18:59 Latanoprost (Xalatan) 1 drop BEDTIME BOTH EYES 05/22/18 21:00 06/21/18 20:59 06/12/18 21:45 Polyethylene Glycol (Miralax) 17 gm DAILY PRN ORAL Constipation 05/28/18 19:15 06/27/18 19:14 05/28/18 20:48 Pregabalin (Lyrica) 75 mg Q12HR ORAL 05/22/18 09:00 06/21/18 08:59 06/13/18 08:53 Risperidone (RisperDAL) 2 mg BEDTIME ORAL 05/25/18 21:00 06/24/18 20:59 05/25/18 21:00 Thiamine HCl (Vitamin B1) 100 mg DAILY ORAL 05/22/18 09:00 06/21/18 08:59 06/13/18 08:53 Timolol Maleate (Timoptic 0.5% Op Soln) 1 drop TWICE A DAY BOTH EYES 05/22/18 10:00 06/21/18 09:59 06/13/18 08:53 Earl Lock MD Jun 13, 2018 10:31
--- NOTE | 2018-06-13 11:51 | General Progress Note ---
Assessment/Plan Problem List: (1) Bipolar disorder ICD Codes: F31.9 - Bipolar disorder, unspecified SNOMED: 52359851 Qualifiers: Assessment/Plan Risperdal 4mg po qhs Depakote 1000 po qhs provided ro/st awaiting placement still wants to go to [facility] Subjective Neurologic/Psychiatric: Reports: anxiety, depressed, emotional problems Allergies: Coded Allergies: CEPHALEXIN (Verified Allergy, Unknown, 05/18/18) CEPHALOSPORINS (Verified Allergy, Unknown, 05/18/18) ERYTHROMYCIN BASE (Verified Allergy, Unknown, 05/18/18) GABAPENTIN (Verified Allergy, Unknown, 05/18/18) SHELLFISH DERIVED (Verified Allergy, Unknown, 05/22/18) Subjective the pt cont to refuse at times she refused meds yesterday Objective Last 24 Hour Vital Signs Date Time Temp Pulse Resp B/P (MAP) Pulse Ox O2 Delivery O2 Flow Rate FiO2 06/13/18 09:00 Room Air 06/13/18 08:00 97.6 81 18 111/67 (82) 100 06/13/18 04:00 98.0 65 18 111/67 (82) 100 06/13/18 00:00 97.0 65 18 105/68 (80) 100 06/12/18 22:15 97.6 06/12/18 21:00 Room Air 06/12/18 20:00 97.6 67 18 114/68 (83) 100 06/12/18 16:33 97.7 06/12/18 16:00 98.1 68 18 113/72 (86) 100 Intake and Output 06/12/18 06/13/18 19:00 07:00 Intake Total 1560 ml Balance 1560 ml Intake Oral 360 ml Other 1200 ml # Voids 4 Height (Feet): 5 Height (Inches): 5.00 Weight (Pounds): 161 General Appearance: no apparent distress, alert, agitated - at times Jake Mcintyre MD Jun 13, 2018 11:51
[2018-06-13 12:00] VITALS: BP 82/53
--- NOTE | 2018-06-13 14:46 | NUR ---
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 97.5 HR 71 RR 18 B/P 82/53 RA 98% IS: HEPARIN SUBC RISPERDAL PO DEPAKOTE PO THIAMINE PO MED/SURG STATUS
[2018-06-13 16:00] VITALS: BP 99/68
--- NOTE | 2018-06-13 18:01 | Internal Med Progress Note ---
Subjective Date of Service: Jun 13, 2018 Physician Name Sadi Gaviria Attending Physician Niall Kraft MD Current Medications Medications (Trade) Dose Ordered Sig/Mejia Route PRN Reason Start Time Stop Time Status Last Admin Dose Admin Acetaminophen (Tylenol) 650 mg Q4H PRN ORAL MILD PAIN / T>100.5 05/22/18 07:15 06/21/18 07:14 06/11/18 04:01 Acetaminophen/ Hydrocodone Bitart ([place] 10/325) 1 tab Q4H PRN ORAL Severe Pain (Pain Scale 7-10) 06/12/18 11:45 06/19/18 11:44 06/13/18 13:51 Brimonidine Tartrate (Alphagan) 1 drop BID BOTH EYES 05/22/18 10:00 06/21/18 09:59 06/13/18 08:54 Divalproex Sodium (Depakote ER) 500 mg EVERY 12 HOURS ORAL 05/25/18 09:00 06/24/18 08:59 06/02/18 08:56 Folic Acid (Folate) 1 mg DAILY ORAL 05/22/18 09:00 06/21/18 08:59 06/13/18 08:53 Heparin Sodium (Porcine) (Heparin 5000 units/ml) 5,000 units EVERY 12 HOURS SUBQ 05/28/18 17:00 06/27/18 16:59 05/28/18 17:03 Ibuprofen (Motrin) 600 mg Q6H PRN ORAL Moderate Pain (Pain Scale 4-6) 06/12/18 19:00 07/12/18 18:59 Latanoprost (Xalatan) 1 drop BEDTIME BOTH EYES 05/22/18 21:00 06/21/18 20:59 06/12/18 21:45 Polyethylene Glycol (Miralax) 17 gm DAILY PRN ORAL Constipation 05/28/18 19:15 06/27/18 19:14 05/28/18 20:48 Pregabalin (Lyrica) 75 mg Q12HR ORAL 05/22/18 09:00 06/21/18 08:59 06/13/18 08:53 Risperidone (RisperDAL) 2 mg BEDTIME ORAL 05/25/18 21:00 06/24/18 20:59 05/25/18 21:00 Thiamine HCl (Vitamin B1) 100 mg DAILY ORAL 05/22/18 09:00 06/21/18 08:59 06/13/18 08:53 Timolol Maleate (Timoptic 0.5% Op Soln) 1 drop TWICE A DAY BOTH EYES 05/22/18 10:00 06/21/18 09:59 06/13/18 08:53 Allergies: Coded Allergies: CEPHALEXIN (Verified Allergy, Unknown, 05/18/18) CEPHALOSPORINS (Verified Allergy, Unknown, 05/18/18) ERYTHROMYCIN BASE (Verified Allergy, Unknown, 05/18/18) GABAPENTIN (Verified Allergy, Unknown, 05/18/18) SHELLFISH DERIVED (Verified Allergy, Unknown, 05/22/18) ROS Limited/Unobtainable: No Constitutional: Reports: no symptoms HEENT: Reports: no symptoms Cardiovascular: Reports: no symptoms Respiratory: Reports: no symptoms Gastrointestinal/Abdominal: Reports: no symptoms Genitourinary: Reports: no symptoms Neurologic/Psychiatric: Reports: no symptoms Subjective 57 YO F admitted with vancomycin resistant enterococcus stool. Cover for Int Med-Dr Kraft. Await acceptance to [facility] Objective Last Vital Signs Date Time Temp Pulse Resp B/P (MAP) Pulse Ox O2 Delivery O2 Flow Rate FiO2 06/13/18 16:00 98.2 71 18 99/68 (78) 99 06/13/18 09:00 Room Air Intake and Output 06/12/18 06/13/18 19:00 07:00 Intake Total 1560 ml Balance 1560 ml Intake Oral 360 ml Other 1200 ml # Voids 4 Objective General Appearance: WD/WN, no apparent distress, alert EENT: PERRL/EOMI, normal ENT inspection, TMs normal Neck: non-tender, normal alignment, supple, normal inspection Cardiovascular: normal peripheral pulses, normal rate, regular rhythm, no gallop/murmur, no JVD Respiratory/Chest: chest wall non-tender, lungs clear, normal breath sounds, no respiratory distress, no accessory muscle use Abdomen: normal bowel sounds, non tender, soft, no organomegaly, no mass Extremities: normal range of motion, non-tender 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 Assessment/Plan Discharge planning-Await acceptance to halfway fac placement-see case management note. Sadi Gaviria MD Jun 13, 2018 18:01
--- NOTE | 2018-06-13 19:05 | NUR ---
HAND-OFF: Report given to Elisa OSEGUERA RN.
--- NOTE | 2018-06-13 19:10 | NUR ---
NURSE NOTES: Received a report from PORSCHE Trinidad. Pt is in stable condition. AAOX4. Able to make needs known. No respiratory distress noted. On room air. No c/o pain/discomfort. She is sitting in a chair. No IV access, doctors are aware. Call light within reach. Will continue to monitor.
--- NOTE | 2018-06-13 20:00 | NUR ---
NURSE NOTES: Pt refused 2000 V/S.
[2018-06-13] MEDS: Latanoprost 0.005% Opth 2.5ml Soln BOTH EYES SCH ×2 (20:40→20:45)
--- NOTE | 2018-06-13 21:15 | NUR ---
NURSE NOTES: Charge Nurse Dale made aware that the pt refused V/S and does not want to be bothered. Will continue to monitor.
--- NOTE | 2018-06-13 21:30 | NUR ---
NURSE NOTES: Pt is requesting for [place]. I told her that I need to check her V/S first because her previous BP was low. But, she still refused the V/S. Charge Nurse Dale Beltre made aware.
--- NOTE | 2018-06-14 | NUR ---
NURSE NOTES: Pt refused 0000 V/S.
--- NOTE | 2018-06-14 02:35 | NUR ---
NURSE NOTES: Pt is requesting for [place], rated pain: 9/10. Checked his BP, now it's 117/76, HR: 72. Will give pain med now.
[2018-06-14] MEDS: HYDROcodone/Acetamin 10/325 tab ORAL PRN ×5 (02:41→20:57)
[2018-06-14 04:00] VITALS: BP 135/96
--- NOTE | 2018-06-14 07:50 | NUR ---
HAND-OFF: Report given to PORSCHE Cruz.
[2018-06-14 08:00] VITALS: BP 123/67
--- NOTE | 2018-06-14 08:10 | NUR ---
NURSE NOTES: Patient awake no signs of distress. Able to make needs known. Bed side commode offered, with refusal. " I can transfer myself but I have to pull it out myself" " I do not take laxatives that will just make it soft" Call light currently in reach. Current plan of care will be followed
[2018-06-14] MEDS: Depakote ER 500mg tab ORAL SCH ×2 (09:00→21:00)
[2018-06-14] MEDS: Lyrica 75mg cap ORAL SCH ×2 (09:00→20:56)
[2018-06-14] MEDS: Thiamine 100mg tab ORAL SCH (09:00)
[2018-06-14] MEDS: Brimonidine 0.2% Opth Sol BOTH EYES SCH ×2 (09:40→17:50)
[2018-06-14] MEDS: Timolol 0.5% Op Soln 2.5ml BOTH EYES SCH ×2 (09:40→17:50)
[2018-06-14] MEDS: Heparin 5000 units/ml inj SUBQ SCH ×2 (09:41→09:55)
--- NOTE | 2018-06-14 10:04 | Infectious Diseases Prog Note ---
Assessment/Plan Assessment/Plan Assessment: Recent b/l cellulitis, resolved Afebrile Mild leukopenia paraplegia anemia neuralgia bipolar disorder FTT [place] resident VRE stool- THIS IS A COLONIZER Plan: -Monitor off abx -05/25 SP Bactrim #7 -05/20 SP IV Vancomycin #3 -OK TO DISCHARGE BACK TO [place], NO NEED FOR ISOLATION UPON DISCHARGE -Monitor CBC/CMP, temperatures Will continue to follow along with you. Subjective Allergies: Coded Allergies: CEPHALEXIN (Verified Allergy, Unknown, 05/18/18) CEPHALOSPORINS (Verified Allergy, Unknown, 05/18/18) ERYTHROMYCIN BASE (Verified Allergy, Unknown, 05/18/18) GABAPENTIN (Verified Allergy, Unknown, 05/18/18) SHELLFISH DERIVED (Verified Allergy, Unknown, 05/22/18) Subjective [place] Afebrile Objective Vital Signs Last 24 Hour Vital Signs Date Time Temp Pulse Resp B/P (MAP) Pulse Ox O2 Delivery O2 Flow Rate FiO2 06/14/18 04:00 97.5 65 17 135/96 (109) 99 06/13/18 21:00 Room Air 06/13/18 16:00 98.2 71 18 99/68 (78) 99 06/13/18 12:00 97.5 71 18 82/53 (63) 96 Height (Feet): 5 Height (Inches): 5.00 Weight (Pounds): 150 Objective GENERAL: Laying in bed CHEST: CTAB, No W CARDIOVASCULAR: Regular rate. S1 and S2 normal EXTREMITIES: No edema or erythema Current Medications Medications (Trade) Dose Ordered Sig/Mejia Route PRN Reason Start Time Stop Time Status Last Admin Dose Admin Acetaminophen (Tylenol) 650 mg Q4H PRN ORAL MILD PAIN / T>100.5 05/22/18 07:15 06/21/18 07:14 06/11/18 04:01 Acetaminophen/ Hydrocodone Bitart ([place] 10/325) 1 tab Q4H PRN ORAL Severe Pain (Pain Scale 7-10) 06/12/18 11:45 06/19/18 11:44 06/14/18 06:51 Brimonidine Tartrate (Alphagan) 1 drop BID BOTH EYES 05/22/18 10:00 06/21/18 09:59 06/14/18 09:40 Divalproex Sodium (Depakote ER) 500 mg EVERY 12 HOURS ORAL 05/25/18 09:00 06/24/18 08:59 06/02/18 08:56 Folic Acid (Folate) 1 mg DAILY ORAL 05/22/18 09:00 06/21/18 08:59 06/13/18 08:53 Heparin Sodium (Porcine) (Heparin 5000 units/ml) 5,000 units EVERY 12 HOURS SUBQ 05/28/18 17:00 06/27/18 16:59 06/14/18 09:41 Ibuprofen (Motrin) 600 mg Q6H PRN ORAL Moderate Pain (Pain Scale 4-6) 06/12/18 19:00 07/12/18 18:59 Latanoprost (Xalatan) 1 drop BEDTIME BOTH EYES 05/22/18 21:00 06/21/18 20:59 06/12/18 21:45 Polyethylene Glycol (Miralax) 17 gm DAILY PRN ORAL Constipation 05/28/18 19:15 06/27/18 19:14 05/28/18 20:48 Pregabalin (Lyrica) 75 mg Q12HR ORAL 05/22/18 09:00 06/21/18 08:59 06/13/18 20:39 Risperidone (RisperDAL) 2 mg BEDTIME ORAL 05/25/18 21:00 06/24/18 20:59 05/25/18 21:00 Thiamine HCl (Vitamin B1) 100 mg DAILY ORAL 05/22/18 09:00 06/21/18 08:59 06/13/18 08:53 Timolol Maleate (Timoptic 0.5% Op Soln) 1 drop TWICE A DAY BOTH EYES 05/22/18 10:00 06/21/18 09:59 06/14/18 09:40 Earl Lock MD Jun 14, 2018 10:04
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
--- NOTE | 2018-06-14 11:10 | NUR ---
CASE MANAGEMENT:REVIEW 06/14/18 SI: CELLULITIS 97.5 65 17 135/96 99% ON RA IS: NORCO PO Q4HRS PRN HEPARIN SQ Q12 RISPERDAL PO QHS DEPAKOTE PO Q12 FOLATE PO QD LYRICA PO Q12 : MED/SURG STATUS 4 [facility]
--- NOTE | 2018-06-14 11:19 | NUR ---
INSURANCE FAXED [facility] T: [phone] [id number] F: [phone]
--- NOTE | 2018-06-14 11:23 | NUR ---
DISCHARGE PLANNING LEFT MESSAGE FOR [facility]ALTH PLANS CHIP SEPARATOR REQUESTING IMMEDIATE ASSISTANCE WITH PLACEMENT SINCE WE HAVE TRIED OVER 50 FACILITIES [facility] IS WILLING TO DO LETTER OF AGREEMENT BUT [facility]ALTH [facility]AN FEELS THEY ARE ASKING TOO MUCH
--- NOTE | 2018-06-14 12:43 | Internal Med Progress Note ---
Subjective Date of Service: Jun 14, 2018 Physician Name Sadi Gaviria Attending Physician Niall Kraft MD Current Medications Medications (Trade) Dose Ordered Sig/Mejia Route PRN Reason Start Time Stop Time Status Last Admin Dose Admin Acetaminophen (Tylenol) 650 mg Q4H PRN ORAL MILD PAIN / T>100.5 05/22/18 07:15 06/21/18 07:14 06/11/18 04:01 Acetaminophen/ Hydrocodone Bitart ([place] 10/325) 1 tab Q4H PRN ORAL Severe Pain (Pain Scale 7-10) 06/12/18 11:45 06/19/18 11:44 06/14/18 10:57 Brimonidine Tartrate (Alphagan) 1 drop BID BOTH EYES 05/22/18 10:00 06/21/18 09:59 06/14/18 09:40 Divalproex Sodium (Depakote ER) 500 mg EVERY 12 HOURS ORAL 05/25/18 09:00 06/24/18 08:59 06/02/18 08:56 Folic Acid (Folate) 1 mg DAILY ORAL 05/22/18 09:00 06/21/18 08:59 06/14/18 09:00 Heparin Sodium (Porcine) (Heparin 5000 units/ml) 5,000 units EVERY 12 HOURS SUBQ 05/28/18 17:00 06/27/18 16:59 06/14/18 09:41 Ibuprofen (Motrin) 600 mg Q6H PRN ORAL Moderate Pain (Pain Scale 4-6) 06/12/18 19:00 07/12/18 18:59 Latanoprost (Xalatan) 1 drop BEDTIME BOTH EYES 05/22/18 21:00 06/21/18 20:59 06/12/18 21:45 Polyethylene Glycol (Miralax) 17 gm DAILY PRN ORAL Constipation 05/28/18 19:15 06/27/18 19:14 05/28/18 20:48 Pregabalin (Lyrica) 75 mg Q12HR ORAL 05/22/18 09:00 06/21/18 08:59 06/14/18 09:00 Risperidone (RisperDAL) 2 mg BEDTIME ORAL 05/25/18 21:00 06/24/18 20:59 05/25/18 21:00 Thiamine HCl (Vitamin B1) 100 mg DAILY ORAL 05/22/18 09:00 06/21/18 08:59 06/14/18 09:00 Timolol Maleate (Timoptic 0.5% Op Soln) 1 drop TWICE A DAY BOTH EYES 05/22/18 10:00 06/21/18 09:59 06/14/18 09:40 Allergies: Coded Allergies: CEPHALEXIN (Verified Allergy, Unknown, 05/18/18) CEPHALOSPORINS (Verified Allergy, Unknown, 05/18/18) ERYTHROMYCIN BASE (Verified Allergy, Unknown, 05/18/18) GABAPENTIN (Verified Allergy, Unknown, 05/18/18) SHELLFISH DERIVED (Verified Allergy, Unknown, 05/22/18) ROS Limited/Unobtainable: No Constitutional: Reports: no symptoms HEENT: Reports: no symptoms Cardiovascular: Reports: no symptoms Respiratory: Reports: no symptoms Gastrointestinal/Abdominal: Reports: no symptoms Genitourinary: Reports: no symptoms Neurologic/Psychiatric: Reports: no symptoms Subjective 57 YO F admitted with vancomycin resistant enterococcus stool. Cover for Int Med-Dr Kraft. Await acceptance to [facility] Objective Last Vital Signs Date Time Temp Pulse Resp B/P (MAP) Pulse Ox O2 Delivery O2 Flow Rate FiO2 06/14/18 04:00 97.5 65 17 135/96 (109) 99 06/13/18 21:00 Room Air Intake and Output 06/13/18 06/14/18 18:59 06:59 Intake Total 937 ml Balance 937 ml Intake Oral 937 ml # Voids 5 5 # Bowel Movements 2 Objective General Appearance: WD/WN, no apparent distress, alert EENT: PERRL/EOMI, normal ENT inspection, TMs normal Neck: non-tender, normal alignment, supple, normal inspection Cardiovascular: normal peripheral pulses, normal rate, regular rhythm, no gallop/murmur, no JVD Respiratory/Chest: chest wall non-tender, lungs clear, normal breath sounds, no respiratory distress, no accessory muscle use Abdomen: normal bowel sounds, non tender, soft, no organomegaly, no mass Extremities: normal range of motion, non-tender 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 Status: stable Assessment/Plan Discharge planning-Await acceptance to correction fac placement-see case management note. Sadi Gaviria MD Jun 14, 2018 12:43
--- NOTE | 2018-06-14 15:03 | NUR ---
RD ASSESSMENT & RECOMMENDATIONS SEE CARE ACTIVITY FOR COMPLETE ASSESSMENT DAILY ESTIMATED NEEDS: Needs based on Paraplegia, 68kg 28-30 kcals/kg 1384-9288 total kcals 1-1.5 g protein/kg 68-102 g total protein 25-30 mL/kg 1571-0044 total fluid mLs NUTRITION DIAGNOSIS: Altered GI function R/T constipation as evidenced by pt c/o conspitation, no BM x 5 days. (INACTIVE) CURRENT DIET:Regular PO DIET RECOMMENDATIONS: REGULAR, HIGH FIBER ADDITIONAL RECOMMENDATIONS: * Calibrated bedscale wt for accurate CBW * Prunes TID, Prune Juice TID * Daily bowel regimen * Weekly weights -> pt w/ extended admission * UPDATED labs as able
[2018-06-14 16:00] VITALS: BP 97/57
--- NOTE | 2018-06-14 17:09 | NUR ---
DISCHARGE PLANNING CURRENTLY SEEKING PLACEMENT, PATIENT HAS BEEN REFERRED TO THE FOLLOWING FACILITIES. 1. [facility] P:[phone] F: [phone] 2.[facility] P:[phone] F:[phone] 3. [facility] P:[phone] F:[phone] 4. [facility] P;[phone] F: [phone] 5. [facility] P:[phone] F:[phone] 6. [facility] P:[phone] F:[phone] 7. [facility] P;[phone] F:[phone] 8. [facility] P:[phone] F:[phone] 9.[facility] P:[phone] F:[phone] 10. [facility] P:[phone] F: [phone]
--- NOTE | 2018-06-14 19:05 | NUR ---
NURSE NOTES: Patient able to verbalize know needs , does require redirection for abrupt outburst. Pt has a demanding personality, at times cursing at underwriter mortgage loan. Area is unkept yet pt is obsessive with small pieces of paper or stains omn the floor. Pt requested underwriter mortgage loan to tie a string to light. at that time pt pointed to the floor those stickers have been on the the floor for weeks and I know everyone sees them, and no one picks them up' Foundry Supervisor picked up leads that were pressed against the wall underneath bed ones bed. Refused Depakote as well as Heparin " I am not a nut so why Do I need pills for a nut" Benefits explained. : i know what I am doing , when I am doing it" Current plan of care will be followed
--- NOTE | 2018-06-14 19:30 | NUR ---
NURSE NOTES: Received patient in bed sleeping arousable to verbal stimuli. Complaining of pain. Will give pain medication as ordered. Bed in lowest position and locked. Call light within reach. Will continue to monitor.
[2018-06-14 20:00] VITALS: BP 101/57
--- NOTE | 2018-06-14 20:00 | NUR ---
NURSE NOTES: Patient sleeping withno acute signs of distress. GT running Glucerna 1.2 50cc/hr. IV site dressing dry and intact with no signs of irritation. Patient on venturi mask with 6 Liter of oxygen. 2 siderails up, bed alarm on, call light within reach. Addendum: 06/14/18 at 2040 by Melina Chaves RN Note typed out under wrong patient. Please disregard above note.
--- NOTE | 2018-06-14 20:13 | NUR ---
HAND-OFF: Report given to Malcolm Corbett RN.
[2018-06-14] MEDS: Latanoprost 0.005% Opth 2.5ml Soln BOTH EYES SCH (20:55)
--- NOTE | 2018-06-14 22:52 | General Progress Note ---
Assessment/Plan Problem List: (1) Bipolar disorder ICD Codes: F31.9 - Bipolar disorder, unspecified SNOMED: 56069125 Qualifiers: Assessment/Plan Risperdal 4mg po qhs Depakote 1000 po qhs provided ro/st awaiting placement still wants to go to [facility] Subjective Neurologic/Psychiatric: Reports: anxiety, depressed, emotional problems Allergies: Coded Allergies: CEPHALEXIN (Verified Allergy, Unknown, 05/18/18) CEPHALOSPORINS (Verified Allergy, Unknown, 05/18/18) ERYTHROMYCIN BASE (Verified Allergy, Unknown, 05/18/18) GABAPENTIN (Verified Allergy, Unknown, 05/18/18) SHELLFISH DERIVED (Verified Allergy, Unknown, 05/22/18) Objective Last 24 Hour Vital Signs Date Time Temp Pulse Resp B/P (MAP) Pulse Ox O2 Delivery O2 Flow Rate FiO2 06/14/18 21:00 Room Air 06/14/18 20:00 97.8 73 18 101/57 (72) 98 06/14/18 16:00 97.8 72 18 97/57 (70) 100 06/14/18 09:00 Room Air 06/14/18 08:00 97.6 69 19 123/67 (85) 97 06/14/18 04:00 97.5 65 17 135/96 (109) 99 Intake and Output 06/13/18 06/14/18 19:00 07:00 Intake Total 937 ml Balance 937 ml Intake Oral 937 ml # Voids 5 5 # Bowel Movements 2 Height (Feet): 5 Height (Inches): 5.00 Weight (Pounds): 150 General Appearance: no apparent distress, alert Neurologic: oriented x 3, responsive, depressed affect Jake Mcintyre MD Jun 14, 2018 22:52
[2018-06-15] VITALS: BP 99/53
[2018-06-15 04:00] VITALS: BP 104/66
[2018-06-15] MEDS: HYDROcodone/Acetamin 10/325 tab ORAL PRN ×4 (06:48→21:45)
--- NOTE | 2018-06-15 07:19 | NUR ---
HAND-OFF: Report given to PORSCHE Whalen. Patient awake in no distress. Pain medication given. Patient having breakfast.
[2018-06-15 08:00] VITALS: BP 146/56
--- NOTE | 2018-06-15 08:02 | NUR ---
NURSE NOTES: Patient c/o morning breakfast dietary call ed for a substitute. " They send me the same shit" " Pt noted speaking to dietary digital media planner yesterday. Mood varies from friendly to belligerent. Current plan of care will be followed. Per report of outgoing nurse pt disimpacted self. Call light is in reach
[2018-06-15] MEDS: Depakote ER 500mg tab ORAL SCH ×2 (09:00→21:00)
[2018-06-15] MEDS: Heparin 5000 units/ml inj SUBQ SCH ×2 (09:00→21:00)
--- NOTE | 2018-06-15 09:37 | Infectious Diseases Prog Note ---
Assessment/Plan Assessment/Plan Assessment: Recent b/l cellulitis, resolved Afebrile Mild leukopenia paraplegia anemia neuralgia bipolar disorder [place]TT [place] resident VRE stool- THIS IS A COLONIZER Plan: -Continue to Monitor off abx -05/25 SP Bactrim #7 -05/20 SP IV Vancomycin #3 -OK TO DISCHARGE BACK TO [place], NO NEED FOR ISOLATION UPON DISCHARGE -Monitor CBC/CMP, temperatures Will continue to follow along with you. Subjective Allergies: Coded Allergies: CEPHALEXIN (Verified Allergy, Unknown, 05/18/18) CEPHALOSPORINS (Verified Allergy, Unknown, 05/18/18) ERYTHROMYCIN BASE (Verified Allergy, Unknown, 05/18/18) GABAPENTIN (Verified Allergy, Unknown, 05/18/18) SHELLFISH DERIVED (Verified Allergy, Unknown, 05/22/18) Subjective Afebrile Objective Vital Signs Last 24 Hour Vital Signs Date Time Temp Pulse Resp B/P (MAP) Pulse Ox O2 Delivery O2 Flow Rate FiO2 06/15/18 04:00 97.1 62 19 104/66 (79) 100 06/15/18 00:00 97.3 61 18 99/53 (68) 98 06/14/18 21:00 Room Air 06/14/18 20:00 97.8 73 18 101/57 (72) 98 06/14/18 16:00 97.8 72 18 97/57 (70) 100 Height (Feet): 5 Height (Inches): 5.00 Weight (Pounds): 150 Objective GENERAL:NAD CHEST: CTAB, No Wheezing CARDIOVASCULAR: Regular rate. S1 and S2 normal EXTREMITIES: No edema or erythema Current Medications Medications (Trade) Dose Ordered Sig/Mejia Route PRN Reason Start Time Stop Time Status Last Admin Dose Admin Acetaminophen (Tylenol) 650 mg Q4H PRN ORAL MILD PAIN / T>100.5 05/22/18 07:15 06/21/18 07:14 06/11/18 04:01 Acetaminophen/ Hydrocodone Bitart ([place] 10/325) 1 tab Q4H PRN ORAL Severe Pain (Pain Scale 7-10) 06/12/18 11:45 06/19/18 11:44 06/15/18 06:48 Brimonidine Tartrate (Alphagan) 1 drop BID BOTH EYES 05/22/18 10:00 06/21/18 09:59 06/14/18 17:50 Divalproex Sodium (Depakote ER) 500 mg EVERY 12 HOURS ORAL 05/25/18 09:00 06/24/18 08:59 06/02/18 08:56 Folic Acid (Folate) 1 mg DAILY ORAL 05/22/18 09:00 06/21/18 08:59 06/14/18 09:00 Heparin Sodium (Porcine) (Heparin 5000 units/ml) 5,000 units EVERY 12 HOURS SUBQ 05/28/18 17:00 06/27/18 16:59 06/14/18 09:41 Ibuprofen (Motrin) 600 mg Q6H PRN ORAL Moderate Pain (Pain Scale 4-6) 06/12/18 19:00 07/12/18 18:59 Latanoprost (Xalatan) 1 drop BEDTIME BOTH EYES 05/22/18 21:00 06/21/18 20:59 06/14/18 20:55 Polyethylene Glycol (Miralax) 17 gm DAILY PRN ORAL Constipation 05/28/18 19:15 06/27/18 19:14 05/28/18 20:48 Pregabalin (Lyrica) 75 mg Q12HR ORAL 05/22/18 09:00 06/21/18 08:59 06/14/18 20:56 Risperidone (RisperDAL) 2 mg BEDTIME ORAL 05/25/18 21:00 06/24/18 20:59 05/25/18 21:00 Thiamine HCl (Vitamin B1) 100 mg DAILY ORAL 05/22/18 09:00 06/21/18 08:59 06/14/18 09:00 Timolol Maleate (Timoptic 0.5% Op Soln) 1 drop TWICE A DAY BOTH EYES 05/22/18 10:00 06/21/18 09:59 06/14/18 17:50 Earl Lock MD Jun 15, 2018 09:37
[2018-06-15] MEDS: Thiamine 100mg tab ORAL SCH (10:01)
[2018-06-15] MEDS: Lyrica 75mg cap ORAL SCH ×2 (10:03→21:44)
[2018-06-15] MEDS: Timolol 0.5% Op Soln 2.5ml BOTH EYES SCH ×2 (10:04→17:21)
[2018-06-15] MEDS: Brimonidine 0.2% Opth Sol BOTH EYES SCH ×2 (10:04→17:21)
[2018-06-15 12:00] VITALS: BP 148/68
[2018-06-15 16:00] VITALS: BP 137/92
--- NOTE | 2018-06-15 18:04 | Internal Med Progress Note ---
Subjective Date of Service: Jun 15, 2018 Physician Name Sadi Gaviria Attending Physician Niall Kraft MD Current Medications Medications (Trade) Dose Ordered Sig/Mejia Route PRN Reason Start Time Stop Time Status Last Admin Dose Admin Acetaminophen (Tylenol) 650 mg Q4H PRN ORAL MILD PAIN / T>100.5 05/22/18 07:15 06/21/18 07:14 06/11/18 04:01 Acetaminophen/ Hydrocodone Bitart ([place] 10/325) 1 tab Q4H PRN ORAL Severe Pain (Pain Scale 7-10) 06/12/18 11:45 06/19/18 11:44 06/15/18 17:21 Brimonidine Tartrate (Alphagan) 1 drop BID BOTH EYES 05/22/18 10:00 06/21/18 09:59 06/15/18 17:21 Divalproex Sodium (Depakote ER) 500 mg EVERY 12 HOURS ORAL 05/25/18 09:00 06/24/18 08:59 06/02/18 08:56 Folic Acid (Folate) 1 mg DAILY ORAL 05/22/18 09:00 06/21/18 08:59 06/14/18 09:00 Heparin Sodium (Porcine) (Heparin 5000 units/ml) 5,000 units EVERY 12 HOURS SUBQ 05/28/18 17:00 06/27/18 16:59 06/14/18 09:41 Ibuprofen (Motrin) 600 mg Q6H PRN ORAL Moderate Pain (Pain Scale 4-6) 06/12/18 19:00 07/12/18 18:59 Latanoprost (Xalatan) 1 drop BEDTIME BOTH EYES 05/22/18 21:00 06/21/18 20:59 06/14/18 20:55 Polyethylene Glycol (Miralax) 17 gm DAILY PRN ORAL Constipation 05/28/18 19:15 06/27/18 19:14 05/28/18 20:48 Pregabalin (Lyrica) 75 mg Q12HR ORAL 05/22/18 09:00 06/21/18 08:59 06/15/18 10:03 Risperidone (RisperDAL) 2 mg BEDTIME ORAL 05/25/18 21:00 06/24/18 20:59 05/25/18 21:00 Thiamine HCl (Vitamin B1) 100 mg DAILY ORAL 05/22/18 09:00 06/21/18 08:59 06/15/18 10:01 Timolol Maleate (Timoptic 0.5% Op Soln) 1 drop TWICE A DAY BOTH EYES 05/22/18 10:00 06/21/18 09:59 06/15/18 17:21 Allergies: Coded Allergies: CEPHALEXIN (Verified Allergy, Unknown, 05/18/18) CEPHALOSPORINS (Verified Allergy, Unknown, 05/18/18) ERYTHROMYCIN BASE (Verified Allergy, Unknown, 05/18/18) GABAPENTIN (Verified Allergy, Unknown, 05/18/18) SHELLFISH DERIVED (Verified Allergy, Unknown, 05/22/18) ROS Limited/Unobtainable: No Constitutional: Reports: no symptoms HEENT: Reports: no symptoms Cardiovascular: Reports: no symptoms Respiratory: Reports: no symptoms Gastrointestinal/Abdominal: Reports: no symptoms Genitourinary: Reports: no symptoms Subjective 57 YO F admitted with vancomycin resistant enterococcus stool. Cover for Int Med-Dr Kraft. Await acceptance to [facility] Objective Last Vital Signs Date Time Temp Pulse Resp B/P (MAP) Pulse Ox O2 Delivery O2 Flow Rate FiO2 06/15/18 16:00 97.9 86 16 137/92 (107) 94 06/15/18 09:00 Room Air Intake and Output 06/14/18 06/15/18 18:59 06:59 Intake Total 1500 ml Balance 1500 ml Intake Oral 300 ml Other 1200 ml # Voids 3 Objective General Appearance: WD/WN, no apparent distress, alert EENT: PERRL/EOMI, normal ENT inspection, TMs normal Neck: non-tender, normal alignment, supple, normal inspection Cardiovascular: normal peripheral pulses, normal rate, regular rhythm, no gallop/murmur, no JVD Respiratory/Chest: chest wall non-tender, lungs clear, normal breath sounds, no respiratory distress, no accessory muscle use Abdomen: normal bowel sounds, non tender, soft, no organomegaly, no mass Extremities: normal range of motion, non-tender Neurologic: associate product manager II-XII grossly normal, no motor/sensory deficits Skin: normal pigmentation, warm/dry Assessment/Plan Problem List: (1) Glaucoma Assessment & Plan: Continue xalatan, alphagan and timoptic (2) Cellulitis Assessment & Plan: Continue bactrim (3) Bipolar disorder (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 Assessment/Plan Discharge planning-Await acceptance to [facility]-see case management note. Sadi Gaviria MD Jun 15, 2018 18:04
--- NOTE | 2018-06-15 19:45 | NUR ---
NURSE NOTES: Received report from PORCSHE Cruz. A&Ox4, on room air. No signs of distress or labored breathing. No IV access, MD aware. In stable condition. Bed in lowest position with call light in reach. Will continue to monitor.
--- NOTE | 2018-06-15 19:56 | NUR ---
NURSE NOTES: Patient informed that continuity writer would assist her with her needs. " I am not in a hernandez I just want my sheets, changed" Roughly ten minutes later pt began yelling for continuity writer to come to the room and began throwing all the items from the overhead table on to the floor. Grabed the pitcher as if she was going to throw the pitcher to the floor. Py threw all of the bed linens onto the floor as well. continuity writer began to assist the pt. At that time she began pointing out miniscule pieces objects and directing continuity writer to pick them up. Pt then ordered continuity writer to fix her bed and repeatedly requested to remake the bed because the lines in the comforter where not straight. " I aint crazy I will call any mother fucker I want to when I want shit done. If I call to the supervisor loading or my sister to ronda this motherfucking place " pt had to be deescalated. for outburst and cursing. Refused depakote as she refused yesterday.
[2018-06-15 20:00] VITALS: BP 100/67
--- NOTE | 2018-06-15 20:08 | NUR ---
NURSE NOTES: Dr Jorge made aware of bx and refusal of psychotropic meds
--- NOTE | 2018-06-15 20:09 | NUR ---
HAND-OFF: Report given to .Angelina Trotter RN
[2018-06-15] MEDS: Latanoprost 0.005% Opth 2.5ml Soln BOTH EYES SCH (21:53)
--- NOTE | 2018-06-15 23:21 | General Progress Note ---
Assessment/Plan Problem List: (1) Bipolar disorder ICD Codes: F31.9 - Bipolar disorder, unspecified SNOMED: 50439344 Qualifiers: Assessment/Plan Risperdal 4mg po qhs Depakote 1000 po qhs provided ro/st awaiting placement still wants to go to [facility] Subjective Neurologic/Psychiatric: Reports: anxiety, depressed, emotional problems Allergies: Coded Allergies: CEPHALEXIN (Verified Allergy, Unknown, 05/18/18) CEPHALOSPORINS (Verified Allergy, Unknown, 05/18/18) ERYTHROMYCIN BASE (Verified Allergy, Unknown, 05/18/18) GABAPENTIN (Verified Allergy, Unknown, 05/18/18) SHELLFISH DERIVED (Verified Allergy, Unknown, 05/22/18) Objective Last 24 Hour Vital Signs Date Time Temp Pulse Resp B/P (MAP) Pulse Ox O2 Delivery O2 Flow Rate FiO2 06/15/18 16:00 97.9 86 16 137/92 (107) 94 06/15/18 12:00 82 18 148/68 (94) 100 06/15/18 09:00 Room Air 06/15/18 08:00 97.0 75 16 146/56 (86) 99 06/15/18 04:00 97.1 62 19 104/66 (79) 100 06/15/18 00:00 97.3 61 18 99/53 (68) 98 Intake and Output 06/14/18 06/15/18 19:00 07:00 Intake Total 1200 ml 300 ml Balance 1200 ml 300 ml Intake Oral 300 ml Other 1200 ml # Voids 3 Height (Feet): 5 Height (Inches): 5.00 Weight (Pounds): 150 General Appearance: no apparent distress, alert Neurologic: oriented x 3, responsive, depressed affect Jake Mcintyre MD Jun 15, 2018 23:21
[2018-06-16] VITALS: BP 111/67
[2018-06-16] MEDS: HYDROcodone/Acetamin 10/325 tab ORAL PRN ×5 (01:52→22:53)
[2018-06-16 04:00] VITALS: BP 131/77
--- NOTE | 2018-06-16 07:30 | NUR ---
NURSE NOTES: Pt called typewriter ribbon winder to room at start of shift complaining about her breakfast" I asked for 3 senegalese toast , 2 boil eggs, cream of wheat, look at this shit' Dietary phoned in regards to pt concern. Bx unable to distract, began yelling, at typewriter ribbon winder despite the fact that typewriter ribbon winder informed that dietary would be contacted
--- NOTE | 2018-06-16 07:53 | NUR ---
HAND-OFF: Report given to PORSCHE Cruz.
[2018-06-16 08:00] VITALS: BP 142/82
[2018-06-16] MEDS: Heparin 5000 units/ml inj SUBQ SCH ×2 (09:00→21:00)
[2018-06-16] MEDS: Depakote ER 500mg tab ORAL SCH ×2 (09:00→21:00)
[2018-06-16] MEDS: Lyrica 75mg cap ORAL SCH ×2 (09:00→22:42)
--- NOTE | 2018-06-16 09:30 | Infectious Diseases Prog Note ---
Assessment/Plan Assessment/Plan Assessment: Recent b/l cellulitis, resolved Afebrile Mild leukopenia paraplegia anemia neuralgia bipolar disorder [place]TT [place] resident VRE stool- THIS IS A COLONIZER Plan: - Monitor off abx -05/25 SP Bactrim #7 -05/20 SP IV Vancomycin #3 -OK TO DISCHARGE BACK TO [place], NO NEED FOR ISOLATION UPON DISCHARGE -Monitor CBC/CMP, temperatures Will continue to follow along with you. Subjective Allergies: Coded Allergies: CEPHALEXIN (Verified Allergy, Unknown, 05/18/18) CEPHALOSPORINS (Verified Allergy, Unknown, 05/18/18) ERYTHROMYCIN BASE (Verified Allergy, Unknown, 05/18/18) GABAPENTIN (Verified Allergy, Unknown, 05/18/18) SHELLFISH DERIVED (Verified Allergy, Unknown, 05/22/18) Subjective Patient comfortable Objective Vital Signs Last 24 Hour Vital Signs Date Time Temp Pulse Resp B/P (MAP) Pulse Ox O2 Delivery O2 Flow Rate FiO2 06/16/18 04:00 97.5 64 18 131/77 (95) 99 06/16/18 00:00 97.6 60 18 111/67 (82) 91 06/15/18 21:00 Room Air 06/15/18 20:00 97.8 66 18 100/67 (78) 94 06/15/18 16:00 97.9 86 16 137/92 (107) 94 06/15/18 12:00 82 18 148/68 (94) 100 Height (Feet): 5 Height (Inches): 5.00 Weight (Pounds): 150 Objective GENERAL:NAD, Laying in bed CHEST: CTAB, No Wheezing CARDIOVASCULAR: Regular rate. S1 and S2 normal EXTREMITIES: No edema or erythema Current Medications Medications (Trade) Dose Ordered Sig/Mejia Route PRN Reason Start Time Stop Time Status Last Admin Dose Admin Acetaminophen (Tylenol) 650 mg Q4H PRN ORAL MILD PAIN / T>100.5 05/22/18 07:15 06/21/18 07:14 06/11/18 04:01 Acetaminophen/ Hydrocodone Bitart ([place] 10/325) 1 tab Q4H PRN ORAL Severe Pain (Pain Scale 7-10) 06/12/18 11:45 06/19/18 11:44 06/16/18 06:31 Brimonidine Tartrate (Alphagan) 1 drop BID BOTH EYES 05/22/18 10:00 06/21/18 09:59 06/15/18 17:21 Divalproex Sodium (Depakote ER) 500 mg EVERY 12 HOURS ORAL 05/25/18 09:00 06/24/18 08:59 06/02/18 08:56 Folic Acid (Folate) 1 mg DAILY ORAL 05/22/18 09:00 06/21/18 08:59 06/14/18 09:00 Heparin Sodium (Porcine) (Heparin 5000 units/ml) 5,000 units EVERY 12 HOURS SUBQ 05/28/18 17:00 06/27/18 16:59 06/14/18 09:41 Ibuprofen (Motrin) 600 mg Q6H PRN ORAL Moderate Pain (Pain Scale 4-6) 06/12/18 19:00 07/12/18 18:59 Latanoprost (Xalatan) 1 drop BEDTIME BOTH EYES 05/22/18 21:00 06/21/18 20:59 06/15/18 21:53 Polyethylene Glycol (Miralax) 17 gm DAILY PRN ORAL Constipation 05/28/18 19:15 06/27/18 19:14 05/28/18 20:48 Pregabalin (Lyrica) 75 mg Q12HR ORAL 05/22/18 09:00 06/21/18 08:59 06/15/18 21:44 Risperidone (RisperDAL) 2 mg BEDTIME ORAL 05/25/18 21:00 06/24/18 20:59 05/25/18 21:00 Thiamine HCl (Vitamin B1) 100 mg DAILY ORAL 05/22/18 09:00 06/21/18 08:59 06/15/18 10:01 Timolol Maleate (Timoptic 0.5% Op Soln) 1 drop TWICE A DAY BOTH EYES 05/22/18 10:00 06/21/18 09:59 06/15/18 17:21 Earl Lock MD Jun 16, 2018 09:30
--- NOTE | 2018-06-16 09:51 | NUR ---
NURSE NOTES: Patient refused medication at this time because she is eating , requested that I return when her PRN [place] 10/325 is due.
[2018-06-16] MEDS: Thiamine 100mg tab ORAL SCH (10:45)
[2018-06-16] MEDS: Brimonidine 0.2% Opth Sol BOTH EYES SCH ×2 (10:47→18:51)
[2018-06-16] MEDS: Timolol 0.5% Op Soln 2.5ml BOTH EYES SCH ×2 (10:47→18:51)
--- NOTE | 2018-06-16 13:03 | NUR ---
NURSE NOTES: Dr. Jorge here made aware of pt refusal of psychiatric medications . Dr Jorge gave orders to continue offering the medication to the pt.
--- NOTE | 2018-06-16 14:31 | NUR ---
NURSE NOTES: Pateint screaming out for medical technical writer, medical technical writer came to the room pt requested pain medication, Research Technologist left room to obtain medication , she began yelling, " No nurse has come in here. " Research Technologist at the door with pain medication. " I am so mad that I am going to piss right here" Research Technologist offered to close the curtain to allow pt to transfer into the bed to urinate. " Nope I aint doing shit, i am going to piss right here on the floor' " I know everywhere I go they do not want me cus I piss on everything" attempted to redirect bx. " I kmnow I am a Bitch Oh Well" Patient stated
--- NOTE | 2018-06-16 15:20 | Internal Med Progress Note ---
Subjective Physician Name Niall Kraft Attending Physician Niall Kraft MD Current Medications Medications (Trade) Dose Ordered Sig/Mejia Route PRN Reason Start Time Stop Time Status Last Admin Dose Admin Acetaminophen (Tylenol) 650 mg Q4H PRN ORAL MILD PAIN / T>100.5 05/22/18 07:15 06/21/18 07:14 06/11/18 04:01 Acetaminophen/ Hydrocodone Bitart ([place] 10/325) 1 tab Q4H PRN ORAL Severe Pain (Pain Scale 7-10) 06/12/18 11:45 06/19/18 11:44 06/16/18 10:46 Brimonidine Tartrate (Alphagan) 1 drop BID BOTH EYES 05/22/18 10:00 06/21/18 09:59 06/16/18 10:47 Divalproex Sodium (Depakote ER) 500 mg EVERY 12 HOURS ORAL 05/25/18 09:00 06/24/18 08:59 06/02/18 08:56 Folic Acid (Folate) 1 mg DAILY ORAL 05/22/18 09:00 06/21/18 08:59 06/14/18 09:00 Heparin Sodium (Porcine) (Heparin 5000 units/ml) 5,000 units EVERY 12 HOURS SUBQ 05/28/18 17:00 06/27/18 16:59 06/14/18 09:41 Ibuprofen (Motrin) 600 mg Q6H PRN ORAL Moderate Pain (Pain Scale 4-6) 06/12/18 19:00 07/12/18 18:59 Latanoprost (Xalatan) 1 drop BEDTIME BOTH EYES 05/22/18 21:00 06/21/18 20:59 06/15/18 21:53 Polyethylene Glycol (Miralax) 17 gm DAILY PRN ORAL Constipation 05/28/18 19:15 06/27/18 19:14 05/28/18 20:48 Pregabalin (Lyrica) 75 mg Q12HR ORAL 05/22/18 09:00 06/21/18 08:59 06/15/18 21:44 Risperidone (RisperDAL) 2 mg BEDTIME ORAL 05/25/18 21:00 06/24/18 20:59 05/25/18 21:00 Thiamine HCl (Vitamin B1) 100 mg DAILY ORAL 05/22/18 09:00 06/21/18 08:59 06/16/18 10:45 Timolol Maleate (Timoptic 0.5% Op Soln) 1 drop TWICE A DAY BOTH EYES 05/22/18 10:00 06/21/18 09:59 06/16/18 10:47 Allergies: Coded Allergies: CEPHALEXIN (Verified Allergy, Unknown, 05/18/18) CEPHALOSPORINS (Verified Allergy, Unknown, 05/18/18) ERYTHROMYCIN BASE (Verified Allergy, Unknown, 05/18/18) GABAPENTIN (Verified Allergy, Unknown, 05/18/18) SHELLFISH DERIVED (Verified Allergy, Unknown, 05/22/18) Subjective awake, alert, responsive, NAD, sitting up on chair. Objective Last Vital Signs Date Time Temp Pulse Resp B/P (MAP) Pulse Ox O2 Delivery O2 Flow Rate FiO2 06/16/18 04:00 97.5 64 18 131/77 (95) 99 06/15/18 21:00 Room Air Intake and Output 06/15/18 06/16/18 18:59 06:59 Intake Total 450 ml Balance 450 ml Intake Oral 450 ml # Voids 4 Objective GENERAL: Alert and oriented X 3 HEAD AND NECK: Pupils are reactive to light. Anicteric. NECK: Supple. No JVD. LUNGS: Good air entry. fair inspiratory effort. No wheeze or rhonchi. HEART: S1 and S2. Distant heart sounds. No murmur or gallops. ABDOMEN: Soft, nondistended, and nontender. Positive bowel sounds. EXTREMITIES: No cyanosis or clubbing. Contracted and weakness of bilateral lower extremities. Bilateral lower extremity, less edema, right worse than left and less erythema was noted in the bilateral lower extremity, right greater than left. RECTAL: Refused and deferred. GENITOURINARY: Refused and deferred. Assessment/Plan Assessment/Plan 1. Glaucoma. 2. Cellulitis of lower extremity. 3. Paraplegia. 4. Bipolar disorder. 5. Vancomycin-resistant enterococcus colonization. Plan: off abx waiting for placement in SNF Full code heparin SQ. Niall Kraft MD Jun 16, 2018 15:20
--- NOTE | 2018-06-16 15:36 | General Progress Note ---
Assessment/Plan Problem List: (1) Bipolar disorder ICD Codes: F31.9 - Bipolar disorder, unspecified SNOMED: 13813135 Qualifiers: Assessment/Plan Risperdal 4mg po qhs Depakote 1000 po qhs provided ro/st awaiting placement still wants to go to [facility] Subjective Neurologic/Psychiatric: Reports: anxiety, depressed, emotional problems Allergies: Coded Allergies: CEPHALEXIN (Verified Allergy, Unknown, 05/18/18) CEPHALOSPORINS (Verified Allergy, Unknown, 05/18/18) ERYTHROMYCIN BASE (Verified Allergy, Unknown, 05/18/18) GABAPENTIN (Verified Allergy, Unknown, 05/18/18) SHELLFISH DERIVED (Verified Allergy, Unknown, 05/22/18) Objective Last 24 Hour Vital Signs Date Time Temp Pulse Resp B/P (MAP) Pulse Ox O2 Delivery O2 Flow Rate FiO2 06/16/18 04:00 97.5 64 18 131/77 (95) 99 06/16/18 00:00 97.6 60 18 111/67 (82) 91 06/15/18 21:00 Room Air 06/15/18 20:00 97.8 66 18 100/67 (78) 94 06/15/18 16:00 97.9 86 16 137/92 (107) 94 Intake and Output 06/15/18 06/16/18 18:59 06:59 Intake Total 450 ml Balance 450 ml Intake Oral 450 ml # Voids 4 Height (Feet): 5 Height (Inches): 5.00 Weight (Pounds): 150 General Appearance: WD/WN, no apparent distress, alert Neurologic: oriented x 3, responsive, depressed affect Jake Mcintyre MD Jun 16, 2018 15:36
--- NOTE | 2018-06-16 17:08 | NUR ---
COMMUNITY RELATIONS ADVISOREXPANSION ENVELOPE MAKER HAND SI: CELLULITIS T. 97.5 HR 64 RR 18 B/P 131/77 RA 98% IS: HEPARIN SUBC DEPAKOTE PO RISPERDAL PO LYRICA PO MED/SURG STATUS
[2018-06-16 20:00] VITALS: BP 116/68
--- NOTE | 2018-06-16 20:13 | NUR ---
NURSE NOTES: Received report from PORSCHE Cruz. Patient A&Ox4. In chair.On room air. No signs of distress or labored breathing. No IV access, MD aware. Reports tolerable pain. Will continue to monitor.
[2018-06-16] MEDS: Latanoprost 0.005% Opth 2.5ml Soln BOTH EYES SCH (21:00)
--- NOTE | 2018-06-16 21:53 | NUR ---
HAND-OFF: Report given to Angelina.
[2018-06-17 04:00] VITALS: BP 101/59
[2018-06-17] MEDS: HYDROcodone/Acetamin 10/325 tab ORAL PRN ×5 (05:29→22:59)
--- NOTE | 2018-06-17 07:30 | NUR ---
NURSE NOTES: Received patient on bed, awake. Patient has no IV access, MD is aware. Bed in low and locked position, call light within reach. No signs of respiratory distress, patient was given PRN pain medication prior. Room board updated, will continue to monitor.
--- NOTE | 2018-06-17 07:35 | NUR ---
HAND-OFF: Report given to PORSCHE Elliott.
[2018-06-17 08:00] VITALS: BP 128/71
[2018-06-17] MEDS: Heparin 5000 units/ml inj SUBQ SCH ×2 (08:30→21:00)
[2018-06-17] MEDS: Lyrica 75mg cap ORAL SCH ×2 (08:30→21:33)
[2018-06-17] MEDS: Thiamine 100mg tab ORAL SCH (08:30)
[2018-06-17] MEDS: Depakote ER 500mg tab ORAL SCH ×2 (08:30→21:00)
[2018-06-17] MEDS: Brimonidine 0.2% Opth Sol BOTH EYES SCH ×2 (08:31→18:02)
[2018-06-17] MEDS: Timolol 0.5% Op Soln 2.5ml BOTH EYES SCH ×2 (08:31→18:02)
--- NOTE | 2018-06-17 08:31 | NUR ---
NURSE NOTES: Patient refused scheduled doses of risperdal and heparin. Risks versus benefits explained.
--- NOTE | 2018-06-17 11:43 | Infectious Diseases Prog Note ---
Assessment/Plan Assessment/Plan Assessment: Recent b/l cellulitis, resolved Afebrile Mild leukopenia paraplegia anemia neuralgia bipolar disorder [facility]TT [place] resident VRE stool- THIS IS A COLONIZER Plan: - Monitor off abx -05/25 SP Bactrim #7 -05/20 SP IV Vancomycin #3 -OK TO DISCHARGE BACK TO [place], NO NEED FOR ISOLATION UPON DISCHARGE -Monitor CBC/CMP, temperatures Will continue to follow along with you. Subjective Allergies: Coded Allergies: CEPHALEXIN (Verified Allergy, Unknown, 05/18/18) CEPHALOSPORINS (Verified Allergy, Unknown, 05/18/18) ERYTHROMYCIN BASE (Verified Allergy, Unknown, 05/18/18) GABAPENTIN (Verified Allergy, Unknown, 05/18/18) SHELLFISH DERIVED (Verified Allergy, Unknown, 05/22/18) Subjective afebrile waiting placement Objective Vital Signs Last 24 Hour Vital Signs Date Time Temp Pulse Resp B/P (MAP) Pulse Ox O2 Delivery O2 Flow Rate FiO2 06/17/18 09:00 Room Air 06/17/18 08:00 97.4 76 20 128/71 (90) 100 06/17/18 04:00 98.0 75 18 101/59 (73) 100 06/16/18 21:00 Room Air 06/16/18 20:00 98.1 70 18 116/68 (84) 97 Height (Feet): 5 Height (Inches): 5.00 Weight (Pounds): 150 Objective GENERAL: The patient is a thin-appearing female, in no apparent distress. HEENT: Eyes - pupils are equal and responsive to light and accommodation. Extraocular movements are intact. NECK: Supple. No lymphadenopathy. CHEST: Lungs are clear to auscultation bilaterally without wheezes or rales. CARDIOVASCULAR: Regular rate. S1 and S2 normal without murmurs, rubs, or gallops. ABDOMEN: Soft, nontender, and nondistended. Positive bowel sounds. No evidence of hepatosplenomegaly. Currently, no rebound or guarding noted. EXTREMITIES: Right lower extremity is erythematous compared to the left, otherwise without clubbing, cyanosis, or edema. Current Medications Medications (Trade) Dose Ordered Sig/Mejia Route PRN Reason Start Time Stop Time Status Last Admin Dose Admin Acetaminophen (Tylenol) 650 mg Q4H PRN ORAL MILD PAIN / T>100.5 05/22/18 07:15 06/21/18 07:14 06/11/18 04:01 Acetaminophen/ Hydrocodone Bitart ([place] 10/325) 1 tab Q4H PRN ORAL Severe Pain (Pain Scale 7-10) 06/12/18 11:45 06/19/18 11:44 06/17/18 10:42 Brimonidine Tartrate (Alphagan) 1 drop BID BOTH EYES 05/22/18 10:00 06/21/18 09:59 06/17/18 08:31 Divalproex Sodium (Depakote ER) 500 mg EVERY 12 HOURS ORAL 05/25/18 09:00 06/24/18 08:59 06/02/18 08:56 Folic Acid (Folate) 1 mg DAILY ORAL 05/22/18 09:00 06/21/18 08:59 06/17/18 08:30 Heparin Sodium (Porcine) (Heparin 5000 units/ml) 5,000 units EVERY 12 HOURS SUBQ 05/28/18 17:00 06/27/18 16:59 06/14/18 09:41 Ibuprofen (Motrin) 600 mg Q6H PRN ORAL Moderate Pain (Pain Scale 4-6) 06/12/18 19:00 07/12/18 18:59 Latanoprost (Xalatan) 1 drop BEDTIME BOTH EYES 05/22/18 21:00 06/21/18 20:59 06/15/18 21:53 Polyethylene Glycol (Miralax) 17 gm DAILY PRN ORAL Constipation 05/28/18 19:15 06/27/18 19:14 05/28/18 20:48 Pregabalin (Lyrica) 75 mg Q12HR ORAL 05/22/18 09:00 06/21/18 08:59 06/17/18 08:30 Risperidone (RisperDAL) 2 mg BEDTIME ORAL 05/25/18 21:00 06/24/18 20:59 05/25/18 21:00 Thiamine HCl (Vitamin B1) 100 mg DAILY ORAL 05/22/18 09:00 06/21/18 08:59 06/17/18 08:30 Timolol Maleate (Timoptic 0.5% Op Soln) 1 drop TWICE A DAY BOTH EYES 05/22/18 10:00 06/21/18 09:59 06/17/18 08:31 Marilyn Oliver M.D. Jun 17, 2018 11:43
--- NOTE | 2018-06-17 12:00 | NUR ---
NURSE NOTES: Patient refused vital signs.
--- NOTE | 2018-06-17 15:47 | Internal Med Progress Note ---
Subjective Date of Service: Jun 17, 2018 Physician Name Sadi Gaviria Attending Physician Niall Kraft MD Current Medications Medications (Trade) Dose Ordered Sig/Mejia Route PRN Reason Start Time Stop Time Status Last Admin Dose Admin Acetaminophen (Tylenol) 650 mg Q4H PRN ORAL MILD PAIN / T>100.5 05/22/18 07:15 06/21/18 07:14 06/11/18 04:01 Acetaminophen/ Hydrocodone Bitart ([place] 10/325) 1 tab Q4H PRN ORAL Severe Pain (Pain Scale 7-10) 06/12/18 11:45 06/19/18 11:44 06/17/18 14:43 Brimonidine Tartrate (Alphagan) 1 drop BID BOTH EYES 05/22/18 10:00 06/21/18 09:59 06/17/18 08:31 Divalproex Sodium (Depakote ER) 500 mg EVERY 12 HOURS ORAL 05/25/18 09:00 06/24/18 08:59 06/02/18 08:56 Folic Acid (Folate) 1 mg DAILY ORAL 05/22/18 09:00 06/21/18 08:59 06/17/18 08:30 Heparin Sodium (Porcine) (Heparin 5000 units/ml) 5,000 units EVERY 12 HOURS SUBQ 05/28/18 17:00 06/27/18 16:59 06/14/18 09:41 Ibuprofen (Motrin) 600 mg Q6H PRN ORAL Moderate Pain (Pain Scale 4-6) 06/12/18 19:00 07/12/18 18:59 Latanoprost (Xalatan) 1 drop BEDTIME BOTH EYES 05/22/18 21:00 06/21/18 20:59 06/15/18 21:53 Polyethylene Glycol (Miralax) 17 gm DAILY PRN ORAL Constipation 05/28/18 19:15 06/27/18 19:14 05/28/18 20:48 Pregabalin (Lyrica) 75 mg Q12HR ORAL 05/22/18 09:00 06/21/18 08:59 06/17/18 08:30 Risperidone (RisperDAL) 2 mg BEDTIME ORAL 05/25/18 21:00 06/24/18 20:59 05/25/18 21:00 Thiamine HCl (Vitamin B1) 100 mg DAILY ORAL 05/22/18 09:00 06/21/18 08:59 06/17/18 08:30 Timolol Maleate (Timoptic 0.5% Op Soln) 1 drop TWICE A DAY BOTH EYES 05/22/18 10:00 06/21/18 09:59 06/17/18 08:31 Allergies: Coded Allergies: CEPHALEXIN (Verified Allergy, Unknown, 05/18/18) CEPHALOSPORINS (Verified Allergy, Unknown, 05/18/18) ERYTHROMYCIN BASE (Verified Allergy, Unknown, 05/18/18) GABAPENTIN (Verified Allergy, Unknown, 05/18/18) SHELLFISH DERIVED (Verified Allergy, Unknown, 05/22/18) ROS Limited/Unobtainable: No Constitutional: Reports: no symptoms HEENT: Reports: no symptoms Cardiovascular: Reports: no symptoms Respiratory: Reports: no symptoms Gastrointestinal/Abdominal: Reports: no symptoms Genitourinary: Reports: no symptoms Neurologic/Psychiatric: Reports: no symptoms Subjective 57 YO F admitted with vancomycin resistant enterococcus stool. Cover for Int Med-Dr Kraft. Await acceptance to [facility] Objective Last Vital Signs Date Time Temp Pulse Resp B/P (MAP) Pulse Ox O2 Delivery O2 Flow Rate FiO2 06/17/18 09:00 Room Air 06/17/18 08:00 97.4 76 20 128/71 (90) 100 Intake and Output 06/16/18 06/17/18 19:00 07:00 Intake Total 890 ml 250 ml Balance 890 ml 250 ml Intake Oral 890 ml 250 ml # Voids 2 2 Objective General Appearance: WD/WN, no apparent distress, alert EENT: PERRL/EOMI, normal ENT inspection, TMs normal Neck: non-tender, normal alignment, supple, normal inspection Cardiovascular: normal peripheral pulses, normal rate, regular rhythm, no gallop/murmur, no JVD Respiratory/Chest: chest wall non-tender, lungs clear, normal breath sounds, no respiratory distress, no accessory muscle use Abdomen: normal bowel sounds, non tender, soft, no organomegaly, no mass Extremities: normal range of motion, non-tender 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 Assessment/Plan Discharge planning-Await acceptance to longterm fac placement-see case management note. Sadi Gaviria MD Jun 17, 2018 15:47
--- NOTE | 2018-06-17 15:56 | NUR ---
NURSE NOTES: Patient was observed attempting to use an electrical plug in machine to warm up her water. I asked the patient where she got it from and she stated it was hers. I advised her that she was not able to use any electrical device without it being checked and cleared by the engineering department. She became upset and stated she had used it previously. I reiterated the policy and had charge nurse Karine speak to her. She became irate with Karine and began calling her names and became verbally abusive. Security was called and spoke to the patient. the patient calmed down and stated she would not use the device again. Will endorse to the next shift.
--- NOTE | 2018-06-17 16:00 | NUR ---
NURSE NOTES: Patient refused 1600 vitals signs.
--- NOTE | 2018-06-17 19:28 | NUR ---
HAND-OFF: Report given to LALY Taylor.
--- NOTE | 2018-06-17 19:30 | NUR ---
NURSE NOTES: RECEIVED PATIENT UP IN CHAIR, ALERT/ORIENTED X4, ABLE TO VERBALIZE NEEDS, DENIES PAIN, NO SIGNS AND SYMPTOMS OF ACUTE CARDIO RESPIRATORY DISTRESS/SHORTNESS OF BREATH, DENIES CHEST PAIN, NOTED WITH EDEMA TO BILATERAL LOWER EXTREMITIES, CONTRACTED. NO COMPLAINTS OF GI DISCOMFORT, NO N/V/D. ASSISTED TO BED, TOLERATED WELL. SIDE RAILS UP X3/BED IN LOWEST POSITION FOR SAFETY. CALL LIGHT WITHIN REACH. NAD.
[2018-06-17 20:00] VITALS: BP 124/76
[2018-06-17] MEDS: Latanoprost 0.005% Opth 2.5ml Soln BOTH EYES SCH (22:07)
--- NOTE | 2018-06-17 23:41 | General Progress Note ---
Assessment/Plan Problem List: (1) Bipolar disorder ICD Codes: F31.9 - Bipolar disorder, unspecified SNOMED: [id number] Qualifiers: Assessment/Plan Risperdal 4mg po qhs Depakote 1000 po qhs provided ro/st awaiting placement still wants to go to [facility] Subjective Neurologic/Psychiatric: Reports: anxiety, depressed, emotional problems Allergies: Coded Allergies: CEPHALEXIN (Verified Allergy, Unknown, 05/18/18) CEPHALOSPORINS (Verified Allergy, Unknown, 05/18/18) ERYTHROMYCIN BASE (Verified Allergy, Unknown, 05/18/18) GABAPENTIN (Verified Allergy, Unknown, 05/18/18) SHELLFISH DERIVED (Verified Allergy, Unknown, 05/22/18) Objective Last 24 Hour Vital Signs Date Time Temp Pulse Resp B/P (MAP) Pulse Ox O2 Delivery O2 Flow Rate FiO2 06/17/18 22:03 97.4 06/17/18 20:00 97.6 68 18 124/76 (92) 97 06/17/18 09:00 Room Air 06/17/18 08:00 97.4 76 20 128/71 (90) 100 06/17/18 04:00 98.0 75 18 101/59 (73) 100 Intake and Output 06/16/18 06/17/18 18:59 06:59 Intake Total 890 ml 250 ml Balance 890 ml 250 ml Intake Oral 890 ml 250 ml # Voids 2 2 Height (Feet): 5 Height (Inches): 5.00 Weight (Pounds): 150 General Appearance: no apparent distress, alert Neurologic: oriented x 3, responsive, depressed affect Jake Mcintyre MD Jun 17, 2018 23:41
[2018-06-17 23:55] VITALS: BP 100/58
[2018-06-18 04:00] VITALS: BP 115/65
[2018-06-18] MEDS: HYDROcodone/Acetamin 10/325 tab ORAL PRN ×5 (04:26→22:38)
--- NOTE | 2018-06-18 06:13 | NUR ---
NURSE NOTES: RESTED WELL, NO SIGNIFICANT CHANGE OF CONDITION NOTED THROUGHOUT THE NIGHT.SAFETY MAINTAINED. NAD.
--- NOTE | 2018-06-18 07:30 | NUR ---
HAND-OFF: Report given to LALY BRITO.
[2018-06-18 08:00] VITALS: BP_SYST 122; BP_SYST 132; BP_DIAS 74
--- NOTE | 2018-06-18 08:30 | NUR ---
NURSE NOTES: Received patient A/A/Ox4, in chair sitting. No acute resp distress noted. Appears to be aggresived and compulsived. She was screaming for batteries for remote control. Though, she was told by [facility] nurse it will be replaced. call light is within reach. will cont to monitor.
[2018-06-18] MEDS: Thiamine 100mg tab ORAL SCH (08:59)
[2018-06-18] MEDS: Brimonidine 0.2% Opth Sol BOTH EYES SCH ×2 (09:00→17:44)
[2018-06-18] MEDS: Timolol 0.5% Op Soln 2.5ml BOTH EYES SCH ×2 (09:00→17:45)
[2018-06-18] MEDS: Depakote ER 500mg tab ORAL SCH ×2 (09:00→21:00)
[2018-06-18] MEDS: Heparin 5000 units/ml inj SUBQ SCH ×2 (09:00→21:00)
[2018-06-18] MEDS: Lyrica 75mg cap ORAL SCH ×2 (09:00→22:38)
--- NOTE | 2018-06-18 10:30 | NUR ---
NURSE NOTES: patient refused depakote and heparin subcut. explained the indications and importance of the medications. no acute resp distress noted. will cont to monitor.
[2018-06-18 12:00] VITALS: BP 103/69
--- NOTE | 2018-06-18 15:34 | Internal Med Progress Note ---
Subjective Date of Service: Jun 18, 2018 Physician Name Sadi Gaviria Attending Physician Niall Kraft MD Current Medications Medications (Trade) Dose Ordered Sig/Mejia Route PRN Reason Start Time Stop Time Status Last Admin Dose Admin Acetaminophen (Tylenol) 650 mg Q4H PRN ORAL MILD PAIN / T>100.5 05/22/18 07:15 06/21/18 07:14 06/11/18 04:01 Acetaminophen/ Hydrocodone Bitart ([place] 10/325) 1 tab Q4H PRN ORAL Severe Pain (Pain Scale 7-10) 06/12/18 11:45 06/19/18 11:44 06/18/18 13:35 Brimonidine Tartrate (Alphagan) 1 drop BID BOTH EYES 05/22/18 10:00 06/21/18 09:59 06/18/18 09:00 Divalproex Sodium (Depakote ER) 500 mg EVERY 12 HOURS ORAL 05/25/18 09:00 06/24/18 08:59 06/02/18 08:56 Folic Acid (Folate) 1 mg DAILY ORAL 05/22/18 09:00 06/21/18 08:59 06/18/18 09:00 Heparin Sodium (Porcine) (Heparin 5000 units/ml) 5,000 units EVERY 12 HOURS SUBQ 05/28/18 17:00 06/27/18 16:59 06/14/18 09:41 Ibuprofen (Motrin) 600 mg Q6H PRN ORAL Moderate Pain (Pain Scale 4-6) 06/12/18 19:00 07/12/18 18:59 Latanoprost (Xalatan) 1 drop BEDTIME BOTH EYES 05/22/18 21:00 06/21/18 20:59 06/17/18 22:07 Polyethylene Glycol (Miralax) 17 gm DAILY PRN ORAL Constipation 05/28/18 19:15 06/27/18 19:14 05/28/18 20:48 Pregabalin (Lyrica) 75 mg Q12HR ORAL 05/22/18 09:00 06/21/18 08:59 06/18/18 09:00 Risperidone (RisperDAL) 2 mg BEDTIME ORAL 05/25/18 21:00 06/24/18 20:59 05/25/18 21:00 Thiamine HCl (Vitamin B1) 100 mg DAILY ORAL 05/22/18 09:00 06/21/18 08:59 06/18/18 08:59 Timolol Maleate (Timoptic 0.5% Op Soln) 1 drop TWICE A DAY BOTH EYES 05/22/18 10:00 06/21/18 09:59 06/18/18 09:00 Allergies: Coded Allergies: CEPHALEXIN (Verified Allergy, Unknown, 05/18/18) CEPHALOSPORINS (Verified Allergy, Unknown, 05/18/18) ERYTHROMYCIN BASE (Verified Allergy, Unknown, 05/18/18) GABAPENTIN (Verified Allergy, Unknown, 05/18/18) SHELLFISH DERIVED (Verified Allergy, Unknown, 05/22/18) ROS Limited/Unobtainable: No Constitutional: Reports: no symptoms HEENT: Reports: no symptoms Cardiovascular: Reports: no symptoms Respiratory: Reports: no symptoms Gastrointestinal/Abdominal: Reports: no symptoms Genitourinary: Reports: no symptoms Neurologic/Psychiatric: Reports: no symptoms Subjective 57 YO F admitted with vancomycin resistant enterococcus stool. Cover for Int Med-Dr Kraft. Await acceptance to [facility] Objective Last Vital Signs Date Time Temp Pulse Resp B/P (MAP) Pulse Ox O2 Delivery O2 Flow Rate FiO2 06/18/18 12:00 96.7 65 18 103/69 (80) 97 06/18/18 09:00 Room Air Intake and Output 06/17/18 06/18/18 19:00 07:00 Intake Total 1380 ml 540 ml Output Total 1300 ml Balance 80 ml 540 ml Intake Oral 1380 ml 540 ml Output Urine Total 1300 ml # Voids 3 Objective General Appearance: WD/WN, no apparent distress, alert EENT: PERRL/EOMI, normal ENT inspection, TMs normal Neck: non-tender, normal alignment, supple, normal inspection Cardiovascular: normal peripheral pulses, normal rate, regular rhythm, no gallop/murmur, no JVD Respiratory/Chest: chest wall non-tender, lungs clear, normal breath sounds, no respiratory distress, no accessory muscle use Abdomen: normal bowel sounds, non tender, soft, no organomegaly, no mass Extremities: normal range of motion, non-tender 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 Assessment/Plan Discharge planning-Await acceptance to long term fac placement-see case management note. Sadi Gaviria MD Jun 18, 2018 15:34
[2018-06-18 16:00] VITALS: BP 112/60
--- NOTE | 2018-06-18 17:06 | NUR ---
CASE MANAGEMENT: REVIEW 06/17/2018 SI: CELLULITIS T. 97.6 HR 68 RR 18 B/P 124/76 SATS 97% ON RA NO LABS TODAY IS: HEPARIN SUBQ DEPAKOTE PO RISPERDAL PO LYRICA PO MED/SURG STATUS 06/18/2018 SI: CELLULITIS T 96.8 HR 68 RR 20 B/P 112/60 SATS 100% ON RA NO LABS TODAY IS: HEPARIN SUBQ DEPAKOTE PO RISPERDAL PO LYRICA PO MED/SURG STATUS
--- NOTE | 2018-06-18 18:36 | NUR ---
NURSE NOTES: able to transfer from bed to chair independently with minimal assistance. patient is resting comfortable and calm. medicated with norco for generalized pain as ordered. will cont to monitor.
--- NOTE | 2018-06-18 19:00 | NUR ---
NURSE NOTES: Received a report from LALY Wetzel. Pt is in stable condition. AAOX4. Able to make needs known. No respiratory distress noted. On room air. No c/o pain/discomfort. No IV access, doctors are aware. Bed in lowest position. Call light within reach. Will continue to monitor.
--- NOTE | 2018-06-18 19:18 | NUR ---
HAND-OFF: Report given to Nely
[2018-06-18 20:00] VITALS: BP 102/72
--- NOTE | 2018-06-18 21:00 | NUR ---
NURSE NOTES: Pt refused Heparin, Risperdal and Depakote, despite education provided.
--- NOTE | 2018-06-18 21:37 | General Progress Note ---
Assessment/Plan Problem List: (1) Bipolar disorder ICD Codes: F31.9 - Bipolar disorder, unspecified SNOMED: 96492268 Qualifiers: Assessment/Plan Risperdal 4mg po qhs Depakote 1000 po qhs provided ro/st awaiting placement still wants to go to [facility] Subjective Neurologic/Psychiatric: Reports: anxiety, depressed, emotional problems Allergies: Coded Allergies: CEPHALEXIN (Verified Allergy, Unknown, 05/18/18) CEPHALOSPORINS (Verified Allergy, Unknown, 05/18/18) ERYTHROMYCIN BASE (Verified Allergy, Unknown, 05/18/18) GABAPENTIN (Verified Allergy, Unknown, 05/18/18) SHELLFISH DERIVED (Verified Allergy, Unknown, 05/22/18) Objective Last 24 Hour Vital Signs Date Time Temp Pulse Resp B/P (MAP) Pulse Ox O2 Delivery O2 Flow Rate FiO2 06/18/18 20:00 96.8 74 18 102/72 (82) 98 06/18/18 18:15 96.8 06/18/18 16:00 96.8 68 20 112/60 (77) 100 06/18/18 12:00 96.7 65 18 103/69 (80) 97 06/18/18 09:29 97.1 06/18/18 09:00 Room Air 06/18/18 08:00 97.1 63 17 122/74 (90) 98 06/18/18 04:00 97.6 60 18 115/65 (82) 99 06/17/18 23:55 97.3 65 18 100/58 (72) 97 Intake and Output 06/17/18 06/18/18 19:00 07:00 Intake Total 1380 ml 540 ml Output Total 1300 ml Balance 80 ml 540 ml Intake Oral 1380 ml 540 ml Output Urine Total 1300 ml # Voids 3 Height (Feet): 5 Height (Inches): 5.00 Weight (Pounds): 150 General Appearance: no apparent distress, alert Neurologic: oriented x 3, responsive, depressed affect Jake Mcintyre MD Jun 18, 2018 21:37
[2018-06-18] MEDS: Latanoprost 0.005% Opth 2.5ml Soln BOTH EYES SCH (22:39)
[2018-06-19] VITALS: BP 132/81
[2018-06-19] MEDS: HYDROcodone/Acetamin 10/325 tab ORAL PRN ×6 (02:45→23:12)
[2018-06-19 04:00] VITALS: BP 100/64
--- NOTE | 2018-06-19 06:45 | NUR ---
NURSE NOTES: Pt's BP: 135/89, HR: 61
--- NOTE | 2018-06-19 07:10 | NUR ---
HAND-OFF: Report given to PORSCHE Garces.
[2018-06-19 08:00] VITALS: BP 102/68
--- NOTE | 2018-06-19 08:00 | NUR ---
NURSE NOTES: received patient awake, in bed, having breakfast, no complaint of pain or discomfort, no distress noted. Patient complained her breakfast came missing a few items, reordered. No IV access, dr is aware. Bed locked at the lowest position possible, call light within easy reach, siderails up x2. Will continue to monitor patient and follow up with the plan of care.
[2018-06-19] MEDS: Depakote ER 500mg tab ORAL SCH ×2 (09:00→20:18)
[2018-06-19] MEDS: Heparin 5000 units/ml inj SUBQ SCH ×2 (09:00→20:18)
--- NOTE | 2018-06-19 10:16 | Infectious Diseases Prog Note ---
Assessment/Plan Assessment/Plan Assessment: Recent b/l cellulitis, resolved Afebrile Mild leukopenia paraplegia anemia neuralgia bipolar disorder [facility] resident VRE stool- THIS IS A COLONIZER Plan: - Monitor off abx -05/25 SP Bactrim #7 -05/20 SP IV Vancomycin #3 -OK TO DISCHARGE BACK TO [facility], NO NEED FOR ISOLATION UPON DISCHARGE -Monitor CBC/CMP, temperatures Will continue to follow along with you. Subjective Allergies: Coded Allergies: CEPHALEXIN (Verified Allergy, Unknown, 05/18/18) CEPHALOSPORINS (Verified Allergy, Unknown, 05/18/18) ERYTHROMYCIN BASE (Verified Allergy, Unknown, 05/18/18) GABAPENTIN (Verified Allergy, Unknown, 05/18/18) SHELLFISH DERIVED (Verified Allergy, Unknown, 05/22/18) Subjective afebrile waiting placement Objective Vital Signs Last 24 Hour Vital Signs Date Time Temp Pulse Resp B/P (MAP) Pulse Ox O2 Delivery O2 Flow Rate FiO2 06/19/18 04:00 97.0 60 17 100/64 (76) 99 06/19/18 00:00 96.8 62 17 132/81 (98) 100 06/18/18 21:00 Room Air 06/18/18 20:00 96.8 74 18 102/72 (82) 98 06/18/18 18:15 96.8 06/18/18 16:00 96.8 68 20 112/60 (77) 100 06/18/18 12:00 96.7 65 18 103/69 (80) 97 Height (Feet): 5 Height (Inches): 5.00 Weight (Pounds): 150 Objective GENERAL: The patient is a thin-appearing female, in no apparent distress. HEENT: Eyes - pupils are equal and responsive to light and accommodation. Extraocular movements are intact. NECK: Supple. No lymphadenopathy. CHEST: Lungs are clear to auscultation bilaterally without wheezes or rales. CARDIOVASCULAR: Regular rate. S1 and S2 normal without murmurs, rubs, or gallops. ABDOMEN: Soft, nontender, and nondistended. Positive bowel sounds. No evidence of hepatosplenomegaly. Currently, no rebound or guarding noted. EXTREMITIES: Right lower extremity is erythematous compared to the left, otherwise without clubbing, cyanosis, or edema. Current Medications Medications (Trade) Dose Ordered Sig/Mejia Route PRN Reason Start Time Stop Time Status Last Admin Dose Admin Acetaminophen (Tylenol) 650 mg Q4H PRN ORAL MILD PAIN / T>100.5 05/22/18 07:15 06/21/18 07:14 06/11/18 04:01 Acetaminophen/ Hydrocodone Bitart ([place] 10/325) 1 tab Q4H PRN ORAL Severe Pain (Pain Scale 7-10) 06/12/18 11:45 06/19/18 11:44 06/19/18 06:51 Brimonidine Tartrate (Alphagan) 1 drop BID BOTH EYES 05/22/18 10:00 06/21/18 09:59 06/18/18 17:44 Divalproex Sodium (Depakote ER) 500 mg EVERY 12 HOURS ORAL 05/25/18 09:00 06/24/18 08:59 06/02/18 08:56 Folic Acid (Folate) 1 mg DAILY ORAL 05/22/18 09:00 06/21/18 08:59 06/18/18 09:00 Heparin Sodium (Porcine) (Heparin 5000 units/ml) 5,000 units EVERY 12 HOURS SUBQ 05/28/18 17:00 06/27/18 16:59 06/14/18 09:41 Ibuprofen (Motrin) 600 mg Q6H PRN ORAL Moderate Pain (Pain Scale 4-6) 06/12/18 19:00 07/12/18 18:59 Latanoprost (Xalatan) 1 drop BEDTIME BOTH EYES 05/22/18 21:00 06/21/18 20:59 06/18/18 22:39 Polyethylene Glycol (Miralax) 17 gm DAILY PRN ORAL Constipation 05/28/18 19:15 06/27/18 19:14 05/28/18 20:48 Pregabalin (Lyrica) 75 mg Q12HR ORAL 05/22/18 09:00 06/21/18 08:59 06/18/18 22:38 Risperidone (RisperDAL) 2 mg BEDTIME ORAL 05/25/18 21:00 06/24/18 20:59 05/25/18 21:00 Thiamine HCl (Vitamin B1) 100 mg DAILY ORAL 05/22/18 09:00 06/21/18 08:59 06/18/18 08:59 Timolol Maleate (Timoptic 0.5% Op Soln) 1 drop TWICE A DAY BOTH EYES 05/22/18 10:00 06/21/18 09:59 06/18/18 17:45 Marilyn Oliver M.D. Jun 19, 2018 10:16
[2018-06-19] MEDS: Brimonidine 0.2% Opth Sol BOTH EYES SCH ×2 (10:53→19:05)
[2018-06-19] MEDS: Timolol 0.5% Op Soln 2.5ml BOTH EYES SCH ×2 (10:53→19:05)
[2018-06-19] MEDS: Lyrica 75mg cap ORAL SCH ×2 (10:53→20:23)
[2018-06-19] MEDS: Thiamine 100mg tab ORAL SCH (10:57)
[2018-06-19 12:00] VITALS: BP 120/87
[2018-06-19 16:00] VITALS: BP 122/81
--- NOTE | 2018-06-19 17:40 | NUR ---
CASE MANAGEMENT:REVIEW 06/19/18 SI: CELLULITIS 98.0 68 19 122/81 97% ON RA IS: NORCO PO Q4HRS PRN HEPARIN SQ Q12 RISPERDAL PO QHS DEPAKOTE PO Q12 FOLATE PO QD LYRICA PO Q12 THIAMINE PO QD : MED/SURG STATUS 4 [place]: PATIENT IS FROM [facility] BUT THEY WILL NOT TAKE PATIENT BACK REFERRED TO NUMEROUS SNF'S IN OUR AREA AND IN AREA REQUESTED BY [employer] ONLY FACILITY INTERESTED IN ACCEPTING PATIENT IS [facility] BUT THEY WILL REQUIRE A LETTER OF AGREEMENT. [facility] IS REQUESTING ASSITANCE FROM [facility] IN RELOCATING THIS PATIENT TO A SNF MESSAGE LEFT FOR [facility]CARL[facility] ABAD STATING THE ABOVE AND REQUESTING LETTER OF AGREEMENT BE DRAFTED FOR [facility]
--- NOTE | 2018-06-19 18:33 | Internal Med Progress Note ---
Subjective Date of Service: Jun 19, 2018 Physician Name Sadi Gaviria Attending Physician Niall Kraft MD Current Medications Medications (Trade) Dose Ordered Sig/Mejia Route PRN Reason Start Time Stop Time Status Last Admin Dose Admin Acetaminophen (Tylenol) 650 mg Q4H PRN ORAL MILD PAIN / T>100.5 05/22/18 07:15 06/21/18 07:14 06/11/18 04:01 Acetaminophen/ Hydrocodone Bitart ([place] 10/325) 1 tab Q4H PRN ORAL Severe Pain (Pain Scale 7-10) 06/19/18 14:38 06/26/18 14:37 06/19/18 15:04 Brimonidine Tartrate (Alphagan) 1 drop BID BOTH EYES 05/22/18 10:00 06/21/18 09:59 06/19/18 10:53 Divalproex Sodium (Depakote ER) 500 mg EVERY 12 HOURS ORAL 05/25/18 09:00 06/24/18 08:59 06/02/18 08:56 Folic Acid (Folate) 1 mg DAILY ORAL 05/22/18 09:00 06/21/18 08:59 06/19/18 10:57 Heparin Sodium (Porcine) (Heparin 5000 units/ml) 5,000 units EVERY 12 HOURS SUBQ 05/28/18 17:00 06/27/18 16:59 06/14/18 09:41 Ibuprofen (Motrin) 600 mg Q6H PRN ORAL Moderate Pain (Pain Scale 4-6) 06/12/18 19:00 07/12/18 18:59 Latanoprost (Xalatan) 1 drop BEDTIME BOTH EYES 05/22/18 21:00 06/21/18 20:59 06/18/18 22:39 Polyethylene Glycol (Miralax) 17 gm DAILY PRN ORAL Constipation 05/28/18 19:15 06/27/18 19:14 05/28/18 20:48 Pregabalin (Lyrica) 75 mg Q12HR ORAL 05/22/18 09:00 06/21/18 08:59 06/19/18 10:53 Risperidone (RisperDAL) 2 mg BEDTIME ORAL 05/25/18 21:00 06/24/18 20:59 05/25/18 21:00 Thiamine HCl (Vitamin B1) 100 mg DAILY ORAL 05/22/18 09:00 06/21/18 08:59 06/19/18 10:57 Timolol Maleate (Timoptic 0.5% Op Soln) 1 drop TWICE A DAY BOTH EYES 05/22/18 10:00 06/21/18 09:59 06/19/18 10:53 Allergies: Coded Allergies: CEPHALEXIN (Verified Allergy, Unknown, 05/18/18) CEPHALOSPORINS (Verified Allergy, Unknown, 05/18/18) ERYTHROMYCIN BASE (Verified Allergy, Unknown, 05/18/18) GABAPENTIN (Verified Allergy, Unknown, 05/18/18) SHELLFISH DERIVED (Verified Allergy, Unknown, 05/22/18) ROS Limited/Unobtainable: No Constitutional: Reports: no symptoms HEENT: Reports: no symptoms Cardiovascular: Reports: no symptoms Respiratory: Reports: no symptoms Gastrointestinal/Abdominal: Reports: no symptoms Genitourinary: Reports: no symptoms Neurologic/Psychiatric: Reports: no symptoms Subjective 57 YO F admitted with vancomycin resistant enterococcus stool. Cover for Int Med-Dr Kraft. Await acceptance to [facility] Objective Last Vital Signs Date Time Temp Pulse Resp B/P (MAP) Pulse Ox O2 Delivery O2 Flow Rate FiO2 06/19/18 16:00 98.0 68 19 122/81 (95) 97 06/19/18 09:00 Room Air Intake and Output 06/18/18 06/19/18 19:00 07:00 Intake Total 960 ml 240 ml Balance 960 ml 240 ml Intake Oral 960 ml 240 ml # Voids 5 2 Objective General Appearance: WD/WN, no apparent distress, alert EENT: PERRL/EOMI, normal ENT inspection, TMs normal Neck: non-tender, normal alignment, supple, normal inspection Cardiovascular: normal peripheral pulses, normal rate, regular rhythm, no gallop/murmur, no JVD Respiratory/Chest: chest wall non-tender, lungs clear, normal breath sounds, no respiratory distress, no accessory muscle use Abdomen: normal bowel sounds, non tender, soft, no organomegaly, no mass Extremities: normal range of motion, non-tender 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 Assessment/Plan Discharge planning-Await acceptance to [facility] placement-see case management note. Sadi Gaviria MD Jun 19, 2018 18:33
--- NOTE | 2018-06-19 19:20 | NUR ---
NURSE NOTES: Received a report from PORSCHE Garces. Pt is in stable condition. AAOX4. Able to make needs known. No respiratory distress noted. On room air. No c/o pain/discomfort. No IV access, doctors are aware. Sitting in a chair. Call light within reach. Will continue to monitor.
--- NOTE | 2018-06-19 19:25 | NUR ---
HAND-OFF: Report given to PORSCHE Mendoza.
[2018-06-19 20:00] VITALS: BP 100/64
--- NOTE | 2018-06-19 20:00 | NUR ---
NURSE NOTES: Pt refused Heparin, Risperdal and Depakote, despite education provided.
[2018-06-19] MEDS: Latanoprost 0.005% Opth 2.5ml Soln BOTH EYES SCH (20:22)
[2018-06-20] VITALS: BP 109/54
[2018-06-20 04:00] VITALS: BP 98/62
--- NOTE | 2018-06-20 07:05 | NUR ---
HAND-OFF: Report given to Earl Connors RN. Pt is in stable condition.
[2018-06-20] MEDS: HYDROcodone/Acetamin 10/325 tab ORAL PRN ×4 (07:34→22:04)
--- NOTE | 2018-06-20 07:35 | NUR ---
NURSE NOTES: Received patient on bed, awake. Bed in low and locked position, call light within reach. Patient has no IV access, MD aware. No signs of respiratory distress. Patient complains of pain 10 out of 10, PRN medication given. Room board updated, will continue to monitor.
[2018-06-20] MEDS: Heparin 5000 units/ml inj SUBQ SCH ×2 (09:00→21:00)
[2018-06-20] MEDS: Depakote ER 500mg tab ORAL SCH ×2 (09:00→21:00)
[2018-06-20] MEDS: Lyrica 75mg cap ORAL SCH ×2 (09:03→22:05)
[2018-06-20] MEDS: Thiamine 100mg tab ORAL SCH (09:04)
[2018-06-20] MEDS: Timolol 0.5% Op Soln 2.5ml BOTH EYES SCH ×3 (09:04→22:06)
[2018-06-20] MEDS: Brimonidine 0.2% Opth Sol BOTH EYES SCH ×3 (09:04→22:05)
--- NOTE | 2018-06-20 09:11 | NUR ---
NURSE NOTES: Patient refused scheduled heparin and depakote doses. Risks versus benefits explained.
[2018-06-20 12:00] VITALS: BP 114/60
--- NOTE | 2018-06-20 12:50 | Infectious Diseases Prog Note ---
Assessment/Plan Assessment/Plan Assessment: Recent b/l cellulitis, resolved Afebrile Mild leukopenia paraplegia anemia neuralgia bipolar disorder FTT [place] resident VRE stool- THIS IS A COLONIZER Plan: - Monitor off abx -05/25 SP Bactrim #7 -05/20 SP IV Vancomycin #3 -OK TO DISCHARGE BACK TO [place], NO NEED FOR ISOLATION UPON DISCHARGE -Monitor CBC/CMP, temperatures Will continue to follow along with you. Subjective Allergies: Coded Allergies: CEPHALEXIN (Verified Allergy, Unknown, 05/18/18) CEPHALOSPORINS (Verified Allergy, Unknown, 05/18/18) ERYTHROMYCIN BASE (Verified Allergy, Unknown, 05/18/18) GABAPENTIN (Verified Allergy, Unknown, 05/18/18) SHELLFISH DERIVED (Verified Allergy, Unknown, 05/22/18) Subjective afebrile waiting placement Objective Vital Signs Last 24 Hour Vital Signs Date Time Temp Pulse Resp B/P (MAP) Pulse Ox O2 Delivery O2 Flow Rate FiO2 06/20/18 09:00 Room Air 06/20/18 04:00 97.2 64 18 98/62 (74) 98 06/20/18 00:00 98.0 66 18 109/54 (72) 98 06/19/18 21:00 Room Air 06/19/18 20:00 97.7 66 18 100/64 (76) 97 06/19/18 16:00 98.0 68 19 122/81 (95) 97 06/19/18 15:34 97.4 Height (Feet): 5 Height (Inches): 5.00 Weight (Pounds): 150 Objective GENERAL: The patient is a thin-appearing female, in no apparent distress. HEENT: Eyes - pupils are equal and responsive to light and accommodation. Extraocular movements are intact. NECK: Supple. No lymphadenopathy. CHEST: Lungs are clear to auscultation bilaterally without wheezes or rales. CARDIOVASCULAR: Regular rate. S1 and S2 normal without murmurs, rubs, or gallops. ABDOMEN: Soft, nontender, and nondistended. Positive bowel sounds. No evidence of hepatosplenomegaly. Currently, no rebound or guarding noted. EXTREMITIES: Right lower extremity is erythematous compared to the left, otherwise without clubbing, cyanosis, or edema. Current Medications Medications (Trade) Dose Ordered Sig/Mejia Route PRN Reason Start Time Stop Time Status Last Admin Dose Admin Acetaminophen (Tylenol) 650 mg Q4H PRN ORAL MILD PAIN / T>100.5 05/22/18 07:15 06/21/18 07:14 06/11/18 04:01 Acetaminophen/ Hydrocodone Bitart ([place] 10/325) 1 tab Q4H PRN ORAL Severe Pain (Pain Scale 7-10) 06/19/18 14:38 06/26/18 14:37 06/20/18 12:07 Brimonidine Tartrate (Alphagan) 1 drop BID BOTH EYES 05/22/18 10:00 06/21/18 09:59 06/20/18 09:04 Divalproex Sodium (Depakote ER) 500 mg EVERY 12 HOURS ORAL 05/25/18 09:00 06/24/18 08:59 06/02/18 08:56 Folic Acid (Folate) 1 mg DAILY ORAL 05/22/18 09:00 06/21/18 08:59 06/20/18 09:03 Heparin Sodium (Porcine) (Heparin 5000 units/ml) 5,000 units EVERY 12 HOURS SUBQ 05/28/18 17:00 06/27/18 16:59 06/14/18 09:41 Ibuprofen (Motrin) 600 mg Q6H PRN ORAL Moderate Pain (Pain Scale 4-6) 06/12/18 19:00 07/12/18 18:59 Latanoprost (Xalatan) 1 drop BEDTIME BOTH EYES 05/22/18 21:00 06/21/18 20:59 06/19/18 20:22 Polyethylene Glycol (Miralax) 17 gm DAILY PRN ORAL Constipation 05/28/18 19:15 06/27/18 19:14 05/28/18 20:48 Pregabalin (Lyrica) 75 mg Q12HR ORAL 05/22/18 09:00 06/21/18 08:59 06/20/18 09:03 Risperidone (RisperDAL) 2 mg BEDTIME ORAL 05/25/18 21:00 06/24/18 20:59 05/25/18 21:00 Thiamine HCl (Vitamin B1) 100 mg DAILY ORAL 05/22/18 09:00 06/21/18 08:59 06/20/18 09:04 Timolol Maleate (Timoptic 0.5% Op Soln) 1 drop TWICE A DAY BOTH EYES 05/22/18 10:00 06/21/18 09:59 06/20/18 09:04 Marilyn Oliver M.D. Jun 20, 2018 12:50
--- NOTE | 2018-06-20 15:23 | NUR ---
INSURANCE FAXED [facility] T: [phone] [id number] F: [phone]
[2018-06-20 16:00] VITALS: BP 118/65
--- NOTE | 2018-06-20 16:05 | NUR ---
TEACHER COUNSELORCLASSIFIED AD CLERK SI; CELLULITIS T. 97.2 HR 64 RR 18 B/P 98/62 RA 99% IS: RISPERDAL PO HEPARIN SUBC DEPAKOTE PO NORCO PO PLACEMENT PENDING MED/SURG STATUS
--- NOTE | 2018-06-20 16:57 | Internal Med Progress Note ---
Subjective Date of Service: Jun 20, 2018 Physician Name Sadi Gaviria Attending Physician Niall Kraft MD Current Medications Medications (Trade) Dose Ordered Sig/Mejia Route PRN Reason Start Time Stop Time Status Last Admin Dose Admin Acetaminophen (Tylenol) 650 mg Q4H PRN ORAL MILD PAIN / T>100.5 05/22/18 07:15 06/21/18 07:14 06/11/18 04:01 Acetaminophen/ Hydrocodone Bitart ([place] 10/325) 1 tab Q4H PRN ORAL Severe Pain (Pain Scale 7-10) 06/19/18 14:38 06/26/18 14:37 06/20/18 12:07 Brimonidine Tartrate (Alphagan) 1 drop BID BOTH EYES 05/22/18 10:00 06/21/18 09:59 06/20/18 09:04 Divalproex Sodium (Depakote ER) 500 mg EVERY 12 HOURS ORAL 05/25/18 09:00 06/24/18 08:59 06/02/18 08:56 Folic Acid (Folate) 1 mg DAILY ORAL 05/22/18 09:00 06/21/18 08:59 06/20/18 09:03 Heparin Sodium (Porcine) (Heparin 5000 units/ml) 5,000 units EVERY 12 HOURS SUBQ 05/28/18 17:00 06/27/18 16:59 06/14/18 09:41 Ibuprofen (Motrin) 600 mg Q6H PRN ORAL Moderate Pain (Pain Scale 4-6) 06/12/18 19:00 07/12/18 18:59 Latanoprost (Xalatan) 1 drop BEDTIME BOTH EYES 05/22/18 21:00 06/21/18 20:59 06/19/18 20:22 Polyethylene Glycol (Miralax) 17 gm DAILY PRN ORAL Constipation 05/28/18 19:15 06/27/18 19:14 05/28/18 20:48 Pregabalin (Lyrica) 75 mg Q12HR ORAL 05/22/18 09:00 06/21/18 08:59 06/20/18 09:03 Risperidone (RisperDAL) 2 mg BEDTIME ORAL 05/25/18 21:00 06/24/18 20:59 05/25/18 21:00 Thiamine HCl (Vitamin B1) 100 mg DAILY ORAL 05/22/18 09:00 06/21/18 08:59 06/20/18 09:04 Timolol Maleate (Timoptic 0.5% Op Soln) 1 drop TWICE A DAY BOTH EYES 05/22/18 10:00 06/21/18 09:59 06/20/18 09:04 Allergies: Coded Allergies: CEPHALEXIN (Verified Allergy, Unknown, 05/18/18) CEPHALOSPORINS (Verified Allergy, Unknown, 05/18/18) ERYTHROMYCIN BASE (Verified Allergy, Unknown, 05/18/18) GABAPENTIN (Verified Allergy, Unknown, 05/18/18) SHELLFISH DERIVED (Verified Allergy, Unknown, 05/22/18) ROS Limited/Unobtainable: No Subjective 57 YO F admitted with vancomycin resistant enterococcus stool. Cover for Int Med-Dr Kraft. Await acceptance to SNF Objective Last Vital Signs Date Time Temp Pulse Resp B/P (MAP) Pulse Ox O2 Delivery O2 Flow Rate FiO2 06/20/18 12:00 98.9 82 20 114/60 (78) 99 06/20/18 09:00 Room Air Intake and Output 06/19/18 06/20/18 19:00 07:00 Intake Total 1240 ml Balance 1240 ml Intake Oral 1240 ml # Voids 6 3 # Bowel Movements 1 Objective General Appearance: WD/WN, no apparent distress, alert EENT: PERRL/EOMI, normal ENT inspection, TMs normal Neck: non-tender, normal alignment, supple, normal inspection Cardiovascular: normal peripheral pulses, normal rate, regular rhythm, no gallop/murmur, no JVD Respiratory/Chest: chest wall non-tender, lungs clear, normal breath sounds, no respiratory distress, no accessory muscle use Abdomen: normal bowel sounds, non tender, soft, no organomegaly, no mass Extremities: normal range of motion, non-tender 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 Assessment/Plan Discharge planning-Await Letter of agreement with [facility] -see case management note. Sadi Gaviria MD Jun 20, 2018 16:57
--- NOTE | 2018-06-20 19:32 | NUR ---
HAND-OFF: Report given to RN Malikai.
--- NOTE | 2018-06-20 19:54 | NUR ---
NURSE NOTES: received patient awake, seated in chair, no complaint of pain or discomfort, no distress noted. No IV access, dr is aware. Bed locked at the lowest position possible, call light within easy reach, siderails up x2. Will continue to monitor patient and follow up with the plan of care.
[2018-06-20 20:00] VITALS: BP 119/83
[2018-06-20] MEDS: Latanoprost 0.005% Opth 2.5ml Soln BOTH EYES SCH (22:55)
--- NOTE | 2018-06-20 23:51 | General Progress Note ---
Assessment/Plan Problem List: (1) Bipolar disorder ICD Codes: F31.9 - Bipolar disorder, unspecified SNOMED: 30948568 Qualifiers: Assessment/Plan Risperdal 4mg po qhs Depakote 1000 po qhs provided ro/st awaiting placement still wants to go to [facility] Subjective Neurologic/Psychiatric: Reports: anxiety, depressed, emotional problems Allergies: Coded Allergies: CEPHALEXIN (Verified Allergy, Unknown, 05/18/18) CEPHALOSPORINS (Verified Allergy, Unknown, 05/18/18) ERYTHROMYCIN BASE (Verified Allergy, Unknown, 05/18/18) GABAPENTIN (Verified Allergy, Unknown, 05/18/18) SHELLFISH DERIVED (Verified Allergy, Unknown, 05/22/18) Objective Last 24 Hour Vital Signs Date Time Temp Pulse Resp B/P (MAP) Pulse Ox O2 Delivery O2 Flow Rate FiO2 06/20/18 22:34 98.0 06/20/18 22:34 98.0 06/20/18 20:00 98.6 64 18 119/83 (95) 96 06/20/18 16:00 98.0 85 20 118/65 (82) 99 06/20/18 12:00 98.9 82 20 114/60 (78) 99 06/20/18 09:00 Room Air 06/20/18 04:00 97.2 64 18 98/62 (74) 98 06/20/18 00:00 98.0 66 18 109/54 (72) 98 Intake and Output 06/19/18 06/20/18 19:00 07:00 Intake Total 1240 ml Balance 1240 ml Intake Oral 1240 ml # Voids 6 3 # Bowel Movements 1 Height (Feet): 5 Height (Inches): 5.00 Weight (Pounds): 150 General Appearance: WD/WN, no apparent distress, alert Neurologic: oriented x 3, responsive, depressed affect Jake Mcintyre MD Jun 20, 2018 23:51
[2018-06-21] MEDS: HYDROcodone/Acetamin 10/325 tab ORAL PRN ×5 (03:56→20:48)
[2018-06-21 04:00] VITALS: BP 89/53
--- NOTE | 2018-06-21 07:30 | NUR ---
HAND-OFF: Report given to PORSCHE Storm.
--- NOTE | 2018-06-21 07:43 | NUR ---
NURSE NOTES: Current plan of care will be followed
[2018-06-21] MEDS: Thiamine 100mg tab ORAL SCH (08:21)
[2018-06-21] MEDS: Brimonidine 0.2% Opth Sol BOTH EYES SCH (08:22)
[2018-06-21] MEDS: Timolol 0.5% Op Soln 2.5ml BOTH EYES SCH (08:22)
[2018-06-21] MEDS: Heparin 5000 units/ml inj SUBQ SCH ×2 (09:00→20:50)
[2018-06-21] MEDS: Depakote ER 500mg tab ORAL SCH ×2 (09:00→20:50)
--- NOTE | 2018-06-21 09:41 | NUR ---
NURSE NOTES: Ampoule Filler And Sealer entered room earlier in shift approximately at 0800, patient noted banging bedside phone on overhead table. "this phone is broke, and preceded to throw the phone" " This is my roommates I do not why they giving me this broke ass phone like it is mine. " " I get mad when I do not get my pain medication on time, I have been waiting since a quarter till " Pt made aware, of time prn medication was obtained. " Ampoule Filler And Sealer knows pt pattern as a medication seeker, medication on hand at the time. Pt continues to behave belligerent" if you were not so damn cute I would cuss your ass out; I irritated" Ampoule Filler And Sealer qued pt on what was bothering her my medication." Ampoule Filler And Sealer informed her that current medications are being prepared. Pt began laughing. Bx change immediately to talkative and ongoing laughter. ' I just want my Herman, I do not care about anything else" Current plan of care will be followed
--- NOTE | 2018-06-21 10:37 | NUR ---
RD ASSESSMENT & RECOMMENDATIONS SEE CARE ACTIVITY FOR COMPLETE ASSESSMENT DAILY ESTIMATED NEEDS: Needs based on Paraplegia, 68kg 28-30 kcals/kg 9238-4166 total kcals 1-1.5 g protein/kg 68-102 g total protein 25-30 mL/kg 6726-6690 total fluid mLs NUTRITION DIAGNOSIS: Altered GI function R/T constipation as evidenced by pt c/o conspitation, no BM x 5 days. (INACTIVE) CURRENT DIET:Regular PO DIET RECOMMENDATIONS: REGULAR, HIGH FIBER ADDITIONAL RECOMMENDATIONS: * Calibrated bedscale wt for accurate CBW * Prunes TID, Prune Juice TID * Daily bowel regimen * Weekly weights -> pt w/ extended admission * UPDATED labs as able
--- NOTE | 2018-06-21 11:34 | Internal Med Progress Note ---
Subjective Date of Service: Jun 21, 2018 Physician Name Sadi Gaviria Attending Physician Niall Kraft MD Current Medications Medications (Trade) Dose Ordered Sig/Mejia Route PRN Reason Start Time Stop Time Status Last Admin Dose Admin Acetaminophen/ Hydrocodone Bitart ([place] 10/325) 1 tab Q4H PRN ORAL Severe Pain (Pain Scale 7-10) 06/19/18 14:38 06/26/18 14:37 06/21/18 08:20 Divalproex Sodium (Depakote ER) 500 mg EVERY 12 HOURS ORAL 05/25/18 09:00 06/24/18 08:59 06/02/18 08:56 Heparin Sodium (Porcine) (Heparin 5000 units/ml) 5,000 units EVERY 12 HOURS SUBQ 05/28/18 17:00 06/27/18 16:59 06/14/18 09:41 Ibuprofen (Motrin) 600 mg Q6H PRN ORAL Moderate Pain (Pain Scale 4-6) 06/12/18 19:00 07/12/18 18:59 Latanoprost (Xalatan) 1 drop BEDTIME BOTH EYES 05/22/18 21:00 06/21/18 20:59 06/20/18 22:55 Polyethylene Glycol (Miralax) 17 gm DAILY PRN ORAL Constipation 05/28/18 19:15 06/27/18 19:14 05/28/18 20:48 Risperidone (RisperDAL) 2 mg BEDTIME ORAL 05/25/18 21:00 06/24/18 20:59 05/25/18 21:00 Allergies: Coded Allergies: CEPHALEXIN (Verified Allergy, Unknown, 05/18/18) CEPHALOSPORINS (Verified Allergy, Unknown, 05/18/18) ERYTHROMYCIN BASE (Verified Allergy, Unknown, 05/18/18) GABAPENTIN (Verified Allergy, Unknown, 05/18/18) SHELLFISH DERIVED (Verified Allergy, Unknown, 05/22/18) ROS Limited/Unobtainable: No Constitutional: Reports: no symptoms HEENT: Reports: no symptoms Cardiovascular: Reports: no symptoms Respiratory: Reports: no symptoms Gastrointestinal/Abdominal: Reports: no symptoms Genitourinary: Reports: no symptoms Neurologic/Psychiatric: Reports: no symptoms Subjective 57 YO F admitted with vancomycin resistant enterococcus stool. Cover for Int Med-Dr Kraft. Await acceptance to [facility] Objective Last Vital Signs Date Time Temp Pulse Resp B/P (MAP) Pulse Ox O2 Delivery O2 Flow Rate FiO2 06/21/18 09:00 Room Air 06/21/18 04:26 97.4 06/21/18 04:00 76 18 89/53 (65) 100 Intake and Output 06/20/18 06/21/18 19:00 07:00 Intake Total 840 ml Balance 840 ml Intake Oral 840 ml # Voids 4 2 Objective General Appearance: WD/WN, no apparent distress, alert EENT: PERRL/EOMI, normal ENT inspection, TMs normal Neck: non-tender, normal alignment, supple, normal inspection Cardiovascular: normal peripheral pulses, normal rate, regular rhythm, no gallop/murmur, no JVD Respiratory/Chest: chest wall non-tender, lungs clear, normal breath sounds, no respiratory distress, no accessory muscle use Abdomen: normal bowel sounds, non tender, soft, no organomegaly, no mass Extremities: normal range of motion, non-tender 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 Assessment/Plan Discharge planning-Await Letter of agreement with [facility] fac -see case management note. Sadi Gaviria MD Jun 21, 2018 11:34
--- NOTE | 2018-06-21 16:49 | NUR ---
CASE MANAGEMENT:REVIEW 06/21/18 SI: CELLULITIS 97.2 66 19 158/85 99% ON RA IS: NORCO PO Q4HRS PRN HEPARIN SQ Q12 RISPERDAL PO QHS DEPAKOTE PO Q12 FOLATE PO QD LYRICA PO Q12 THIAMINE PO QD : MED/SURG STATUS 4 [place] PL[place]: PATIENT IS FROM [facility] BUT THEY WILL NOT TAKE PATIENT BACK REFERRED TO NUMEROUS SNF'S IN OUR AREA AND IN AREA REQUESTED BY [facility] ONLY FACILITY INTERESTED IN ACCEPTING PATIENT IS [facility] BUT THEY WILL REQUIRE A LETTER OF AGREEMENT. [facility] IS REQUESTING ASSISTANCE FROM [facility] IN RELOCATING THIS PATIENT TO A SNF ADDITIONAL MESSAGE LEFT FOR JCARLOS ABAD STATING THE ABOVE AND REQUESTING HELP WIT HER MEMBER
--- NOTE | 2018-06-21 19:30 | NUR ---
NURSE NOTES: Received patient in no apparent distress. A&OX4. Patient is watching TV sitting in the chair. Call light within reach. Will continue to monitor.
[2018-06-21 20:00] VITALS: BP 124/82
--- NOTE | 2018-06-21 21:09 | General Progress Note ---
Assessment/Plan Problem List: (1) Bipolar disorder ICD Codes: F31.9 - Bipolar disorder, unspecified SNOMED: [id number] Qualifiers: Assessment/Plan Risperdal 4mg po qhs Depakote 1000 po qhs provided ro/st awaiting placement still wants to go to [facility] Subjective Neurologic/Psychiatric: Reports: anxiety, depressed, emotional problems Allergies: Coded Allergies: CEPHALEXIN (Verified Allergy, Unknown, 05/18/18) CEPHALOSPORINS (Verified Allergy, Unknown, 05/18/18) ERYTHROMYCIN BASE (Verified Allergy, Unknown, 05/18/18) GABAPENTIN (Verified Allergy, Unknown, 05/18/18) SHELLFISH DERIVED (Verified Allergy, Unknown, 05/22/18) Objective Last 24 Hour Vital Signs Date Time Temp Pulse Resp B/P (MAP) Pulse Ox O2 Delivery O2 Flow Rate FiO2 06/21/18 20:00 72 18 124/82 (96) 98 06/21/18 09:00 Room Air 06/21/18 04:26 97.4 06/21/18 04:00 97.4 76 18 89/53 (65) 100 06/20/18 22:34 98.0 Intake and Output 06/20/18 06/21/18 19:00 07:00 Intake Total 840 ml Balance 840 ml Intake Oral 840 ml # Voids 4 2 Height (Feet): 5 Height (Inches): 5.00 Weight (Pounds): 162 General Appearance: no apparent distress, alert Neurologic: oriented x 3, responsive, depressed affect Jake Mcintyre MD Jun 21, 2018 21:09
[2018-06-22] VITALS: BP 119/69
[2018-06-22] MEDS: HYDROcodone/Acetamin 10/325 tab ORAL PRN ×6 (02:13→23:29)
[2018-06-22 04:00] VITALS: BP 105/69
--- NOTE | 2018-06-22 07:16 | NUR ---
HAND-OFF: Report given to Nancy MORRELL.
--- NOTE | 2018-06-22 07:44 | NUR ---
NURSE NOTES: Received sitting up in chair. per pt statement slept in chair. " if I would have gotten in my bed who was going to fix it' Qued if assistance was requested" I do what I need to do for myself" Call light placed n reach encouraged to request assistance
[2018-06-22 08:00] VITALS: BP 138/55
[2018-06-22] MEDS: Heparin 5000 units/ml inj SUBQ SCH ×2 (10:03→21:00)
[2018-06-22] MEDS: Depakote ER 500mg tab ORAL SCH ×2 (10:03→21:00)
[2018-06-22 12:00] VITALS: BP 124/73
[2018-06-22 16:00] VITALS: BP 140/62
--- NOTE | 2018-06-22 16:59 | Internal Med Progress Note ---
Subjective Date of Service: Jun 22, 2018 Physician Name Sadi Gaviria Attending Physician Niall Kraft MD Current Medications Medications (Trade) Dose Ordered Sig/Mejia Route PRN Reason Start Time Stop Time Status Last Admin Dose Admin Acetaminophen/ Hydrocodone Bitart ([place] 10/325) 1 tab Q4H PRN ORAL Severe Pain (Pain Scale 7-10) 06/19/18 14:38 06/26/18 14:37 06/22/18 14:12 Divalproex Sodium (Depakote ER) 500 mg EVERY 12 HOURS ORAL 05/25/18 09:00 06/24/18 08:59 06/02/18 08:56 Heparin Sodium (Porcine) (Heparin 5000 units/ml) 5,000 units EVERY 12 HOURS SUBQ 05/28/18 17:00 06/27/18 16:59 06/14/18 09:41 Ibuprofen (Motrin) 600 mg Q6H PRN ORAL Moderate Pain (Pain Scale 4-6) 06/12/18 19:00 07/12/18 18:59 Polyethylene Glycol (Miralax) 17 gm DAILY PRN ORAL Constipation 05/28/18 19:15 06/27/18 19:14 05/28/18 20:48 Risperidone (RisperDAL) 2 mg BEDTIME ORAL 05/25/18 21:00 06/24/18 20:59 05/25/18 21:00 Allergies: Coded Allergies: CEPHALEXIN (Verified Allergy, Unknown, 05/18/18) CEPHALOSPORINS (Verified Allergy, Unknown, 05/18/18) ERYTHROMYCIN BASE (Verified Allergy, Unknown, 05/18/18) GABAPENTIN (Verified Allergy, Unknown, 05/18/18) SHELLFISH DERIVED (Verified Allergy, Unknown, 05/22/18) ROS Limited/Unobtainable: No Constitutional: Reports: no symptoms HEENT: Reports: no symptoms Cardiovascular: Reports: no symptoms Respiratory: Reports: no symptoms Gastrointestinal/Abdominal: Reports: no symptoms Genitourinary: Reports: no symptoms Neurologic/Psychiatric: Reports: no symptoms Subjective 57 YO F admitted with vancomycin resistant enterococcus stool. Cover for Int Med-Dr Kraft. Await acceptance to [facility] Objective Last Vital Signs Date Time Temp Pulse Resp B/P (MAP) Pulse Ox O2 Delivery O2 Flow Rate FiO2 06/22/18 12:00 98.3 74 18 124/73 (90) 99 06/22/18 09:00 Room Air Intake and Output 06/21/18 06/22/18 19:00 07:00 Intake Total 720 ml Balance 720 ml Intake Oral 720 ml # Voids 3 2 Objective General Appearance: WD/WN, no apparent distress, alert EENT: PERRL/EOMI, normal ENT inspection, TMs normal Neck: non-tender, normal alignment, supple, normal inspection Cardiovascular: normal peripheral pulses, normal rate, regular rhythm, no gallop/murmur, no JVD Respiratory/Chest: chest wall non-tender, lungs clear, normal breath sounds, no respiratory distress, no accessory muscle use Abdomen: normal bowel sounds, non tender, soft, no organomegaly, no mass Extremities: normal range of motion, non-tender 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 Assessment/Plan Discharge planning-Await Letter of agreement with [facility] fac -see case management note. Sadi Gaviria MD Jun 22, 2018 16:59
--- NOTE | 2018-06-22 19:30 | NUR ---
NURSE NOTES: RECEIVED PATIENT SITTING IN CHAIR, AWAKE, ALERT/ORIENTED X4, ABLE TO VERBALIZE NEEDS, QASIM PAIN, NO SIGNS AND SYMPTOMS OF ACUTE CARDIO RESPIRATORY DISTRESS/SHORTNESS OF BREATH, DENIES CHEST PAIN, EDEMA TO BILATERAL LOWER EXTREMITIES SUBSIDING WELL. NO COMPLAINTS OF GI DISCOMFORT, GOOD APPETITE, NO N/V/D. ENCOURAGED PATIENT TO UTILIZE CALL LIGHT FOR ASSISTANCE, VERBALIZED UNDERSTANDING. DISCHARGE PLANNING ONGOING. NAD.
[2018-06-22 20:00] VITALS: BP 130/82
--- NOTE | 2018-06-22 20:04 | NUR ---
NURSE NOTES: Patient cooperated with plan of care today. Required minimal distraction techniques this shift. Overall mood pleasant today. Pt set up required for Adls refused assistance, provided with set up only. Condition remains stable. Continues to request [place] 10/325 in exactly 4 hour intervals ' " All I need is my pain medication, My Norcos" Pt chews the tablet when given to her. Encouraged to swallow the tablet " this is how I take it , this is how I've been taking it' Current plan of care will be followed
--- NOTE | 2018-06-22 20:29 | NUR ---
HAND-OFF: Report given to .Claudia RUFFIN
--- NOTE | 2018-06-22 20:56 | NUR ---
NURSE NOTES: ASSISTED PATIENT TO BED, TOLERATED WELL. SIDE RAILS UP X2, BED IN LOWEST POSITION FOR SAFETY, CALL LIGHT WITHIN REACH. NAD.
[2018-06-22] MEDS: Miralax 17gm pkt ORAL PRN (21:16)
--- NOTE | 2018-06-22 21:21 | NUR ---
NURSE NOTES: REFUSED ALL SCHEDULED MEDICATIONS-
[2018-06-23] VITALS: BP 125/79
--- NOTE | 2018-06-23 00:11 | General Progress Note ---
Assessment/Plan Problem List: (1) Bipolar disorder ICD Codes: F31.9 - Bipolar disorder, unspecified SNOMED: [id number] Qualifiers: Assessment/Plan Risperdal 4mg po qhs Depakote 1000 po qhs provided ro/st awaiting placement still wants to go to [facility] Subjective Date patient seen: Jun 22, 2018 Neurologic/Psychiatric: Reports: anxiety, depressed, emotional problems Allergies: Coded Allergies: CEPHALEXIN (Verified Allergy, Unknown, 05/18/18) CEPHALOSPORINS (Verified Allergy, Unknown, 05/18/18) ERYTHROMYCIN BASE (Verified Allergy, Unknown, 05/18/18) GABAPENTIN (Verified Allergy, Unknown, 05/18/18) SHELLFISH DERIVED (Verified Allergy, Unknown, 05/22/18) Objective Last 24 Hour Vital Signs Date Time Temp Pulse Resp B/P (MAP) Pulse Ox O2 Delivery O2 Flow Rate FiO2 06/22/18 23:59 97.9 06/22/18 20:00 97.9 72 18 130/82 (98) 99 06/22/18 16:00 98.0 76 18 140/62 (88) 100 06/22/18 12:00 98.3 74 18 124/73 (90) 99 06/22/18 09:00 Room Air 06/22/18 08:00 98.2 64 18 138/55 (82) 06/22/18 04:00 98.6 80 18 105/69 (81) 98 Intake and Output 06/22/18 06/23/18 19:00 07:00 Intake Total 900 ml Balance 900 ml Intake Oral 900 ml # Voids 4 # Bowel Movements 1 Height (Feet): 5 Height (Inches): 5.00 Weight (Pounds): 162 Jake Mcintyre MD Jun 23, 2018 00:11
[2018-06-23 04:00] VITALS: BP 109/74
[2018-06-23] MEDS: HYDROcodone/Acetamin 10/325 tab ORAL PRN ×4 (05:03→21:38)
--- NOTE | 2018-06-23 06:25 | NUR ---
NURSE NOTES: NO SIGNIFICANT CHANGE OF CONDITION NOTED THROUGHOUT THE NIGHT. SAFETY MAINTAINED. NAD.
--- NOTE | 2018-06-23 07:09 | NUR ---
HAND-OFF: Report given to teri ortiz.
--- NOTE | 2018-06-23 07:33 | NUR ---
NURSE NOTES: pt awake alert,no distress. no sob. no c/o pain. will monitor. call light within reach.
[2018-06-23 07:41] VITALS: BP 113/71
[2018-06-23] MEDS: Heparin 5000 units/ml inj SUBQ SCH ×2 (07:59→21:00)
[2018-06-23] MEDS: Depakote ER 500mg tab ORAL SCH ×2 (07:59→21:00)
--- NOTE | 2018-06-23 08:51 | NUR ---
NURSE NOTES: pt refused depakote and heparin pt states "i never take depakote , risperdal, or heparin"
[2018-06-23 11:55] VITALS: BP 102/65
--- NOTE | 2018-06-23 13:19 | General Progress Note ---
Assessment/Plan Problem List: (1) Bipolar disorder ICD Codes: F31.9 - Bipolar disorder, unspecified SNOMED: [id number] Qualifiers: Assessment/Plan Risperdal 4mg po qhs Depakote 1000 po qhs provided ro/st awaiting placement still wants to go to [facility] Subjective Neurologic/Psychiatric: Reports: anxiety, depressed, emotional problems Allergies: Coded Allergies: CEPHALEXIN (Verified Allergy, Unknown, 05/18/18) CEPHALOSPORINS (Verified Allergy, Unknown, 05/18/18) ERYTHROMYCIN BASE (Verified Allergy, Unknown, 05/18/18) GABAPENTIN (Verified Allergy, Unknown, 05/18/18) SHELLFISH DERIVED (Verified Allergy, Unknown, 05/22/18) Objective Last 24 Hour Vital Signs Date Time Temp Pulse Resp B/P (MAP) Pulse Ox O2 Delivery O2 Flow Rate FiO2 06/23/18 11:55 98.0 92 18 102/65 (77) 99 06/23/18 11:48 97.7 06/23/18 08:04 Room Air 06/23/18 07:41 97.7 70 18 113/71 (85) 99 06/23/18 04:00 98.6 85 18 109/74 (86) 99 06/23/18 00:00 98.0 75 18 125/79 (94) 100 06/22/18 21:00 Room Air 06/22/18 20:00 97.9 72 18 130/82 (98) 99 06/22/18 16:00 98.0 76 18 140/62 (88) 100 Intake and Output 06/22/18 06/23/18 18:59 06:59 Intake Total 900 ml 250 ml Balance 900 ml 250 ml Intake Oral 900 ml 250 ml # Voids 4 4 # Bowel Movements 1 2 Height (Feet): 5 Height (Inches): 5.00 Weight (Pounds): 162 General Appearance: no apparent distress, alert Neurologic: oriented x 3, responsive, depressed affect Jake Mcintyre MD Jun 23, 2018 13:19
--- NOTE | 2018-06-23 13:49 | NUR ---
*-* DISCHARGE PLANNING *-* PATIENT HAS BEEN REFERRED TO THE FOLLOWING FACILITIES FOR PLACEMENT [facility] P:[phone] F:[phone] 2. [facility] P:[phone] F:[phone] 3. [facility] P:[phone] F:[phone] 4. [facility] P:[phone] F: [phone] 5. [facility] P:[phone] F:[phone] 6. [facility] P:[phone] F:[phone] 7. [facility] P:[phone] F: [phone] 8. [facility] P:[phone] F:[phone] 9. [facility] P:[phone] F:[phone] 10. [facility] P:[phone] F:[phone] Addendum: 06/23/18 at 1413 by MANINDER SALDAÑA CM [facility]. [facility] * S/W Shayy she stated they are not contracted, but will look into it and call us back. 2. [facility] NO [facility] BED AVAILABLE. 3. [facility] * No Female beds available, maybe after Tuesday. 4. [facility] S/W MYCHAL THEY STATED PATIENT IS NOT APPROPRIATE FOR [facility]. 5. [facility] SPOKE TO YARA THEY HAVE TO REVIEW AND THEY WILL CALL BACK.
--- NOTE | 2018-06-23 15:33 | Infectious Diseases Prog Note ---
Assessment/Plan Assessment/Plan Assessment: Recent b/l cellulitis, resolved Afebrile Mild leukopenia paraplegia anemia neuralgia bipolar disorder [facility] [place] resident VRE stool- THIS IS A COLONIZER Plan: - Monitor off abx -05/25 SP Bactrim #7 -05/20 SP IV Vancomycin #3 -OK TO DISCHARGE BACK TO [place], NO NEED FOR ISOLATION UPON DISCHARGE -Monitor CBC/CMP, temperatures Will continue to follow along with you. Subjective Allergies: Coded Allergies: CEPHALEXIN (Verified Allergy, Unknown, 05/18/18) CEPHALOSPORINS (Verified Allergy, Unknown, 05/18/18) ERYTHROMYCIN BASE (Verified Allergy, Unknown, 05/18/18) GABAPENTIN (Verified Allergy, Unknown, 05/18/18) SHELLFISH DERIVED (Verified Allergy, Unknown, 05/22/18) Subjective afebrile waiting placement Objective Vital Signs Last 24 Hour Vital Signs Date Time Temp Pulse Resp B/P (MAP) Pulse Ox O2 Delivery O2 Flow Rate FiO2 06/23/18 11:55 98.0 92 18 102/65 (77) 99 06/23/18 11:48 97.7 06/23/18 08:04 Room Air 06/23/18 07:41 97.7 70 18 113/71 (85) 99 06/23/18 04:00 98.6 85 18 109/74 (86) 99 06/23/18 00:00 98.0 75 18 125/79 (94) 100 06/22/18 21:00 Room Air 06/22/18 20:00 97.9 72 18 130/82 (98) 99 06/22/18 16:00 98.0 76 18 140/62 (88) 100 Height (Feet): 5 Height (Inches): 5.00 Weight (Pounds): 162 Objective GENERAL: The patient is a thin-appearing female, in no apparent distress. HEENT: Eyes - pupils are equal and responsive to light and accommodation. Extraocular movements are intact. NECK: Supple. No lymphadenopathy. CHEST: Lungs are clear to auscultation bilaterally without wheezes or rales. CARDIOVASCULAR: Regular rate. S1 and S2 normal without murmurs, rubs, or gallops. ABDOMEN: Soft, nontender, and nondistended. Positive bowel sounds. No evidence of hepatosplenomegaly. Currently, no rebound or guarding noted. EXTREMITIES: Right lower extremity is erythematous compared to the left, otherwise without clubbing, cyanosis, or edema. Current Medications Medications (Trade) Dose Ordered Sig/Mejia Route PRN Reason Start Time Stop Time Status Last Admin Dose Admin Acetaminophen/ Hydrocodone Bitart ([place] 10/325) 1 tab Q4H PRN ORAL Severe Pain (Pain Scale 7-10) 06/19/18 14:38 06/26/18 14:37 06/23/18 11:18 Divalproex Sodium (Depakote ER) 500 mg EVERY 12 HOURS ORAL 05/25/18 09:00 06/24/18 08:59 06/02/18 08:56 Heparin Sodium (Porcine) (Heparin 5000 units/ml) 5,000 units EVERY 12 HOURS SUBQ 05/28/18 17:00 06/27/18 16:59 06/14/18 09:41 Ibuprofen (Motrin) 600 mg Q6H PRN ORAL Moderate Pain (Pain Scale 4-6) 06/12/18 19:00 07/12/18 18:59 Polyethylene Glycol (Miralax) 17 gm DAILY PRN ORAL Constipation 05/28/18 19:15 06/27/18 19:14 05/28/18 20:48 Risperidone (RisperDAL) 2 mg BEDTIME ORAL 05/25/18 21:00 06/24/18 20:59 05/25/18 21:00 Marilyn Oliver M.D. Jun 23, 2018 15:33
[2018-06-23 16:00] VITALS: BP 126/81
--- NOTE | 2018-06-23 17:00 | Internal Med Progress Note ---
Subjective Physician Name Niall Kraft Attending Physician Niall Kraft MD Current Medications Medications (Trade) Dose Ordered Sig/Mejia Route PRN Reason Start Time Stop Time Status Last Admin Dose Admin Acetaminophen/ Hydrocodone Bitart ([place] 10/325) 1 tab Q4H PRN ORAL Severe Pain (Pain Scale 7-10) 06/19/18 14:38 06/26/18 14:37 06/23/18 11:18 Divalproex Sodium (Depakote ER) 500 mg EVERY 12 HOURS ORAL 05/25/18 09:00 06/24/18 08:59 06/02/18 08:56 Heparin Sodium (Porcine) (Heparin 5000 units/ml) 5,000 units EVERY 12 HOURS SUBQ 05/28/18 17:00 06/27/18 16:59 06/14/18 09:41 Ibuprofen (Motrin) 600 mg Q6H PRN ORAL Moderate Pain (Pain Scale 4-6) 06/12/18 19:00 07/12/18 18:59 Polyethylene Glycol (Miralax) 17 gm DAILY PRN ORAL Constipation 05/28/18 19:15 06/27/18 19:14 05/28/18 20:48 Risperidone (RisperDAL) 2 mg BEDTIME ORAL 05/25/18 21:00 06/24/18 20:59 05/25/18 21:00 Allergies: Coded Allergies: CEPHALEXIN (Verified Allergy, Unknown, 05/18/18) CEPHALOSPORINS (Verified Allergy, Unknown, 05/18/18) ERYTHROMYCIN BASE (Verified Allergy, Unknown, 05/18/18) GABAPENTIN (Verified Allergy, Unknown, 05/18/18) SHELLFISH DERIVED (Verified Allergy, Unknown, 05/22/18) Subjective awake, alert, responsive, NAD, sitting up on chair. Objective Last Vital Signs Date Time Temp Pulse Resp B/P (MAP) Pulse Ox O2 Delivery O2 Flow Rate FiO2 06/23/18 16:00 98.0 78 18 126/81 (96) 99 06/23/18 08:04 Room Air Intake and Output 06/22/18 06/23/18 18:59 06:59 Intake Total 900 ml 250 ml Balance 900 ml 250 ml Intake Oral 900 ml 250 ml # Voids 4 4 # Bowel Movements 1 2 Objective GENERAL: Alert and oriented X 3 HEAD AND NECK: Pupils are reactive to light. Anicteric. NECK: Supple. No JVD. LUNGS: Good air entry. fair inspiratory effort. No wheeze or rhonchi. HEART: S1 and S2. Distant heart sounds. No murmur or gallops. ABDOMEN: Soft, nondistended, and nontender. Positive bowel sounds. EXTREMITIES: No cyanosis or clubbing. Contracted and weakness of bilateral lower extremities. Bilateral lower extremity, less edema, right worse than left and less erythema was noted in the bilateral lower extremity, right greater than left. RECTAL: Refused and deferred. GENITOURINARY: Refused and deferred. Assessment/Plan Assessment/Plan 1. Glaucoma. 2. Cellulitis of lower extremity. 3. Paraplegia. 4. Bipolar disorder. 5. Vancomycin-resistant enterococcus colonization. Plan: off abx waiting for placement in SNF Full code heparin SQ. Niall Kraft MD Jun 23, 2018 17:00
--- NOTE | 2018-06-23 19:22 | NUR ---
HAND-OFF: Report given to RICKY RUFFIN.
--- NOTE | 2018-06-23 19:45 | NUR ---
NURSE NOTES: PATIENT AWAKE, ALERT/ORIENTED X4, NO COMPLAINTS OF PAIN, NO SIGNS AND SYMPTOMS OF ACUTE CARDIO RESPIRATORY DISTRESS/SHORTNESS OF BREATH. NO REPORT OF GI DISCOMFORT, NO N/V/D. WILL CONTINUE TO MONITOR FOR SAFETY/NEEDS. CALL LIGHT WITHIN REACH.
[2018-06-23 20:00] VITALS: BP 115/84
[2018-06-24] VITALS: BP 132/76
[2018-06-24] MEDS: HYDROcodone/Acetamin 10/325 tab ORAL PRN ×6 (01:35→23:19)
[2018-06-24 04:00] VITALS: BP 140/80
--- NOTE | 2018-06-24 06:15 | NUR ---
NURSE NOTES: NO SIGNIFICANT CHANGE OF CONDITION NOTED THROUGHOUT THE NIGHT. SAFETY MAINTAINED. NAD.
--- NOTE | 2018-06-24 07:42 | NUR ---
HAND-OFF: Report given to LALY BRITO.
[2018-06-24 08:00] VITALS: BP 102/65
--- NOTE | 2018-06-24 08:00 | NUR ---
NURSE NOTES: received patient A/A/Ox4, in bed resting comfortable. No c/o pain/discomfort noted. Able to make things known. keep bed in the lowest position. siderails are up x3. call light is within reach. will cont to monitor.
[2018-06-24] MEDS: Heparin 5000 units/ml inj SUBQ SCH ×2 (08:19→20:09)
--- NOTE | 2018-06-24 10:08 | NUR ---
SS note Chart reviewed; pending SNF placement. Patient is currently DNR/DNI.
--- NOTE | 2018-06-24 10:40 | Infectious Diseases Prog Note ---
Assessment/Plan Assessment/Plan Assessment: Recent b/l cellulitis, resolved Afebrile Mild leukopenia paraplegia anemia neuralgia bipolar disorder [facility] [place] resident VRE stool- THIS IS A COLONIZER Plan: - Monitor off abx -05/25 SP Bactrim #7 -05/20 SP IV Vancomycin #3 -OK TO DISCHARGE BACK TO [place], NO NEED FOR ISOLATION UPON DISCHARGE -Monitor CBC/CMP, temperatures Subjective Allergies: Coded Allergies: CEPHALEXIN (Verified Allergy, Unknown, 05/18/18) CEPHALOSPORINS (Verified Allergy, Unknown, 05/18/18) ERYTHROMYCIN BASE (Verified Allergy, Unknown, 05/18/18) GABAPENTIN (Verified Allergy, Unknown, 05/18/18) SHELLFISH DERIVED (Verified Allergy, Unknown, 05/22/18) Subjective comfortable Objective Vital Signs Last 24 Hour Vital Signs Date Time Temp Pulse Resp B/P (MAP) Pulse Ox O2 Delivery O2 Flow Rate FiO2 06/24/18 09:00 Room Air 06/24/18 08:00 98.0 87 18 102/65 (77) 98 06/24/18 07:15 97.2 06/24/18 04:00 97.2 70 19 140/80 (100) 98 06/24/18 00:00 97.9 71 18 132/76 (94) 100 06/23/18 21:00 Room Air 06/23/18 20:00 97.7 78 18 115/84 (94) 97 06/23/18 16:00 98.0 78 18 126/81 (96) 99 06/23/18 11:55 98.0 92 18 102/65 (77) 99 Height (Feet): 5 Height (Inches): 5.00 Weight (Pounds): 162 HEENT: atraumatic Respiratory/Chest: normal breath sounds Cardiovascular: regular rhythm Abdomen: soft, non tender Current Medications Medications (Trade) Dose Ordered Sig/Mejia Route PRN Reason Start Time Stop Time Status Last Admin Dose Admin Acetaminophen/ Hydrocodone Bitart ([place] 10/325) 1 tab Q4H PRN ORAL Severe Pain (Pain Scale 7-10) 06/19/18 14:38 06/26/18 14:37 06/24/18 06:45 Heparin Sodium (Porcine) (Heparin 5000 units/ml) 5,000 units EVERY 12 HOURS SUBQ 05/28/18 17:00 06/27/18 16:59 06/14/18 09:41 Ibuprofen (Motrin) 600 mg Q6H PRN ORAL Moderate Pain (Pain Scale 4-6) 06/12/18 19:00 07/12/18 18:59 Polyethylene Glycol (Miralax) 17 gm DAILY PRN ORAL Constipation 05/28/18 19:15 06/27/18 19:14 05/28/18 20:48 Risperidone (RisperDAL) 2 mg BEDTIME ORAL 05/25/18 21:00 06/24/18 20:59 05/25/18 21:00 Christian Romero MD Jun 24, 2018 10:40
--- NOTE | 2018-06-24 11:50 | NUR ---
CASE MANAGEMENT:REVIEW 06/24/2018 SI: CELLULITIS T 98 HR 87 RR 18 B/P 102/65 SATS 98% ON RA NO LABS TODAY IS: NORCO PO Q4HRS PRN HEPARIN SUBQ Q12H RISPERDAL PO QHS DEPAKOTE PO Q12H FOLATE PO QD LYRICA PO Q12H THIAMINE PO QD : MED/SURG STATUS 4 [facility]
[2018-06-24 11:52] VITALS: BP 108/66
--- NOTE | 2018-06-24 15:14 | NUR ---
NURSE NOTES: patient has been sitting in the chair the whole morning. patient appears to be irritabled with norco administrations. She thinks we are tricking her with the time though explained how it was done and remained upset and failed to listen to staff about the time that was scanned and administered. No acute resp distress noted. will cont to monitor.
[2018-06-24 16:00] VITALS: BP 106/59
--- NOTE | 2018-06-24 17:08 | Internal Med Progress Note ---
Subjective Date of Service: Jun 24, 2018 Physician Name Sadi Gaviria Attending Physician Niall Kraft MD Current Medications Medications (Trade) Dose Ordered Sig/Mejia Route PRN Reason Start Time Stop Time Status Last Admin Dose Admin Acetaminophen/ Hydrocodone Bitart ([place] 10/325) 1 tab Q4H PRN ORAL Severe Pain (Pain Scale 7-10) 06/19/18 14:38 06/26/18 14:37 06/24/18 15:23 Heparin Sodium (Porcine) (Heparin 5000 units/ml) 5,000 units EVERY 12 HOURS SUBQ 05/28/18 17:00 06/27/18 16:59 06/14/18 09:41 Ibuprofen (Motrin) 600 mg Q6H PRN ORAL Moderate Pain (Pain Scale 4-6) 06/12/18 19:00 07/12/18 18:59 Polyethylene Glycol (Miralax) 17 gm DAILY PRN ORAL Constipation 05/28/18 19:15 06/27/18 19:14 05/28/18 20:48 Risperidone (RisperDAL) 2 mg BEDTIME ORAL 05/25/18 21:00 06/24/18 20:59 05/25/18 21:00 Allergies: Coded Allergies: CEPHALEXIN (Verified Allergy, Unknown, 05/18/18) CEPHALOSPORINS (Verified Allergy, Unknown, 05/18/18) ERYTHROMYCIN BASE (Verified Allergy, Unknown, 05/18/18) GABAPENTIN (Verified Allergy, Unknown, 05/18/18) SHELLFISH DERIVED (Verified Allergy, Unknown, 05/22/18) ROS Limited/Unobtainable: No Constitutional: Reports: no symptoms HEENT: Reports: no symptoms Cardiovascular: Reports: no symptoms Respiratory: Reports: no symptoms Gastrointestinal/Abdominal: Reports: no symptoms Genitourinary: Reports: no symptoms Neurologic/Psychiatric: Reports: no symptoms Subjective 57 YO F admitted with vancomycin resistant enterococcus stool. Cover for Int Med-Dr Kraft. Await acceptance to [facility] Objective Last Vital Signs Date Time Temp Pulse Resp B/P (MAP) Pulse Ox O2 Delivery O2 Flow Rate FiO2 06/24/18 16:00 98.0 78 18 106/59 (75) 95 06/24/18 09:00 Room Air Intake and Output 06/23/18 06/24/18 18:59 06:59 Intake Total 600 ml 120 ml Balance 600 ml 120 ml Intake Oral 600 ml 120 ml # Voids 2 1 Objective General Appearance: WD/WN, no apparent distress, alert EENT: PERRL/EOMI, normal ENT inspection, TMs normal Neck: non-tender, normal alignment, supple, normal inspection Cardiovascular: normal peripheral pulses, normal rate, regular rhythm, no gallop/murmur, no JVD Respiratory/Chest: chest wall non-tender, lungs clear, normal breath sounds, no respiratory distress, no accessory muscle use Abdomen: normal bowel sounds, non tender, soft, no organomegaly, no mass Extremities: normal range of motion, non-tender Neurologic: physicist cryogenics II-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 Assessment/Plan Discharge planning-Await Letter of agreement with [facility] fac -see case management note. Sadi Gaviria MD Jun 24, 2018 17:08
--- NOTE | 2018-06-24 18:13 | NUR ---
NURSE NOTES: patient sitting in a chair with no acute distress noted. resting comfortably and able to manage to get around what she needs in the room. patient doesn't like to be helped with bedside care. Excellent appetite. No s/sx of n/v noted. call light is within reach. will cont to monitor.
--- NOTE | 2018-06-24 19:11 | NUR ---
NURSE NOTES: Received patient sitting on chair, no s/s of any distress, complaints of pain 9/10, No IV line noted, will continue to monitor.
--- NOTE | 2018-06-24 19:11 | NUR ---
HAND-OFF: Report given to travis.
[2018-06-24 20:00] VITALS: BP 130/65
--- NOTE | 2018-06-24 21:32 | General Progress Note ---
Assessment/Plan Problem List: (1) Bipolar disorder ICD Codes: F31.9 - Bipolar disorder, unspecified SNOMED: [id number] Qualifiers: Assessment/Plan Risperdal 4mg po qhs Depakote 1000 po qhs provided ro/st awaiting placement still wants to go to [facility] Subjective Neurologic/Psychiatric: Reports: anxiety, depressed, emotional problems Allergies: Coded Allergies: CEPHALEXIN (Verified Allergy, Unknown, 05/18/18) CEPHALOSPORINS (Verified Allergy, Unknown, 05/18/18) ERYTHROMYCIN BASE (Verified Allergy, Unknown, 05/18/18) GABAPENTIN (Verified Allergy, Unknown, 05/18/18) SHELLFISH DERIVED (Verified Allergy, Unknown, 05/22/18) Objective Last 24 Hour Vital Signs Date Time Temp Pulse Resp B/P (MAP) Pulse Ox O2 Delivery O2 Flow Rate FiO2 06/24/18 21:00 Room Air 06/24/18 20:00 98.4 85 18 130/65 (86) 100 06/24/18 16:00 98.0 78 18 106/59 (75) 95 06/24/18 15:53 98.0 06/24/18 11:52 98.4 82 18 108/66 (80) 98 06/24/18 09:00 Room Air 06/24/18 08:00 98.0 87 18 102/65 (77) 98 06/24/18 04:00 97.2 70 19 140/80 (100) 98 06/24/18 00:00 97.9 71 18 132/76 (94) 100 Intake and Output 06/23/18 06/24/18 19:00 07:00 Intake Total 600 ml 120 ml Balance 600 ml 120 ml Intake Oral 600 ml 120 ml # Voids 2 1 Height (Feet): 5 Height (Inches): 5.00 Weight (Pounds): 162 General Appearance: alert Neurologic: oriented x 3, responsive, depressed affect Jake Mcintyre MD Jun 24, 2018 21:32
[2018-06-25] MEDS: HYDROcodone/Acetamin 10/325 tab ORAL PRN ×5 (03:08→22:31)
[2018-06-25 04:00] VITALS: BP 110/69
--- NOTE | 2018-06-25 07:09 | NUR ---
HAND-OFF: Report given to Gege RUFFIN
[2018-06-25 07:45] VITALS: BP 118/79
[2018-06-25 08:00] VITALS: BP 127/71
--- NOTE | 2018-06-25 08:30 | NUR ---
NURSE NOTES: received patient disruptive and threw water pitcher on the floor bcuz she was upset that she was served water instead of ice. She was being rude and disrespectful to the staff, screaming and yelling. patient was on a chair and continues to use foul words. medicated with norco for pain 10/10 generalized pain. No acute distress noted. call light is within reach. will cont to monitor.
[2018-06-25] MEDS: Heparin 5000 units/ml inj SUBQ SCH ×2 (08:43→21:00)
--- NOTE | 2018-06-25 11:44 | NUR ---
CASE MANAGEMENT:REVIEW 06/25/2018 SI: CELLULITIS T 98.6 HR 76 RR 18 B/P 118/79 SATS 99% ON RA NO LABS TODAY IS: NORCO PO Q4HRS PRN HEPARIN SUBQ Q12H RISPERDAL PO QHS DEPAKOTE PO Q12H FOLATE PO QD LYRICA PO Q12H THIAMINE PO QD : MED/SURG STATUS 4 [facility]
[2018-06-25 12:03] VITALS: BP 118/78
--- NOTE | 2018-06-25 13:40 | Internal Med Progress Note ---
Subjective Date of Service: Jun 25, 2018 Physician Name Sadi Gaviria Attending Physician Niall Kraft MD Current Medications Medications (Trade) Dose Ordered Sig/Mejia Route PRN Reason Start Time Stop Time Status Last Admin Dose Admin Acetaminophen/ Hydrocodone Bitart ([place] 10/325) 1 tab Q4H PRN ORAL Severe Pain (Pain Scale 7-10) 06/19/18 14:38 06/26/18 14:37 06/25/18 08:08 Heparin Sodium (Porcine) (Heparin 5000 units/ml) 5,000 units EVERY 12 HOURS SUBQ 05/28/18 17:00 06/27/18 16:59 06/14/18 09:41 Ibuprofen (Motrin) 600 mg Q6H PRN ORAL Moderate Pain (Pain Scale 4-6) 06/12/18 19:00 07/12/18 18:59 Polyethylene Glycol (Miralax) 17 gm DAILY PRN ORAL Constipation 05/28/18 19:15 06/27/18 19:14 05/28/18 20:48 Allergies: Coded Allergies: CEPHALEXIN (Verified Allergy, Unknown, 05/18/18) CEPHALOSPORINS (Verified Allergy, Unknown, 05/18/18) ERYTHROMYCIN BASE (Verified Allergy, Unknown, 05/18/18) GABAPENTIN (Verified Allergy, Unknown, 05/18/18) SHELLFISH DERIVED (Verified Allergy, Unknown, 05/22/18) ROS Limited/Unobtainable: No Constitutional: Reports: no symptoms HEENT: Reports: no symptoms Cardiovascular: Reports: no symptoms Respiratory: Reports: no symptoms Gastrointestinal/Abdominal: Reports: no symptoms Genitourinary: Reports: no symptoms Neurologic/Psychiatric: Reports: no symptoms Subjective 57 YO F admitted with vancomycin resistant enterococcus stool. Cover for Int Med-Dr Kraft. Await acceptance to [facility] Objective Last Vital Signs Date Time Temp Pulse Resp B/P (MAP) Pulse Ox O2 Delivery O2 Flow Rate FiO2 06/25/18 12:03 98.3 75 18 118/78 (91) 96 06/25/18 09:00 Room Air Intake and Output 06/24/18 06/25/18 19:00 07:00 Intake Total 840 ml Balance 840 ml Intake Oral 840 ml # Voids 2 2 Objective General Appearance: WD/WN, no apparent distress, alert EENT: PERRL/EOMI, normal ENT inspection, TMs normal Neck: non-tender, normal alignment, supple, normal inspection Cardiovascular: normal peripheral pulses, normal rate, regular rhythm, no gallop/murmur, no JVD Respiratory/Chest: chest wall non-tender, lungs clear, normal breath sounds, no respiratory distress, no accessory muscle use Abdomen: normal bowel sounds, non tender, soft, no organomegaly, no mass Extremities: normal range of motion, non-tender Neurologic: sensor specialist II-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 Assessment/Plan Discharge planning-Await Letter of agreement with [facility] fac -see case management note. Sadi Gaviria MD Jun 25, 2018 13:40
--- NOTE | 2018-06-25 15:09 | NUR ---
HAND-OFF: Report given to Tim.
--- NOTE | 2018-06-25 15:16 | NUR ---
NURSE NOTES: received report from PORSCHE Wetzel. Patient sitting in chair. alert, verbally responsive. no distress noted. no c/o pain at this time. bed in lowest position. call light within reach.
[2018-06-25 16:00] VITALS: BP 143/82
--- NOTE | 2018-06-25 19:14 | NUR ---
NURSE NOTES: Received patient sitting on chair, no s/s of any distress, complaints of pain 9/10, No IV line noted, will continue to monitor.
--- NOTE | 2018-06-25 19:14 | NUR ---
HAND-OFF: Report given to PORSCHE Trujillo.
[2018-06-25 20:00] VITALS: BP 128/76
[2018-06-26] VITALS: BP 126/74
[2018-06-26] MEDS: HYDROcodone/Acetamin 10/325 tab ORAL PRN ×5 (02:29→22:02)
[2018-06-26 04:00] VITALS: BP 120/69
--- NOTE | 2018-06-26 07:32 | NUR ---
HAND-OFF: Report given to Yola MORRELL
--- NOTE | 2018-06-26 07:54 | NUR ---
NURSE NOTES: Patient is awake and alert,respirations unlabored,patient eating breakfast,no complaints at this time,call light within reach.
[2018-06-26 08:00] VITALS: BP 113/69
[2018-06-26] MEDS: Heparin 5000 units/ml inj SUBQ SCH ×2 (08:50→20:06)
--- NOTE | 2018-06-26 11:06 | Infectious Diseases Prog Note ---
Assessment/Plan Assessment/Plan Assessment: Recent b/l cellulitis, resolved Afebrile Mild leukopenia paraplegia anemia neuralgia bipolar disorder [facility] [place] resident VRE stool- THIS IS A COLONIZER Plan: - Monitor off abx -05/25 SP Bactrim #7 -05/20 SP IV Vancomycin #3 -OK TO DISCHARGE BACK TO [place], NO NEED FOR ISOLATION UPON DISCHARGE -Monitor CBC/CMP, temperatures Subjective Allergies: Coded Allergies: CEPHALEXIN (Verified Allergy, Unknown, 05/18/18) CEPHALOSPORINS (Verified Allergy, Unknown, 05/18/18) ERYTHROMYCIN BASE (Verified Allergy, Unknown, 05/18/18) GABAPENTIN (Verified Allergy, Unknown, 05/18/18) SHELLFISH DERIVED (Verified Allergy, Unknown, 05/22/18) Subjective afebrile waiting placement Objective Vital Signs Last 24 Hour Vital Signs Date Time Temp Pulse Resp B/P (MAP) Pulse Ox O2 Delivery O2 Flow Rate FiO2 06/26/18 04:00 98.6 68 18 120/69 (86) 97 06/26/18 00:00 98.8 76 20 126/74 (91) 96 06/25/18 21:00 Room Air 06/25/18 20:00 98.6 72 19 128/76 (93) 97 06/25/18 16:00 97.8 74 18 143/82 (102) 99 06/25/18 15:07 98.3 06/25/18 12:03 98.3 75 18 118/78 (91) 96 Height (Feet): 5 Height (Inches): 5.00 Weight (Pounds): 162 Objective GENERAL: The patient is a thin-appearing female, in no apparent distress. HEENT: Eyes - pupils are equal and responsive to light and accommodation. Extraocular movements are intact. NECK: Supple. No lymphadenopathy. CHEST: Lungs are clear to auscultation bilaterally without wheezes or rales. CARDIOVASCULAR: Regular rate. S1 and S2 normal without murmurs, rubs, or gallops. ABDOMEN: Soft, nontender, and nondistended. Positive bowel sounds. No evidence of hepatosplenomegaly. Currently, no rebound or guarding noted. EXTREMITIES: Right lower extremity is erythematous compared to the left, otherwise without clubbing, cyanosis, or edema. Current Medications Medications (Trade) Dose Ordered Sig/Mejia Route PRN Reason Start Time Stop Time Status Last Admin Dose Admin Acetaminophen/ Hydrocodone Bitart ([place] 10/325) 1 tab Q4H PRN ORAL Severe Pain (Pain Scale 7-10) 06/19/18 14:38 06/26/18 14:37 06/26/18 06:31 Heparin Sodium (Porcine) (Heparin 5000 units/ml) 5,000 units EVERY 12 HOURS SUBQ 05/28/18 17:00 06/27/18 16:59 06/14/18 09:41 Ibuprofen (Motrin) 600 mg Q6H PRN ORAL Moderate Pain (Pain Scale 4-6) 06/12/18 19:00 07/12/18 18:59 Polyethylene Glycol (Miralax) 17 gm DAILY PRN ORAL Constipation 05/28/18 19:15 06/27/18 19:14 05/28/18 20:48 Marilyn Oliver M.D. Jun 26, 2018 11:06
--- NOTE | 2018-06-26 11:55 | NUR ---
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 98.6 HR 68 RR 18 B/P 120/69 97% RA IS: MIRALAX PO HEPARIN SUBC PLACEMENT PENDING MED/SURG STATUS
[2018-06-26 12:00] VITALS: BP 113/80
[2018-06-26 16:00] VITALS: BP 117/77
--- NOTE | 2018-06-26 16:05 | Internal Med Progress Note ---
Subjective Date of Service: Jun 26, 2018 Physician Name Sadi Gaviria Attending Physician Niall Kraft MD Current Medications Medications (Trade) Dose Ordered Sig/Mejia Route PRN Reason Start Time Stop Time Status Last Admin Dose Admin Heparin Sodium (Porcine) (Heparin 5000 units/ml) 5,000 units EVERY 12 HOURS SUBQ 05/28/18 17:00 06/27/18 16:59 06/14/18 09:41 Ibuprofen (Motrin) 600 mg Q6H PRN ORAL Moderate Pain (Pain Scale 4-6) 06/12/18 19:00 07/12/18 18:59 Polyethylene Glycol (Miralax) 17 gm DAILY PRN ORAL Constipation 05/28/18 19:15 06/27/18 19:14 05/28/18 20:48 Allergies: Coded Allergies: CEPHALEXIN (Verified Allergy, Unknown, 05/18/18) CEPHALOSPORINS (Verified Allergy, Unknown, 05/18/18) ERYTHROMYCIN BASE (Verified Allergy, Unknown, 05/18/18) GABAPENTIN (Verified Allergy, Unknown, 05/18/18) SHELLFISH DERIVED (Verified Allergy, Unknown, 05/22/18) ROS Limited/Unobtainable: No Constitutional: Reports: no symptoms HEENT: Reports: no symptoms Cardiovascular: Reports: no symptoms Respiratory: Reports: no symptoms Gastrointestinal/Abdominal: Reports: no symptoms Genitourinary: Reports: no symptoms Neurologic/Psychiatric: Reports: no symptoms Subjective 57 YO F admitted with vancomycin resistant enterococcus stool. Cover for Int Med-Dr Kraft. Await acceptance to [facility] Objective Last Vital Signs Date Time Temp Pulse Resp B/P (MAP) Pulse Ox O2 Delivery O2 Flow Rate FiO2 06/26/18 12:00 98.1 81 18 113/80 (91) 96 06/26/18 09:00 Room Air Intake and Output 06/25/18 06/26/18 19:00 07:00 Intake Total 840 ml 480 ml Balance 840 ml 480 ml Intake Oral 840 ml 480 ml # Voids 2 Objective General Appearance: WD/WN, no apparent distress, alert EENT: PERRL/EOMI, normal ENT inspection, TMs normal Neck: non-tender, normal alignment, supple, normal inspection Cardiovascular: normal peripheral pulses, normal rate, regular rhythm, no gallop/murmur, no JVD Respiratory/Chest: chest wall non-tender, lungs clear, normal breath sounds, no respiratory distress, no accessory muscle use Abdomen: normal bowel sounds, non tender, soft, no organomegaly, no mass Extremities: normal range of motion, non-tender 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 Assessment/Plan Discharge planning-Await Letter of agreement with [facility] fac -see case management note. Sadi Gaviria MD Jun 26, 2018 16:05
--- NOTE | 2018-06-26 18:07 | NUR ---
NURSE NOTES: Patient sitting up in chair,watching TV,patient complaint of pain,requesting pain medication,given as ordered.
--- NOTE | 2018-06-26 19:35 | NUR ---
NURSE NOTES: Received patient sitting on chair, no s/s of any distress, No IV line noted, will continue to monitor.
--- NOTE | 2018-06-26 19:35 | NUR ---
HAND-OFF: Report given to HEATHER MORRELL.
--- NOTE | 2018-06-26 21:21 | General Progress Note ---
Assessment/Plan Problem List: (1) Bipolar disorder ICD Codes: F31.9 - Bipolar disorder, unspecified SNOMED: 58344129 Qualifiers: Assessment/Plan Risperdal 4mg po qhs Depakote 1000 po qhs provided ro/st awaiting placement still wants to go to [facility] Subjective Neurologic/Psychiatric: Reports: anxiety, depressed, emotional problems Allergies: Coded Allergies: CEPHALEXIN (Verified Allergy, Unknown, 05/18/18) CEPHALOSPORINS (Verified Allergy, Unknown, 05/18/18) ERYTHROMYCIN BASE (Verified Allergy, Unknown, 05/18/18) GABAPENTIN (Verified Allergy, Unknown, 05/18/18) SHELLFISH DERIVED (Verified Allergy, Unknown, 05/22/18) Objective Last 24 Hour Vital Signs Date Time Temp Pulse Resp B/P (MAP) Pulse Ox O2 Delivery O2 Flow Rate FiO2 06/26/18 16:00 98.2 80 18 117/77 (90) 100 06/26/18 12:00 98.1 81 18 113/80 (91) 96 06/26/18 09:00 Room Air 06/26/18 08:00 98.0 83 18 113/69 (84) 99 06/26/18 04:00 98.6 68 18 120/69 (86) 97 06/26/18 00:00 98.8 76 20 126/74 (91) 96 Intake and Output 06/25/18 06/26/18 18:59 06:59 Intake Total 840 ml 480 ml Balance 840 ml 480 ml Intake Oral 840 ml 480 ml # Voids 2 Height (Feet): 5 Height (Inches): 5.00 Weight (Pounds): 162 General Appearance: alert Neurologic: oriented x 3, responsive, depressed affect Jake Mcintyre MD Jun 26, 2018 21:20
[2018-06-27] VITALS: BP 122/69
[2018-06-27] MEDS: HYDROcodone/Acetamin 10/325 tab ORAL PRN ×6 (02:00→22:52)
[2018-06-27 04:00] VITALS: BP 102/56
--- NOTE | 2018-06-27 07:05 | NUR ---
HAND-OFF: Report given to Yola MORRELL
[2018-06-27 08:00] VITALS: BP 107/76
--- NOTE | 2018-06-27 08:05 | NUR ---
NURSE NOTES: Patient sitting up in the chair,alert and oriented.will monitor.
[2018-06-27] MEDS: Heparin 5000 units/ml inj SUBQ SCH (09:00)
--- NOTE | 2018-06-27 11:19 | NUR ---
[employer] SI: CELLULITIS T. 97.2 HR 72 RR 18 B/P 102/94 IS: MIRALAX PO HEPARIN SUBC NORCO PO MED/SURG STATUS
--- NOTE | 2018-06-27 11:47 | General Progress Note ---
Assessment/Plan Problem List: (1) Bipolar disorder ICD Codes: F31.9 - Bipolar disorder, unspecified SNOMED: 62573728 Qualifiers: Status: stable, progressing Assessment/Plan Risperdal 4mg po qhs Depakote 1000 po qhs provided ro/st awaiting placement still wants to go to [facility] Subjective Neurologic/Psychiatric: Reports: anxiety, depressed, emotional problems Allergies: Coded Allergies: CEPHALEXIN (Verified Allergy, Unknown, 05/18/18) CEPHALOSPORINS (Verified Allergy, Unknown, 05/18/18) ERYTHROMYCIN BASE (Verified Allergy, Unknown, 05/18/18) GABAPENTIN (Verified Allergy, Unknown, 05/18/18) SHELLFISH DERIVED (Verified Allergy, Unknown, 05/22/18) Subjective the pt is calm stated that is bored and hopes that she'll be discharged soon Objective Last 24 Hour Vital Signs Date Time Temp Pulse Resp B/P (MAP) Pulse Ox O2 Delivery O2 Flow Rate FiO2 06/27/18 04:00 97.2 72 18 102/56 (71) 98 06/27/18 00:00 97.5 70 18 122/69 (86) 100 06/26/18 21:00 Room Air 06/26/18 16:00 98.2 80 18 117/77 (90) 100 06/26/18 12:00 98.1 81 18 113/80 (91) 96 Intake and Output 06/26/18 06/27/18 19:00 07:00 Intake Total 480 ml Balance 480 ml Intake Oral 480 ml # Voids 3 2 Height (Feet): 5 Height (Inches): 5.00 Weight (Pounds): 162 General Appearance: no apparent distress, alert Neurologic: oriented x 3, responsive, depressed affect Jake Mcintyre MD Jun 27, 2018 11:47
[2018-06-27 12:00] VITALS: BP 120/81
--- NOTE | 2018-06-27 12:23 | NUR ---
RD ASSESSMENT & RECOMMENDATIONS SEE CARE ACTIVITY FOR COMPLETE ASSESSMENT DAILY ESTIMATED NEEDS: Needs based on Paraplegia, 68kg 28-30 kcals/kg 9286-5784 total kcals 1-1.5 g protein/kg 68-102 g total protein 25-30 mL/kg 7935-7070 total fluid mLs NUTRITION DIAGNOSIS: Altered GI function R/T constipation as evidenced by pt c/o constipation, no BM x 5 days. (INACTIVE) CURRENT DIET:Regular PO DIET RECOMMENDATIONS: REGULAR, HIGH FIBER ADDITIONAL RECOMMENDATIONS: * Calibrated bedscale wt for accurate CBW * Prunes TID, Prune Juice TID * Daily bowel regimen * Weekly weights -> pt w/ extended admission * UPDATED labs as able
[2018-06-27 16:00] VITALS: BP 109/75
--- NOTE | 2018-06-27 16:15 | Internal Med Progress Note ---
Subjective Date of Service: Jun 27, 2018 Physician Name Sadi Gaviria Attending Physician Niall Kraft MD Current Medications Medications (Trade) Dose Ordered Sig/Mejia Route PRN Reason Start Time Stop Time Status Last Admin Dose Admin Acetaminophen/ Hydrocodone Bitart ([place] 10/325) 1 tab Q4H PRN ORAL For Pain 06/26/18 16:15 07/03/18 16:14 06/27/18 14:31 Heparin Sodium (Porcine) (Heparin 5000 units/ml) 5,000 units EVERY 12 HOURS SUBQ 05/28/18 17:00 06/27/18 16:59 06/14/18 09:41 Ibuprofen (Motrin) 600 mg Q6H PRN ORAL Moderate Pain (Pain Scale 4-6) 06/12/18 19:00 07/12/18 18:59 Polyethylene Glycol (Miralax) 17 gm DAILY PRN ORAL Constipation 05/28/18 19:15 06/27/18 19:14 05/28/18 20:48 Allergies: Coded Allergies: CEPHALEXIN (Verified Allergy, Unknown, 05/18/18) CEPHALOSPORINS (Verified Allergy, Unknown, 05/18/18) ERYTHROMYCIN BASE (Verified Allergy, Unknown, 05/18/18) GABAPENTIN (Verified Allergy, Unknown, 05/18/18) SHELLFISH DERIVED (Verified Allergy, Unknown, 05/22/18) ROS Limited/Unobtainable: No Constitutional: Reports: no symptoms HEENT: Reports: no symptoms Cardiovascular: Reports: no symptoms Respiratory: Reports: no symptoms Gastrointestinal/Abdominal: Reports: no symptoms Genitourinary: Reports: no symptoms Neurologic/Psychiatric: Reports: no symptoms Subjective 57 YO F admitted with vancomycin resistant enterococcus stool. Cover for Int Med-Dr Kraft. Await acceptance to [facility] Objective Last Vital Signs Date Time Temp Pulse Resp B/P (MAP) Pulse Ox O2 Delivery O2 Flow Rate FiO2 06/27/18 12:00 97.6 71 18 120/81 (94) 99 06/27/18 09:00 Room Air Intake and Output 06/26/18 06/27/18 19:00 07:00 Intake Total 480 ml Balance 480 ml Intake Oral 480 ml # Voids 3 2 Objective General Appearance: WD/WN, no apparent distress, alert EENT: PERRL/EOMI, normal ENT inspection, TMs normal Neck: non-tender, normal alignment, supple, normal inspection Cardiovascular: normal peripheral pulses, normal rate, regular rhythm, no gallop/murmur, no JVD Respiratory/Chest: chest wall non-tender, lungs clear, normal breath sounds, no respiratory distress, no accessory muscle use Abdomen: normal bowel sounds, non tender, soft, no organomegaly, no mass Extremities: normal range of motion, non-tender 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 Assessment/Plan Discharge planning-Await Letter of agreement with [facility] fac -see case management note. Sadi Gaviria MD Jun 27, 2018 16:15
--- NOTE | 2018-06-27 18:51 | NUR ---
NURSE NOTES: Patient complaints of pain and requesting pain med,given as ordered.
--- NOTE | 2018-06-27 19:15 | NUR ---
HAND-OFF: Report given to ITZ MORRELL.:
--- NOTE | 2018-06-27 19:40 | NUR ---
NURSE NOTES: NURSE NOTES: Received patient awake and oriented sitting on chair in front of television, no apparent signs of distress. No IV site, on room air. Bed on lowest position, 2 side rails up.
[2018-06-27 20:00] VITALS: BP 101/68
[2018-06-28] MEDS: HYDROcodone/Acetamin 10/325 tab ORAL PRN ×6 (02:53→23:44)
[2018-06-28 04:00] VITALS: BP 115/77
--- NOTE | 2018-06-28 07:25 | NUR ---
HAND-OFF: Report given to Amari MORRELL.
--- NOTE | 2018-06-28 07:30 | NUR ---
NURSE NOTES: Received patient in bed, awake, alertx4, able to make needs known, No acute distress noted, No c/o pain or any discomfort noted, Bed in lowest position, Call light and need within reach, Continue to monitor.
--- NOTE | 2018-06-28 08:00 | NUR ---
NURSE NOTES: Patient refused vital sign assessment, Explained benefit and risk, But patient insisted.
--- NOTE | 2018-06-28 09:00 | NUR ---
NURSE NOTES: Upon skin assessment, noted with patient was naked, encouraged to wear a gown but refused and patient also refused skin assessment, explained benefit and risk, But, patient insisted and said " i Don't care."
--- NOTE | 2018-06-28 11:49 | General Progress Note ---
Assessment/Plan Problem List: (1) Bipolar disorder ICD Codes: F31.9 - Bipolar disorder, unspecified SNOMED: [id number] Qualifiers: Status: stable Assessment/Plan Risperdal 4mg po qhs Depakote 1000 po qhs provided ro/st awaiting placement still wants to go to Subjective Neurologic/Psychiatric: Reports: anxiety, depressed, emotional problems Allergies: Coded Allergies: CEPHALEXIN (Verified Allergy, Unknown, 05/18/18) CEPHALOSPORINS (Verified Allergy, Unknown, 05/18/18) ERYTHROMYCIN BASE (Verified Allergy, Unknown, 05/18/18) GABAPENTIN (Verified Allergy, Unknown, 05/18/18) SHELLFISH DERIVED (Verified Allergy, Unknown, 05/22/18) Subjective the pt wants to be discharged the pt appears depressed no violent behavior. Objective Last 24 Hour Vital Signs Date Time Temp Pulse Resp B/P (MAP) Pulse Ox O2 Delivery O2 Flow Rate FiO2 06/28/18 09:00 Room Air 06/28/18 04:00 97.0 81 20 115/77 (90) 98 06/27/18 23:22 97.0 06/27/18 21:00 Room Air 06/27/18 20:00 97.0 78 21 101/68 (79) 97 06/27/18 16:00 97.5 81 18 109/75 (86) 98 06/27/18 12:00 97.6 71 18 120/81 (94) 99 Intake and Output 06/27/18 06/28/18 19:00 07:00 Intake Total 1220 ml 120 ml Balance 1220 ml 120 ml Intake Oral 1220 ml 120 ml # Voids 2 2 Height (Feet): 5 Height (Inches): 5.00 Weight (Pounds): 158 General Appearance: WD/WN, no apparent distress, alert, overweight Neurologic: oriented x 3, responsive, depressed affect Jake Mcintyre MD Jun 28, 2018 11:49
[2018-06-28 12:00] VITALS: BP 122/77
--- NOTE | 2018-06-28 13:45 | Infectious Diseases Prog Note ---
Assessment/Plan Assessment/Plan Assessment: Recent b/l cellulitis, resolved Afebrile Mild leukopenia paraplegia anemia neuralgia bipolar disorder [facility] VRE stool- THIS IS A COLONIZER Plan: - Monitor off abx -05/25 SP Bactrim #7 -05/20 SP IV Vancomycin #3 -OK TO DISCHARGE BACK TO [facility], NO NEED FOR ISOLATION UPON DISCHARGE -Monitor CBC/CMP, temperatures Subjective Allergies: Coded Allergies: CEPHALEXIN (Verified Allergy, Unknown, 05/18/18) CEPHALOSPORINS (Verified Allergy, Unknown, 05/18/18) ERYTHROMYCIN BASE (Verified Allergy, Unknown, 05/18/18) GABAPENTIN (Verified Allergy, Unknown, 05/18/18) SHELLFISH DERIVED (Verified Allergy, Unknown, 05/22/18) Subjective afebrile waiting placement Objective Vital Signs Last 24 Hour Vital Signs Date Time Temp Pulse Resp B/P (MAP) Pulse Ox O2 Delivery O2 Flow Rate FiO2 06/28/18 12:00 97.5 74 19 122/77 (92) 100 06/28/18 09:00 Room Air 06/28/18 04:00 97.0 81 20 115/77 (90) 98 06/27/18 23:22 97.0 06/27/18 21:00 Room Air 06/27/18 20:00 97.0 78 21 101/68 (79) 97 06/27/18 16:00 97.5 81 18 109/75 (86) 98 Height (Feet): 5 Height (Inches): 5.00 Weight (Pounds): 158 Objective GENERAL: The patient is a thin-appearing female, in no apparent distress. HEENT: Eyes - pupils are equal and responsive to light and accommodation. Extraocular movements are intact. NECK: Supple. No lymphadenopathy. CHEST: Lungs are clear to auscultation bilaterally without wheezes or rales. CARDIOVASCULAR: Regular rate. S1 and S2 normal without murmurs, rubs, or gallops. ABDOMEN: Soft, nontender, and nondistended. Positive bowel sounds. No evidence of hepatosplenomegaly. Currently, no rebound or guarding noted. EXTREMITIES: Right lower extremity is erythematous compared to the left, otherwise without clubbing, cyanosis, or edema. Current Medications Medications (Trade) Dose Ordered Sig/Mejia Route PRN Reason Start Time Stop Time Status Last Admin Dose Admin Acetaminophen/ Hydrocodone Bitart ([place] 10/325) 1 tab Q4H PRN ORAL For Pain 06/26/18 16:15 07/03/18 16:14 06/28/18 10:51 Divalproex Sodium (Depakote ER) 500 mg BEDTIME ORAL 06/28/18 21:00 07/28/18 20:59 Ibuprofen (Motrin) 600 mg Q6H PRN ORAL Moderate Pain (Pain Scale 4-6) 06/12/18 19:00 07/12/18 18:59 Marilyn Oliver M.D. Jun 28, 2018 13:45
--- NOTE | 2018-06-28 16:00 | NUR ---
NURSE NOTES: Patient refused vital sign assessment, Explained benefit and risk, But patient insisted.
--- NOTE | 2018-06-28 16:59 | NUR ---
*-* INSURANCE*-* ALL CLINICALS FROM 06/21- HAVE BEEN FAXED: [facility] F:[phone]
--- NOTE | 2018-06-28 17:36 | NUR ---
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 97.5 HR 74 RR 19 B/P 122/77 IS: DEPAKOTE PO NORCO PO MOTRIN PO PLACEMENT PENDING MED/SURG STATUS
--- NOTE | 2018-06-28 18:56 | Internal Med Progress Note ---
Subjective Date of Service: Jun 28, 2018 Physician Name KhadraSadi Attending Physician Niall Kraft MD Current Medications Medications (Trade) Dose Ordered Sig/Mejia Route PRN Reason Start Time Stop Time Status Last Admin Dose Admin Acetaminophen/ Hydrocodone Bitart ([place] 10/325) 1 tab Q4H PRN ORAL For Pain 06/26/18 16:15 07/03/18 16:14 06/28/18 15:01 Divalproex Sodium (Depakote ER) 500 mg BEDTIME ORAL 06/28/18 21:00 07/28/18 20:59 Ibuprofen (Motrin) 600 mg Q6H PRN ORAL Moderate Pain (Pain Scale 4-6) 06/12/18 19:00 07/12/18 18:59 Allergies: Coded Allergies: CEPHALEXIN (Verified Allergy, Unknown, 05/18/18) CEPHALOSPORINS (Verified Allergy, Unknown, 05/18/18) ERYTHROMYCIN BASE (Verified Allergy, Unknown, 05/18/18) GABAPENTIN (Verified Allergy, Unknown, 05/18/18) SHELLFISH DERIVED (Verified Allergy, Unknown, 05/22/18) ROS Limited/Unobtainable: No Constitutional: Reports: no symptoms HEENT: Reports: no symptoms Cardiovascular: Reports: no symptoms Respiratory: Reports: no symptoms Gastrointestinal/Abdominal: Reports: no symptoms Genitourinary: Reports: no symptoms Neurologic/Psychiatric: Reports: no symptoms Subjective 57 YO F admitted with vancomycin resistant enterococcus stool. Cover for Int Med-Dr Kraft. Await acceptance to [facility] Objective Last Vital Signs Date Time Temp Pulse Resp B/P (MAP) Pulse Ox O2 Delivery O2 Flow Rate FiO2 06/28/18 12:00 97.5 74 19 122/77 (92) 100 06/28/18 09:00 Room Air Intake and Output 06/27/18 06/28/18 19:00 07:00 Intake Total 1220 ml 120 ml Balance 1220 ml 120 ml Intake Oral 1220 ml 120 ml # Voids 2 2 Objective General Appearance: WD/WN, no apparent distress, alert EENT: PERRL/EOMI, normal ENT inspection, TMs normal Neck: non-tender, normal alignment, supple, normal inspection Cardiovascular: normal peripheral pulses, normal rate, regular rhythm, no gallop/murmur, no JVD Respiratory/Chest: chest wall non-tender, lungs clear, normal breath sounds, no respiratory distress, no accessory muscle use Abdomen: normal bowel sounds, non tender, soft, no organomegaly, no mass Extremities: normal range of motion, non-tender 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 Assessment/Plan Discharge planning-Await Letter of agreement with [facility] fac -see case management note. Sadi Gaviria MD Jun 28, 2018 18:56
--- NOTE | 2018-06-28 19:20 | NUR ---
NURSE NOTES: Received patient aox4, sitting on chair, watching TV. Able to verbalize needs, reports 10/10 pain and given PRN norco. No acute signs of distress at this moment. B ed on lowest position with 2 side rails up. No IV site.
--- NOTE | 2018-06-28 19:30 | NUR ---
HAND-OFF: Report given to Monique.
[2018-06-28 20:00] VITALS: BP 123/87
[2018-06-28] MEDS: Depakote ER 500mg tab ORAL SCH (21:00)
[2018-06-29] MEDS: HYDROcodone/Acetamin 10/325 tab ORAL PRN ×4 (03:54→22:27)
[2018-06-29 04:00] VITALS: BP 111/72
--- NOTE | 2018-06-29 07:14 | NUR ---
HAND-OFF: Report given to Christina MORRELL.
[2018-06-29 08:00] VITALS: BP 128/83
--- NOTE | 2018-06-29 10:00 | NUR ---
NURSE NOTES: pt in bed with no sob nor in any form of distress noted. all due meds given as ordered. denies any pain at this time. bed in lowest position. calll light within reach at all time.
--- NOTE | 2018-06-29 11:54 | NUR ---
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 97.3 HR 80 RR 20 B/P 128/83 RA 98% IS: DEPAKOTE PO NORCO PO MOTRIN PLACEMENT PENDING MED/SURG STATUS
--- NOTE | 2018-06-29 12:04 | General Progress Note ---
Assessment/Plan Problem List: (1) Bipolar disorder ICD Codes: F31.9 - Bipolar disorder, unspecified SNOMED: [id number] Qualifiers: Assessment/Plan Risperdal 4mg po qhs Depakote 1000 po qhs provided ro/st awaiting placement still wants to go to [facility] Subjective Neurologic/Psychiatric: Reports: anxiety, depressed, emotional problems Allergies: Coded Allergies: CEPHALEXIN (Verified Allergy, Unknown, 05/18/18) CEPHALOSPORINS (Verified Allergy, Unknown, 05/18/18) ERYTHROMYCIN BASE (Verified Allergy, Unknown, 05/18/18) GABAPENTIN (Verified Allergy, Unknown, 05/18/18) SHELLFISH DERIVED (Verified Allergy, Unknown, 05/22/18) Subjective the pt is awaiting placement poor insight pt appears depressed no violent behavior. Objective Last 24 Hour Vital Signs Date Time Temp Pulse Resp B/P (MAP) Pulse Ox O2 Delivery O2 Flow Rate FiO2 06/29/18 09:31 Room Air 06/29/18 08:39 97.2 06/29/18 08:00 97.3 80 20 128/83 (98) 97 06/29/18 04:00 97.2 76 20 111/72 (85) 100 06/28/18 21:00 Room Air 06/28/18 20:00 98.3 87 20 123/87 (99) 100 Intake and Output 06/28/18 06/29/18 19:00 07:00 Intake Total 600 ml 250 ml Balance 600 ml 250 ml Intake Oral 600 ml 250 ml # Voids 3 3 Height (Feet): 5 Height (Inches): 5.00 Weight (Pounds): 158 General Appearance: no apparent distress, alert Neurologic: oriented x 3, responsive, depressed affect Jake Mcintyre MD Jun 29, 2018 12:03
--- NOTE | 2018-06-29 17:00 | Internal Med Progress Note ---
Subjective Date of Service: Jun 29, 2018 Physician Name Sadi Gaviria Attending Physician Niall Kraft MD Current Medications Medications (Trade) Dose Ordered Sig/Mejia Route PRN Reason Start Time Stop Time Status Last Admin Dose Admin Acetaminophen/ Hydrocodone Bitart ([place] 10/325) 1 tab Q4H PRN ORAL For Pain 06/26/18 16:15 07/03/18 16:14 06/29/18 08:09 Divalproex Sodium (Depakote ER) 500 mg BEDTIME ORAL 06/28/18 21:00 07/28/18 20:59 Ibuprofen (Motrin) 600 mg Q6H PRN ORAL Moderate Pain (Pain Scale 4-6) 06/12/18 19:00 07/12/18 18:59 Allergies: Coded Allergies: CEPHALEXIN (Verified Allergy, Unknown, 05/18/18) CEPHALOSPORINS (Verified Allergy, Unknown, 05/18/18) ERYTHROMYCIN BASE (Verified Allergy, Unknown, 05/18/18) GABAPENTIN (Verified Allergy, Unknown, 05/18/18) SHELLFISH DERIVED (Verified Allergy, Unknown, 05/22/18) ROS Limited/Unobtainable: No Constitutional: Reports: no symptoms HEENT: Reports: no symptoms Cardiovascular: Reports: no symptoms Respiratory: Reports: no symptoms Gastrointestinal/Abdominal: Reports: no symptoms Genitourinary: Reports: no symptoms Neurologic/Psychiatric: Reports: no symptoms Subjective 57 YO F admitted with vancomycin resistant enterococcus stool. Cover for Int Med-Dr Kraft. Await acceptance to [facility] Objective Last Vital Signs Date Time Temp Pulse Resp B/P (MAP) Pulse Ox O2 Delivery O2 Flow Rate FiO2 06/29/18 09:31 Room Air 06/29/18 08:39 97.2 06/29/18 08:00 80 20 128/83 (98) 97 Intake and Output 06/28/18 06/29/18 19:00 07:00 Intake Total 600 ml 250 ml Balance 600 ml 250 ml Intake Oral 600 ml 250 ml # Voids 3 3 Objective General Appearance: WD/WN, no apparent distress, alert EENT: PERRL/EOMI, normal ENT inspection, TMs normal Neck: non-tender, normal alignment, supple, normal inspection Cardiovascular: normal peripheral pulses, normal rate, regular rhythm, no gallop/murmur, no JVD Respiratory/Chest: chest wall non-tender, lungs clear, normal breath sounds, no respiratory distress, no accessory muscle use Abdomen: normal bowel sounds, non tender, soft, no organomegaly, no mass Extremities: normal range of motion, non-tender 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 Assessment/Plan Discharge planning-Await Letter of agreement with [facility] fac -see case management note. Sdai Gaviria MD Jun 29, 2018 17:00
[2018-06-29] MEDS ORDERED: Miralax 17gm pkt ORAL PRN (17:45)
--- NOTE | 2018-06-29 19:21 | NUR ---
HAND-OFF: Report given to LALY Mckeon.
--- NOTE | 2018-06-29 19:30 | NUR ---
NURSE NOTES: RECEIVED PATIENT SITTING IN CHAIR WATCHING TELEVISION, ALERT/ORIENTED X4, VERBALLY RESPONSIVE, PATIENT WITH COMPLAINTS OF GENERALIZED PAIN, 01/13, PAIN MANAGEMENT ONGOING, PATIENT AWARE OF PRN REGIMEN, UPDATED COMMUNICATION BOARD REGARDING MEDICATION SCHEDULE. NO COMPLAINTS OF GI DISCOMFORT, NO N/V/D, LAST BM 06/29/18. INSTRUCTED PATIENT TO UTILIZE CALL LIGHT FOR ASSISTANCE, VERBALIZED UNDERSTANDING. NAD.
[2018-06-29 20:00] VITALS: BP 109/77
--- NOTE | 2018-06-29 21:30 | NUR ---
NURSE NOTES: NON COMPLIANT WITH MEDICATION REGIMEN, STATED "I DON'T TAKE DEPAKOTE, NEVER, NEVER, NEVER".
[2018-06-29] MEDS: Depakote ER 500mg tab ORAL SCH (21:34)
--- NOTE | 2018-06-29 22:35 | NUR ---
NURSE NOTES: REMOVED NORCO FROM PYXIS AT 221, PATIENT IN PROCESS OF TRANSFERRING SELF FROM CHAIR TO BED, UNABLE TO ADMINISTER IN TIMELY MANNER, ADM. AT 223
[2018-06-30 04:00] VITALS: BP 111/70
[2018-06-30] MEDS: HYDROcodone/Acetamin 10/325 tab ORAL PRN ×4 (04:16→20:10)
--- NOTE | 2018-06-30 06:09 | NUR ---
NURSE NOTES: NO SIGNIFICANT CHANGE OF CONDITION NOTED THROUGHOUT THE NIGHT. SAFETY MAINTAINED. NAD.
--- NOTE | 2018-06-30 07:30 | NUR ---
HAND-OFF: Report given to PORSCHE ATKINS.
--- NOTE | 2018-06-30 07:31 | NUR ---
NURSE NOTES: pt in bed with no sob nor in any form of distress noted. Denies pain at this time. safety environment provided. will continue to monitor
[2018-06-30] MEDS: Timolol 0.5% Op Soln 2.5ml BOTH EYES SCH ×2 (08:26→17:17)
[2018-06-30] MEDS: Brimonidine 0.2% Opth Sol BOTH EYES SCH ×2 (08:26→17:17)
--- NOTE | 2018-06-30 11:46 | NUR ---
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 97.3 HR 87 RR 18 B/P 111/70 RA 98% IS: DEPAKOTE PO MIRALAX PO PLACEMENT PENDING MED/SURG STATUS
--- NOTE | 2018-06-30 11:59 | General Progress Note ---
Assessment/Plan Problem List: (1) Bipolar disorder ICD Codes: F31.9 - Bipolar disorder, unspecified SNOMED: 11702622 Qualifiers: Assessment/Plan Risperdal 4mg po qhs Depakote 1000 po qhs provided ro/st awaiting placement still wants to go to Subjective Neurologic/Psychiatric: Reports: anxiety, depressed Allergies: Coded Allergies: CEPHALEXIN (Verified Allergy, Unknown, 05/18/18) CEPHALOSPORINS (Verified Allergy, Unknown, 05/18/18) ERYTHROMYCIN BASE (Verified Allergy, Unknown, 05/18/18) GABAPENTIN (Verified Allergy, Unknown, 05/18/18) SHELLFISH DERIVED (Verified Allergy, Unknown, 05/22/18) Subjective the pt is awaiting placement poor insight pt appears depressed no violent behavior. wants to go to [place] to her grad-daughter Objective Last 24 Hour Vital Signs Date Time Temp Pulse Resp B/P (MAP) Pulse Ox O2 Delivery O2 Flow Rate FiO2 06/30/18 09:00 Room Air 06/30/18 04:46 97.3 06/30/18 04:00 96.6 87 18 111/70 (84) 98 06/29/18 20:22 Room Air 06/29/18 20:00 97.3 68 18 109/77 (88) 98 Intake and Output 06/29/18 06/30/18 18:59 06:59 Intake Total 1500 ml 240 ml Output Total 900 ml Balance 600 ml 240 ml Intake Oral 1500 ml 240 ml Output Urine Total 900 ml # Voids 2 Height (Feet): 5 Height (Inches): 5.00 Weight (Pounds): 158 General Appearance: no apparent distress, alert Neurologic: oriented x 3, responsive, depressed affect Jake Mcintyre MD Jun 30, 2018 11:59
--- NOTE | 2018-06-30 14:21 | Internal Med Progress Note ---
Subjective Physician Name Niall Kraft Attending Physician Niall Kraft MD Current Medications Medications (Trade) Dose Ordered Sig/Mejia Route PRN Reason Start Time Stop Time Status Last Admin Dose Admin Acetaminophen/ Hydrocodone Bitart ([place] 10/325) 1 tab Q4H PRN ORAL For Pain 06/26/18 16:15 07/03/18 16:14 06/30/18 11:22 Brimonidine Tartrate (Alphagan) 1 drop BID BOTH EYES 06/30/18 09:00 07/30/18 08:59 06/30/18 08:26 Divalproex Sodium (Depakote ER) 500 mg BEDTIME ORAL 06/28/18 21:00 07/28/18 20:59 Ibuprofen (Motrin) 600 mg Q6H PRN ORAL Moderate Pain (Pain Scale 4-6) 06/12/18 19:00 07/12/18 18:59 Latanoprost (Xalatan) 1 drop BEDTIME BOTH EYES 06/30/18 21:00 07/30/18 20:59 Polyethylene Glycol (Miralax) 17 gm DAILYPRN PRN ORAL Constipation 06/29/18 17:45 07/29/18 17:44 Timolol Maleate (Timoptic 0.5% Op Soln) 1 drop TWICE A DAY BOTH EYES 06/30/18 09:00 07/30/18 08:59 06/30/18 08:26 Allergies: Coded Allergies: CEPHALEXIN (Verified Allergy, Unknown, 05/18/18) CEPHALOSPORINS (Verified Allergy, Unknown, 05/18/18) ERYTHROMYCIN BASE (Verified Allergy, Unknown, 05/18/18) GABAPENTIN (Verified Allergy, Unknown, 05/18/18) SHELLFISH DERIVED (Verified Allergy, Unknown, 05/22/18) Subjective awake, alert, responsive, NAD, sitting up on chair. Objective Last Vital Signs Date Time Temp Pulse Resp B/P (MAP) Pulse Ox O2 Delivery O2 Flow Rate FiO2 06/30/18 11:52 97.3 06/30/18 09:00 Room Air 06/30/18 04:00 87 18 111/70 (84) 98 Intake and Output 06/29/18 06/30/18 19:00 07:00 Intake Total 1500 ml 240 ml Output Total 900 ml Balance 600 ml 240 ml Intake Oral 1500 ml 240 ml Output Urine Total 900 ml # Voids 2 Objective GENERAL: Alert and oriented X 3 HEAD AND NECK: Pupils are reactive to light. Anicteric. NECK: Supple. No JVD. LUNGS: Good air entry. fair inspiratory effort. No wheeze or rhonchi. HEART: S1 and S2. Distant heart sounds. No murmur or gallops. ABDOMEN: Soft, nondistended, and nontender. Positive bowel sounds. EXTREMITIES: No cyanosis or clubbing. Contracted and weakness of bilateral lower extremities. Bilateral lower extremity, less edema, right worse than left and less erythema was noted in the bilateral lower extremity, right greater than left. RECTAL: Refused and deferred. GENITOURINARY: Refused and deferred. Assessment/Plan Assessment/Plan 1. Glaucoma. 2. Cellulitis of lower extremity. 3. Paraplegia. 4. Bipolar disorder. 5. Vancomycin-resistant enterococcus colonization. Plan: Off abx waiting for placement in SNF Full code heparin SQ. Nilal Kraft MD Jun 30, 2018 14:21
--- NOTE | 2018-06-30 14:45 | NUR ---
Social Service Note JAQUELIN spoke with nurse AGATHA Li [phone] regarding placement. JAQUELIN requested to speak with a station installation supervisor. Jen provided Bibi [phone] as station installation supervisor to contact. Bibi provided JAQUELIN contact information for Serene HAMMER [phone] and Selena HAMMER [phone]. Per [facility] insurance JAQUELIN will assist in locating placement. JAQUELIN left a message for both SW regarding patient. Awaiting return call. Will monitor and follow up.
[2018-06-30 16:00] VITALS: BP 138/81
--- NOTE | 2018-06-30 16:40 | Infectious Diseases Prog Note ---
Assessment/Plan Assessment/Plan Assessment: Recent b/l cellulitis, resolved Afebrile Mild leukopenia paraplegia anemia neuralgia bipolar disorder FTT [place] resident VRE stool- THIS IS A COLONIZER Plan: - Monitor off abx -05/25 SP Bactrim #7 -05/20 SP IV Vancomycin #3 -OK TO DISCHARGE BACK TO [place], NO NEED FOR ISOLATION UPON DISCHARGE -Monitor CBC/CMP, temperatures Subjective Allergies: Coded Allergies: CEPHALEXIN (Verified Allergy, Unknown, 05/18/18) CEPHALOSPORINS (Verified Allergy, Unknown, 05/18/18) ERYTHROMYCIN BASE (Verified Allergy, Unknown, 05/18/18) GABAPENTIN (Verified Allergy, Unknown, 05/18/18) SHELLFISH DERIVED (Verified Allergy, Unknown, 05/22/18) Subjective afebrile waiting placement Objective Vital Signs Last 24 Hour Vital Signs Date Time Temp Pulse Resp B/P (MAP) Pulse Ox O2 Delivery O2 Flow Rate FiO2 06/30/18 16:00 97.0 81 18 138/81 (100) 98 06/30/18 11:52 97.3 06/30/18 09:00 Room Air 06/30/18 04:00 96.6 87 18 111/70 (84) 98 06/29/18 20:22 Room Air 06/29/18 20:00 97.3 68 18 109/77 (88) 98 Height (Feet): 5 Height (Inches): 5.00 Weight (Pounds): 158 Objective GENERAL: The patient is a thin-appearing female, in no apparent distress. HEENT: Eyes - pupils are equal and responsive to light and accommodation. Extraocular movements are intact. NECK: Supple. No lymphadenopathy. CHEST: Lungs are clear to auscultation bilaterally without wheezes or rales. CARDIOVASCULAR: Regular rate. S1 and S2 normal without murmurs, rubs, or gallops. ABDOMEN: Soft, nontender, and nondistended. Positive bowel sounds. No evidence of hepatosplenomegaly. Currently, no rebound or guarding noted. EXTREMITIES: Right lower extremity is erythematous compared to the left, otherwise without clubbing, cyanosis, or edema. Current Medications Medications (Trade) Dose Ordered Sig/Mejia Route PRN Reason Start Time Stop Time Status Last Admin Dose Admin Acetaminophen/ Hydrocodone Bitart ([place] 10/325) 1 tab Q4H PRN ORAL For Pain 06/26/18 16:15 07/03/18 16:14 06/30/18 16:05 Brimonidine Tartrate (Alphagan) 1 drop BID BOTH EYES 06/30/18 09:00 07/30/18 08:59 06/30/18 08:26 Divalproex Sodium (Depakote ER) 500 mg BEDTIME ORAL 06/28/18 21:00 07/28/18 20:59 Ibuprofen (Motrin) 600 mg Q6H PRN ORAL Moderate Pain (Pain Scale 4-6) 06/12/18 19:00 07/12/18 18:59 Latanoprost (Xalatan) 1 drop BEDTIME BOTH EYES 06/30/18 21:00 07/30/18 20:59 Polyethylene Glycol (Miralax) 17 gm DAILYPRN PRN ORAL Constipation 06/29/18 17:45 07/29/18 17:44 Timolol Maleate (Timoptic 0.5% Op Soln) 1 drop TWICE A DAY BOTH EYES 06/30/18 09:00 07/30/18 08:59 06/30/18 08:26 Marilyn Oliver M.D. Jun 30, 2018 16:40
--- NOTE | 2018-06-30 19:05 | NUR ---
HAND-OFF: Report given to LALY Mckeon.
--- NOTE | 2018-06-30 19:30 | NUR ---
NURSE NOTES: RECEIVED PATIENT IN ROOM, AWAKE, SITTING IN CHAIR, ABLE TO VERBALIZE NEEDS. NO IV ACCESS. NO SIGNS AND SYMPTOMS OF ACUTE CARDIO RESPIRATORY DISTRESS/SHORTNESS OF BREATH. CONTRACTED TO BILATERAL LOWER EXTREMITY, DRESSING DRY AND INTACT TO RIGHT GREAT TOE, REFUSE ASSESSMENT. NO REPORT OF GI DISCOMFORT, NO N/V/D. ENCOURAGED PATIENT TO UTILIZE CALL LIGHT FOR ASSISTANCE; FREQUENT ROUNDS FOR SAFETY/NEEDS. NAD.
[2018-06-30 20:00] VITALS: BP 120/77
[2018-06-30] MEDS: Depakote ER 500mg tab ORAL SCH (21:00)
[2018-06-30] MEDS: Latanoprost 0.005% Opth 2.5ml Soln BOTH EYES SCH (21:49)
[2018-07-01] VITALS: BP 96/64
[2018-07-01] MEDS: HYDROcodone/Acetamin 10/325 tab ORAL PRN ×6 (00:12→23:27)
[2018-07-01 04:00] VITALS: BP 107/66
--- NOTE | 2018-07-01 06:25 | NUR ---
NURSE NOTES: RESTED WELL, NO SIGNIFICANT CHANGE OF CONDITION NOTED THROUGHOUT THE NIGHT. SAFETY MAINTAINED. NAD.
--- NOTE | 2018-07-01 07:30 | NUR ---
NURSE NOTES: Patient awake and alert and oriented,sitting up in the chair and eating breakfast and watching TV.No complaints at this time.
[2018-07-01 08:00] VITALS: BP 121/82
--- NOTE | 2018-07-01 09:00 | Infectious Diseases Prog Note ---
Assessment/Plan Assessment/Plan Assessment: Recent b/l cellulitis, resolved Afebrile Mild leukopenia paraplegia anemia neuralgia bipolar disorder FTT [place] resident VRE stool- THIS IS A COLONIZER Plan: - Monitor off abx as clinically stable -05/25 SP Bactrim #7 -05/20 SP IV Vancomycin #3 -OK TO DISCHARGE BACK TO [place], NO NEED FOR ISOLATION UPON DISCHARGE -Monitor CBC/CMP, temperatures Will continue to follow along with you. Subjective Allergies: Coded Allergies: CEPHALEXIN (Verified Allergy, Unknown, 05/18/18) CEPHALOSPORINS (Verified Allergy, Unknown, 05/18/18) ERYTHROMYCIN BASE (Verified Allergy, Unknown, 05/18/18) GABAPENTIN (Verified Allergy, Unknown, 05/18/18) SHELLFISH DERIVED (Verified Allergy, Unknown, 05/22/18) Subjective Patient comfortable watching TV Afebrile Objective Vital Signs Last 24 Hour Vital Signs Date Time Temp Pulse Resp B/P (MAP) Pulse Ox O2 Delivery O2 Flow Rate FiO2 07/01/18 04:00 97.7 82 19 107/66 (80) 100 07/01/18 00:42 97.0 07/01/18 00:00 97.6 77 18 96/64 (75) 100 06/30/18 21:00 Room Air 06/30/18 20:00 98.0 95 18 120/77 (91) 96 06/30/18 16:00 97.0 81 18 138/81 (100) 98 06/30/18 09:00 Room Air Height (Feet): 5 Height (Inches): 5.00 Weight (Pounds): 158 Objective GENERAL:NAD CHEST: CTAB, No Wheezing CARDIOVASCULAR: Regular rate. S1 and S2 normal EXTREMITIES: No edema or erythema Current Medications Medications (Trade) Dose Ordered Sig/Mejia Route PRN Reason Start Time Stop Time Status Last Admin Dose Admin Acetaminophen/ Hydrocodone Bitart ([place] 10/325) 1 tab Q4H PRN ORAL For Pain 06/26/18 16:15 07/03/18 16:14 07/01/18 07:00 Brimonidine Tartrate (Alphagan) 1 drop BID BOTH EYES 06/30/18 09:00 07/30/18 08:59 06/30/18 17:17 Divalproex Sodium (Depakote ER) 500 mg BEDTIME ORAL 06/28/18 21:00 07/28/18 20:59 Ibuprofen (Motrin) 600 mg Q6H PRN ORAL Moderate Pain (Pain Scale 4-6) 06/12/18 19:00 07/12/18 18:59 Latanoprost (Xalatan) 1 drop BEDTIME BOTH EYES 06/30/18 21:00 07/30/18 20:59 06/30/18 21:49 Polyethylene Glycol (Miralax) 17 gm DAILYPRN PRN ORAL Constipation 06/29/18 17:45 07/29/18 17:44 Timolol Maleate (Timoptic 0.5% Op Soln) 1 drop TWICE A DAY BOTH EYES 06/30/18 09:00 07/30/18 08:59 06/30/18 17:17 Earl Lock MD Jul 01, 2018 09:00
[2018-07-01] MEDS: Timolol 0.5% Op Soln 2.5ml BOTH EYES SCH ×2 (09:02→19:30)
[2018-07-01] MEDS: Brimonidine 0.2% Opth Sol BOTH EYES SCH ×2 (09:05→19:30)
[2018-07-01 12:00] VITALS: BP 106/72
--- NOTE | 2018-07-01 14:20 | Internal Med Progress Note ---
Subjective Date of Service: Jul 01, 2018 Physician Name Sadi Gaviria Attending Physician Niall Kraft MD Current Medications Medications (Trade) Dose Ordered Sig/Mejia Route PRN Reason Start Time Stop Time Status Last Admin Dose Admin Acetaminophen/ Hydrocodone Bitart ([place] 10/325) 1 tab Q4H PRN ORAL For Pain 06/26/18 16:15 07/03/18 16:14 07/01/18 11:08 Brimonidine Tartrate (Alphagan) 1 drop BID BOTH EYES 06/30/18 09:00 07/30/18 08:59 07/01/18 09:05 Divalproex Sodium (Depakote ER) 500 mg BEDTIME ORAL 06/28/18 21:00 07/28/18 20:59 Ibuprofen (Motrin) 600 mg Q6H PRN ORAL Moderate Pain (Pain Scale 4-6) 06/12/18 19:00 07/12/18 18:59 Latanoprost (Xalatan) 1 drop BEDTIME BOTH EYES 06/30/18 21:00 07/30/18 20:59 06/30/18 21:49 Polyethylene Glycol (Miralax) 17 gm DAILYPRN PRN ORAL Constipation 06/29/18 17:45 07/29/18 17:44 Timolol Maleate (Timoptic 0.5% Op Soln) 1 drop TWICE A DAY BOTH EYES 06/30/18 09:00 07/30/18 08:59 07/01/18 09:02 Allergies: Coded Allergies: CEPHALEXIN (Verified Allergy, Unknown, 05/18/18) CEPHALOSPORINS (Verified Allergy, Unknown, 05/18/18) ERYTHROMYCIN BASE (Verified Allergy, Unknown, 05/18/18) GABAPENTIN (Verified Allergy, Unknown, 05/18/18) SHELLFISH DERIVED (Verified Allergy, Unknown, 05/22/18) ROS Limited/Unobtainable: No Constitutional: Reports: no symptoms HEENT: Reports: no symptoms Cardiovascular: Reports: no symptoms Respiratory: Reports: no symptoms Gastrointestinal/Abdominal: Reports: no symptoms Genitourinary: Reports: no symptoms Neurologic/Psychiatric: Reports: no symptoms Subjective 57 YO F admitted with vancomycin resistant enterococcus stool. Cover for Int Med-Dr Kraft. Await acceptance to [facility] Objective Last Vital Signs Date Time Temp Pulse Resp B/P (MAP) Pulse Ox O2 Delivery O2 Flow Rate FiO2 07/01/18 12:00 97.0 72 20 106/72 (83) 100 07/01/18 09:00 Room Air Intake and Output 06/30/18 07/01/18 18:59 06:59 Intake Total 1400 ml 120 ml Output Total 900 ml Balance 500 ml 120 ml Intake Oral 1400 ml 120 ml Output Urine Total 900 ml # Voids 3 2 Objective General Appearance: WD/WN, no apparent distress, alert EENT: PERRL/EOMI, normal ENT inspection, TMs normal Neck: non-tender, normal alignment, supple, normal inspection Cardiovascular: normal peripheral pulses, normal rate, regular rhythm, no gallop/murmur, no JVD Respiratory/Chest: chest wall non-tender, lungs clear, normal breath sounds, no respiratory distress, no accessory muscle use Abdomen: normal bowel sounds, non tender, soft, no organomegaly, no mass Extremities: normal range of motion, non-tender 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 Assessment/Plan Discharge planning-Await [facility] fac placement -see case management note. Sadi Gaviria MD Jul 01, 2018 14:20
[2018-07-01 16:00] VITALS: BP 110/67
--- NOTE | 2018-07-01 18:38 | NUR ---
NURSE NOTES: Patient sitting up in the chair,eye drops are due at this time,patient state she will get her eye drops when her next pain medication is due.
--- NOTE | 2018-07-01 19:15 | NUR ---
HAND-OFF: Report given to JOHN RUFFIN.
--- NOTE | 2018-07-01 19:30 | NUR ---
NURSE NOTES: RECEIVED PATIENT AWAKE, ALERT/ORIENTED X4, SITTING IN CHAIR ADJACENT TO DOORWAY, BAG OF TRASH SITTING OUTSIDE OF DOOR WHERE PATIENT THREW IT, VERBALLY ABUSIVE TOWARD WINDOW DRESSER. PATIENT WITH COMPLAINT OF PAIN/GENERALIZED//10; NORCO ADMINISTERED ORDERED, TOLERATED WELL. OFFERED TO ASSIST PATIENT TO BED, REFUSED, STATED "I'M NOT READY TO GO TO BED". ENCOURAGED PATIENT TO UTILIZE CALL LIGHT FOR ASSISTANCE, VERBALIZED UNDERSTANDING. NAD.
[2018-07-01] MEDS: Depakote ER 500mg tab ORAL SCH (21:00)
--- NOTE | 2018-07-01 21:02 | General Progress Note ---
Assessment/Plan Problem List: (1) Bipolar disorder ICD Codes: F31.9 - Bipolar disorder, unspecified SNOMED: [id number] Qualifiers: Assessment/Plan Risperdal 4mg po qhs Depakote 1000 po qhs provided ro/st awaiting placement still wants to go to [facility] Subjective Neurologic/Psychiatric: Reports: anxiety, depressed Allergies: Coded Allergies: CEPHALEXIN (Verified Allergy, Unknown, 05/18/18) CEPHALOSPORINS (Verified Allergy, Unknown, 05/18/18) ERYTHROMYCIN BASE (Verified Allergy, Unknown, 05/18/18) GABAPENTIN (Verified Allergy, Unknown, 05/18/18) SHELLFISH DERIVED (Verified Allergy, Unknown, 05/22/18) Subjective the pt is awaiting placement poor insight Objective Last 24 Hour Vital Signs Date Time Temp Pulse Resp B/P (MAP) Pulse Ox O2 Delivery O2 Flow Rate FiO2 07/01/18 20:21 Room Air 07/01/18 19:56 97.8 07/01/18 16:00 97.8 75 20 110/67 (81) 100 07/01/18 12:00 97.0 72 20 106/72 (83) 100 07/01/18 09:00 Room Air 07/01/18 08:00 98.2 76 19 121/82 (95) 100 07/01/18 04:00 97.7 82 19 107/66 (80) 100 07/01/18 00:00 97.6 77 18 96/64 (75) 100 Intake and Output 06/30/18 07/01/18 19:00 07:00 Intake Total 1400 ml 120 ml Output Total 900 ml Balance 500 ml 120 ml Intake Oral 1400 ml 120 ml Output Urine Total 900 ml # Voids 3 2 Height (Feet): 5 Height (Inches): 5.00 Weight (Pounds): 158 General Appearance: no apparent distress, alert Neurologic: oriented x 3, responsive, depressed affect Jake Mcintyre MD Jul 01, 2018 21:02
--- NOTE | 2018-07-01 21:30 | NUR ---
NURSE NOTES: REMAIN NON COMPLIANT WITH MEDICATION REGIMEN-
--- NOTE | 2018-07-01 21:30 | NUR ---
NURSE NOTES: NON COMPLIANT WITH WOUND CARE REGIMEN, REFUSE TREATMENT/WEEKLY PHOTO-
[2018-07-01] MEDS: Latanoprost 0.005% Opth 2.5ml Soln BOTH EYES SCH (21:35)
[2018-07-02] MEDS: HYDROcodone/Acetamin 10/325 tab ORAL PRN ×6 (03:26→23:54)
[2018-07-02 04:00] VITALS: BP 118/55
--- NOTE | 2018-07-02 06:13 | NUR ---
NURSE NOTES: NO SIGNIFICANT CHANGE OF CONDITION NOTED THROUGHOUT THE NIGHT. SAFETY MAINTAINED. NAD.
--- NOTE | 2018-07-02 07:53 | NUR ---
NURSE NOTES: RECEIVED PATIENT A/A/OX4, IN CHAIR HAVING BREAKFAST. NORCO GIVEN FOR GENERALIZED PAIN. SHE IS CALM BUT IRRITABLE. CALL LIGHT IS WITHIN REACH. WILL CONT TO MONITOR.
[2018-07-02 08:00] VITALS: BP 104/68
[2018-07-02] MEDS: Brimonidine 0.2% Opth Sol BOTH EYES SCH ×2 (10:27→17:44)
[2018-07-02] MEDS: Timolol 0.5% Op Soln 2.5ml BOTH EYES SCH ×2 (10:27→17:44)
[2018-07-02 12:00] VITALS: BP 104/70
--- NOTE | 2018-07-02 13:19 | Internal Med Progress Note ---
Subjective Date of Service: Jul 02, 2018 Physician Name Sadi Gaviria Attending Physician Niall Kraft MD Current Medications Medications (Trade) Dose Ordered Sig/Mejia Route PRN Reason Start Time Stop Time Status Last Admin Dose Admin Acetaminophen/ Hydrocodone Bitart ([place] 10/325) 1 tab Q4H PRN ORAL For Pain 06/26/18 16:15 07/03/18 16:14 07/02/18 11:46 Brimonidine Tartrate (Alphagan) 1 drop BID BOTH EYES 06/30/18 09:00 07/30/18 08:59 07/02/18 10:27 Divalproex Sodium (Depakote ER) 500 mg BEDTIME ORAL 06/28/18 21:00 07/28/18 20:59 Ibuprofen (Motrin) 600 mg Q6H PRN ORAL Moderate Pain (Pain Scale 4-6) 06/12/18 19:00 07/12/18 18:59 Latanoprost (Xalatan) 1 drop BEDTIME BOTH EYES 06/30/18 21:00 07/30/18 20:59 07/01/18 21:35 Polyethylene Glycol (Miralax) 17 gm DAILYPRN PRN ORAL Constipation 06/29/18 17:45 07/29/18 17:44 Timolol Maleate (Timoptic 0.5% Op Soln) 1 drop TWICE A DAY BOTH EYES 06/30/18 09:00 07/30/18 08:59 07/02/18 10:27 Allergies: Coded Allergies: CEPHALEXIN (Verified Allergy, Unknown, 05/18/18) CEPHALOSPORINS (Verified Allergy, Unknown, 05/18/18) ERYTHROMYCIN BASE (Verified Allergy, Unknown, 05/18/18) GABAPENTIN (Verified Allergy, Unknown, 05/18/18) SHELLFISH DERIVED (Verified Allergy, Unknown, 05/22/18) ROS Limited/Unobtainable: No Constitutional: Reports: no symptoms HEENT: Reports: no symptoms Cardiovascular: Reports: no symptoms Respiratory: Reports: no symptoms Gastrointestinal/Abdominal: Reports: no symptoms Genitourinary: Reports: no symptoms Neurologic/Psychiatric: Reports: no symptoms Subjective 57 YO F admitted with vancomycin resistant enterococcus stool. Cover for Int Med-Dr Kraft. Await acceptance to [facility] Objective Last Vital Signs Date Time Temp Pulse Resp B/P (MAP) Pulse Ox O2 Delivery O2 Flow Rate FiO2 07/02/18 09:00 Room Air 07/02/18 08:17 97.4 07/02/18 08:00 79 18 104/68 (80) 97 Intake and Output 07/01/18 07/02/18 19:00 07:00 Intake Total 720 ml Balance 720 ml Intake Oral 720 ml # Voids 3 2 Objective General Appearance: WD/WN, no apparent distress, alert EENT: PERRL/EOMI, normal ENT inspection, TMs normal Neck: non-tender, normal alignment, supple, normal inspection Cardiovascular: normal peripheral pulses, normal rate, regular rhythm, no gallop/murmur, no JVD Respiratory/Chest: chest wall non-tender, lungs clear, normal breath sounds, no respiratory distress, no accessory muscle use Abdomen: normal bowel sounds, non tender, soft, no organomegaly, no mass Extremities: normal range of motion, non-tender 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 Assessment/Plan Discharge planning-Await nursing home fac placement -see case management note. Sadi Gaviria MD Jul 02, 2018 13:19
[2018-07-02 16:00] VITALS: BP 135/84
[2018-07-02] MEDS ORDERED: Tubing IV Secondary IV ONE (17:20)
--- NOTE | 2018-07-02 19:02 | NUR ---
HAND-OFF: Report given to Laura.
[2018-07-02 19:57] VITALS: BP 109/69
--- NOTE | 2018-07-02 19:58 | NUR ---
NURSE NOTES: RECEIVED PATIENT AOX4, SITTING IN CHAIR, WATCHING TELEVISION. PATIENT CALM BUT CAN SUDDENLY BECOME IRRITABLE. PATIENT HAD COMPLAINTS OF PAIN, NORCO PRN WAS GIVEN ORDERED. PATIENT REFUSED TO HAVE BED LOWERED AND EXPLAINED RISKS, PATIENT STILL REFUSED STATING "I LOWED THE BED WHEN I GET ON, BUT I RAISE IT BECAUSE I CAN'T SLEEP WHEN IT'S LOW." NO IV ACCESS. NO DISTRESS NOTED. CALL LIGHT IS WITHIN REACH. WILL CONTINUE TO MONITOR.
[2018-07-02] MEDS: Latanoprost 0.005% Opth 2.5ml Soln BOTH EYES SCH (20:02)
[2018-07-02] MEDS: Depakote ER 500mg tab ORAL SCH (20:03)
--- NOTE | 2018-07-02 20:25 | NUR ---
NURSE NOTES: PATIENT REFUSED 2100 DEPAKOTE, STATING "I DON'T TAKE ANY PSYCH MEDS."
--- NOTE | 2018-07-02 20:29 | General Progress Note ---
Assessment/Plan Problem List: (1) Bipolar disorder ICD Codes: F31.9 - Bipolar disorder, unspecified SNOMED: [id number] Qualifiers: Assessment/Plan Risperdal 4mg po qhs Depakote 1000 po qhs provided ro/st awaiting placement still wants to go to [facility] Subjective Neurologic/Psychiatric: Reports: anxiety, depressed, emotional problems Allergies: Coded Allergies: CEPHALEXIN (Verified Allergy, Unknown, 05/18/18) CEPHALOSPORINS (Verified Allergy, Unknown, 05/18/18) ERYTHROMYCIN BASE (Verified Allergy, Unknown, 05/18/18) GABAPENTIN (Verified Allergy, Unknown, 05/18/18) SHELLFISH DERIVED (Verified Allergy, Unknown, 05/22/18) Subjective the pt is awaiting placement poor insight Objective Last 24 Hour Vital Signs Date Time Temp Pulse Resp B/P (MAP) Pulse Ox O2 Delivery O2 Flow Rate FiO2 07/02/18 16:34 97.4 07/02/18 16:00 98.0 65 18 135/84 (101) 97 07/02/18 12:00 65 18 104/70 (81) 98 07/02/18 09:00 Room Air 07/02/18 08:00 98.1 79 18 104/68 (80) 97 07/02/18 04:00 97.4 68 18 118/55 (76) 100 Intake and Output 07/01/18 07/02/18 19:00 07:00 Intake Total 720 ml Balance 720 ml Intake Oral 720 ml # Voids 3 2 Height (Feet): 5 Height (Inches): 5.00 Weight (Pounds): 158 Jake Mcintyre MD Jul 02, 2018 20:29
[2018-07-03] VITALS: BP 114/69
[2018-07-03] MEDS: HYDROcodone/Acetamin 10/325 tab ORAL PRN ×4 (03:55→20:33)
[2018-07-03 04:00] VITALS: BP 110/61
--- NOTE | 2018-07-03 07:28 | NUR ---
HAND-OFF: Report given to REESE Thorpe RN.
--- NOTE | 2018-07-03 07:37 | NUR ---
NURSE NOTES: Received pt from PORSCHE rao. pt is confused and orient x4. No SOB or acute respiratory distress noted. pt is in contact isolation. pt has no intact iv access, is aware. all needs attended, bed is locked and is in the lowest position. call light within easy reach. will continue to monitor. Addendum: 07/03/18 at 1313 by Sanjay Hernandez RN pt is alert and orient x4.
[2018-07-03 08:00] VITALS: BP 124/80
[2018-07-03] MEDS: Timolol 0.5% Op Soln 2.5ml BOTH EYES SCH ×2 (09:11→18:00)
[2018-07-03] MEDS: Brimonidine 0.2% Opth Sol BOTH EYES SCH ×2 (09:11→18:00)
--- NOTE | 2018-07-03 09:51 | Infectious Diseases Prog Note ---
Assessment/Plan Assessment/Plan Assessment: Recent b/l cellulitis, resolved Afebrile Mild leukopenia paraplegia anemia neuralgia bipolar disorder [place] resident VRE stool- THIS IS A COLONIZER Plan: - Monitor off abx -05/25 SP Bactrim #7 -05/20 SP IV Vancomycin #3 -OK TO DISCHARGE BACK TO [place], NO NEED FOR ISOLATION UPON DISCHARGE -Monitor CBC/CMP, temperatures Will continue to follow along with you. Subjective Allergies: Coded Allergies: CEPHALEXIN (Verified Allergy, Unknown, 05/18/18) CEPHALOSPORINS (Verified Allergy, Unknown, 05/18/18) ERYTHROMYCIN BASE (Verified Allergy, Unknown, 05/18/18) GABAPENTIN (Verified Allergy, Unknown, 05/18/18) SHELLFISH DERIVED (Verified Allergy, Unknown, 05/22/18) Subjective Patient comfortable Afebrile Objective Vital Signs Last 24 Hour Vital Signs Date Time Temp Pulse Resp B/P (MAP) Pulse Ox O2 Delivery O2 Flow Rate FiO2 07/03/18 08:51 98.1 07/03/18 08:00 98.0 65 18 124/80 (95) 100 07/03/18 04:00 98.1 69 18 110/61 (77) 99 07/03/18 00:00 97.6 71 18 114/69 (84) 99 07/02/18 20:00 Room Air 07/02/18 19:57 97.8 65 18 109/69 (82) 100 07/02/18 16:00 98.0 65 18 135/84 (101) 97 07/02/18 12:00 65 18 104/70 (81) 98 Height (Feet): 5 Height (Inches): 5.00 Weight (Pounds): 158 Objective GENERAL:NAD, sitting in bed CHEST: CTAB, No Wheezing CARDIOVASCULAR: Regular rate. S1 and S2 normal EXTREMITIES: No edema or erythema Current Medications Medications (Trade) Dose Ordered Sig/Mejia Route PRN Reason Start Time Stop Time Status Last Admin Dose Admin Acetaminophen/ Hydrocodone Bitart ([place] 10/325) 1 tab Q4H PRN ORAL For Pain 06/26/18 16:15 07/03/18 16:14 07/03/18 08:21 Brimonidine Tartrate (Alphagan) 1 drop BID BOTH EYES 06/30/18 09:00 07/30/18 08:59 07/03/18 09:11 Divalproex Sodium (Depakote ER) 500 mg BEDTIME ORAL 06/28/18 21:00 07/28/18 20:59 Ibuprofen (Motrin) 600 mg Q6H PRN ORAL Moderate Pain (Pain Scale 4-6) 06/12/18 19:00 07/12/18 18:59 Latanoprost (Xalatan) 1 drop BEDTIME BOTH EYES 06/30/18 21:00 07/30/18 20:59 07/02/18 20:02 Polyethylene Glycol (Miralax) 17 gm DAILYPRN PRN ORAL Constipation 06/29/18 17:45 07/29/18 17:44 Timolol Maleate (Timoptic 0.5% Op Soln) 1 drop TWICE A DAY BOTH EYES 06/30/18 09:00 07/30/18 08:59 07/03/18 09:11 Earl Lock MD Jul 03, 2018 09:51
[2018-07-03 12:00] VITALS: BP 113/73
--- NOTE | 2018-07-03 12:53 | General Progress Note ---
Assessment/Plan Problem List: (1) Bipolar disorder ICD Codes: F31.9 - Bipolar disorder, unspecified SNOMED: 52811691 Qualifiers: Assessment/Plan Risperdal 4mg po qhs Depakote 1000 po qhs provided ro/st awaiting placement still wants to go to [facility] Subjective Neurologic/Psychiatric: Reports: anxiety, depressed, emotional problems Allergies: Coded Allergies: CEPHALEXIN (Verified Allergy, Unknown, 05/18/18) CEPHALOSPORINS (Verified Allergy, Unknown, 05/18/18) ERYTHROMYCIN BASE (Verified Allergy, Unknown, 05/18/18) GABAPENTIN (Verified Allergy, Unknown, 05/18/18) SHELLFISH DERIVED (Verified Allergy, Unknown, 05/22/18) Subjective the pt is awaiting placement poor insight doesn't want to take psych meds Objective Last 24 Hour Vital Signs Date Time Temp Pulse Resp B/P (MAP) Pulse Ox O2 Delivery O2 Flow Rate FiO2 07/03/18 09:00 Room Air 07/03/18 08:51 98.1 07/03/18 08:00 98.0 65 18 124/80 (95) 100 07/03/18 04:00 98.1 69 18 110/61 (77) 99 07/03/18 00:00 97.6 71 18 114/69 (84) 99 07/02/18 20:00 Room Air 07/02/18 19:57 97.8 65 18 109/69 (82) 100 07/02/18 16:00 98.0 65 18 135/84 (101) 97 Intake and Output 07/02/18 07/03/18 19:00 07:00 Intake Total 800 ml Balance 800 ml Intake Oral 800 ml # Voids 1 1 Height (Feet): 5 Height (Inches): 5.00 Weight (Pounds): 158 General Appearance: no apparent distress, alert Neurologic: oriented x 3, responsive, depressed affect Jake Mcintyre MD Jul 03, 2018 12:53
--- NOTE | 2018-07-03 13:09 | NUR ---
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 98.1 HR 69 RR 18 B/P 110/61 RA 98% IS: DEPAKOTE PO MIRALAX PO PLACEMENT PENDING MED/SURG STATUS
--- NOTE | 2018-07-03 13:34 | NUR ---
Social Service Note JAQUELIN spoke with Selena HAMMER through patient's health plan [phone]. Selena will email JAQUELIN a list of contract facilities in their contracted area to refer patient. Will continue monitor.
--- NOTE | 2018-07-03 14:29 | NUR ---
Social Service Note JAQUELIN received the list of contracted facilities. public policy coordinator will faxed referrals to facilities. Will monitor and follow up.
[2018-07-03 16:00] VITALS: BP 108/82
--- NOTE | 2018-07-03 17:49 | Internal Med Progress Note ---
Subjective Date of Service: Jul 03, 2018 Physician Name Sadi Gaviria Attending Physician Niall Kraft MD Current Medications Medications (Trade) Dose Ordered Sig/Mejia Route PRN Reason Start Time Stop Time Status Last Admin Dose Admin Brimonidine Tartrate (Alphagan) 1 drop BID BOTH EYES 06/30/18 09:00 07/30/18 08:59 07/03/18 09:11 Divalproex Sodium (Depakote ER) 500 mg BEDTIME ORAL 06/28/18 21:00 07/28/18 20:59 Ibuprofen (Motrin) 600 mg Q6H PRN ORAL Moderate Pain (Pain Scale 4-6) 06/12/18 19:00 07/12/18 18:59 Latanoprost (Xalatan) 1 drop BEDTIME BOTH EYES 06/30/18 21:00 07/30/18 20:59 07/02/18 20:02 Polyethylene Glycol (Miralax) 17 gm DAILYPRN PRN ORAL Constipation 06/29/18 17:45 07/29/18 17:44 Timolol Maleate (Timoptic 0.5% Op Soln) 1 drop TWICE A DAY BOTH EYES 06/30/18 09:00 07/30/18 08:59 07/03/18 09:11 Allergies: Coded Allergies: CEPHALEXIN (Verified Allergy, Unknown, 05/18/18) CEPHALOSPORINS (Verified Allergy, Unknown, 05/18/18) ERYTHROMYCIN BASE (Verified Allergy, Unknown, 05/18/18) GABAPENTIN (Verified Allergy, Unknown, 05/18/18) SHELLFISH DERIVED (Verified Allergy, Unknown, 05/22/18) ROS Limited/Unobtainable: No Constitutional: Reports: no symptoms HEENT: Reports: no symptoms Cardiovascular: Reports: no symptoms Respiratory: Reports: no symptoms Gastrointestinal/Abdominal: Reports: no symptoms Genitourinary: Reports: no symptoms Neurologic/Psychiatric: Reports: no symptoms Subjective 57 YO F admitted with vancomycin resistant enterococcus stool. Cover for Int Med-Dr Kraft. Await acceptance to [facility] Objective Last Vital Signs Date Time Temp Pulse Resp B/P (MAP) Pulse Ox O2 Delivery O2 Flow Rate FiO2 07/03/18 16:00 98.2 74 18 108/82 (91) 100 07/03/18 09:00 Room Air Intake and Output 07/02/18 07/03/18 18:59 06:59 Intake Total 800 ml Balance 800 ml Intake Oral 800 ml # Voids 1 1 Objective General Appearance: WD/WN, no apparent distress, alert EENT: PERRL/EOMI, normal ENT inspection, TMs normal Neck: non-tender, normal alignment, supple, normal inspection Cardiovascular: normal peripheral pulses, normal rate, regular rhythm, no gallop/murmur, no JVD Respiratory/Chest: chest wall non-tender, lungs clear, normal breath sounds, no respiratory distress, no accessory muscle use Abdomen: normal bowel sounds, non tender, soft, no organomegaly, no mass Extremities: normal range of motion, non-tender Neurologic: customer support executive II-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 Assessment/Plan Discharge planning-Await custodial fac placement -see case management note. Sadi Gaviria MD Jul 03, 2018 17:49
--- NOTE | 2018-07-03 19:34 | NUR ---
HAND-OFF: Report given to PORSCHE HUYNH.
--- NOTE | 2018-07-03 19:35 | NUR ---
NURSE NOTES: PATIENT SITTING IN CHAIR, AWAKE. PATIENT IS RUDE AND IRRITABLE AND WHEN NURSE CAME INTO HER ROOM TO INTRODUCE HERSELF, PATIENT YELLED "BYE!" NURSE TRIED TO EXPLAIN THAT SHE WILL FOLLOW UP WITH THE MD ABOUT THE NORCO MEDICATION. PATIENT THEN RUDELY STATED, "I DON'T WANT TO SEE YOU TILL YOU HAVE IT!". PATIENT IN NO DISTRESS. WILL CONTINUE TO MONITOR.
[2018-07-03] MEDS: Depakote ER 500mg tab ORAL SCH (20:14)
[2018-07-03] MEDS ORDERED: HYDROcodone/Acetamin 10/325 tab ORAL PRN (20:15)
--- NOTE | 2018-07-03 20:25 | NUR ---
NURSE NOTES: LEFT MESSAGE FOR DR. KOCH REGARDING RENEWAL ORDER FOR NORCO 10/325 PO Q4HR PRN MEDICATION, AND RECEIVED ORDER TO RENEW. ORDER CARRIED OUT.
[2018-07-03] MEDS: Latanoprost 0.005% Opth 2.5ml Soln BOTH EYES SCH (20:33)
[2018-07-03 20:36] VITALS: BP 137/78
[2018-07-04] MEDS: HYDROcodone/Acetamin 10/325 tab ORAL PRN ×5 (00:33→20:02)
[2018-07-04 03:47] VITALS: BP 114/82
--- NOTE | 2018-07-04 07:13 | NUR ---
HAND-OFF: Report given to REESE Thorpe RN.
--- NOTE | 2018-07-04 07:41 | NUR ---
NURSE NOTES: Received pt from PORSCHE HUYNH. Pt is alert and oriented x4. No SOB or acute respiratory distress noted. pt has no intact iv access , MD is aware. all needs attended, bed is locked and is in the lowest position, call light within easy reach. will continue to monitor.
[2018-07-04] MEDS: Timolol 0.5% Op Soln 2.5ml BOTH EYES SCH ×2 (09:19→17:54)
[2018-07-04] MEDS: Brimonidine 0.2% Opth Sol BOTH EYES SCH ×2 (09:19→17:54)
--- NOTE | 2018-07-04 09:24 | NUR ---
*-* INSURANCE*-* UPDATED CLINICALS & REVIEWS HAVE BEEN FAXED TO: [facility] F:[phone]
--- NOTE | 2018-07-04 09:28 | Infectious Diseases Prog Note ---
Assessment/Plan Assessment/Plan Assessment: Recent b/l cellulitis, resolved Afebrile Mild leukopenia paraplegia anemia neuralgia bipolar disorder FTT [place] resident VRE stool- THIS IS A COLONIZER Plan: - Monitor off abx as clinically stable -05/25 SP Bactrim #7 -05/20 SP IV Vancomycin #3 -OK TO DISCHARGE BACK TO [place], NO NEED FOR ISOLATION UPON DISCHARGE -Monitor CBC/CMP, temperatures Will continue to follow along with you. Subjective Allergies: Coded Allergies: CEPHALEXIN (Verified Allergy, Unknown, 05/18/18) CEPHALOSPORINS (Verified Allergy, Unknown, 05/18/18) ERYTHROMYCIN BASE (Verified Allergy, Unknown, 05/18/18) GABAPENTIN (Verified Allergy, Unknown, 05/18/18) SHELLFISH DERIVED (Verified Allergy, Unknown, 05/22/18) Subjective DUNCAN Afebrile Objective Vital Signs Last 24 Hour Vital Signs Date Time Temp Pulse Resp B/P (MAP) Pulse Ox O2 Delivery O2 Flow Rate FiO2 07/04/18 04:11 98.2 07/04/18 03:47 81 18 114/82 (93) 99 07/03/18 20:36 67 18 137/78 (97) 100 07/03/18 20:33 Room Air 07/03/18 16:00 98.2 74 18 108/82 (91) 100 07/03/18 13:05 98.1 07/03/18 12:00 98.0 61 18 113/73 (86) 100 Height (Feet): 5 Height (Inches): 5.00 Weight (Pounds): 158 Objective GENERAL:NAD, sitting in a chair CHEST: CTAB, No Wheezing CARDIOVASCULAR: Regular rate. S1 and S2 normal EXTREMITIES: No edema or erythema Current Medications Medications (Trade) Dose Ordered Sig/Mejia Route PRN Reason Start Time Stop Time Status Last Admin Dose Admin Acetaminophen/ Hydrocodone Bitart ([place] 10/325) 1 tab Q4H PRN ORAL Severe Pain (Pain Scale 7-10) 07/03/18 20:30 07/10/18 20:14 07/04/18 09:18 Brimonidine Tartrate (Alphagan) 1 drop BID BOTH EYES 06/30/18 09:00 07/30/18 08:59 07/04/18 09:19 Divalproex Sodium (Depakote ER) 500 mg BEDTIME ORAL 06/28/18 21:00 07/28/18 20:59 Ibuprofen (Motrin) 600 mg Q6H PRN ORAL Moderate Pain (Pain Scale 4-6) 06/12/18 19:00 07/12/18 18:59 Latanoprost (Xalatan) 1 drop BEDTIME BOTH EYES 06/30/18 21:00 07/30/18 20:59 07/03/18 20:33 Polyethylene Glycol (Miralax) 17 gm DAILYPRN PRN ORAL Constipation 06/29/18 17:45 07/29/18 17:44 Timolol Maleate (Timoptic 0.5% Op Soln) 1 drop TWICE A DAY BOTH EYES 06/30/18 09:00 07/30/18 08:59 07/04/18 09:19 Earl Lock MD Jul 04, 2018 09:28
--- NOTE | 2018-07-04 11:59 | General Progress Note ---
Assessment/Plan Problem List: (1) Bipolar disorder ICD Codes: F31.9 - Bipolar disorder, unspecified SNOMED: 56592255 Qualifiers: Assessment/Plan Risperdal 4mg po qhs Depakote 1000 po qhs provided ro/st awaiting placement still wants to go to [facility] Subjective Neurologic/Psychiatric: Reports: anxiety, depressed, emotional problems Allergies: Coded Allergies: CEPHALEXIN (Verified Allergy, Unknown, 05/18/18) CEPHALOSPORINS (Verified Allergy, Unknown, 05/18/18) ERYTHROMYCIN BASE (Verified Allergy, Unknown, 05/18/18) GABAPENTIN (Verified Allergy, Unknown, 05/18/18) SHELLFISH DERIVED (Verified Allergy, Unknown, 05/22/18) Subjective the pt is awaiting placement poor insight stated that she is frustrated with long hospitalization Objective Last 24 Hour Vital Signs Date Time Temp Pulse Resp B/P (MAP) Pulse Ox O2 Delivery O2 Flow Rate FiO2 07/04/18 09:48 98.2 07/04/18 09:00 Room Air 07/04/18 03:47 81 18 114/82 (93) 99 07/03/18 20:36 67 18 137/78 (97) 100 07/03/18 20:33 Room Air 07/03/18 16:00 98.2 74 18 108/82 (91) 100 07/03/18 13:05 98.1 07/03/18 12:00 98.0 61 18 113/73 (86) 100 Intake and Output 07/03/18 07/04/18 19:00 07:00 Intake Total 900 ml 240 ml Balance 900 ml 240 ml Intake Oral 900 ml 240 ml # Voids 3 3 # Bowel Movements 1 Height (Feet): 5 Height (Inches): 5.00 Weight (Pounds): 158 General Appearance: no apparent distress, alert Neurologic: oriented x 3, responsive, depressed affect Jake Mcintyre MD Jul 04, 2018 11:59
--- NOTE | 2018-07-04 15:15 | NUR ---
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 98.2 HR 81 RR 18 B/P 114/82 RA 98% IS: DEPAKOTE PO XALATAN GTT MOTRIN PO MED/SURG STATUS
--- NOTE | 2018-07-04 17:07 | Internal Med Progress Note ---
Subjective Date of Service: Jul 04, 2018 Physician Name Sadi Gaviria Attending Physician Niall Kraft MD Current Medications Medications (Trade) Dose Ordered Sig/Mejia Route PRN Reason Start Time Stop Time Status Last Admin Dose Admin Acetaminophen/ Hydrocodone Bitart ([place] 10/325) 1 tab Q4H PRN ORAL Severe Pain (Pain Scale 7-10) 07/03/18 20:30 07/10/18 20:14 07/04/18 15:58 Brimonidine Tartrate (Alphagan) 1 drop BID BOTH EYES 06/30/18 09:00 07/30/18 08:59 07/04/18 09:19 Divalproex Sodium (Depakote ER) 500 mg BEDTIME ORAL 06/28/18 21:00 07/28/18 20:59 Ibuprofen (Motrin) 600 mg Q6H PRN ORAL Moderate Pain (Pain Scale 4-6) 06/12/18 19:00 07/12/18 18:59 Latanoprost (Xalatan) 1 drop BEDTIME BOTH EYES 06/30/18 21:00 07/30/18 20:59 07/03/18 20:33 Polyethylene Glycol (Miralax) 17 gm DAILYPRN PRN ORAL Constipation 06/29/18 17:45 07/29/18 17:44 Timolol Maleate (Timoptic 0.5% Op Soln) 1 drop TWICE A DAY BOTH EYES 06/30/18 09:00 07/30/18 08:59 07/04/18 09:19 Allergies: Coded Allergies: CEPHALEXIN (Verified Allergy, Unknown, 05/18/18) CEPHALOSPORINS (Verified Allergy, Unknown, 05/18/18) ERYTHROMYCIN BASE (Verified Allergy, Unknown, 05/18/18) GABAPENTIN (Verified Allergy, Unknown, 05/18/18) SHELLFISH DERIVED (Verified Allergy, Unknown, 05/22/18) ROS Limited/Unobtainable: No Constitutional: Reports: no symptoms HEENT: Reports: no symptoms Cardiovascular: Reports: no symptoms Respiratory: Reports: no symptoms Gastrointestinal/Abdominal: Reports: no symptoms Genitourinary: Reports: no symptoms Neurologic/Psychiatric: Reports: no symptoms Subjective 57 YO F admitted with vancomycin resistant enterococcus stool. Cover for Int Med-Dr Kraft. Await acceptance to [facility] Objective Last Vital Signs Date Time Temp Pulse Resp B/P (MAP) Pulse Ox O2 Delivery O2 Flow Rate FiO2 07/04/18 16:28 98.2 07/04/18 09:00 Room Air 07/04/18 03:47 81 18 114/82 (93) 99 Intake and Output 07/03/18 07/04/18 19:00 07:00 Intake Total 900 ml 240 ml Balance 900 ml 240 ml Intake Oral 900 ml 240 ml # Voids 3 3 # Bowel Movements 1 Objective General Appearance: WD/WN, no apparent distress, alert EENT: PERRL/EOMI, normal ENT inspection, TMs normal Neck: non-tender, normal alignment, supple, normal inspection Cardiovascular: normal peripheral pulses, normal rate, regular rhythm, no gallop/murmur, no JVD Respiratory/Chest: chest wall non-tender, lungs clear, normal breath sounds, no respiratory distress, no accessory muscle use Abdomen: normal bowel sounds, non tender, soft, no organomegaly, no mass Extremities: normal range of motion, non-tender Neurologic: manager requirements II-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 Assessment/Plan Discharge planning-Await group home fac placement -see case management note. Sadi Gaviria MD Jul 04, 2018 17:07
--- NOTE | 2018-07-04 18:06 | NUR ---
NURSE NOTES: Dr shea visited pt and he is aware pt refused V/S all day. will continue to monitor.
--- NOTE | 2018-07-04 19:21 | NUR ---
HAND-OFF: Report given to PORSCHE LOWERY.
--- NOTE | 2018-07-04 20:00 | NUR ---
NURSE NOTES: Patient sitting in chair, watching TV, no distress noted. PRN norco given for pain. Instructed to use call light for assistance.
[2018-07-04] MEDS: Latanoprost 0.005% Opth 2.5ml Soln BOTH EYES SCH (20:02)
[2018-07-04] MEDS: Depakote ER 500mg tab ORAL SCH (20:45)
[2018-07-05] MEDS: HYDROcodone/Acetamin 10/325 tab ORAL PRN ×6 (00:59→21:16)
--- NOTE | 2018-07-05 07:15 | NUR ---
HAND-OFF: Report given to Yola MORRELL.
--- NOTE | 2018-07-05 07:57 | NUR ---
NURSE NOTES: Patient is awake and alert,respirations unlabored,patient sitting up in the chair, patient ate breakfast,no complaints at this time,her call light is within reach.
[2018-07-05 08:00] VITALS: BP 120/56
[2018-07-05] MEDS: Timolol 0.5% Op Soln 2.5ml BOTH EYES SCH ×2 (09:11→18:44)
[2018-07-05] MEDS: Brimonidine 0.2% Opth Sol BOTH EYES SCH ×2 (09:18→18:42)
[2018-07-05 12:18] VITALS: BP 103/72
--- NOTE | 2018-07-05 12:23 | Internal Med Progress Note ---
Subjective Date of Service: Jul 05, 2018 Physician Name Sadi Gaviria Attending Physician Niall Kraft MD Current Medications Medications (Trade) Dose Ordered Sig/Mejia Route PRN Reason Start Time Stop Time Status Last Admin Dose Admin Acetaminophen/ Hydrocodone Bitart ([place] 10/325) 1 tab Q4H PRN ORAL Severe Pain (Pain Scale 7-10) 07/03/18 20:30 07/10/18 20:14 07/05/18 09:10 Brimonidine Tartrate (Alphagan) 1 drop BID BOTH EYES 06/30/18 09:00 07/30/18 08:59 07/05/18 09:18 Divalproex Sodium (Depakote ER) 500 mg BEDTIME ORAL 06/28/18 21:00 07/28/18 20:59 Ibuprofen (Motrin) 600 mg Q6H PRN ORAL Moderate Pain (Pain Scale 4-6) 06/12/18 19:00 07/12/18 18:59 Latanoprost (Xalatan) 1 drop BEDTIME BOTH EYES 06/30/18 21:00 07/30/18 20:59 07/04/18 20:02 Polyethylene Glycol (Miralax) 17 gm DAILYPRN PRN ORAL Constipation 06/29/18 17:45 07/29/18 17:44 Timolol Maleate (Timoptic 0.5% Op Soln) 1 drop TWICE A DAY BOTH EYES 06/30/18 09:00 07/30/18 08:59 07/05/18 09:11 Allergies: Coded Allergies: CEPHALEXIN (Verified Allergy, Unknown, 05/18/18) CEPHALOSPORINS (Verified Allergy, Unknown, 05/18/18) ERYTHROMYCIN BASE (Verified Allergy, Unknown, 05/18/18) GABAPENTIN (Verified Allergy, Unknown, 05/18/18) SHELLFISH DERIVED (Verified Allergy, Unknown, 05/22/18) ROS Limited/Unobtainable: No Subjective 57 YO F admitted with vancomycin resistant enterococcus stool. Cover for Int Med-Dr Kraft. Await acceptance to [facility] Objective Last Vital Signs Date Time Temp Pulse Resp B/P (MAP) Pulse Ox O2 Delivery O2 Flow Rate FiO2 07/05/18 12:18 98.2 62 20 103/72 (82) 100 07/05/18 09:00 Room Air Intake and Output 07/04/18 07/05/18 19:00 07:00 Intake Total 580 ml Balance 580 ml Intake Oral 580 ml # Voids 1 2 # Bowel Movements 1 2 Objective General Appearance: WD/WN, no apparent distress, alert EENT: PERRL/EOMI, normal ENT inspection, TMs normal Neck: non-tender, normal alignment, supple, normal inspection Cardiovascular: normal peripheral pulses, normal rate, regular rhythm, no gallop/murmur, no JVD Respiratory/Chest: chest wall non-tender, lungs clear, normal breath sounds, no respiratory distress, no accessory muscle use Abdomen: normal bowel sounds, non tender, soft, no organomegaly, no mass Extremities: normal range of motion, non-tender Neurologic: broadcast supervisor II-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 Assessment/Plan Discharge planning-Await long-term fac placement -see case management note. Difficulty in placement due to patient request to return to [facility] and insurance authorization Sadi Gaviria MD Jul 05, 2018 12:23
--- NOTE | 2018-07-05 12:54 | NUR ---
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 98.2 HR 62 RR 20 B/P 103/72 RA 98% IS: DEPAKOTE PO NORCO PO XALATAN GTT TIMOLOL GTT PLACEMENT PENDING MED/SURG STATUS
--- NOTE | 2018-07-05 13:08 | NUR ---
RD ASSESSMENT & RECOMMENDATIONS SEE CARE ACTIVITY FOR COMPLETE ASSESSMENT DAILY ESTIMATED NEEDS: Needs based on Paraplegia, 68kg 28-30 kcals/kg 7749-3126 total kcals 1-1.5 g protein/kg 68-102 g total protein 25-30 mL/kg 3364-2368 total fluid mLs NUTRITION DIAGNOSIS: Altered GI function R/T constipation as evidenced by pt c/o constipation, no BM x 5 days. (INACTIVE) CURRENT DIET:Regular PO DIET RECOMMENDATIONS: REGULAR, HIGH FIBER ADDITIONAL RECOMMENDATIONS: * Calibrated bedscale wt for accurate CBW * Prunes TID, Prune Juice TID * Daily bowel regimen * Weekly weights -> pt w/ extended admission * UPDATED labs as able
--- NOTE | 2018-07-05 14:47 | Infectious Diseases Prog Note ---
Assessment/Plan Assessment/Plan Assessment: Recent b/l cellulitis, resolved Afebrile Mild leukopenia paraplegia anemia neuralgia bipolar disorder FTT [place] resident VRE stool- THIS IS A COLONIZER Plan: - Monitor off abx -05/25 SP Bactrim #7 -05/20 SP IV Vancomycin #3 -OK TO DISCHARGE BACK TO [place], NO NEED FOR ISOLATION UPON DISCHARGE -Monitor CBC/CMP, temperatures Will continue to follow along with you. Subjective Allergies: Coded Allergies: CEPHALEXIN (Verified Allergy, Unknown, 05/18/18) CEPHALOSPORINS (Verified Allergy, Unknown, 05/18/18) ERYTHROMYCIN BASE (Verified Allergy, Unknown, 05/18/18) GABAPENTIN (Verified Allergy, Unknown, 05/18/18) SHELLFISH DERIVED (Verified Allergy, Unknown, 05/22/18) Subjective DUNCAN Sitting in chair watching TV Objective Vital Signs Last 24 Hour Vital Signs Date Time Temp Pulse Resp B/P (MAP) Pulse Ox O2 Delivery O2 Flow Rate FiO2 07/05/18 12:18 98.2 62 20 103/72 (82) 100 07/05/18 09:00 Room Air 07/05/18 08:00 97.9 81 21 120/56 (77) 99 07/04/18 21:00 Room Air 07/04/18 16:28 98.2 Height (Feet): 5 Height (Inches): 5.00 Weight (Pounds): 155 Objective GENERAL:NAD CHEST: CTAB, No Wheezing CARDIOVASCULAR: Regular rate. S1 and S2 normal EXTREMITIES: No edema or erythema Current Medications Medications (Trade) Dose Ordered Sig/Mejia Route PRN Reason Start Time Stop Time Status Last Admin Dose Admin Acetaminophen/ Hydrocodone Bitart ([place] 10/325) 1 tab Q4H PRN ORAL Severe Pain (Pain Scale 7-10) 07/03/18 20:30 07/10/18 20:14 07/05/18 13:12 Brimonidine Tartrate (Alphagan) 1 drop BID BOTH EYES 06/30/18 09:00 07/30/18 08:59 07/05/18 09:18 Divalproex Sodium (Depakote ER) 500 mg BEDTIME ORAL 06/28/18 21:00 07/28/18 20:59 Ibuprofen (Motrin) 600 mg Q6H PRN ORAL Moderate Pain (Pain Scale 4-6) 06/12/18 19:00 2/6/19 18:59 Latanoprost (Xalatan) 1 drop BEDTIME BOTH EYES 06/30/18 21:00 07/30/18 20:59 07/04/18 20:02 Polyethylene Glycol (Miralax) 17 gm DAILYPRN PRN ORAL Constipation 06/29/18 17:45 07/29/18 17:44 Timolol Maleate (Timoptic 0.5% Op Soln) 1 drop TWICE A DAY BOTH EYES 06/30/18 09:00 07/30/18 08:59 07/05/18 09:11 Earl Lock MD Jul 05, 2018 14:47
[2018-07-05 16:00] VITALS: BP 125/75
--- NOTE | 2018-07-05 19:00 | NUR ---
NURSE NOTES: Patient sitting up in chair ,talking on the phone.Central Office Repairer complaints at this time,call light within reach.
--- NOTE | 2018-07-05 19:20 | General Progress Note ---
Assessment/Plan Problem List: (1) Bipolar disorder ICD Codes: F31.9 - Bipolar disorder, unspecified SNOMED: 57723797 Qualifiers: Assessment/Plan Risperdal 4mg po qhs Depakote 1000 po qhs provided ro/st awaiting placement still wants to go to [facility] Subjective Neurologic/Psychiatric: Reports: anxiety, depressed, emotional problems Allergies: Coded Allergies: CEPHALEXIN (Verified Allergy, Unknown, 05/18/18) CEPHALOSPORINS (Verified Allergy, Unknown, 05/18/18) ERYTHROMYCIN BASE (Verified Allergy, Unknown, 05/18/18) GABAPENTIN (Verified Allergy, Unknown, 05/18/18) SHELLFISH DERIVED (Verified Allergy, Unknown, 05/22/18) Subjective the pt is awaiting placement poor insight Objective Last 24 Hour Vital Signs Date Time Temp Pulse Resp B/P (MAP) Pulse Ox O2 Delivery O2 Flow Rate FiO2 07/05/18 16:00 97.6 82 20 125/75 (92) 99 07/05/18 12:18 98.2 62 20 103/72 (82) 100 07/05/18 09:00 Room Air 07/05/18 08:00 97.9 81 21 120/56 (77) 99 07/04/18 21:00 Room Air Intake and Output 07/04/18 07/05/18 19:00 07:00 Intake Total 580 ml Balance 580 ml Intake Oral 580 ml # Voids 1 2 # Bowel Movements 1 2 Height (Feet): 5 Height (Inches): 5.00 Weight (Pounds): 155 Jake Mcintyre MD Jul 05, 2018 19:20
--- NOTE | 2018-07-05 19:30 | NUR ---
NURSE NOTES: RECEIVED PATIENT AWAKE, SITTING IN CHAIR, NO IV ACCESS NOTED, BED STRIPPED OF LINEN, COMPLAINING OF PAIN TO LOWER EXTREMITIES, 03/15, PAIN REGIMEN REVIEWED WITH PATIENT. NO SIGNS AND SYMPTOMS OF ACUTE CARDIO RESPIRATORY DISTRESS/SHORTNESS OF BREATH, SWELLING LOWER EXTREMITIES SUBSIDING, REFUSE ASSESSMENT OF RIGHT GREAT TOE. NO COMPLAINT OF GI DISCOMFORT. ENCOURAGED PATIENT TO UTILIZE CALL LIGHT FOR ASSISTANCE. CONTINUE WITH CURRENT PLAN OF CARE. NAD.
[2018-07-05 20:00] VITALS: BP 101/63
[2018-07-05] MEDS: Depakote ER 500mg tab ORAL SCH (20:52)
[2018-07-05] MEDS: Latanoprost 0.005% Opth 2.5ml Soln BOTH EYES SCH (21:16)
[2018-07-06] VITALS: BP 120/56
[2018-07-06] MEDS: HYDROcodone/Acetamin 10/325 tab ORAL PRN ×5 (01:14→18:07)
[2018-07-06 04:00] VITALS: BP 106/67
--- NOTE | 2018-07-06 06:15 | NUR ---
NURSE NOTES: TRANSFERRED TO BED WITHOUT DIFFICULTY THIS AM, SUPERVISION ONLY. NO SIGNIFICANT CHANGE OF CONDITION NOTED THROUGHOUT THE NIGHT. SAFETY MAINTAINED. NAD.
--- NOTE | 2018-07-06 07:30 | NUR ---
HAND-OFF: Report given to PORSCHE POND.
--- NOTE | 2018-07-06 07:43 | NUR ---
NURSE NOTES: Received patient from Jaqui RUFFIN, patient is up in bed, no distress noted, bed is locked and in lowest position, no distress noted, call light within reach, will continue to monitor with Melody MORRELL.
--- NOTE | 2018-07-06 07:55 | NUR ---
Received patient from PORSCHE Celis. Patient sleeping in bed, in room air, not in respiratory distress. Bed in the lowest position, call light is within reach, side rails raised. Will continue to monitor patient.
--- NOTE | 2018-07-06 08:27 | Infectious Diseases Prog Note ---
Assessment/Plan Assessment/Plan Assessment: Recent b/l cellulitis, resolved Afebrile Mild leukopenia paraplegia anemia neuralgia bipolar disorder [facility] resident VRE stool- THIS IS A COLONIZER Plan: - Continue to monitor off abx -05/25 SP Bactrim #7 -05/20 SP IV Vancomycin #3 -OK TO DISCHARGE BACK TO [facility], NO NEED FOR ISOLATION UPON DISCHARGE -Monitor CBC/CMP, temperatures Will continue to follow along with you. Subjective Allergies: Coded Allergies: CEPHALEXIN (Verified Allergy, Unknown, 05/18/18) CEPHALOSPORINS (Verified Allergy, Unknown, 05/18/18) ERYTHROMYCIN BASE (Verified Allergy, Unknown, 05/18/18) GABAPENTIN (Verified Allergy, Unknown, 05/18/18) SHELLFISH DERIVED (Verified Allergy, Unknown, 05/22/18) Subjective DUNCAN Afebrile Objective Vital Signs Last 24 Hour Vital Signs Date Time Temp Pulse Resp B/P (MAP) Pulse Ox O2 Delivery O2 Flow Rate FiO2 07/06/18 05:48 98.9 07/06/18 04:00 98.9 63 16 106/67 (80) 98 07/06/18 00:00 98.0 98 16 120/56 (77) 98 07/05/18 21:00 Room Air 07/05/18 20:00 97.0 76 19 101/63 (76) 97 07/05/18 16:00 97.6 82 20 125/75 (92) 99 07/05/18 12:18 98.2 62 20 103/72 (82) 100 07/05/18 09:00 Room Air Height (Feet): 5 Height (Inches): 5.00 Weight (Pounds): 155 Objective GENERAL: Comfortable CHEST: CTAB, No W CARDIOVASCULAR: Regular rate. S1 and S2 normal EXTREMITIES: No edema or erythema Current Medications Medications (Trade) Dose Ordered Sig/Mejia Route PRN Reason Start Time Stop Time Status Last Admin Dose Admin Acetaminophen/ Hydrocodone Bitart ([place] 10/325) 1 tab Q4H PRN ORAL Severe Pain (Pain Scale 7-10) 07/03/18 20:30 07/10/18 20:14 07/06/18 05:18 Brimonidine Tartrate (Alphagan) 1 drop BID BOTH EYES 06/30/18 09:00 07/30/18 08:59 07/05/18 18:42 Divalproex Sodium (Depakote ER) 500 mg BEDTIME ORAL 06/28/18 21:00 07/28/18 20:59 Ibuprofen (Motrin) 600 mg Q6H PRN ORAL Moderate Pain (Pain Scale 4-6) 06/12/18 19:00 07/12/18 18:59 Latanoprost (Xalatan) 1 drop BEDTIME BOTH EYES 06/30/18 21:00 07/30/18 20:59 07/05/18 21:16 Polyethylene Glycol (Miralax) 17 gm DAILYPRN PRN ORAL Constipation 06/29/18 17:45 07/29/18 17:44 Timolol Maleate (Timoptic 0.5% Op Soln) 1 drop TWICE A DAY BOTH EYES 06/30/18 09:00 07/30/18 08:59 07/05/18 18:44 Earl Lock MD Jul 06, 2018 08:27
[2018-07-06 09:00] VITALS: BP 123/70
[2018-07-06] MEDS: Timolol 0.5% Op Soln 2.5ml BOTH EYES SCH ×2 (09:31→18:08)
[2018-07-06] MEDS: Brimonidine 0.2% Opth Sol BOTH EYES SCH ×2 (09:31→18:07)
[2018-07-06 09:46] VITALS: BP 123/70
--- NOTE | 2018-07-06 11:07 | NUR ---
*-* DISCHAERGE PLANNING *-* PATIENT HAS BEEN REFERRED TO: [facility] P:[phone] F:[phone] Addendum: 07/06/18 at 1321 by MANINDER SALDAÑA SPOKE TO ALFREDITO AND SHE STATED THAT THEY DO NOT HAVE ANYONE IN THE FACILITY IN ADMISSIONS THAT CAN HELP. THEY ARE NOT ADMITTING NOR ARE THEY REVIEWING ANY REFERRALS UNTIL MAYBE TOMORROW. VERY RUDE HUNG UP ON ME 3X
--- NOTE | 2018-07-06 13:21 | NUR ---
*-* DISCHARGE PLANNING *-* PATIENT HAS BEEN REFERRED TO: [facility] P:[phone] F:[phone]
--- NOTE | 2018-07-06 15:19 | NUR ---
HEAVY EQUIPMENT OPERATOR/PAVERBACKHOE OPERATOR SI: CELLULITIS T. 98.9 HR 87 RR 16 B/P 123/70 IS: DEPAKOTE PO XALATAN GTT TIMOLOL GTT PLACEMENT PENDING MED/SURG STATUS
[2018-07-06 16:00] VITALS: BP 127/73
--- NOTE | 2018-07-06 17:48 | NUR ---
Social Service Note JAQUELIN met with patient to discuss placement at [place] [facility], located at [address] [facility]. Ambulance arranged with [facility] [phone] pickling grader 1900. Patient met with toddler guide of facility and is in agreement with dc plan. Facility is able to provide patient w/c. JAQUELIN informed charge nurse and primary nurse. Addendum: 07/06/18 at 1806 by RACHEL WHITTAKER Contact Janet [phone]. Addendum: 07/06/18 at 1811 by RACHEL WHITTAKER Volodymyr contact mark [phone]
--- NOTE | 2018-07-06 18:43 | Internal Med Progress Note ---
Subjective Date of Service: Jul 06, 2018 Physician Name Sadi Gaviria Attending Physician Niall Kraft MD Current Medications Medications (Trade) Dose Ordered Sig/Mejia Route PRN Reason Start Time Stop Time Status Last Admin Dose Admin Acetaminophen/ Hydrocodone Bitart ([place] 10/325) 1 tab Q4H PRN ORAL Severe Pain (Pain Scale 7-10) 07/03/18 20:30 07/10/18 20:14 07/06/18 18:07 Brimonidine Tartrate (Alphagan) 1 drop BID BOTH EYES 06/30/18 09:00 07/30/18 08:59 07/06/18 18:07 Divalproex Sodium (Depakote ER) 500 mg BEDTIME ORAL 06/28/18 21:00 07/28/18 20:59 Ibuprofen (Motrin) 600 mg Q6H PRN ORAL Moderate Pain (Pain Scale 4-6) 06/12/18 19:00 07/12/18 18:59 Latanoprost (Xalatan) 1 drop BEDTIME BOTH EYES 06/30/18 21:00 07/30/18 20:59 07/05/18 21:16 Polyethylene Glycol (Miralax) 17 gm DAILYPRN PRN ORAL Constipation 06/29/18 17:45 07/29/18 17:44 Timolol Maleate (Timoptic 0.5% Op Soln) 1 drop TWICE A DAY BOTH EYES 06/30/18 09:00 07/30/18 08:59 07/06/18 18:08 Allergies: Coded Allergies: CEPHALEXIN (Verified Allergy, Unknown, 05/18/18) CEPHALOSPORINS (Verified Allergy, Unknown, 05/18/18) ERYTHROMYCIN BASE (Verified Allergy, Unknown, 05/18/18) GABAPENTIN (Verified Allergy, Unknown, 05/18/18) SHELLFISH DERIVED (Verified Allergy, Unknown, 05/22/18) Constitutional: Reports: no symptoms HEENT: Reports: no symptoms Cardiovascular: Reports: no symptoms Respiratory: Reports: no symptoms Gastrointestinal/Abdominal: Reports: no symptoms Genitourinary: Reports: no symptoms Neurologic/Psychiatric: Reports: no symptoms Subjective 57 YO F admitted with vancomycin resistant enterococcus stool. Cover for Int Med-Dr Kraft. Await transfer to assisted living Objective Last Vital Signs Date Time Temp Pulse Resp B/P (MAP) Pulse Ox O2 Delivery O2 Flow Rate FiO2 07/06/18 16:00 97.6 60 20 127/73 (91) 97 07/06/18 09:00 Room Air Intake and Output 07/05/18 07/06/18 19:00 07:00 Intake Total 720 ml 240 ml Balance 720 ml 240 ml Intake Oral 720 ml 240 ml # Voids 1 Objective General Appearance: WD/WN, no apparent distress, alert EENT: PERRL/EOMI, normal ENT inspection, TMs normal Neck: non-tender, normal alignment, supple, normal inspection Cardiovascular: normal peripheral pulses, normal rate, regular rhythm, no gallop/murmur, no JVD Respiratory/Chest: chest wall non-tender, lungs clear, normal breath sounds, no respiratory distress, no accessory muscle use Abdomen: normal bowel sounds, non tender, soft, no organomegaly, no mass Extremities: normal range of motion, non-tender Neurologic: eyeglass maker II-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 Assessment/Plan Discharge to [facility] assisted living facility today Sadi Gaviria MD Jul 06, 2018 18:43
--- NOTE | 2018-07-06 19:21 | NUR ---
HAND-OFF: Report given to PORSCHE Stoddard.
--- NOTE | 2018-07-06 19:23 | NUR ---
HAND-OFF: Report given to Arlyn MORRELL.
--- NOTE | 2018-07-06 20:43 | General Progress Note ---
Assessment/Plan Problem List: (1) Bipolar disorder ICD Codes: F31.9 - Bipolar disorder, unspecified SNOMED: [id number] Qualifiers: Assessment/Plan Risperdal 4mg po qhs Depakote 1000 po qhs provided ro/st awaiting placement still wants to go to [facility] Subjective Neurologic/Psychiatric: Reports: anxiety, depressed, emotional problems Allergies: Coded Allergies: CEPHALEXIN (Verified Allergy, Unknown, 05/18/18) CEPHALOSPORINS (Verified Allergy, Unknown, 05/18/18) ERYTHROMYCIN BASE (Verified Allergy, Unknown, 05/18/18) GABAPENTIN (Verified Allergy, Unknown, 05/18/18) SHELLFISH DERIVED (Verified Allergy, Unknown, 05/22/18) Subjective the pt is awaiting placement poor insight Objective Last 24 Hour Vital Signs Date Time Temp Pulse Resp B/P (MAP) Pulse Ox O2 Delivery O2 Flow Rate FiO2 07/06/18 18:37 97.6 07/06/18 16:00 97.6 60 20 127/73 (91) 97 07/06/18 09:46 98.9 87 16 123/70 (87) 97 07/06/18 09:00 Room Air 07/06/18 09:00 98.9 87 16 123/70 (87) 97 07/06/18 04:00 98.9 63 16 106/67 (80) 98 07/06/18 00:00 98.0 98 16 120/56 (77) 98 07/05/18 21:00 Room Air Intake and Output 07/05/18 07/06/18 19:00 07:00 Intake Total 720 ml 240 ml Balance 720 ml 240 ml Intake Oral 720 ml 240 ml # Voids 1 Height (Feet): 5 Height (Inches): 5.00 Weight (Pounds): 155 General Appearance: alert Neurologic: oriented x 3, responsive Jake Mcintyre MD Jul 06, 2018 20:43
[2018-07-06] MEDS: Depakote ER 500mg tab ORAL SCH (21:00)
[2018-07-06] MEDS: Latanoprost 0.005% Opth 2.5ml Soln BOTH EYES SCH (21:11)
--- NOTE | 2018-07-06 21:15 | NUR ---
NURSE NOTES: Patient discharged to [facility] in stable condition via gurney, accompanied by [address] tech[address] Discharge packet given to mri ct tech. No IV line. All belongings packed and sent with patient. Remained free from injury.
--- NOTE | 2018-07-07 13:45 | NUR ---
*-* INSURANCE *-* CLINICALS FROM 06/22-07/06/18 FAXED TO: F:[phone]
--- NOTE | 2018-07-08 07:37 | NUR ---
NURSE NOTES: Patient received from Kristine. MORRELL. Patient sitting in chair, awake, in room air, not in respiratory distress. Will continue to monitor patient.
== END 2018-07-06 21:15 | disposition home or self-care (01) | DRG 383 ==
LOC: EDBD 22:12 → EMR 22:50 → EDBEDREQ 22:53 → 4E 23:55 → EDBEDREQ 05-22 00:03 → OBSVTOIN 05-22 01:23
DX: L03.115 Cellulitis of right lower limb (principal); G82.20 Paraplegia, unspecified; F31.9 Bipolar disorder, unspecified; Z16.21 Resistance to vancomycin; Z22.39 Carrier of other specified bacterial diseases; F32.9 Major depressive disorder, single episode, unspecified; R62.7 Adult failure to thrive; Z68.25 Body mass index [BMI] 25.0-25.9, adult; H40.9 Unspecified glaucoma; M79.2 Neuralgia and neuritis, unspecified; D64.9 Anemia, unspecified; D72.819 Decreased white blood cell count, unspecified
CPT/HCPCS: 36415; 80048; 80053; 81003; 83735; 84100; 85007; 85025; 87081; 96361; 96374; 99285; J2405

== ENCOUNTER 2018-07-07 00:08 | Inpatient (IN) | payer MEDICAID ==
[~2018-07-07] VITALS: Ht 162.6 cm; Wt 68.0 kg
[2018-07-07 00:42] VITALS: BP 112/74
--- NOTE | 2018-07-07 00:43 | NUR ---
ER Nurse Note: Pt brought in by [facility] c/o generalized pain 02/13. Per EMS, pt was discharged from [facility] m/s today to SNF but was unable to get address of SNF. Pt complained about pain and getting Shelby around the clock. Pt a&ox4, VSS, no signs of distress. ERMD at pt side; will continue to montior.
--- NOTE | 2018-07-07 01:23 | NUR ---
ER Nurse Note: Report given to PORSCHE Alfaro. All belongings taken with pt; pt a&ox4, VSS, no signs of distress.
--- NOTE | 2018-07-07 02:12 | Emergency Room Report ---
History of Present Illness General Chief Complaint: Pain Source: Patient Present Illness HPI Patient is a 57-year-old female recently released from the hospital. Patient was brought in by EMS. Patient was noted to have continued pain and was unable to leave Ambulance gurney. Patient was brought back to the emergency department. Allergies: Coded Allergies: CEPHALEXIN (Verified Allergy, Unknown, 05/18/18) CEPHALOSPORINS (Verified Allergy, Unknown, 05/18/18) ERYTHROMYCIN BASE (Verified Allergy, Unknown, 05/18/18) GABAPENTIN (Verified Allergy, Unknown, 05/18/18) SHELLFISH DERIVED (Verified Allergy, Unknown, 05/22/18) Patient History Past Medical History: see triage record Last Menstrual Period: n/a Reviewed Nursing Documentation: PMH: Agreed; PSxH: Agreed Nursing Documentation-PMH Hx Cardiac Problems: No Hx COPD: Yes Hx Cancer: No Hx Gastrointestinal Problems: Yes - abdominal pain Hx Neurological Problems: Yes - neuralgia & neuritis, hemiplegia Physical Exam Vital Signs Date Time Temp Pulse Resp B/P (MAP) Pulse Ox O2 Delivery O2 Flow Rate FiO2 07/07/18 00:13 97.2 66 18 112/74 97 Room Air Sp02 EP Interpretation: reviewed, normal General Appearance: normal inspection, alert, GCS 15, Chronically Ill Head: atraumatic ENT: normal ENT inspection, hearing grossly normal, normal voice Neck: normal inspection, full range of motion, supple, no bony tend Respiratory: normal inspection, lungs clear, normal breath sounds, no respiratory distress, no retraction, no wheezing Cardiovascular #1: regular rate, rhythm, no edema Gastrointestinal: normal inspection, normal bowel sounds, non tender, soft, no guarding, no hernia Genitourinary: no CVA tenderness Musculoskeletal: normal inspection, back normal, normal range of motion Neurologic: normal inspection, alert, responsive, speech normal, motor weakness - bilateral lower extremity Psychiatric: normal inspection, judgement/insight normal, mood/affect normal Skin: no rash, other - bilateral lower extremity slight erythema Medical Decision Making Diagnostic Impression: Primary Impression: Pain Additional Impressions: Limited mobility in bed Cellulitis ER Course Patient presented lower extremity pain. Patient was noted to have been unable to ambulate. Patient reports having previously been wheelchair-bound. Patient noted to have bilateral lower extremity erythema. Dr. Niall Kraft was contacted for inpatient management Last Vital Signs Date Time Temp Pulse Resp B/P (MAP) Pulse Ox O2 Delivery O2 Flow Rate FiO2 07/07/18 01:24 97.2 66 18 112/74 97 Room Air Status: unchanged Disposition: ADMITTED INPATIENT Condition: Stable Referrals: Niall Kraft MD (PCP) Hayder Rodrigues MD Jul 07, 2018 02:12
--- NOTE | 2018-07-07 02:13 | NUR ---
NURSE NOTES: Received telephone report from PORSCHE Bhatt. Received patient via [employer] around 0145. Patient was discharged hours before this admission during the same gold burnisher. Patient refused to go to assisted living when she got there, referring to it as a "shady" place and got into a verbal altercation with staff and was brought to the ER. Belongings checked and verified. On room air, no signs of distress or labored breathing. No IV access, patient refused. Refusing skin assessment and pictures of scabs on feet. Bed in lowest position with call light in reach. Called MD for admission orders, waiting for response. Will continue to monitor.
--- NOTE | 2018-07-07 03:15 | NUR ---
NURSE NOTES: MD has not returned call for MD orders. Charge nurse aware and also tried to contact MD.
--- NOTE | 2018-07-07 04:20 | NUR ---
NURSE NOTES: Left another message for MD about admission orders, charge nurse made aware.
[2018-07-07] MEDS ORDERED: Miralax 17gm pkt ORAL PRN (06:45)
--- NOTE | 2018-07-07 07:34 | NUR ---
HAND-OFF: Report given to PORSCHE Garces.
[2018-07-07] MEDS: Heparin 5000 units/ml inj SUBQ SCH ×2 (08:02→21:00)
[2018-07-07] MEDS: HYDROcodone/Acetamin 10/325 tab ORAL PRN ×4 (08:05→20:40)
[2018-07-07] MEDS: Brimonidine 0.2% Opth Sol BOTH EYES SCH ×2 (10:49→17:26)
[2018-07-07] MEDS: Timolol 0.5% Op Soln 2.5ml BOTH EYES SCH ×2 (10:49→17:29)
[2018-07-07 12:00] VITALS: BP 105/61
--- NOTE | 2018-07-07 12:14 | NUR ---
Social Work This Sw received a consult to follow up for discharge plans. Patient was discharged from here yesterday to an Assisted Living; reported patient did not like to facility and came back to this hospital for a readmission. This SW met with patient who reported that when she got to the facility, she had waited in the ambulance for one hour, outside of the facility, while "Don" came out to speak with her in the ambulance, stating "he was rude." Patient stating she has been talking with her sister in [place], and they are requesting for patient to discharge to a alf in [place]. This Sw spoke with sister, Vane, ([phone]) who is requesting a transfer to [facility] (sister unable to provide the exact name or contact number). Sister also requesting transportation provide for transfer. This Sw also advised other family to transport, as able. Sister stating other family is disabled and not able to provide transportation for patient. JAQUELIN Fu also aware and explained they have explored several alf in this area and was declined.
--- NOTE | 2018-07-07 13:29 | NUR ---
Social Service Note JAQUELIN left a message for Insurance supervisor mechanic boilermaking Bibi [phone] to discuss other possible options for placement such a congregant living. Not return call at this time. JAQUELIN also spoke with patient's sister Vane [phone] to address family support in proving housing for patient in patient's preferred and contracted area of [place] [facility]. Sister stated due to patient's psychiatric behaviors family would not be willing to have patient in their homes. Also sister states most of the family require support, suffer with disabilities and have mental health disorders. Sister states however she will contact family to see if anyone would be open to help. Sister provided a SNF in her area [facility] [phone]. JAQUELIN contacted facility and spoke with Mary who declined referral due to not willing to do ANDREA, age and no plan upon discharge. Will continue to monitor and explore other options.
--- NOTE | 2018-07-07 17:17 | History & Physical ---
History and Physical History & Physicial Patient: [facility] Rec #: [id number] Date of Service: 07/06/18 DATE OF ADMISSION: 07/07/2018 CHIEF COMPLAINT: The patient is a 57-year-old female who presents with chief complaint of weakness. HISTORY OF PRESENT ILLNESS: The patient was recently admitted to [facility] on 05/22/2018 till 07/06/2018. Please see history and physical and discharge summary dictated at that time. The patient was diagnosed with right lower extremity cellulitis. The patient was discharged to [facility] facility. The patient returned immediately to [facility]. The [facility] facility stated they could not accept the patient and retuned back. REVIEW OF SYSTEMS: Unable to assess secondary to the patient's mental status. PAST MEDICAL HISTORY: Significant for, 1. Bipolar disorder. 2. Failure to thrive. 3. Anemia. 4. Neuralgia. PAST SURGICAL HISTORY: Unknown. CURRENT MEDICATIONS: Medications (Trade) Dose Ordered Sig/Mejia Route PRN Reason Start Time Stop Time Status Last Admin Dose Admin Acetaminophen/ Hydrocodone Bitart ([place] 10/325) 1 tab Q4H PRN ORAL Severe Pain (Pain Scale 7-10) 07/07/18 06:45 07/14/18 06:44 07/07/18 16:14 Brimonidine Tartrate (Alphagan) 1 drop BID BOTH EYES 07/07/18 09:00 08/06/18 08:59 07/07/18 10:49 Divalproex Sodium (Depakote ER) 500 mg BEDTIME ORAL 07/07/18 21:00 08/06/18 20:59 Heparin Sodium (Porcine) (Heparin 5000 units/ml) 5,000 units EVERY 12 HOURS SUBQ 07/07/18 09:00 08/06/18 08:59 Ibuprofen (Motrin) 600 mg Q6H PRN ORAL Moderate Pain (Pain Scale 4-6) 07/07/18 06:45 08/06/18 06:44 Latanoprost (Xalatan) 1 drop BEDTIME BOTH EYES 07/07/18 21:00 08/06/18 20:59 Polyethylene Glycol (Miralax) 17 gm DAILY PRN ORAL Constipation 07/07/18 06:45 08/06/18 06:44 Timolol Maleate (Timoptic 0.5% Op Soln) 1 drop TWICE A DAY BOTH EYES 07/07/18 09:00 08/06/18 08:59 07/07/18 10:49 ALLERGIES: 1. Keflex. 2. Erythromycin. 3. Gabapentin. 4. Fish. SOCIAL HISTORY: The patient is a resident of shelter. The patient denies tobacco or alcohol use. PHYSICAL EXAMINATION: Date Time Temp Pulse Resp B/P (MAP) Pulse Ox O2 Delivery O2 Flow Rate FiO2 07/07/18 12:42 97.2 07/07/18 12:00 98.0 71 20 105/61 (76) 98 07/07/18 09:00 Room Air 07/07/18 04:30 Room Air 07/07/18 01:24 97.2 66 18 112/74 97 Room Air 07/07/18 00:42 97.2 66 18 112/74 97 Room Air 07/07/18 00:13 97.2 66 18 112/74 97 Room Air GENERAL: The patient is a thin-appearing female, in no apparent distress. HEENT: Eyes - pupils are equal and responsive to light and accommodation. Extraocular movements are intact. NECK: Supple. No lymphadenopathy. CHEST: Lungs are clear to auscultation bilaterally without wheezes or rales. CARDIOVASCULAR: Regular rate. S1 and S2 normal without murmurs, rubs, or gallops. ABDOMEN: Soft, nontender, and nondistended. Positive bowel sounds. No evidence of hepatosplenomegaly. Currently, no rebound or guarding noted. EXTREMITIES: Right lower extremity is erythematous compared to the left, otherwise without clubbing, cyanosis, or edema. RECTAL/GENITAL: Refused. NEUROLOGIC: Cranial nerves II through XII are grossly intact without focal deficits. Motor strength is 5/5 bilaterally upper extremities but weaker on lower extremities. LABORATORY STUDIES: None. ASSESSMENT: This is a 57-year-old female with, 1. History colonization Vancomycin-resistant Enterococcus of the stool. 2. History of Cellulitis of the right lower extremity. 3. Bipolar depression. 4. Glaucoma. TREATMENT: psychiatric consultation with Dr. Mcintyre. farm worker consult for discharge planning. Petr Penndi,Niall MD Jul 07, 2018 17:17
[2018-07-07] MEDS: Latanoprost 0.005% Opth 2.5ml Soln BOTH EYES SCH ×2 (17:26→21:00)
--- NOTE | 2018-07-07 19:30 | NUR ---
HAND-OFF: Report given to PORSCHE Summers.
--- NOTE | 2018-07-07 19:55 | NUR ---
NURSE NOTES: Patient AOx4, able to verbalize needs, sitting on chair in front of TV, no s/s of acute distress. Bed on lowest position, call light within reach. No IV site.
[2018-07-07 20:00] VITALS: BP 100/62
[2018-07-07] MEDS ORDERED: Depakote ER 500mg tab ORAL SCH (21:00)
--- NOTE | 2018-07-07 23:56 | General Progress Note ---
Assessment/Plan Problem List: (1) Bipolar disorder ICD Codes: F31.9 - Bipolar disorder, unspecified SNOMED: [id number] Subjective Neurologic/Psychiatric: Reports: anxiety, depressed, emotional problems Allergies: Coded Allergies: CEPHALEXIN (Verified Allergy, Unknown, 05/18/18) CEPHALOSPORINS (Verified Allergy, Unknown, 05/18/18) ERYTHROMYCIN BASE (Verified Allergy, Unknown, 05/18/18) GABAPENTIN (Verified Allergy, Unknown, 05/18/18) SHELLFISH DERIVED (Verified Allergy, Unknown, 05/22/18) Objective Last 24 Hour Vital Signs Date Time Temp Pulse Resp B/P (MAP) Pulse Ox O2 Delivery O2 Flow Rate FiO2 07/07/18 21:00 Room Air 07/07/18 20:00 98.7 66 18 100/62 (75) 99 07/07/18 16:44 97.2 07/07/18 12:00 98.0 71 20 105/61 (76) 98 07/07/18 09:00 Room Air 07/07/18 04:30 Room Air 07/07/18 01:24 97.2 66 18 112/74 97 Room Air 07/07/18 00:42 97.2 66 18 112/74 97 Room Air 07/07/18 00:13 97.2 66 18 112/74 97 Room Air Intake and Output 07/06/18 07/07/18 19:00 07:00 Output Total 0 ml Balance 0 ml Output Urine Total 0 ml # Voids 1 Height (Feet): 5 Height (Inches): 4.00 Weight (Pounds): 150 General Appearance: WD/WN, no apparent distress, alert Neurologic: oriented x 3, responsive, normal mood/affect Jake Mcintyre MD Jul 07, 2018 23:56
[2018-07-08] VITALS: BP 109/69
[2018-07-08] MEDS: HYDROcodone/Acetamin 10/325 tab ORAL PRN ×3 (00:50→10:33)
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
--- NOTE | 2018-07-08 06:50 | NUR ---
NURSE NOTES: Patient now observed chopping her hair off with scissors she brought in herself. Patient may be a danger to herself. Left a message for Dr Mcintyre regarding earlier events. Will notify again.
--- NOTE | 2018-07-08 07:37 | NUR ---
HAND-OFF: Report given to PORSCHE Henderson and PORSCHE Oliver.
--- NOTE | 2018-07-08 07:47 | NUR ---
NURSE NOTES: Received patient from [facility], patient is up and awake, no distress noted, bed is locked and in lowest position, call light within reach, will continue to monitor with Melody MORRELL.
--- NOTE | 2018-07-08 08:47 | NUR ---
NURSE NOTES: RN received a telephone call from Dr. Mcintyre discussing patient behavior and patient stating she wants to leave and "get out of here", patient was agitated this morning but has been calm later this morning, RN discussed if patient had the capacity to make the decision to leave, Dr. Mcintyre reported to RN that patient does have the capacity to make the decision to leave and she would document that, in the meantime RN took telephone order for ativan and depakote, orders entered in to the computer as ordered, no distress noted, will continue to monitor.
[2018-07-08] MEDS: Brimonidine 0.2% Opth Sol BOTH EYES SCH (09:00)
[2018-07-08] MEDS: Heparin 5000 units/ml inj SUBQ SCH (09:00)
[2018-07-08] MEDS: Timolol 0.5% Op Soln 2.5ml BOTH EYES SCH (09:00)
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
--- NOTE | 2018-07-08 10:56 | General Progress Note ---
Assessment/Plan Assessment/Plan cluster b personality bipolar do the pt is on Depakote and Ativan she is refusing meds she may leave ama she has capacity Subjective Neurologic/Psychiatric: Reports: anxiety, emotional problems Allergies: Coded Allergies: CEPHALEXIN (Verified Allergy, Unknown, 05/18/18) CEPHALOSPORINS (Verified Allergy, Unknown, 05/18/18) ERYTHROMYCIN BASE (Verified Allergy, Unknown, 05/18/18) GABAPENTIN (Verified Allergy, Unknown, 05/18/18) SHELLFISH DERIVED (Verified Allergy, Unknown, 05/22/18) Subjective the pt was agitated and combative today. trowing objects at staff when she did not get more [place]. the pt stated that she wanted to leave ama. the pt is able to understand risks vs benefits of leaving the hospital. the pt is alert and oriented. the pt is refusing psych meds stated that she does not need any psychmeds Objective Last 24 Hour Vital Signs Date Time Temp Pulse Resp B/P (MAP) Pulse Ox O2 Delivery O2 Flow Rate FiO2 07/08/18 09:00 Room Air 07/08/18 00:00 97.9 69 16 109/69 (82) 98 07/07/18 21:00 Room Air 07/07/18 20:00 98.7 66 18 100/62 (75) 99 07/07/18 16:44 97.2 07/07/18 12:00 98.0 71 20 105/61 (76) 98 Intake and Output 07/07/18 07/08/18 18:59 06:59 Intake Total 820 ml Balance 820 ml Intake Oral 820 ml # Voids 2 2 Height (Feet): 5 Height (Inches): 4.00 Weight (Pounds): 150 General Appearance: no apparent distress, alert Neurologic: oriented x 3, responsive, normal mood/affect Jake Mcintyre MD Jul 08, 2018 10:56
[2018-07-08] MEDS ORDERED: LORazepam 1mg tab ORAL SCH (12:00)
--- NOTE | 2018-07-08 13:28 | NUR ---
RISK CONTROL ANALYST NOTES PT WAS DISCHARGED TO A BOARD AND CARE, UPON ARRIVAL PT BEGAN TO YELL AND REFUSE TO GET OFF THE GURNEY, PT RETURNED TO HOSPITAL. CONTINUES WITH COMBATIVE BEHAVIOR. PLACEMENT NEEDED, INSURANCE MADE AWARE.
--- NOTE | 2018-07-08 15:06 | Internal Med Progress Note ---
Subjective Date of Service: Jul 08, 2018 Physician Name Sadi Gaviria Attending Physician Niall Kraft MD Current Medications Medications (Trade) Dose Ordered Sig/Mejia Route PRN Reason Start Time Stop Time Status Last Admin Dose Admin Acetaminophen/ Hydrocodone Bitart ([place] 10/325) 1 tab Q4H PRN ORAL Severe Pain (Pain Scale 7-10) 07/07/18 06:45 07/14/18 06:44 07/08/18 10:33 Brimonidine Tartrate (Alphagan) 1 drop BID BOTH EYES 07/07/18 09:00 08/06/18 08:59 07/07/18 17:26 Divalproex Sodium (Depakote) 250 mg EVERY 12 HOURS ORAL 07/08/18 09:00 08/07/18 08:59 Heparin Sodium (Porcine) (Heparin 5000 units/ml) 5,000 units EVERY 12 HOURS SUBQ 07/07/18 09:00 08/06/18 08:59 Ibuprofen (Motrin) 600 mg Q6H PRN ORAL Moderate Pain (Pain Scale 4-6) 07/07/18 06:45 08/06/18 06:44 Latanoprost (Xalatan) 1 drop BEDTIME BOTH EYES 07/07/18 21:00 08/06/18 20:59 Lorazepam (Ativan) 2 mg Q6HR ORAL 07/08/18 12:00 07/15/18 11:59 Polyethylene Glycol (Miralax) 17 gm DAILY PRN ORAL Constipation 07/07/18 06:45 08/06/18 06:44 Timolol Maleate (Timoptic 0.5% Op Soln) 1 drop TWICE A DAY BOTH EYES 07/07/18 09:00 08/06/18 08:59 07/07/18 17:29 Allergies: Coded Allergies: CEPHALEXIN (Verified Allergy, Unknown, 05/18/18) CEPHALOSPORINS (Verified Allergy, Unknown, 05/18/18) ERYTHROMYCIN BASE (Verified Allergy, Unknown, 05/18/18) GABAPENTIN (Verified Allergy, Unknown, 05/18/18) SHELLFISH DERIVED (Verified Allergy, Unknown, 05/22/18) ROS Limited/Unobtainable: No Constitutional: Reports: no symptoms HEENT: Reports: no symptoms Cardiovascular: Reports: no symptoms Respiratory: Reports: no symptoms Gastrointestinal/Abdominal: Reports: no symptoms Genitourinary: Reports: no symptoms Neurologic/Psychiatric: Reports: no symptoms Subjective 57 YO F with history of cellulitis right leg admitted with vancomycin resistant enterococcus rectum. Cover for Int Med-Dr Kraft Objective Last Vital Signs Date Time Temp Pulse Resp B/P (MAP) Pulse Ox O2 Delivery O2 Flow Rate FiO2 07/08/18 11:03 97.9 07/08/18 09:00 Room Air 07/08/18 00:00 69 16 109/69 (82) 98 General Appearance: WD/WN, no apparent distress, alert EENT: PERRL/EOMI, normal ENT inspection, TMs normal Neck: non-tender, normal alignment, supple, normal inspection Cardiovascular: normal peripheral pulses, normal rate, regular rhythm, no gallop/murmur, no JVD Respiratory/Chest: chest wall non-tender, lungs clear, normal breath sounds, no respiratory distress, no accessory muscle use Abdomen: normal bowel sounds, non tender, soft, no organomegaly, no mass Extremities: normal range of motion Neurologic: bacon de rinder II-XII grossly normal, no motor/sensory deficits Skin: normal pigmentation, warm/dry Intake and Output 07/07/18 07/08/18 19:00 07:00 Intake Total 820 ml Balance 820 ml Intake Oral 820 ml # Voids 2 2 Assessment/Plan Problem List: (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
--- NOTE | 2018-07-08 15:15 | NUR ---
NURSE NOTES: Patient left against medical advice, paperwork reviewed and patient refused to sign paperwork, ID band removed, patient has no IV access, belongings packed up, no belongings discrepancies noted, primary doctor, nursing extension supervisor, and charge nurse notified and aware, patient transported downstairs via wheelchair and assisted outside by RN
--- NOTE | 2018-07-10 14:43 | NUR ---
*-* INSURANCE *-* ALL CLINICALS HAVE BEEN FAXED TO: [facility] F:[phone] P:[phone]
--- NOTE | 2018-07-10 19:36 | Discharge Summary ---
Discharge Summary Discharge Summary _ DATE OF ADMISSION: 07/07/2018 DATE OF DISCHARGE: 07/08/2018 Patient left AGAINST MEDICAL ADVICE: REASON FOR ADMISSION: 57 years old female with past medical history of bipolar disorder, failure to thrive, anemia, neuralgia, presented with chief complaints of weakness. Patient was recently admitted to [facility] from 05/22 until 07/06. At that time patient was diagnosed with right lower extremity cellulitis. Patient was subsequently discharged to [facility] facility. [facility] facility stated, that they could not accept the patient and returned patient back. CONSULTANTS: psychiatrist [facility]: Patient admitted to medical surgical floor. Psychiatric evaluation was requested. petroleum refinery worker consult was requested for discharge planning. Eye drops administered. Psychiatrist seen in evaluation patient. Patient was prescribed Depakote and Ativan. Patient declined these medications. According to psychiatrist evaluation, patient had a capacity to make informed decision and may leave AGAINST MEDICAL ADVICE, if she desires. petroleum refinery worker seen and evaluated patient to assess concerns and provide assistance in facilitation of discharge plan. Patient decided to leave the hospital after conversation with criminal justice social worker due to the fact that criminal justice social worker could only offer services in [facility] at this time, while patient desired to go back to [place], when her family resides. Despite multiply efforts from criminal justice social worker to locate multiply family members, she was unable to contact any of the family members. Patient declined longterm placement. Patient was verbally clear, that she did not require any assistance from criminal justice social worker or the hospital. Patient decided to leave AGAINST MEDICAL ADVICE. The risks and consequences of signing AGAINST MEDICAL ADVICE were discussed with patient in detail. Patient verbalized understanding, nevertheless left AMA. FINAL DIAGNOSES: Bipolar disorder Cluster B personality disorder History of cellulitis right lower extremity History of VRE colonization of the stool Glaucoma I have been assigned to dictate discharge summary for this account. \ I was not involved in the patient's management. Georgette Bacon NP Jul 10, 2018 19:36
--- NOTE | 2018-07-11 15:31 | NUR ---
*-* INSURANCE *-* DISCHARGE SUMMARY BEEN FAXED TO: [facility] F:[phone] P:[phone]
== END 2018-07-08 16:18 | disposition home or self-care (01) | DRG 753 ==
LOC: EDBD 00:08 → EDUNIT# 00:08 → EMR 00:36 → EDBEDREQ 00:40 → 4E 01:14
DX: F31.9 Bipolar disorder, unspecified (principal); F60.89 Other specific personality disorders; Z66 Do not resuscitate; H40.9 Unspecified glaucoma; Z59.0 Homelessness; Z53.21 Procedure and treatment not carried out due to patient leaving prior to being seen by health care provider
CPT/HCPCS: 87081; 99285